=== PATIENT | female | born 1945 | race Caucasian/White ===

== ENCOUNTER 2022-05-22 08:23 | Outpatient (CLI) | payer MEDICARE, BC, SELFPAY | END 2022-05-22 08:24 | disposition home or self-care (01) | LOC: RAD 08:24 | PROVIDERS: PCP Surgery; Visit Provider Family Medicine | DX: M54.16 Radiculopathy, lumbar region (principal); M51.36 Other intervertebral disc degeneration, lumbar region | CPT/HCPCS: 64483; J1100; Q9966 ==

== ENCOUNTER 2022-06-14 13:00 | Outpatient (RCR) | payer MEDICARE, BC, SELFPAY | END 2023-01-16 16:30 | disposition home or self-care (01) | PROVIDERS: PCP Surgery; Visit Provider Family Medicine | DX: M54.16 Radiculopathy, lumbar region (principal); Z51.89 Encounter for other specified aftercare | CPT/HCPCS: 97110; 97162 ==

== ENCOUNTER 2023-02-20 11:34 | Outpatient (CLI) | payer MEDICARE, BC, SELFPAY ==
[2023-02-20 11:45] VITALS: BP 117/75; PULSE 71; RESP 16; O2SAT 100
[2023-02-20] MEDS: TETRACAINE 0.5% OPHTH 1 DROP EYE-BOTH ×3 (11:49→12:32)
[2023-02-20] MEDS: BRIMONIDINE TARTRATE 0.2% OPHTH 1 DROP EYE-BOTH ×2 (11:51→12:48)
--- NOTE | 2023-02-20 13:47 | P.OPTPRC_ITS ---
Procedure Note Date of procedure: 02/20/23 Will [facility] bill your pro fee for this procedure?: Yes Procedure Description: SURGEON: Akanksha Carpenter MD PREOPERATIVE DIAGNOSIS: Posterior capsular opacity, right and left eye POSTOPERATIVE DIAGNOSIS: Posterior capsular opacity, right and left eye PROCEDURE: YAG laser capsulotomy, both eyes ANESTHESIA: Topical. ESTIMATED BLOOD LOSS: None PATHOLOGY SPECIMEN: None COMPLICATIONS: None INDICATIONS: See consult note for details. The risks, benefits and alternatives of the procedure were explained to the patient, who elected to proceed and signed informed consent to do so. PROCEDURE: The patient was brought to the pre-holding area where the right and left eyes were identified as the operative eyes. I placed my initials above the eyes. The following was given in both eyes: The patient received 2 sets of 1 drop of 0.5% tetracaine and 1 drop of 1% tropicamide. They also received 1 drop of 0.2% brimonidine. They received 1 drop of 0.5% tetracaine immediately prior to bringing them back for the procedure. The patient was then brought to the procedure room where the right and left eyes were again identified as the operative eyes. A YAG Rafael capsulotomy lens was placed on the right eye. The laser was administered using a total number of 13 in shots with an energy of 2.4 mJ per shot for a total energy of 31 mJ. The patient tolerated the procedure well. A YAG Rafael capsulotomy lens was placed on the left eye. The laser was administered using a total number of 10 shots with an energy of 2.4 mJ per shot for a total energy of 24 mJ. The patient tolerated the procedure well. DISPOSITION: The patient was taken back to the pre-holding area and given 1 drop of 0.2% brimonidine in both eyes. They were discharged to home in stable condition. The patient was instructed to call me or go to the emergency department with any sudden change, including dramatic loss of vision, severe pain in the eye or eyebrow region, nausea, or vomiting. The patient was instructed to use the 0.2% brimonidine 1 drop 2 times a day in both eyes for 1 week. The patient will follow up in the clinic in 1-2 weeks.
== END 2023-02-20 12:48 | disposition home or self-care (01) ==
LOC: EYE PRC 11:37
PROVIDERS: PCP Surgery; Visit Provider Ophthalmology
DX: H26.9 Unspecified cataract (principal)
CPT/HCPCS: 66821; A9270

== ENCOUNTER 2023-04-18 13:04 | Emergency (ER) | payer MEDICARE, BC, SELFPAY ==
[2023-04-18 13:08] VITALS: BP 139/89; PULSE 71; RESP 18; TEMP 37.1; O2SAT 98; BMI 25.5
--- NOTE | 2023-04-18 13:22 | CRLHL7_ITS ---
For Patients: As a result of the Century Cures Act, medical imaging exams and procedure reports are released immediately into your electronic medical record. You may view this report before your referring provider. If you have questions, please contact your health care provider. INDICATION: Falls TECHNIQUE: CT head without contrast. COMPARISON: Head CT 12/08/2021 FINDINGS: CSF spaces: Within normal limits for age. Brain parenchyma: The diaz-white differentiation is normal. No sign of mass, hemorrhage, or midline shift. Skull base and calvarium: The visualized paranasal sinuses and mastoid air cells demonstrate no acute or significant findings. The visualized orbits are grossly unremarkable. No skull fractures. Frontal scalp hematoma. Atherosclerosis. IMPRESSION: Frontal scalp hematoma without calvarial fracture or intracranial bleed. Please note that all CT scans at this facility use dose modulation, iterative reconstruction, and/or weight-based dosing when appropriate to reduce radiation dose to as low as reasonably achievable. Dictated by Betito Harris MD @ 04/18/2023 3:21:07 PM (Electronically Signed)
--- NOTE | 2023-04-18 13:27 | CRLHL7_ITS ---
For Patients: As a result of the Century Cures Act, medical imaging exams and procedure reports are released immediately into your electronic medical record. You may view this report before your referring provider. If you have questions, please contact your health care provider. INDICATION: Trauma. Fall. TECHNIQUE: Two views of the left forearm. FINDINGS: On 1 of the 2 views there is the suggestion of a left radial neck fracture. This is not seen on the other view. There is an apparent soft tissue defect along the olecranon. Please correlate clinically. IMPRESSION: Possible subtle nondisplaced fracture of the left radial neck. Additional imaging may be helpful for confirmation. Dictated by Cristofer Rod MD @ 04/18/2023 2:23:34 PM (Electronically Signed)
--- NOTE | 2023-04-18 13:50 | CRLHL7_ITS ---
For Patients: As a result of the Cures Act, medical imaging exams and procedure reports are released immediately into your electronic medical record. You may view this report before your referring provider. If you have questions, please contact your health care provider. INDICATION: Trauma. Fall. TECHNIQUE: Chest and 2 detailed views of the right-sided ribs. FINDINGS: Clear lungs. No pneumothorax. Overall heart size is toward the upper limit of normal. Detailed views of the right-sided ribs are negative for acute displaced rib fractures. Vascular stent within the soft tissues of the proximal right upper extremity. Two level lumbar spine fusion incompletely visualized. IMPRESSION: 1. No acute cardiopulmonary process identified. 2. No acute displaced right-sided rib fractures identified. Dictated by Cristofer Rod MD @ 04/18/2023 2:22:20 PM (Electronically Signed)
--- NOTE | 2023-04-18 14:28 | CRLHL7_ITS ---
For Patients: As a result of the Cures Act, medical imaging exams and procedure reports are released immediately into your electronic medical record. You may view this report before your referring provider. If you have questions, please contact your health care provider. INDICATION: Trauma. Fall. Pain. TECHNIQUE: Three views of the left elbow. COMPARISON: Two views of the left forearm performed earlier on the same date. FINDINGS: There is a subtle radial cleft along the left radial neck laterally. There is no anterior elbow effusion. A subtle fracture is not confidently identified despite the appearance on the forearm x-rays from the same date. IMPRESSION: No definite left radial neck fracture. Dictated by Cristofer Rod MD @ 04/18/2023 3:37:52 PM (Electronically Signed)
--- NOTE | 2023-04-18 18:49 | ED_ITS ---
HPI - General Adult General Date Seen: 04/18/23 Chief complaint: Fall/Minor Trauma Stated complaint: Fall Time Seen by Provider: 04/18/23 13:15 Source: patient Mode of arrival: EMS Limitations: no limitations History of Present Illness HPI narrative: Patient is a 77-year-old female who was walking across the parking lot and believes that she did not lift her foot high enough and stumbled on the curb. She fell forward hitting her forehead on the pavement and landing on her outstretched left wrist. She has some pain in the left elbow and a deep laceration above the right eye. There is no loss of consciousness. She was unable to get up on her own and paramedics were called. She is brought in by EMS. She denies any neck pain. She does have some pain in the right side of her chest if she tries to sit up quickly. She is on aspirin but no other blood thinner. She has multiple medical problems. Related Data Home Medications Medication Instructions Recorded Confirmed amlodipine 5 mg tablet 5 mg PO BID 03/05/23 03/05/23 aspirin 81 mg capsule 81 mg PO QDAY 03/05/23 03/05/23 biotin 10,000 mcg capsule 10 cap PO DAILY 03/05/23 03/05/23 carvedilol 6.25 mg tablet (Coreg) 6.25 mg PO BID 03/05/23 03/05/23 coenzyme Q10 100 mg capsule mg PO DAILY 03/05/23 03/05/23 copper gluconate 2 mg capsule 2 mg PO QDAY 03/05/23 03/05/23 cyanocobalamin (vitamin B-12) 1,000 mcg PO 03/05/23 03/05/23 1,000 mcg tablet duloxetine 60 mg capsule,delayed 60 mg PO QDAY 03/05/23 03/05/23 release esomeprazole magnesium 20 mg 20 mg PO QDAY 03/05/23 03/05/23 capsule,delayed release (Nexium) folic acid 5 mg-vitamin B complex 1 tab PO QDAY 03/05/23 03/05/23 with C no.17 tablet insulin NPH isoph U-100 human 100 25 unit subcut QAM 03/05/23 03/05/23 unit/mL (3 mL) subcutaneous pen (Novolin N FlexPen) magnesium oxide 400 mg (241.3 mg 400 mg PO QDAY 03/05/23 03/05/23 magnesium) tablet metoprolol succinate 25 mg mg PO 03/05/23 03/05/23 tablet,extended release 24 hr mycophenolate sodium 180 mg 720 mg PO BID 03/05/23 03/05/23 tablet,delayed release (Myfortic) prednisone 5 mg tablet 5 mg PO QDAY 03/05/23 03/05/23 rosuvastatin 40 mg tablet 40 mg PO 03/05/23 03/05/23 sodium di- and 1 tab PO QDAY 03/05/23 03/05/23 monophosphate-potassium phos monobasic 250 mg tablet (V-Reyx-Hlzcdke) sulfamethoxazole 400 1 tab PO QDAY 03/05/23 03/05/23 mg-trimethoprim 80 mg tablet (Bactrim) tacrolimus 1 mg capsule, 3 mg PO Q12H 03/05/23 03/05/23 immediate-release Allergies Allergy/AdvReac Type Severity Reaction Status Date / Time JOEL Inhibitors Allergy Verified 04/18/23 13:08 amitriptyline Allergy Verified 04/18/23 13:08 amoxicillin Allergy Verified 04/18/23 13:08 bisacodyl [From PEG-Prep] Allergy Verified 04/18/23 13:08 bitolterol Allergy Verified 04/18/23 13:08 clopidogrel Allergy Verified 04/18/23 13:08 Penicillins Allergy Verified 04/18/23 13:08 polyethylene glycol 3350 Allergy Verified 04/18/23 13:08 [From PEG-Prep] potassium chloride Allergy Verified 03/05/23 10:12 [From PEG-Prep] sodium bicarbonate Allergy Verified 04/18/23 13:08 [From PEG-Prep] sodium chloride Allergy Verified 04/18/23 13:08 [From PEG-Prep] [id number] Reductase Allergy Verified 04/18/23 13:08 Inhibitor venlafaxine [From Effexor] Allergy Verified 04/18/23 13:08 Review of Systems Narrative: Review of systems is outlined above otherwise noted to be negative. [facility] Medical History (Updated 04/18/23 @ 19:12 by Terrell Ashby MD) End stage renal disease on dialysis ?N18.6 - End stage renal disease (ICD-10) ?Z99.2 - Dependence on renal dialysis (ICD-10) History of squamous cell carcinoma of skin ?Z85.828 - Personal history of other malignant neoplasm of skin (ICD-10) Spinal stenosis of lumbar region ?M48.061 - Spinal stenosis, lumbar region without neurogenic claudication (ICD-10) Urolithiasis ?N20.9 - Urinary calculus, unspecified (ICD-10) Tubular adenoma of colon (10/25/09) ?D12.6 - Benign neoplasm of colon, unspecified (ICD-10) Sepsis (02/22/13) ?A41.9 - Sepsis, unspecified organism (ICD-10) Painless hematuria ?R31.9 - Hematuria, unspecified (ICD-10) Osteopenia (10/25/09) ?M85.80 - Other specified disorders of bone density and structure, unspecified site (ICD-10) Hypertension (07/26/09) ?I10 - Essential (primary) hypertension (ICD-10) Hyperlipidemia (07/26/09) ?E78.5 - Hyperlipidemia, unspecified (ICD-10) Gastroesophageal reflux (07/26/09) ?K21.9 - Gastro-esophageal reflux disease without esophagitis (ICD-10) Fibromyalgia (04/20/11) ?M79.7 - Fibromyalgia (ICD-10) Depression (07/26/09) ?F32.A - Depression, unspecified (ICD-10) Bimalleolar fracture ?S82.843A - Displaced bimalleolar fracture of unspecified lower leg, initial encounter for closed fracture (ICD-10) Fhokl-ni-fdcsnbl renal failure (02/22/13) ?N17.9 - Acute kidney failure, unspecified (ICD-10) ?N18.9 - Chronic kidney disease, unspecified (ICD-10) Acute pyelonephritis (02/22/13) ?N10 - Acute pyelonephritis (ICD-10) Type 2 diabetes mellitus ?E11.9 - Type 2 diabetes mellitus without complications (ICD-10) CAD (coronary artery disease) ?I25.10 - Atherosclerotic heart disease of [place] coronary artery without angina pectoris (ICD-10) Surgical History (Updated 03/05/23 @ 10:20 by Cordelia Waters ~ COMPLIANCE ADMINISTRATOR, COMPLIANCE ADMINISTRATOR) History of kidney transplant (~09/2022) ?Z94.0 - Kidney transplant status (ICD-10) History of hysterectomy ?Z90.710 - Acquired absence of both cervix and uterus (ICD-10) History of gastric bypass ?Z98.84 - Bariatric surgery status (ICD-10) History of fusion of cervical spine ?Z98.1 - Arthrodesis status (ICD-10) History of lumbar surgery (04/20/11) ?Z98.890 - Other specified postprocedural states (ICD-10) History of heart artery stent ?Z95.5 - Presence of coronary angioplasty implant and graft (ICD-10) Status post open reduction with internal fixation (ORIF) of fracture of ankle (12/18/21) ?Z98.890 - Other specified postprocedural states (ICD-10) ?Z87.81 - Personal history of (healed) traumatic fracture (ICD-10) Social History Smoking Status: Former smoker Do you use any of these nicotine containing products: None Second hand tobacco smoke exposure: No How often do you have a drink containing alcohol: never AUDIT-C Alcohol total score: 0 Non-prescribed substance use: denies use Exam Narrative: Exam Narrative: Vitals noted. HEENT: She has a large contusion above her right eye. There is a 3 cm laceration along the eyebrow. There is already extensive bruising swelling above and below the eye. No underlying bony tenderness. The remainder of her scalp is nontender. Conjunctiva clear. Tympanic membranes are pearly white bilaterally. Posterior pharynx is clear without erythema or exudate. Neck is supple without adenopathy, thyromegaly, carotid bruit. Lungs: Clear to auscultation in all momin. No wheezes, rales, rhonchi. Heart: Regular rate and rhythm without murmur. Abdomen: Soft and nontender. No guarding, rigidity, rebound. Bowel sounds are normal. No palpable masses. Extremities: No cyanosis or edema. Good distal pulses. She has tenderness with pronation and supination of the left forearm. No pain at the wrist. There is pain of the proximal forearm. Skin: No abnormalities noted of the exposed skin. Multiple scattered bruises. Neurologic: Awake, alert, fully oriented. Neurologic exam is nonfocal. Const: Vital Signs, click to edit/add: Vital Signs - 24 hr 04/18/23 13:08 Temperature 98.8 F Pulse Rate [Right Pulse Oximeter] 71 Respiratory Rate 18 Blood Pressure [Le ft Upper Arm] 139/89 Pulse Oximetry 98 Oxygen Delivery Me thod Room Air Course Course Hospital Course: Patient seen and examined. X-rays of her forearm, elbow, chest with right rib details are ordered. CT of her head is ordered. Her tetanus is up-to-date. Reevaluation(s) Reevaluation #1: Her chest x-ray with rib right details is negative for fracture. CT of her head is unremarkable. X-ray of her left forearm shows what appears to be a nondisplaced proximal radial head fracture. X-rays of the elbow show a posterior fat pad but it is more difficult to see the fracture on these views. Reevaluation #2: Patient is placed in a posterior splint from a distal forearm through mid humerus. The elbow is held at 90? with the forearm in full supination. She is also placed in a sling for comfort. EKG shows normal sinus rhythm with some PACs. Rate is 72. No acute findings. CT of her head is unremarkable. Reevaluation #3: Following verbal consent her laceration is prepped and draped in sterile fashion scrubbed with a Betadine solution. 1% lidocaine with epinephrine is instilled for local anesthesia. The defect is closed with six simple interrupted sutures of 4-0 Ethilon. She tolerated this well. Good wound edge approximation and hemostasis our chief. Vital Signs Vital signs: Initial Vital Signs Temperature 98.8 F 04/18/23 13:08 Temperature Source Temporal Artery Scan 04/18/23 13:08 Pulse Rate 71 04/18/23 13:08 Pulse Rhythm Regular 04/18/23 13:08 Pulse Strength 3+ Normal 04/18/23 13:08 Respiratory Rate 18 04/18/23 13:08 Blood Pressure 139/89 04/18/23 13:08 Blood Pressure Mean 105 04/18/23 13:08 Blood Pressure Position Supine 04/18/23 13:08 Pulse Oximetry 98 04/18/23 13:08 Oxygen Delivery Method Room Air 04/18/23 13:08 Vital Signs Temperature 98.8 F 04/18/23 13:08 Pulse Rate 71 04/18/23 13:08 Respiratory Rate 18 04/18/23 13:08 Blood Pressure 139/89 04/18/23 13:08 Pulse Oximetry 98 04/18/23 13:08 Oxygen Delivery Method Room Air 04/18/23 13:08 Temperature 98.8 F 04/18/23 13:08 Pulse Rate 71 04/18/23 13:08 Respiratory Rate 18 04/18/23 13:08 Blood Pressure 139/89 04/18/23 13:08 Pulse Oximetry 98 04/18/23 13:08 Oxygen Delivery Method Room Air 04/18/23 13:08 Discharge Plan Discharge Clinical Impression: Facial laceration, Closed fracture of head of left radius Patient Disposition: Home, Self-Care Condition: Improved Additional Instructions: Keep splint on until seen in follow up. Ice. Oxycodone for severe pain. Ask if your PCP will see you for the fracture or if they want you to see Ortho. Sutures out in 7-10 days. Topical antibiotic ointment. Ice, ice, ice. Prescriptions: No Action rosuvastatin 40 mg tablet 40 mg PO coenzyme Q10 100 mg capsule PO DAILY metoprolol succinate 25 mg tablet extended release 24 hr PO biotin 10,000 mcg capsule 10 cap PO DAILY esomeprazole magnesium [Nexium] 20 mg capsule,delayed release(DR/EC) 20 mg PO QDAY cyanocobalamin (vitamin B-12) 1,000 mcg tablet 1,000 mcg PO copper gluconate 2 mg capsule 2 mg PO QDAY folic acid-B complex,C no.17 5 mg tablet 1 tab PO QDAY aspirin 81 mg capsule 81 mg PO QDAY duloxetine 60 mg capsule,delayed release(DR/EC) 60 mg PO QDAY amlodipine 5 mg tablet 5 mg PO BID carvedilol [Coreg] 6.25 mg tablet 6.25 mg PO BID Rx Instructions: must administer with a meal/food W-Vsvf-Nbcivjw 250 mg tablet 1 tab PO QDAY magnesium oxide 400 mg (241.3 mg magnesium) tablet 400 mg PO QDAY mycophenolate sodium [Myfortic] 180 mg tablet,delayed release (DR/EC) 720 mg PO BID Novolin N FlexPen 100 unit/mL (3 mL) insulin pen 25 unit subcut QAM prednisone 5 mg tablet 5 mg PO QDAY sulfamethoxazole-trimethoprim [Bactrim] 400-80 mg tablet 1 tab PO QDAY tacrolimus 1 mg capsule 3 mg PO Q12H Follow Up/Referrals: Sanjay Allan MD [Primary Care Provider] - Stand Alone Forms: [facility] Info Instructions
== END 2023-04-18 15:56 | disposition home or self-care (01) ==
PROVIDERS: Emergency Provider Family Medicine; PCP Surgery
DX: S01.111A Laceration without foreign body of right eyelid and periocular area, initial encounter (principal); S52.122A Displaced fracture of head of left radius, initial encounter for closed fracture; W18.09XA Striking against other object with subsequent fall, initial encounter
CPT/HCPCS: 12013; 29105; 70450; 71101; 73070; 73080; 73090; 99283; 99285

== ENCOUNTER 2023-04-22 13:39 | Emergency (ER) | payer MEDICARE, BC, SELFPAY ==
[2023-04-22] VITALS (56 sets, daily range): BP systolic 104–154; BP diastolic 52–106; PULSE 60–108; RESP 14–18; TEMP 35; O2SAT 89–100; BMI 24.1
--- NOTE | 2023-04-22 13:53 | CRLHL7_ITS ---
For Patients: As a result of the Cures Act, medical imaging exams and procedure reports are released immediately into your electronic medical record. You may view this report before your referring provider. If you have questions, please contact your health care provider. Indication: Left facial droop, speech issues Technique: Volumetric multidetector CT images of the head were obtained without the administration of low osmolar intravenous contrast. Comparison: CT head April 18, 2023 Findings: There is interval development of a small intra-axial hemorrhage within the left basal ganglia with minimal peripheral vasogenic edema. No evidence of extra-axial hemorrhage. There is no mass effect or midline shift. There is age-related cortical atrophy with mild sulcal widening and ex vacuo dilatation of the lateral ventricles. There are chronic small vessel disease changes in the subcortical and periventricular white matter without lost diaz-white differentiation. There is improved right periorbital, preseptal soft tissue swelling from comparison. The bony calvarium is grossly intact. The paranasal sinuses are clear. The mastoid air cells are well aerated. Impression: Interval development of a small likely hemorrhagic lacunar infarct of the left basal ganglia with minimal vasogenic edema likely representing subacute changes. Otherwise, no evidence of posttraumatic subdural or subarachnoid. No other acute intracranial abnormalities are identified. Improved right periorbital, preseptal soft tissue swelling from comparison. Findings discussed with Yany Frost at 2:30 p.m. April 22, 20[address] Please note that all CT scans at this facility use dose modulation, iterative reconstruction, and/or weight-based dosing when appropriate to reduce radiation dose to as low as reasonably achievable. Dictated by Stefan Hanna MD @ 04/22/2023 2:31:14 PM (Electronically Signed)
[2023-04-22 14:37] LABS: Glucose, Point-of-Care* 229 mg/dl (60-115)
--- NOTE | 2023-04-22 14:39 | ED.NEUROSD ---
HPI - Neuro Symptoms/Deficit General Time Seen by Provider: 14:39 Date Seen: 04/22/23 Chief Complaint: Neuro Symptoms/Altered Deficit Stated Complaint: Trouble speaking, L side of face is droopy Time Seen by Provider: 04/22/23 13:52 Source: patient, RN notes reviewed and old records reviewed Mode of arrival: ambulatory Limitations: no limitations History of Present Illness HPI Narrative: Patient is brought in by family member for symptoms of right facial drooping and slurred speech starting about 11:00 a.m. this morning. Nursing staff alerted me immediately and she was seen. This was noted to be at 1:50 p.m. when I looked at the clock before walking in to see her. She notes she was going out with friends for lunch, noted slurred speech and facial droop. She had a recent fall. Review of her records show she was in the ER on April 18, had a facial laceration with right eyebrow lack repaired, had CTs done, was found to have her radius fracture and is splinted on the left arm. She has no new trauma. She is only on aspirin. Did review her chart after seen her and she is status post kidney transplant, was done at [facility]. Patient does not note any changes in symptoms and extremities. Of note her left arm is immobilized. But no right arm numbness tingling incoordination. Nursing staff felt that her gait was possibly unsteady coming in. Onset (ago): hour(s) Timing confirmed by: family member Location: speech, right face and dysarthria History of same: No Related Data Home Medications Medication Instructions Recorded Confirmed amlodipine 5 mg tablet 5 mg PO BID 03/05/23 03/05/23 aspirin 81 mg capsule 81 mg PO QDAY 03/05/23 03/05/23 biotin 10,000 mcg capsule 10 cap PO DAILY 03/05/23 03/05/23 carvedilol 6.25 mg tablet (Coreg) 6.25 mg PO BID 03/05/23 03/05/23 coenzyme Q10 100 mg capsule mg PO DAILY 03/05/23 03/05/23 copper gluconate 2 mg capsule 2 mg PO QDAY 03/05/23 03/05/23 cyanocobalamin (vitamin B-12) 1,000 mcg PO 03/05/23 03/05/23 1,000 mcg tablet duloxetine 60 mg capsule,delayed 60 mg PO QDAY 03/05/23 03/05/23 release esomeprazole magnesium 20 mg 20 mg PO QDAY 03/05/23 03/05/23 capsule,delayed release (Nexium) folic acid 5 mg-vitamin B complex 1 tab PO QDAY 03/05/23 03/05/23 with C no.17 tablet insulin NPH isoph U-100 human 100 25 unit subcut QAM 03/05/23 03/05/23 unit/mL (3 mL) subcutaneous pen (Novolin N FlexPen) magnesium oxide 400 mg (241.3 mg 400 mg PO QDAY 03/05/23 03/05/23 magnesium) tablet metoprolol succinate 25 mg mg PO 03/05/23 03/05/23 tablet,extended release 24 hr mycophenolate sodium 180 mg 720 mg PO BID 03/05/23 03/05/23 tablet,delayed release (Myfortic) prednisone 5 mg tablet 5 mg PO QDAY 03/05/23 03/05/23 rosuvastatin 40 mg tablet 40 mg PO 03/05/23 03/05/23 sodium di- and 1 tab PO QDAY 03/05/23 03/05/23 monophosphate-potassium phos monobasic 250 mg tablet (B-Ytnl-Aonalnk) sulfamethoxazole 400 1 tab PO QDAY 03/05/23 03/05/23 mg-trimethoprim 80 mg tablet (Bactrim) tacrolimus 1 mg capsule, 3 mg PO Q12H 03/05/23 03/05/23 immediate-release Allergies Allergy/AdvReac Type Severity Reaction Status Date / Time JOEL Inhibitors Allergy Verified 04/22/23 13:52 amitriptyline Allergy Verified 04/22/23 13:52 amoxicillin Allergy Verified 04/22/23 13:52 bisacodyl [From PEG-Prep] Allergy Verified 04/22/23 13:52 bitolterol Allergy Verified 04/22/23 13:52 clopidogrel Allergy Verified 04/22/23 13:52 Penicillins Allergy Verified 04/22/23 13:52 polyethylene glycol 3350 Allergy Verified 04/22/23 13:52 [From PEG-Prep] potassium chloride Allergy Verified 03/05/23 10:12 [From PEG-Prep] sodium bicarbonate Allergy Verified 04/22/23 13:52 [From PEG-Prep] sodium chloride Allergy Verified 04/22/23 13:52 [From PEG-Prep] Mpoizar-NEN-RqP Reductase Allergy Verified 04/22/23 13:52 Inhibitor venlafaxine [From Effexor] Allergy Verified 04/18/23 13:08 Review of Systems Status of ROS: Reports: 6 or more systems reviewed and unremarkable except as noted in History and below [facility] Medical History End stage renal disease on dialysis ?N18.6 - End stage renal disease (ICD-10) ?Z99.2 - Dependence on renal dialysis (ICD-10) History of squamous cell carcinoma of skin ?Z85.828 - Personal history of other malignant neoplasm of skin (ICD-10) Spinal stenosis of lumbar region ?M48.061 - Spinal stenosis, lumbar region without neurogenic claudication (ICD-10) Urolithiasis ?N20.9 - Urinary calculus, unspecified (ICD-10) Tubular adenoma of colon (10/25/09) ?D12.6 - Benign neoplasm of colon, unspecified (ICD-10) Sepsis (02/22/13) ?A41.9 - Sepsis, unspecified organism (ICD-10) Painless hematuria ?R31.9 - Hematuria, unspecified (ICD-10) Osteopenia (10/25/09) ?M85.80 - Other specified disorders of bone density and structure, unspecified site (ICD-10) Hypertension (07/26/09) ?I10 - Essential (primary) hypertension (ICD-10) Hyperlipidemia (07/26/09) ?E78.5 - Hyperlipidemia, unspecified (ICD-10) Gastroesophageal reflux (07/26/09) ?K21.9 - Gastro-esophageal reflux disease without esophagitis (ICD-10) Fibromyalgia (04/20/11) ?M79.7 - Fibromyalgia (ICD-10) Depression (07/26/09) ?F32.A - Depression, unspecified (ICD-10) Bimalleolar fracture ?S82.843A - Displaced bimalleolar fracture of unspecified lower leg, initial encounter for closed fracture (ICD-10) Uuwur-ft-kyzxgja renal failure (02/22/13) ?N17.9 - Acute kidney failure, unspecified (ICD-10) ?N18.9 - Chronic kidney disease, unspecified (ICD-10) Acute pyelonephritis (02/22/13) ?N10 - Acute pyelonephritis (ICD-10) Type 2 diabetes mellitus ?E11.9 - Type 2 diabetes mellitus without complications (ICD-10) CAD (coronary artery disease) ?I25.10 - Atherosclerotic heart disease of [place] coronary artery without angina pectoris (ICD-10) Surgical History History of kidney transplant (~09/2022) ?Z94.0 - Kidney transplant status (ICD-10) History of hysterectomy ?Z90.710 - Acquired absence of both cervix and uterus (ICD-10) History of gastric bypass ?Z98.84 - Bariatric surgery status (ICD-10) History of fusion of cervical spine ?Z98.1 - Arthrodesis status (ICD-10) History of lumbar surgery (04/20/11) ?Z98.890 - Other specified postprocedural states (ICD-10) History of heart artery stent ?Z95.5 - Presence of coronary angioplasty implant and graft (ICD-10) Status post open reduction with internal fixation (ORIF) of fracture of ankle (12/18/21) ?Z98.890 - Other specified postprocedural states (ICD-10) ?Z87.81 - Personal history of (healed) traumatic fracture (ICD-10) Social History Smoking Status: Former smoker Do you use any of these nicotine containing products: None Second hand tobacco smoke exposure: No How often do you have a drink containing alcohol: never AUDIT-C Alcohol total score: 0 Non-prescribed substance use: denies use Exam Const: Vital Signs, click to edit/add: Vital Signs - 24 hr 04/22/23 13:52 04/22/23 13:54 04/22/23 14:30 Temperature 95 F L Pulse Rate Pulse Rate [Right Pulse Oximeter] 108 H 70 Respiratory Rate 16 14 Blood Pressure Blood Pressure [Le ft Leg] 116/73 104/86 Pulse Oximetry 98 98 98 Oxygen Delivery Me thod Room Air 04/22/23 14:44 04/22/23 14:45 04/22/23 14:45 Temperature Pulse Rate 72 68 Pulse Rate [Right Pulse Oximeter] Respiratory Rate 14 Blood Pressure Blood Pressure [Le ft Leg] Pulse Oximetry 98 98 Oxygen Delivery Me thod 04/22/23 14:47 04/22/23 14:48 04/22/23 15:00 Temperature Pulse Rate 71 68 Pulse Rate [Right Pulse Oximeter] Respiratory Rate 16 Blood Pressure 104/73 Blood Pressure [Le ft Leg] Pulse Oximetry 99 100 Oxygen Delivery Me thod 04/22/23 15:00 04/22/23 15:02 04/22/23 15:03 Temperature Pulse Rate 70 73 72 Pulse Rate [Right Pulse Oximeter] Respiratory Rate Blood Pressure 119/61 Blood Pressure [Le ft Leg] Pulse Oximetry 96 96 95 Oxygen Delivery Me thod 04/22/23 15:15 04/22/23 15:15 04/22/23 15:19 Temperature Pulse Rate 77 74 Pulse Rate [Right Pulse Oximeter] Respiratory Rate 16 Blood Pressure 123/87 Blood Pressure [Le ft Leg] Pulse Oximetry 99 100 Oxygen Delivery Me thod 04/22/23 15:20 04/22/23 15:30 04/22/23 15:30 Temperature Pulse Rate 77 77 Pulse Rate [Right Pulse Oximeter] Respiratory Rate 16 Blood Pressure Blood Pressure [Le ft Leg] Pulse Oximetry 100 99 Oxygen Delivery Me thod 04/22/23 15:32 04/22/23 15:33 04/22/23 15:45 Temperature Pulse Rate 60 74 Pulse Rate [Right Pulse Oximeter] 74 Respiratory Rate 16 Blood Pressure 133/82 Blood Pressure [Le ft Leg] Pulse Oximetry 89 100 Oxygen Delivery Me thod 04/22/23 15:45 04/22/23 15:47 04/22/23 15:48 Temperature Pulse Rate 76 Pulse Rate [Right Pulse Oximeter] Respiratory Rate Blood Pressure 126/106 H Blood Pressure [Le ft Leg] Pulse Oximetry 99 98 98 Oxygen Delivery Me thod 04/22/23 16:00 04/22/23 16:00 04/22/23 16:02 Temperature Pulse Rate 76 79 Pulse Rate [Right Pulse Oximeter] 82 Respiratory Rate 18 Blood Pressure 135/91 H Blood Pressure [Le ft Leg] Pulse Oximetry 98 100 Oxygen Delivery Me thod Documenting provider has reviewed patient's vital signs: yes Common normals: no apparent distress, average body habitus, oriented x3 and no limitations General appearance: cooperative, comfortable, well kempt, well developed and frail appearing Other: Has facial ecchymosis around eyes, cheeks. She has a well-healing laceration in the right eyebrow area. Pupils are equal round reactive, sclera clear. No drainage from ears or nares. She has a right facial droop, corner of mouth stays down with smiling and talking. Is able to open her mouth, tongue protrudes midline. Speech is mildly dysarthric. She is able to find the words she wants to say, speech is meaningful and son sickle but dysarthric. I still am able to make out her speech. Neck is supple, no masses, nontender. Lungs are clear good air entry without wheezing or crackles. CV regular rate and rhythm, no murmur, normal S1 and S2. Abdomen is soft no rebound or guarding organomegaly. She is able to lift each leg off the bed and hold it up. Normal light touch sensation of both lower extremities, both upper extremities. Her left upper extremity is splinted and in a sling, the right hand and fingers are swollen but she does have full range of motion, states sensation is normal. These fingers are warm and dry with normal cap refill. Her right arm is showing 5/5 and symmetric strength, normal light touch sensation, normal rapid alternating finger movements, no arm drift. Neuro: Common normals: oriented x3 Psych: Appearance: well kempt Course Course Hospital Course: Patient did have CT imaging when she was in on the . We do need to obtain a new stat head CT. This certainly could be a new stroke and may need to consider CTA imaging with head and neck. I will order the CTA with the stat head CT. There is a possibility of late traumatic change with bleed. We will hopefully be able to identify that on the noncontrast head CT. When she is done with her neuro imaging, she will come back over and have appropriate labs, cardiac monitoring, pulse oximetry and an EKG. I see patient is also on insulin, will have nursing staff do an Accu-Chek. Consultations Consultation #1: Received phone call from radiologist that there is a left basal ganglia hypertensive bleed. He does not feel that this is traumatic. It is a likely hypertensive lacunar infarct with bleed. Will page stroke neurology. Staff did page stroke Neurology at [facility] but with the bleeding, the protocols to talk to the natural gas treating unit operator. Did talk to Dr. Wasserman and with her history of a recent renal transplant at [facility], we discussed the decision to talk with them 1st. Family and patient are in agreement with [facility] as well. Did finally reach the diesel engine mechanic nurse Keke at 3:00 p.m., she will page appropriate service and contact me back. Have reviewed with patient and her family member the findings of the stroke with the bleed. She initially had stated she had some headache but opted to not take the Tylenol as she was feeling better without intervention. Time: 12:23 Consultation #2: Have spoke with Dr. Castro stroke neurologist at [facility]. He is accepting patient. We have reviewed her care. We will await bed placement, they will call us back. I will update patient regarding this. Time: 15:46 Vital Signs Vital signs: Initial Vital Signs Temperature 95 F L 04/22/23 13:52 Temperature Source Temporal Artery Scan 04/22/23 13:52 Pulse Rate 108 H 04/22/23 13:52 Respiratory Rate 16 04/22/23 13:52 Blood Pressure 116/73 04/22/23 13:52 Blood Pressure Mean 87 04/22/23 13:52 Blood Pressure Position Supine 04/22/23 13:52 Pulse Oximetry 98 04/22/23 13:52 Vital Signs Temperature 95 F L 04/22/23 13:52 Pulse Rate 108 H 04/22/23 13:52 Respiratory Rate 16 04/22/23 13:52 Blood Pressure 116/73 04/22/23 13:52 Pulse Oximetry 98 04/22/23 13:52 Temperature 95 F L 04/22/23 13:52 Pulse Rate 77 04/22/23 20:30 Respiratory Rate 18 04/22/23 19:30 Blood Pressure 129/80 04/22/23 20:02 Pulse Oximetry 99 04/22/23 20:30 Oxygen Delivery Method Room Air 04/22/23 14:30 MDM - Neuro Symptoms/Deficit Differential Diagnosis Differential diagnosis: Likely subarachnoid hemorrhage, cerebrovascular accident and transient cerebral ischemia Lab Data Attestation: I reviewed the patient's lab results. Labs: Lab Results 04/22/23 04/22/23 Range/Units 13:54 14:30 WBC 4.68 (4.50-11.00) K/uL RBC 4.45 (4.00-5.20) m/uL Hgb 13.3 (12.0-16.0) gm/dL Hct 40.9 (33.0-51.0) % MCV 92 (80-100) fL MCH 30 (26-34) pg MCHC 33 (32-36) gm/dL RDW Coeff of Lacy 13.7 (11.5-15.5) % Plt Count 152 (140-440) K/uL Neut % (Auto) 60.5 (42.0-72.0) % Lymph % (Auto) 21.4 (20-44) % [place] % (Auto) 8.5 (0.0-11.0) % Eos % (Auto) 1.3 (0.0-7.0) % Baso % (Auto) 0.6 (0.0-3.0) % Neut # (Auto) 2.83 (1.7-7.0) K/uL Lymph # (Auto) 1.00 (0.90-2.90) K/uL [place] # (Auto) 0.40 (0.00-0.90) K/UL Eos # (Auto) 0.06 (0.00-0.50) K/uL Baso # (Auto) 0.03 (0.00-0.30) K/uL Diff Slide Review Acceptable Review (Acceptable) INR 1.12 H (0.91-1.10) APTT 28 (23-33) Seconds Sodium 138 (135-149) mmol/L Potassium 3.2 L (3.6-5.1) mmol/L Chloride 104 (96-114) mmol/L Carbon Dioxide 27 (20-32) mmol/L BUN 17 (7-30) mg/dL Creatinine 0.5 (0.5-1.5) mg/dL Estimated Creat Clear 43.74 Estimated GFR 98 ml/min Glucose 240 H (60-115) mg/dL Calcium 8.6 (8.4-10.6) mg/dL Total Bilirubin 0.5 (0.1-1.5) mg/dL AST 51 H (12-35) U/L ALT 58 H (4-35) U/L Alkaline Phosphatase 78 (40-150) U/L C-Reactive Protein 0.5 (0.5-1.0) mg/dL Total Protein 5.6 L (6.0-8.3) g/dL Albumin 3.4 (3.3-5.0) g/dL Ethyl Alcohol < 0.01 L (0.01-0.03) % POC Glucose 229 H (60-115) mg/dl Imaging Data CT scan - head: Attestation: I have reviewed the pertinent imaging results. My impression: Can see bleed on the left side, wait radiology over-read. Radiologist's impression: Patient: SAMIR MAYNARDTTSTOESZER Facility:?[facility] Patient ID:?[id number] Site Patient ID:?[id number]. Site :?[id number] Study:?CT Head STROKE PROTOCOL-04/22/2023 2:11:40 PM Ordering Physician:Pepe Slade Final Report: Indication: Left facial droop, speech issues Technique: Volumetric multidetector CT images of the head were obtained without the administration of low osmolar intravenous contrast. Comparison: CT head April 18, 2023 Findings: There is interval development of a small intra-axial hemorrhage within the left basal ganglia with minimal peripheral vasogenic edema. No evidence of extra-axial hemorrhage. There is no mass effect or midline shift. There is age-related cortical atrophy with mild sulcal widening and ex vacuo dilatation of the lateral ventricles. There are chronic small vessel disease changes in the subcortical and periventricular white matter without lost diaz-white differentiation. There is improved right periorbital, preseptal soft tissue swelling from comparison. The bony calvarium is grossly intact. The paranasal sinuses are clear. The mastoid air cells are well aerated. Impression: Interval development of a small likely hemorrhagic lacunar infarct of the left basal ganglia with minimal vasogenic edema likely representing subacute changes. Otherwise, no evidence of posttraumatic subdural or subarachnoid. No other acute intracranial abnormalities are identified. Improved right periorbital, preseptal soft tissue swelling from comparison. Findings discussed with Yany Frost at 2:30 p.m. April 22, [address] all CT scans at this facility use dose modulation, iterative reconstruction, and/or weight-based dosing when appropriate to reduce radiation dose to as low as reasonably achievable. Dictated by Stefan Hanna MD @ 04/22/2023 2:31:14 PM (Electronic Signature) ECG Data Attestation: I personally reviewed and interpreted this ECG as follows: (Sinus rhythm with PAC, 69 beats per minute. No ischemia. QT corrected 443 milliseconds.) ECG interpretation date: 04/22/23 ECG interpretation time: 15:08 Critical Care Time Critical Care Time Critical Care Time: No Total Critical Care Time in Minutes: 30 Discharge Plan Discharge Clinical Impression: Hemorrhagic cerebrovascular accident (CVA) Patient Disposition: [facility] Discharge Location: [facility] Condition: Unchanged Prescriptions: No Action rosuvastatin 40 mg tablet 40 mg PO coenzyme Q10 100 mg capsule PO DAILY metoprolol succinate 25 mg tablet extended release 24 hr PO biotin 10,000 mcg capsule 10 cap PO DAILY esomeprazole magnesium [Nexium] 20 mg capsule,delayed release(DR/EC) 20 mg PO QDAY cyanocobalamin (vitamin B-12) 1,000 mcg tablet 1,000 mcg PO copper gluconate 2 mg capsule 2 mg PO QDAY folic acid-B complex,C no.17 5 mg tablet 1 tab PO QDAY aspirin 81 mg capsule 81 mg PO QDAY duloxetine 60 mg capsule,delayed release(DR/EC) 60 mg PO QDAY amlodipine 5 mg tablet 5 mg PO BID carvedilol [Coreg] 6.25 mg tablet 6.25 mg PO BID Rx Instructions: must administer with a meal/food S-Lgpw-Ggfcqar 250 mg tablet 1 tab PO QDAY magnesium oxide 400 mg (241.3 mg magnesium) tablet 400 mg PO QDAY mycophenolate sodium [Myfortic] 180 mg tablet,delayed release (DR/EC) 720 mg PO BID Novolin N FlexPen 100 unit/mL (3 mL) insulin pen 25 unit subcut QAM prednisone 5 mg tablet 5 mg PO QDAY sulfamethoxazole-trimethoprim [Bactrim] 400-80 mg tablet 1 tab PO QDAY tacrolimus 1 mg capsule 3 mg PO Q12H Stand Alone Forms: MyHealth Info Instructions
[2023-04-22 14:40] LABS: Basophils Absolute Auto 0.03 K/uL (0.00-0.30); Basophils Percent Auto 0.6 % (0.0-3.0); Eosinophils Absolute Auto 0.06 K/uL (0.00-0.50); Eosinophils Percent Auto 1.3 % (0.0-7.0); Hematocrit 40.9 % (33.0-51.0); Hemoglobin* 13.3 gm/dL (12.0-16.0); Immature Granulocytes Abs Auto 0.36 K/uL (0.00-0.30); Immature Granulocytes Pct Auto 7.7 %; Lymphocytes Percent Auto 21.4 % (20-44); Mean Corpuscular HGB Conc 33 gm/dL (32-36); Mean Corpuscular Hemoglobin 30 pg (26-34); Mean Corpuscular Volume 92 fL (80-100); Monocytes Percent Auto 8.5 % (0.0-11.0); Neutrophils Absolute Auto 2.83 K/uL (1.7-7.0); Neutrophils Percent Auto 60.5 % (42.0-72.0); Platelet Count* 152 K/uL (140-440); RDW Coefficient of Variation % 13.7 % (11.5-15.5); Red Blood Count 4.45 m/uL (4.00-5.20); White Blood Count* 4.68 K/uL (4.50-11.00)
[2023-04-22 14:52] LABS: Albumin* 3.4 g/dL (3.3-5.0); Chloride* 104 mmol/L (96-114); Sodium* 138 mmol/L (135-149)
[2023-04-22 14:53] LABS: Potassium* 3.2 mmol/L (3.6-5.1)
[2023-04-22 14:54] LABS: Creatinine* 0.5 mg/dL (0.5-1.5); Est. Creatinine Clearance* 43.74; Estimated Glomerular Filt Rate 98 ml/min
[2023-04-22 14:55] LABS: Alanine Aminotransferase* 58 U/L (4-35); Alkaline Phosphatase* 78 U/L (40-150); Aspartate Amino Transferase* 51 U/L (12-35); Bilirubin Total* 0.5 mg/dL (0.1-1.5); Blood Urea Nitrogen* 17 mg/dL (7-30); Carbon Dioxide* 27 mmol/L (20-32); Total Protein* 5.6 g/dL (6.0-8.3)
[2023-04-22 14:56] LABS: Calcium* 8.6 mg/dL (8.4-10.6); Glucose* 240 mg/dL (60-115)
[2023-04-22 14:58] LABS: C Reactive Protein* 0.5 mg/dL (0.5-1.0)
[2023-04-22 14:59] LABS: Ethanol* < 0.01 % (0.01-0.03)
--- NOTE | 2023-04-22 14:59 | ED.NURSE ---
Pt reporting onset of 4/10 frontal/medial headache between her eyes. MD notified.
--- NOTE | 2023-04-22 15:09 | ED.NURSE ---
Pt states headache has resolved, declines tylenol.
[2023-04-22 15:27] LABS: INR 1.12 (0.91-1.10); Prothrombin Time 15.1 Seconds
[2023-04-22 15:28] LABS: Partial Thromboplastin Time* 28 Seconds (23-33)
--- NOTE | 2023-04-22 15:41 | ED.NURSE ---
Pt's L arm is in a cast from prior injury/visit. Pt's L hand is visibly swollen and pt does report discomfort in L arm. Pt reports transient numbness/tingling in L hand that resolves on its own. Pt reports sensation is currently normal in L hand. At this time L radial pulse is palpable, cap refill in L hand <3 seconds, hand temperatures equivalent bilaterally.
[2023-04-22 16:03] LABS: Slide Review Reflex Yes
--- NOTE | 2023-04-22 16:05 | ED.NURSE ---
Pt c/o itching/scratching at edges of the cast on her L arm. Cast edges are notably sharp/prickly. MD placed several 2x2 gauze pads around the prickly edges of cast by pt's L wrist. Per MD direction, typewriter aligner placed a 4x4 gauze pad around the prickly edge of the cast on pt's upper L arm.
[2023-04-22 16:06] LABS: Slide Review Acceptable Review (Acceptable)
--- NOTE | 2023-04-22 17:24 | ED.NURSE ---
Report called to ALICJA Keller at [place].
[2023-04-22] MEDS: TACROLIMUS 0.5 MG CAPSULE 1 MG PO (19:32)
--- NOTE | 2023-04-22 20:39 | ED.NURSE ---
Updates and depart time called to ALICJA Shaw at [facility].
== END 2023-04-22 20:40 | disposition other institution (70) ==
PROVIDERS: Emergency Provider Family Medicine; PCP Surgery
DX: I62.9 Nontraumatic intracranial hemorrhage, unspecified (principal)
CPT/HCPCS: 36415; 70450; 80053; 80197; 82077; 82947; 85025; 85610; 85730; 86140; 93005; 94761; 99285; 99291; J7507

== ENCOUNTER 2023-04-22 20:22 | Outpatient (CLI) | payer MEDICARE, BC, SELFPAY | END 2023-04-22 20:23 | disposition home or self-care (01) | LOC: AMB 04-24 13:06 | PROVIDERS: PCP Surgery; Visit Provider Emergency Medicine Emergency Medical Services | DX: I61.9 Nontraumatic intracerebral hemorrhage, unspecified (principal) | CPT/HCPCS: A0425; A0427; A0429 ==

== ENCOUNTER 2023-06-05 10:30 | Outpatient (RCR) | payer MEDICARE, BC, SELFPAY | END 2023-06-05 13:02 | disposition home or self-care (01) | PROVIDERS: PCP Surgery; Visit Provider Family Medicine | DX: S42.402D Unspecified fracture of lower end of left humerus, subsequent encounter for fracture with routine healing (principal); I63.89 Other cerebral infarction; Z51.89 Encounter for other specified aftercare | CPT/HCPCS: 92523; 97110; 97140; 97165; X5282 ==

== ENCOUNTER 2023-07-19 09:40 | Outpatient (CLI) | payer MEDICARE, BC, SELFPAY ==
--- OUTSIDE RECORDS SUMMARY | 2023-07-19 09:42 | XMS_ITS | Continuity of Care Document ---
Author Name Unknown Organization [facility] Address [address] [place] [address] Phone Care Team Providers Care Monitor Worker Name Role Phone Alex Mckeon Unavailable Unavailable Allergies, Adverse Reactions, Alerts Substance Reaction Status Criticality amoxicillin Active No Information Medications Medication Instructions Dosage Effective Dates (start - stop) Status Comments PRESERVISION AREDS (unknown strength) Not Available - Active CALCIUM ACETATE (unknown strength) Not Available - Active PRAVASTATIN SODIUM (unknown strength) Not Available - Active CLOPIDOGREL BISULFATE (unknown strength) Not Available - Active OMEPRAZOLE (unknown strength) Not Available - Active VITAMIN D3 (unknown strength) Not Available - Active OXYCODONE HCL (unknown strength) Not Available - Active ISOSORBIDE MONONITRATE (unknown strength) Not Available - Active CYCLOBENZAPRINE HCL (unknown strength) Not Available - Active FUROSEMIDE (unknown strength) Not Available - Active BIOTIN (unknown strength) Not Available - Active ASPIRIN (unknown strength) Not Available - Active AMLODIPINE BESYLATE (unknown strength) Not Available - Active BUSPIRONE HCL (unknown strength) Not Available - Active PROTONIX IV (unknown strength) Not Available - Active ATENOLOL-CHLORTHALIDONE (unknown strength) Not Available - Active CYMBALTA (unknown strength) Not Available - Active Procedures Procedure Date Office/Outpatient Visit,New, Mod 2019 Initial Hospital Care, Low Office/outpatient visit,est, mod 2010 X-ray exam lower spine 2-3 views 2010 Postop followup visit X-ray exam lower spine 2-3 views 2009 Lumbar spine fusion, posterolateral Lumbar spine fus, pstr intrbdy sngl Remove lumbar spine lamina, 1 seg Remove added spine lamina, 1 seg 2009 Insert spine fixation, posterior 2009 Apply spinal prosthetic device 10 Autograft, spine surgery, local 010 PA Assist Lumbar spine fusion, posterola teral PA Assist Lumbar spine fus, pstr intrbdy sngl PA Assist Remove lumbar spine lamina, 1 seg PA Assist Remove added spine lamina, 1 s eg PA Assist Insert spine fixation, posteri or PA Assist Apply spinal prosthetic device Office consultation, moderate 0 X-ray exam lwr spine, min 4 views Advance Directives Directive Yes / No Effective Date File Name No Information Encounters Encounter Description Practice Location Reason(s) For Visit Diagnoses Date Provider Providers Copied on Encounter [facility], [address], [place], [place], [id number], [place] tel:[phone] [facility] No Information 1 Kike Johnson. [facility], [address], [place], [place], [id number], [place]. tel:[phone] Office/Outpa tient Visit,New, [facility], [address], [place], [place], [id number], [place] tel:[phone] [facility] [place] Radiculopath y, cervical regionRadicu lopathy, lumbar region 0 Kike Johnson. [facility], [address], [place], [place], [id number], [place]. tel:[phone] Referring Provider: Alex Stokes, [facility] [address], [place], [address] . tel:[phone] Initial Hospital Care, Low [facility], [address], [place], [place], [id number], [place] tel:[phone] [facility] No Information 0 Naomi Bess. [facility], [address], [place], [address], [place]. tel:[phone] Referring Provider: Sanjay Cordoba, [address], [address] . tel:[phone] Office/outpa tient visit,est, mod Z [facility], [address] [facility] [address] [place] [address], [address], [place] tel:[phone] [facility] No Information 0 6201 1 Transfeldt Ensor. [facility], [address] [place] [address], [address], [id number], [place]. tel:[phone] Referring Provider: Praveen Weston, [address], [address]. tel:[phone] Z [facility], [address] [place] [address], [facility], [place] tel:[phone] [facility] No Information 0 6201 1 Eckroth Edwin. [address] [place] [address], [id number], [place]. tel:[phone] Z [facility], [address], [facility], [place] tel:[phone] [facility] No Information 2 8201 0 Transfeldt Ensor. [facility], [address] [place] [address], [address], [id number], [place]. tel:[phone] Referring Provider: Praveen Weston, [address], [address]. tel:[phone] Z [facility], [address] [place] [address], [facility], [place] tel:[phone] [facility] No Information 6-201 0 Transfeldt Ensor. [facility] [place], [address] [place] [address], [address], [id number], [place]. tel:[phone] Referring Provider: Praveen Weston, [facility] [address] [place], [address]. tel:[phone] Office consultation , moderate Z [facility], [address] [place], [place] [address] [address], [place], [address], [place] tel:[phone] [facility] No Information 3-201 0 Transfeldt Ensor. [facility], [address] [place] [address], [facility] [address], [place], [id number], [place]. tel:[phone] Family History Family Member Type Diagnosis Age At Onset Mother Problem (finding) Heart disease Father Problem (finding) Heart disease Payers Payer name Insurance type Covered libertarian ID Lesa yoon(s) [facility] [id number] Medicare [facility] [id number] Social History Type Description Quantity Date Captured Comments Sex Female Smoking Status No Information Chief Complaint And Reason For Visit No Information Reason For Referral Reason For Referral No Information History Of Present Illness Encounter Date Complaint History Of Prese nt Illness No Information Functional Status Date Functional Assessmen t No Information Instructions Date Instruction Additional Infor mation No Information Assessments Type Assessment Date No Information Patient Care Teams Name Effective Dates (start - stop) Status Members No Information
== END 2023-07-19 09:41 | disposition home or self-care (01) ==
LOC: INJ CL 09:40
PROVIDERS: PCP Surgery; Visit Provider Family Medicine
DX: M54.16 Radiculopathy, lumbar region (principal); M51.36 Other intervertebral disc degeneration, lumbar region
CPT/HCPCS: 64483; J1100

== ENCOUNTER 2024-02-06 09:30 | Outpatient (RCR) | payer MEDICARE, BC, SELFPAY | END 2024-06-05 23:59 | disposition home or self-care (01) | PROVIDERS: PCP Surgery; Visit Provider Family Medicine | DX: M75.42 Impingement syndrome of left shoulder (principal); M19.012 Primary osteoarthritis, left shoulder; M25.512 Pain in left shoulder; G89.29 Other chronic pain; M54.50 Low back pain, unspecified; M54.6 Pain in thoracic spine; R26.81 Unsteadiness on feet; M54.16 Radiculopathy, lumbar region; M62.81 Muscle weakness (generalized); Z51.89 Encounter for other specified aftercare | CPT/HCPCS: 97110; 97140; 97162; 97164 ==

== ENCOUNTER 2024-03-20 14:29 | Outpatient (CLI) | payer MEDICARE, BC, SELFPAY ==
--- OUTSIDE RECORDS SUMMARY | 2024-03-20 14:31 | XMS_ITS | Data Portability ---
Author Organization [place] - [facility], [employer] Address [address] [place] [address] Care Team Providers Care Sleeve Bottom Feller Name Role Phone BRYANT TYSON Primary Care Provider [phone] Assessment Encounter Date Assessment Date Assessment LastModified by Organization Details LastModified Time 02/14/2023 02/14/2023 Patient seen in office today for a diabetic foot exam. Diabetes is improving. Abnormal findings include onycho. Patient educated on diabetic foot complications and prevention. Discussed treatment/diagno stic plan and orders with patient as indicated below. Not available 02/14/2023 15:44:12 05/30/2023 05/30/2023 Patient seen in office today for a diabetic foot exam. Diabetes is improving. Abnormal findings include onycho. Patient educated on diabetic foot complications and prevention. Discussed treatment/diagno stic plan and orders with patient as indicated below. We triled [employer] orthtoses today. Size 8 shoes. [email or web address] Not available 06/01/2023 10:44:33 08/29/2023 08/29/2023 Patient seen in office today for a diabetic foot exam. Diabetes is improving. Abnormal findings include onycho. Patient educated on diabetic foot complications and prevention. Discussed treatment/diagno stic plan and orders with patient as indicated below. Not available 08/29/2023 12:27:04 12/05/2023 12/05/2023 Patient seen in office today for a diabetic foot exam. Diabetes is improving. Abnormal findings include onycho. Patient educated on diabetic foot complications and prevention. Discussed treatment/diagno stic plan and orders with patient as indicated below. Not available 12/06/2023 04:18:44 03/05/2024 03/05/2024 Patient seen in office today for a diabetic foot exam. Diabetes is improving. Abnormal findings include onycho. Patient educated on diabetic foot complications and prevention. Discussed treatment/diagno stic plan and orders with patient as indicated below. Not available 03/05/2024 12:01:03 Plan of Treatment Reminders Order Date Submit Date Provider Last Modified By Organization Details Last Modified Time Details Appointments [facility] 15 2023 01:00P M Joel Lovell DPM Not available Not available Not available Lab None recorded. Referral None recorded. Procedures None recorded. Surgeries None recorded. Imaging None recorded. Medication Orders None recorded. Patient TargetsNo targets recorded. Patient Instructions Encounter Date Encounter Id Patient Instructions Last Modified By Organization Details Last Modified Time 12/05/2023 [id number] diabetes foot health: care instructions [email or web address] Not available 12/06/2023 10:16:46 08/29/2023 [id number] diabetes foot health: care instructions [email or web address] Not available 09/02/2023 18:42:56 05/30/2023 [id number] diabetes foot health: care instructions [email or web address] Not available 06/01/2023 10:45:37 02/14/2023 [id number] diabetes foot health: care instructions Not available 02/14/2023 15:44:40 Reason for Referral None Reported. Problems Name Status Onset Date Resolution Date Notes Provider Name and Address Organization Details Recorded Time Chronic ulcer of foot Active 2020 Chronic ulcer of foot; Original Code: 4878923023 Cooper ginal Codesystem: SNOMED CT Classificat ion: Medical Confir mation Status: Confirmed Not Available [facility], [facility] 3 09:11:08 Ingrowing nail Active 2013 Ingrowing nail; Original Code: 3748357068 [facility] ginal Codesystem: SNOMED CT Classificat ion: Medical Confir mation Status: Confirmed Not Available [facility] 3 09:11:08 Disorder of nail Active 2013 Disorder of nail; Original Code: 6964211765 [facility] ginal Codesystem: SNOMED CT Classificat ion: Medical Confir mation Status: Confirmed Not Available [facility], [facility] 3 09:11:08 Secondary diabetes mellitus Active 2019 Secondary diabetes mellitus; Original Code: 38049407 Origi nal Codesystem: SNOMED CT Classificat ion: Medical Confir mation Status: Confirmed Parvez Barkley gera [place] - [facility] 3 15:36:12 Essential hypertension Active 2014 Essential hypertension; Original Code: 50408522 Origi nal Codesystem: SNOMED CT Classificat ion: Medical Confir mation Status: Confirmed Parvez Barkley gera [place] - [facility] 3 15:36:07 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; Original Code: 81079193 Origi nal Codesystem: SNOMED CT Classificat ion: Medical Confir mation Status: Confirmed Not Available [facility] 3 09:11:08 Foot pain Active 2020 Foot pain; Original Code: 452252629 Orig inal Codesystem: SNOMED CT Classificat ion: Medical Confir mation Status: Confirmed Not Available [facility] 3 09:11:09 Onychomycosis of toenails Active 2018 Onychomycosis of toenails; Original Code: 1191172471 [facility] ginal Codesystem: SNOMED CT Classificat ion: Medical Confir mation Status: Confirmed Not Available [facility] 3 09:11:09 Transplant of kidney Active 2022 Parvez Barkley gera [facility] 3 15:36:26 Diabetic care Active [address] Bryant Tyson 05/21/23, Last seen 02/14/24 Mickie Bernard [facility] 4 11:57:32 Problem Notes None recorded. Procedures Surgical History Date Name Laterality Status Provider Name and Address Organization Details Recorded Time [address] Hobson completed Ana boss [facility] 03/05/2024 12:01:[address] Hobson completed Ana boss [facility] 12/06/2023 04:18:35 3 NAIL/CallusDEBR IDEMENT completed Ana boss [place] - [facility] 08/29/2023 12:34:36 3 NAIL/CallusDEBR IDEMENT completed Joel Lovell, DPJustin [address] [place], [address], [facility] - [facility] 06/01/2023 10:42:[address] Hobson completed Parvez boss [place] - [facility] 02/14/2023 15:37:11 Imaging Results None recorded. Procedure Notes None recorded. Medical Equipment None Reported. Allergies Allergen ID Allergen Name Allergen Category Reaction Reaction Severity Criticality Documentation Date Start Date Code Code System Note Provider Name and Address Organization Details Recorded Time 58935 amoxicill in medicatio n Not available Not available Not available 01/01/2023 723 RxNorm Comme nt: React ion Class : Aller gy Al lergy Ident ifier : d0008 8 All ergy Categ ory: Multu m Drug Ident ifier Iden tifie r Assig mark Autho rity: 37629 _[place] ; Not Available [facility] 3 08:52:37 92199 Product containin g angiotens in-conver ting enzyme inhibitor (product) medicatio n Not available Not available Not available 01/01/2023 24676 009 SNOMED Comme nt: React ion Class : Aller gy Al lergy Ident ifier : 416 A llerg y Categ ory: Aller gy Categ ories Iden tifie r Assig mark Autho rity: 09782 _[place] ; Not Available [facility] 3 08:52:37 27996 metoprolo l Not available Not available Not available Not available 01/01/2023 6918 RxNorm Comme nt: React ion Class : Aller gy Al lergy Ident ifier : d0013 4 All ergy Categ ory: Multu m Drug Ident ifier Iden tifie r Assig mark Autho rity: 55417 _[place] ; Not Available [facility] 3 08:52:37 77822 Elavil medicatio n Not available Not available Not available 01/01/2023 35584 RxNorm Comme nt: React ion Class : Aller gy Al lergy Ident ifier : d0014 6 All ergy Categ ory: Multu m Drug Ident ifier Iden bolivar r Alex clemensg Autho rity: 09171 _[place] ; Not Available [facility] 3 08:52:37 40926 Effexor medicatio n Not available Not available Not available 01/01/2023 08502 2 RxNorm Comme nt: React ion Class : Aller gy Al lergy Ident ifier : d0318 1 All ergy Categ ory: Multu m Drug Ident ifier Iden bolivar r Alex flores Autho rity: 26790 _[place] ; Not Available [facility] 3 08:52:37 Medications Name Sig Start Date Stop Date Status Note LastModified by Organization Details LastModified Time nystatin 100,000 unit/mL oral suspension active Not Available Not Available N ot Available carvedilol 6.25 mg tablet TAKE 1 TAB BY MOUTH 2 TIMES A DAY WITH MEALS.TAKE WITH 12.5MG TAB FOR TOTAL OF 18.75MG TWICE DAILY. active Not Available Not Available No t Available carvedilol 12.5 mg tablet active Not Available Not Available Not Available loperamide 2 mg capsule active Not Available Not Available N ot Available sulfamethoxa zole 400 mg-trimethop rim 80 mg tablet active Not Available Not Available Not Available hydrocodone 5 mg-acetamino phen 325 mg tablet TAKE 1 TO 2 TABLETS BY MOUTH EVERY 4 TO 6 HOURS NEEDED FOR PAIN active Not Available Not Available No t Available sucralfate 1 gram tablet TAKE 1 TABLET BY MOUTH 3 TIMES DAILY BEFORE MEALS. active Not Available Not Available No t Available famotidine 40 mg tablet TAKE 1 TABLET BY MOUTH EVERY DAY active Not Available Not Available No t Available prednisone 5 mg tablet active Not Available Not Available No t Available moxifloxacin 400 mg tablet active Not Available Not Available Not Available Accu-Chek Softclix Lancets DISPENSE ITEM COVERED BY PT INS. E11.9 NIDDM TYPE II - TEST 1 TIME/DAY active Not Available Not Available No t Available amlodipine 5 mg tablet TAKE 1 TABLET BY MOUTH EVERY DAY active Not Available Not Available No t Available lidocaine-pr ilocaine 2.5 %-2.5 % topical cream APPLY SMALL AMOUNT TO ACCESS SITE (AVF) 1 HOUR BEFORE DIALYSIS. COVER WITH OCCLUSIVE DRESSING (SARAN WRAP) active Not Available Not Available No t Available oxycodone-ac etaminophen 5 mg-325 mg tablet TAKE 1 TABLET BY MOUTH EVERY 4-8 HOURS NEEDED (MAX 6 TABS/DAY) active Not Available Not Available No t Available prednisolone acetate 1 % eye drops,suspen geovanna PLEASE SEE ATTACHED FOR DETAILED DIRECTIONS active Not Available Not Available N ot Available magnesium oxide 400 mg (241.3 mg magnesium) tablet TAKE 1 TABLET (400 MG TOTAL) BY MOUTH 2 (TWO) TIMES A DAY BEFORE BREAKFAST AND DINNER. active Not Available Not Available Not Available pantoprazole 40 mg tablet,delay ed release TAKE 1 TABLET BY MOUTH EVERY DAY active Not Available Not Available No t Available buspirone 30 mg tablet TAKE 1 TABLET BY MOUTH TWICE A DAY active Not Available Not Available No t Available polymyxin B sulfate 10,000 unit-trimeth oprim 1 mg/mL eye drops ADMINISTER 1 DROP INTO THE LEFT EYE 4 TIMES A DAY FOR 7 DAYS. active Not Available Not Available No t Available losartan 25 mg tablet TAKE 1 TABLET BY MOUTH EVERY DAY active Not Available Not Available No t Available Phospha Neutral 250 mg tablet TAKE 2 TABLETS BY MOUTH 2 TIMES A DAY. active Not Available Not Available No t Available furosemide 20 mg tablet active Not Available Not Available Not Available gabapentin 100 mg capsule TAKE 1 CAPSULE BY MOUTH AT BEDTIME active Not Available Not Available No t Available metoprolol succinate ER 25 mg tablet,exten ded release 24 hr TAKE 1 TABLET BY MOUTH EVERY DAY active Not Available Not Available No t Available methylpredni solone 4 mg tablets in a dose pack TAKE BY MOUTH INSTRUCTED PER PACKAGING. active Not Available Not Available N ot Available ondansetron 4 mg disintegrati ng tablet active Not Available Not Available No t Available cefdinir 300 mg capsule TAKE 1 CAPSULE (300 MG) BY MOUTH EVERY 24 HOURS. active Not Available Not Available No t Available metformin ER 500 mg tablet,exten ded release 24 hr TAKE 1 TABLET (500 MG) BY MOUTH TWICE A DAY WITH MEALS active Not Available Not Available No t Available Vitamin B-12 1,000 mcg tablet TAKE 1 TABLET (1,000 MCG) BY MOUTH ONCE DAILY active Not Available Not Available N ot Available oxycodone 5 mg tablet TAKE 1 TABLET BY MOUTH EVERY 4-8 HOURS NEEDED active Not Available Not Available No t Available cyclobenzapr ine 5 mg tablet TAKE 1 TABLET BY MOUTH 3 TIMES DAILY. active Not Available Not Available No t Available rosuvastatin 40 mg tablet TAKE 1 TABLET BY MOUTH AT BEDTIME active Not Available Not Available No t Available Meche-Corby 0.8 mg tablet TAKE 1 TABLET BY MOUTH EVERY DAY active Not Available Not Available No t Available duloxetine 60 mg capsule,alicia yed release TAKE 1 CAPSULE BY MOUTH ONCE DAILY active Not Available Not Available No t Available BD Ultra-Fine Short Pen Needle 31 gauge x 5/16 active Not Available Not Available Not Available potassium chloride ER 20 mEq tablet,exten ded release TAKE 1 TABLET BY MOUTH EVERY DAY active Not Available Not Available No t Available Accu-Chek Guide test strips DISPENSE ITEM COVERED BY PT INS. E11.9 NIDDM TYPE II - TEST 2-3 TIME/DAY active Not Available Not Available No t Available Accu-Chek Guide Glucose Meter DISPENSE METER, TEST STRIPS, LANCETS COVERED BY PT INS. E11.9 NIDDM TYPE II - TEST 1 TIME/DAY active Not Available Not Available No t Available Novolin N FlexPen 100 unit/mL (3 mL) subcutaneous insulin pen INJECT 15 UNITS UNDER THE SKIN EVERY MORNING. DO NOT TAKE IF NOT EATING. DOSE MAY NEED ADJUSTMENT. active Not Available Not Available Not Available Ozempic 1 mg/dose (4 mg/3 mL) subcutaneous pen injector INJECT 1 MG UNDER THE SKIN EVERY 7 (SEVEN) DAYS. active Not Available Not Available No t Available Ozempic 2 mg/dose (8 mg/3 mL) subcutaneous pen injector INJECT 0.75 ML (2 MG) SUBCUTANEOU S ONCE WEEKLY. active Not Available Not Available No t Available Ozempic 0.25 mg or 0.5 mg (2 mg/3 mL) subcutaneous pen injector PLEASE SEE ATTACHED FOR DETAILED DIRECTIONS active Not Available Not Available N ot Available Vitals Date Recorded Body height Body mass index (BMI) Body weight Provider Name and Address Organization Details Last Updated DateTime 02/15/2023 160.02 cm 24.8 kg/m2 76044.93 g Gloria Catsañeda [place] - [facility] 02/15/2023 08:50:17 Social History Question Answer Notes LastModified by Organizat ion Details LastModified Time Tobacco Smoking Status Never Smoker Parvez boss, [place] - [facility] 02/14/2023 15:36:41 What Is Your Level Of Alcohol Consumption? None Information not available 02/14/2023 Do You Use Any Illicit Or Recreational Drugs? No Information not available 02/14/2023 Sex: Female Functional Status None recorded. Mental Status None recorded. Family History Nothing Reported. Medical History No medical history recorded. Gynecological HistoryNo gynecological history recorded. Obstetrics History GPAL:G 0 P 0 0 0 0 Past Encounters Encounter ID Performer Location Encounter Start Date Encounter Closed Date Diagnosis/Indication Diagnosis SNOMED-CT Code [id number] Parvez [facility] Office [address] [place] [id number] 02/14/2023 14:43:15 02/15/2023 13:05:43 Type 2 diabetes mellitus with peripheral angiopathy 253451665 Disorder o f nervous system due to type 2 diabetes mellitus 722249624 [facility] 956563320 [id number] [address] [place] [phone] 05/30/2023 12:06:34 06/03/2023 09:58:10 Type 2 diabetes mellitus with peripheral angiopathy 745424303 Disorder o f nervous system due to type 2 diabetes mellitus 673367296 Onychomycosis 172853490 Foot callus [id number] Hallux rajeev henir AND bunion [id number] Joel Lovell DPM [facility] [address] [place] [id number] 08/29/2023 11:50:05 09/03/2023 10:05:21 Type 2 diabetes mellitus with peripheral angiopathy 986050772 Disorder o f nervous system due to type 2 diabetes mellitus 907785397 Onychomycosis 248455507 Foot callus 984891568 Hallux rajeev henri AND bunion [id number] Joel Lovell DPM [facility] [address] [place] [id number] 12/05/2023 11:58:54 12/06/2023 13:52:34 Type 2 diabetes mellitus with peripheral angiopathy 455180708 Disorder o f nervous system due to type 2 diabetes mellitus 156432063 Onychomycosis 180343149 Foot callus [id number] Hallux rajeev henri AND bunion [id number] Joel Lovell DPM [place] [facility] [address] [facility] [address] [place] [address] 03/05/2024 11:47:14 03/06/2024 15:17:07 Type 2 diabetes mellitus with peripheral angiopathy 633983525 Disorder o f nervous system due to type 2 diabetes mellitus 093917176 Onychomycosis 170823756 Foot callus 006261537 Hallux rajeev henri AND bunion [id number] Health Concerns Section Related Observation LastModified by Organization Detai ls LastModified Time None Recorded Concern Status LastModified by Organization Details LastModified Time None Recorded Advance Directives Directive None Recorded Payers Encounter Date Sequence Insurance Name Policy Number Policy Mcclelland Covered Member ID Mcclelland Member ID Guarantor Name 03/05/2024 1 [place] [id number] Anayeli E Splettstoeszer [id number] Anayeli E Splettstoeszer 12/05/2023 1 [place] [id number] Anayeli E Splettstoeszer [id number] Anayeli E Splettstoeszer 08/29/2023 1 [place] [id number] Anayeli E Splettstoeszer [id number] Anayeli E Splettstoeszer 05/30/2023 1 [place] [id number] Anayeli E Splettstoeszer [id number] Anayeli E Splettstoeszer 02/14/2023 1 [place] [id number] Anayeli E Splettstoeszer [id number] Anayeli E Splettstoeszer Notes Date Note Type Note Provider Name and Address Organization Details Recorded Time 02/14/2023 text/html HPI Notes: This established patient ptc today for diabetic foot care. Patient is in need of nail care today. Denies any new foot complaints. Patient did last see Bryant Tyson on 02/04/23. She did have a kidney transplant in September,. OSMIN Aguilar - [facility] 02/14/2023 15:45:03 05/30/2023 text/html HPI Notes: This established patient ptc today for diabetic foot care. Patient is in need of nail care today. Denies any new foot complaints. Patient did last see Bryant Tyson on 02/04/23. She did have a kidney transplant in September,. Joel Lovell DPM [address] [place], [address], [facility] - [facility] 06/01/2023 10:48:19 08/29/2023 text/html HPI Notes: This established patient ptc today for diabetic foot care. Patient is in need of nail care today. Denies any new foot complaints. Patient did last see Bryant Tyson on 02/04/23. She did have a kidney transplant in September,. Joel Lovell DPM [address] [place], [address], [facility] - [facility] 09/02/2023 18:43:00 12/05/2023 text/html HPI Notes: This established patient ptc today for diabetic foot care. Patient is in need of nail care today. Denies any new foot complaints. Patient did last see Bryant Tyson on 02/04/23. She did have a kidney transplant in September,. Joel Lovell DPM [address] [place], [address], [facility] - [facility] 12/06/2023 10:17:18 03/05/2024 text/html HPI Notes: This established patient ptc today for diabetic foot care. Patient is in need of nail care today. Denies any new foot complaints. Patient did last see Dr. Bryant Tyson for diabetes care last seen on 02/14/2024 She did have a kidney transplant in September,. Joel Lovell DPM [address] [place], [address], [facility] - [facility] 03/06/2024 10:13:41 OBGyn Episode No OBEpisode recorded.
--- OUTSIDE RECORDS SUMMARY | 2024-03-20 14:31 | XMS_ITS | Continuity of Care Document ---
Author Organization [place] - [facility] [place] [facility] Address [address] [place] [address] [address] [place] [address] Care Team Providers Care [employer] Marketing Analyst Name Role Phone BRYANT TYSON Primary Care Provider [phone] Assessment Encounter Date Assessment Date Assessment LastModified by Organization Details LastModified Time 03/05/2024 03/05/2024 Patient seen in office today [...] Details Appointments [facility] 15 2023 01:00P Justin Lovell DPM Not available Not available Not available Lab None recorded. Referral None recorded. Procedures None recorded. Surgeries None recorded. Imaging None recorded. Medication Orders None recorded. Patient TargetsNo targets recorded. Patient InstructionsNo instructions recorded. Reason for Referral None Reported. Problems Name Status Onset Date Resolution Date Notes Provider Name and Address Organization Details Recorded Time Chronic ulcer of foot Active 2020 Chronic ulcer of foot; Original Code: 6454311489 Cooper ginal Codesystem: SNOMED CT Classificat ion: Medical Confir mation Status: Confirmed Not Available [facility] 3 09:11:08 Ingrowing nail Active 2013 Ingrowing nail; Original Code: 8425377697 Cooper ginal Codesystem: SNOMED CT Classificat ion: Medical Confir mation Status: Confirmed Not Available [facility] 3 09:11:08 Disorder of nail Active 2013 Disorder of nail; Original Code: [id number] Cooper ginal Codesystem: SNOMED CT Classificat ion: Medical Confir mation Status: Confirmed Not Available [facility] 3 09:11:08 Secondary diabetes mellitus Active 2019 Secondary diabetes mellitus; Original Code: 81205745 Origi nal Codesystem: SNOMED CT Classificat ion: Medical Confir mation Status: Confirmed Parvez OSMIN Rodriguez - [facility] 3 15:36:12 Essential hypertension Active 2014 Essential hypertension; Original Code: 45771863 Origi nal Codesystem: SNOMED CT Classificat ion: Medical Confir mation Status: Confirmed Parvez CabanOSMIN cano - [facility] 3 15:36:07 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; Original Code: 12045988 Origi nal Codesystem: SNOMED CT Classificat ion: Medical Confir mation Status: Confirmed Not Available [facility] 3 09:11:08 Foot pain Active 2020 Foot pain; Original Code: 399373706 Orig inal Codesystem: SNOMED CT Classificat ion: Medical Confir mation Status: Confirmed Not Available [facility] 3 09:11:09 Onychomycosis of toenails Active 2018 Onychomycosis of toenails; Original Code: 3800231647 [facility] ginal Codesystem: SNOMED CT Classificat ion: Medical Confir mation Status: Confirmed Not Available [facility] 3 09:11:09 Transplant of kidney Active 2022 Parvez OSMIN Rodriguez [facility] 3 15:36:26 Diabetic care Active [address] Bryant Tyson 05/21/23, Last seen 02/14/24 OSMIN Kevin [facility] 4 11:57:32 Problem Notes None recorded. Procedures Surgical History Date Name Laterality Status Provider Name and Address Organization Details Recorded Time [address] Hobson completed OSMIN Bearden [facility] 03/05/2024 12:01:[address] Hobson completed Ana boss [place] - [facility] 12/06/2023 04:18:35 3 NAIL/CallusDEBR IDEMENT completed Ana boss [place] [facility] 08/29/2023 12:34:36 3 NAIL/CallusDEBR IDEMENT completed Joel Lovell, [place] [address] [place], [address], [facility] - [facility] 06/01/2023 10:42:[address] Hobson completed Parvez boss, [place] - [facility] 02/14/2023 15:37:11 Imaging Results None recorded. Procedure Notes None recorded. Medical Equipment None Reported. Allergies Allergen ID Allergen Name Allergen Category Reaction Reaction Severity Criticality Documentation Date Start Date Code Code System Note Provider Name and Address Organization Details Recorded Time 23820 amoxicill in medicatio n Not available Not available Not available 01/01/2023 723 RxNorm Comme nt: React ion Class : Aller gy Al lergy Ident ifier : d0008 8 All ergy Categ ory: Multu m Drug Ident ifier Iden tifie r Assig mark Autho rity: 18267 _[place]_F [place] ; Not Available [facility] 3 08:52:37 40017 Product containin g angiotens in-conver ting enzyme inhibitor (product) medicatio n Not available Not available Not available 01/01/2023 54174 009 SNOMED Comme nt: React ion Class : Aller gy Al lergy Ident ifier : 416 A llerg y Categ ory: Aller gy Categ ories Iden tifie r Assig mark Autho rity: 31720 _[place] ; Not Available [facility] 3 08:52:37 41479 metoprolo l Not available Not available Not available Not available 01/01/2023 6918 RxNorm Comme nt: React ion Class : Aller gy Al lergy Ident ifier : d0013 4 All ergy Categ ory: Multu m Drug Ident ifier Iden tifie r Assig mark Autho rity: 63066 _[place] ; Not Available [facility] 3 08:52:37 28332 Elavil medicatio n Not available Not available Not available 01/01/2023 06094 RxNorm Comme nt: React ion Class : Aller gy Al lergy Ident ifier : d0014 6 All ergy Categ ory: Multu m Drug Ident ifier Iden tifie r Alex clem[place]g Autho rity: 99890 _[place] ; Not Available [facility] 3 08:52:37 17970 Effexor medicatio n Not available Not available Not available 01/01/2023 30685 2 RxNorm Comme nt: React ion Class : Aller gy Al lergy Ident ifier : d0318 1 All ergy Categ ory: Multu m Drug Ident ifier Iden tifie r Alex [place]g Autho rity: 6[address]12 _[place] ; Not Available [facility] 3 08:52:37 Medications Name Sig Start Date [...] Available Not Available N ot Available Vitals None Recorded Social History Question Answer Notes LastModified by Organizat ion Details LastModified Time Tobacco Smoking Status Never Smoker Parvez Barkley null, [place] - [facility] 02/14/2023 [...] Encounter Closed Date Diagnosis/Indication Diagnosis SNOMED-CT Code 87092 Joel Lovell DPM [place] [facility] [address] [place] [address] 03/05/2024 11:47:14 03/06/2024 15:17:07 Type 2 diabetes mellitus with peripheral angiopathy [id number] Disorder o f nervous system due to type 2 diabetes mellitus 900852085 Onychomycosis 606277176 Foot callus 966618000 Hallux rajeev henri AND bunion [id number] Health Concerns Section Related Observation LastModified by Organization Detai ls LastModified Time None Recorded Concern Status LastModified by Organization Details LastModified Time None Recorded Payers Encounter Date Sequence Insurance Name Policy Number Policy M[place]le[place] Covered Member ID Mccle[place] Member ID Guarantor Name 03/05/2024 1 [place]) [id number] Anayeli E Splettstoeszer [id number] Anayeli E Splettstoeszer Notes Date Note Type Note Provider Name and Address Organization Details Recorded Time 03/05/2024 text/html HPI Notes: This established patient ptc today for diabetic foot care. Patient is in need of nail care today. Denies any new foot complaints. Patient did last see Dr. Bryant Tyson for diabetes care last seen on 02/14/2024 She did have a kidney transplant in September,. Joel Lovell DPM [address] [place], [address], [facility] - [facility] 03/06/2024 10:13:41 OBGyn Episode No OBEpisode recorded.
--- OUTSIDE RECORDS SUMMARY | 2024-03-20 14:32 | XMS_ITS | Clinical Summary ---
Author Organization [employer] [facility] Address [place], [place] [address] Care Team Providers Care [facility] Psychiatrist Name Role Phone Sanjay Allan MD Primary Care Provider [phone] Leila Elizalde MD Unavailable [phone] Inga Bose NP Unavailable Allergies Active Allergy Reactions Criticality Noted Date Comments Johnnie Inhibitors Cough 04/18/2023 Amoxicillin Other - Describe In Comment Field,Rash 12/02/2023 Swelling of eyes Clopidogrel Other - Describe In Comment Field 01/18/2020 Pancytopenia, possible etiology of myelodysplastic syndrome Venlafaxine Analogues Behavioral Disturbances 06/25/2013 Caused irritability. Amitriptyline Other - Describe In Comment Field 12/17/2014 Weight gain and increased appetite. Metoprolol Cough,Photosensitiv ity 04/25/2023 Patient has been taking (and tolerating) Toprol xl for several months. Antonia Toro RN .................... 11/10/2019 11:11 AM Penicillins 06/06/2010 Swelling of eyes Venlafaxine Behavioral Disturbances 12/02/2023 Medications Medication Sig Dispensed Refills Start Date End Date Status Coenzyme Q10 200 mg capsuleIndications:M ixed hyperlipidemia Take 200 mg by mouth at bedtime. 0 12/09/2015 Active Biotin 10 mg tabletIndications:Mi xed hyperlipidemia Take 1 tablet by mouth once daily. 0 03/12/2016 Active aspirin chewable 81 mg chewable tablet Take 81 mg by mouth once daily with a meal. Active VITAMINS A,C,B-KHDW-SGVTZR (OCUVITE PRESERVISION) 7,160-113-100 ngmb-yt-kfaf tablet Take 1 Tablet by mouth 2 times daily. Active Copper Gluconate 2 mg tab Take 4 mg by mouth at bedtime. Active acetaminophen (TYLENOL EXTRA STRGTH) 500 mg tablet Take 1,000 mg by mouth every 6 hours if needed for Pain. Max acetaminophen dose: 4000mg in 24 hrs. Active blood-glucose meterIndications:Typ e 2 diabetes mellitus with chronic kidney disease on chronic dialysis, without long-term current use of insulin (HC) Dispense meter, test strips, lancets covered by pt ins. E11.9 NIDDM type II - Test 1 time/day 1 Each 09/24/2022 Active lancetsIndications:T ype 2 diabetes mellitus with chronic kidney disease on chronic dialysis, without long-term current use of insulin (HC) Dispense item covered by pt ins. E11.9 NIDDM type II - Test 1 time/day 200 Each 3 09/30/2022 Active magnesium oxide (MAG-OX 400) 400 mg tablet TAKE 1 TABLET BY MOUTH THREE TIMES A DAY 11/12/2022 Active mycophenolate sodium (MYFORTIC) 180 mg EC tablet Take 540 mg by mouth. 10/30/2022 Active carvediloL (COREG) 12.5 mg tablet Take 1 Tablet (12.5 mg) by mouth two times daily. 0 08/30/2023 Active cyanocobalamin (VITAMIN B12) 1,000 mcg tabletIndications:B1 2 deficiency Take 1 Tablet (1,000 mcg) by mouth once daily. 90 Tablet 3 08/30/2023 Active DULoxetine (CYMBALTA) 60 mg Delayed-release capsuleIndications:R ecurrent major depressive disorder, in full remission (HC) Take 1 Capsule (60 mg) by mouth once daily. 90 Capsule 3 08/30/2023 Active esomeprazole (NEXIUM) 40 mg capsuleIndications:G astroesophageal reflux disease without esophagitis Take 1 Capsule (40 mg) by mouth once daily before a meal. 90 Capsule 3 08/30/2023 Active Ozempic 0.25 mg or 0.5 mg (2 mg/3 mL) pen Inject 1.5 mL (1 mg) subcutaneous once weekly. 3 mL 08/30/2023 Active potassium acid phosphate (K-PHOS ORIGINAL) 500 mg tablet Take 0.5 Tablets (250 mg) by mouth two times daily before meals. 0 08/30/2023 Active predniSONE (DELTASONE) 5 mg tablet Take 1 Tablet (5 mg) by mouth once daily with a meal. 0 08/30/2023 Active rosuvastatin (CRESTOR) 40 mg tabletIndications:Hy perlipidemia, unspecified hyperlipidemia type Take 1 Tablet (40 mg) by mouth at bedtime. 90 Tablet 3 08/30/2023 Active tacrolimus (PROGRAF) 0.5 mg capsule Take 3 Capsules (1.5 mg) by mouth every 12 hours. 08/30/2023 Active blood sugar diagnostic (Accu-Chek Guide test strips) stripIndications:Typ e 2 diabetes mellitus with chronic kidney disease on chronic dialysis, without long-term current use of insulin (HC) DISPENSE ITEM COVERED BY PT INS. E11.9 NIDDM TYPE II - TEST 2-3 TIME/DAY 300 Each 3 10/10/2023 Active cholecalciferol (VITAMIN D3) 2,000 unit capsule Take 1 Capsule by mouth once daily. Active calcium citrate-vitamin D3, 250 mg-200 units, tablet Take 1 Tablet by mouth two times daily with meals. 06/27/2023 4 Active cs-zxj-lmero acid-lutein 400-250 mcg chew Chew 1 Tablet by mouth once daily. 11/14/2023 Active amLODIPine (NORVASC) 5 mg tabletIndications:HT N (hypertension) Take 1 Tablet (5 mg) by mouth once daily. 90 Tablet 3 12/16/2023 Active metFORMIN (GLUCOPHAGE XR) 500 mg Extended-Release tabletIndications:Ty pe 2 diabetes mellitus with other diabetic kidney complication, without long-term current use of insulin (HC) Take 1 Tablet (500 mg) by mouth once daily with evening meal. 90 Tablet 3 02/14/2024 Active semaglutide (Ozempic) 2 mg/dose (8 mg/3 mL) penIndications:Type 2 diabetes mellitus with other diabetic kidney complication, without long-term current use of insulin (HC) Inject 0.75 mL (2 mg) subcutaneous once weekly. 9 mL 3 02/14/2024 Active Active Problems Patient Care Coordination No te Formatting of this note migh t be different from the original. HF/Structural/Prevention Research Eligibility Review Date: 11/02/19 Upcoming Visit Location: [x] Outreach Age: 74 y.o. Insurance: [x] Medicare/equivalent EF: 71% Valve/Imaging: Comments: HF: DNQ Structural: Tendyne Rankin: No d/t mod MR Prevention: DNQ Problem Noted Date Diagnosed Date Type 2 diabetes mellitus, wi thout long-term current use of insulin 02/27/2022 Chronic diarrhea 01/11/2021 Overview: flexible sigmoidoscopy 12/2020 normal biopsies ESRD (end stage renal disease) on dialysis 07/14 Nephrolithiasis 07/14/2020 PAD (peripheral artery disease) 11/10/2019 Secondary renal hyperparathyroidism 05/28/2019 Fibromyalgia 07/18/2018 Anemia in stage 5 chronic ki dney disease, not on chronic dialysis 07/18/2018 Iron deficiency anemia 07/18/2018 B12 deficiency 07/18/2018 CAD (coronary artery disease) 07/17/2018 Overview: -Presumed with +angina in 2018, ++risk factors, abnormal myocardial perfusion. Saw cardiology, medically managing as of 06/2018. -Abnormal Coronary CTA 11/10/2019 -Coronary Angiogram 11/17/2019: DUDLEY to mLAD, DUDLEY to 1st marginal, DUDLEY to RPDA, DS to RPAV Recurrent major depressive disorder, in full rem ission 06/17/2018 History of gastric bypass 10/14/2017 Acute anastomotic ulcer of gastrojejunal region 10/14/2017 Overview: EGD 09/2017 small anastomotic ulcer Gallstones 04/11/2017 Squamous cell skin cancer 04/11/2017 Urinary incontinence 05/12/2013 Adenomatous colon polyp 11/06/2012 Overview: Colonoscopy 10/2012 large polyp repeat in 6 months Colonoscopy 10/2014 polyps repeat in 5 years Colonoscopy 03/2020 polyps, repeat in 5 years Mixed hyperlipidemia 09/23/2012 HTN (hypertension) 09/09/2012 Spinal stenosis: Severe L2-3, Moderate L4-5 04/2010 Esophageal reflux 09/01/2007 Resolved Problems Problem Noted Date Diagnosed Date Resolved Date Prediabetes 08/22/2021 02/27/2022 Thrombocytopenia 07/11/2020 11/26/2022 Overview: Component Latest Ref Rng & Units 03/08/2020 03/15/2020 04/19/2020 05/02/2020 PLATELET COUNT 140 - 440 thou/cu mm 133 (L) 138 (L) 150 125 (L) Component Latest Ref Rng & Units 05/09/2020 PLATELET COUNT 140 - 440 thou/cu mm 118 (L) MDS (myelodysplastic syndrome) 01/20/2020 04/17/2021 Metabolic acidosis 05/28/2019 0 Type 2 diabetes mellitus wit h stage 5 chronic kidney disease not on chronic dialysis, without long-term current use of insulin 11/20/2018 08/22/2021 Angina pectoris 11/20/2018 07/14/2020 Steal syndrome dialysis vascular access 04/11/2017 07/18/2018 Overview: Right hand, AV fistula placed 08/12. CKD (chronic kidney disease) stage 5, GFR less than 15 ml/min 02/15/2017 07/14/2020 Type 2 diabetes mellitus 10/29/201612/2021 GILDA (obstructive sleep apnea) 2015 07/18/2018 Carotid artery stenosis, symptomatic 09/27/2014 07/18/2018 CKD (chronic kidney disease) stage 4, GFR 15-29 ml/min 03/29/2014 02/15/2017 Dysthymia 06/25/2013 07/18/2018 Neuropathy 06/25/2013 07/18/2018 CKD (chronic kidney disease) stage 3, GFR 30-59 ml/min 09/23/2012 03/29/2014 Anemia due to blood loss 06/12/2010 L4-5 Disk Herniation with Ri ght L5 Impingement 03/03/2010 07/18/2018 Controlled type 2 diabetes m ellitus without complication, without long-term current use of insulin 01/14/2009 08/22/2021 DIABETES 12/15/2008 12/15/2008 Diabetes mellitus type II, uncontrolled 12/15/2008 01/14/2009 Adhesive capsulitis of shoulder 12/31/2007 11/11/2008 Disorders of bursae and tend ons in shoulder region, unspecified 12/31/2007 03/03/2010 DIABETES 09/28/2002 12/15/2008 Myalgia and myositis, unspecified 07/18/2018 Overview: receives acupunture for pain relief Major depressive disorder, s doris episode, mild 06/25/2013 Encounters Date Type Department Care Team Description 03/16/2024 Travel 03/10/2024 Telephone [facility] [address] [place] [address] Praveen Weston MD Injection (Medication) (BACK) 03/05/2024 12:30 PM CDT Office Visit [facility] [address] [place] [address] Jung Miller, AuD Hearing Problem 03/05/2024 Travel 03/02/2024 Travel 02/14/2024 8:50 AM CDT Office Visit [address] [address] Sanjay Allan MD Diabetes 02/14/2024 Travel 02/07/2024 Telephone [facility] [address] [place] [address] Praveen Weston MD Results (MRI) 02/06/2024 11:00 AM CDT Ancillary Procedure [address] [place] [address] 02/06/2024 10:45 AM CDT Ancillary Procedure [address] [address] 02/06/2024 Travel 01/23/2024 8:40 AM CDT Office Visit [facility] [place] [address] Praveen Weston MD Musculoskeletal Problem (Follow-up LEFT Shoulder Pain) 01/23/2024 Travel 01/23/2024 Telephone [facility] [address] [place] [address] Sanjay Allan MD Questions (PT Order Request ) 01/09/2024 Telephone [facility] [address] [place] [address] Sanjay Allan MD Low back pain (Order) 01/03/2024 Telephone [facility] [address] [place] [address] [address] Sanjay Allan MD Procedure (Physical Therapy ) from Last 3 Months Immunizations Name Administration Dates Next Due COVID-19 Vaccine Spikevax (M oderna 50mcg/0.5mL) 12YO+ [id number] Formula PF 08/30/2023 COVID-19 vaccine (Moderna 100mcg/0.5mL) PF, MDV 03/30/2022,12/19/2020,11/25/2020 COVID-19 vaccine (Moderna 50 mcg/0.5mL) 12YO+ BIVALENT PF, MDV 08/03/2022 COVID-19 vaccine (Moderna Nirmal caren 50mcg/0.25mL) PF, MDV 09/08/2021 HepA-HepB (Twinrix) 02/15/2017,11/16/2016,2015 Influenza Virus, Unspecified 08/27/2006 Influenza, High-dose Inactivated 07/11/2017,08/28,08/02/2015 Influenza, High-dose Quadriv alent Inactivated 07/28/2021 Influenza, IIV3 (Age 6-35 mos) 08/02/2010 Influenza, IIV3 (Age >=3 years) 07/28/20 14,07/12/2013,09/09/2012,07/13,08/24/2008 Influenza, IIV4 08/25/2009 Influenza, IIV4 (Age 6-35 Mos) 07/15/2013 Influenza, Inactivated AIIV4 (Age 65+ Years) Preserv Free 08/30/2023,08/03/2022 Influenza, Inactivated IIV3 (Age 65+ Years) Preserv Free 07/18/2020,07/02/2019,07/18/2018 Pneumococcal Poly,23-Valent (Pneumovax) 08/12/2020,08/26/2009 Pneumococcal conj 13-Valent (Prevnar 13) 08/02/2015 RSV, Recombinant ADJ Reconst ituted (Arexvy 120MCG/0.5mL) 09/16/2023 Td (Age >=7 Years) 12/26/2005 Tdap 07/28/2014 Zoster (Shingrix-RZV, recombinant) 09/26/2018, Zoster (Zostavax-ZVL, live) 07/21/2010 Family History Medical History Relation Name Comments Heart Disease Father Hypertension Father Other Father [place] @ 51 Heart Disease Mother Hyperlipidemia Mother Hypertension Mother Cancer-breast Other Mat. and Pat. Great Aunt Cancer-ovarian No Family History Relation Name Status Comments Father Mother Other Social History Tobacco Use Types Packs/Day Years Used Date Smoking Tobacco: Former Cigarettes 1 30.7 1 964 - 06/23/1994 Smokeless Tobacco: Never Tobacco Cessation:Counseling Given: Yes Alcohol Use Standard Drinks/Week Comments No 0 (1 standard drink = 0.6 oz pur e alcohol) PHQ-2 Answer Date Recorded PHQ-2 TOTAL SCORE 4 12/03/2023 Social Connections Answer Date Recorded Frequency of Communication with Friends and Fami ly 0 05/24/2023 Financial Resource Strain Answer Date R ecorded Difficulty of Paying Living Expenses 3 05/24/2023 Difficulty of Paying Living Expenses Not on file 05/24/2023 Food Insecurity Answer Date Recorded Worried About Running Out of Food in the Last Ye ar 1 05/24/2023 Transportation Needs Answer Date Record ed Lack of Transportation (Medical) 1 05/24/2023 Housing Stability Answer Date Recorded Unable to Pay for Housing in the Last Year 1 05/24/2023 Sex and Gender Information Value Date Recorded Sex Assigned at Not on file Gender Identity Not on file Sexual Orientation Not on file Obstetrics History Para Term AB IAB SAB Ectopic Multiple Livin g Live Births 0 0 0 0 0 0 0 0 0 0 0 Last Filed Vital Signs Vital Sign Reading Time Taken Comments Blood Pressure 122/76 02/14/2024 8:46 AM CDT Pulse 81 02/14/2024 8:46 AM CDT Temperature 36.3 ??C (97.4 ??F) 01/23/2024 8:45 AM CD T Respiratory Rate 16 04/25/2023 8:45 AM CDT Oxygen Saturation 100% 02/14/2024 8:46 AM CDT Inhaled Oxygen Concentration - - Weight 56 kg (123 lb 8 oz) 02/14/2024 8:46 AM CD T Height 158.7 cm (5' 2.48) 08/30/2023 9:19 AM CD T Body Mass Index 22.24 08/30/2023 9:19 AM CDT Plan of Treatment Upcoming Encounters Date Type Department Care Team (Late st Contact Info) Description 03/20/2024 3:00 PM CDT Office Visit [facility] [address] [place] [address] Praveen Weston MD [address] [place] [address] Arrived 04/10/2024 8:20 AM CDT Office Visit [facility] [address] [place] [address] Praveen Weston MD [address] [place] [address] 04/15/2024 1:00 PM CDT Office Visit [facility] [address] [place] [address] Karla Aguero PA [address] [place] [address] 04/24/2024 1:00 PM CDT Procedure Only [facility] [address] [place] [address] Praveen Weston MD [address] [place] [address] 05/18/2024 9:05 AM CDT Office Visit [facility] [address] [place] [address] Sanjay Allan MD [address] [place] [address] Health Maintenance Due Date Last Done Comments COVID-19 vaccine series (2022- season) 2023 08/30/2023, 08/03/2022, 03/30/2022, Additional history exists Influenza for age 65+ 06/28/2024 08/30/2023 , 08/03/2022, 07/28/2021, Additional history exists Tetanus booster 07/28/2024 07/28/2014, 12/26/2005 BMI (ht and wt on same day) for age 18+ 08/30/2024 08/30/2023, 02/27/2022, 08/22/2021, Additional history exists Medicare Wellness for age 65+ 08/30/2024, 08/22/2021, 07/18/2017, Additional history exists Depression screening for age 12+ 12/03/2024 12/03/2023, 08/30/2023, 02/27/2022, Additional history exists Tdap Completed 07/28/2014 DEXA/DXA scan for age 65+ Completed 2014, 12/17/2014, 10/30/2012, Additional history exists Hepatitis C screening for ag e 18-79 Completed 07/18/2017 Zoster (shingles) series for age 50+ Completed 09/26/2018, 07/28/2018, 07/21/2010 Pneumococcal series for age 65+ Completed 08/12/2020, 08/12/2015 (Completed outside of [facility]), 08/02/2015, Additional history exists Goals Goal Patient Goal Type Associated Problems Recent Progress Patient-Stated? Author BLOOD PRESSURE - MAINTAINS BP less than 140/90 Blood Pressure No Nikko Mederos MD Medical Devices Implanted Type Area Hvac Design Mechanical Engineer Device Identifier Shelf Expiration Date Model / Serial / Lot Jacques 5.0cmx5.5mm Pre-Cut - [id number] Implanted:Qty: 2 on 06/12/2010 at [facility] Spine Implants Spine SOFAMOR DANEK [id number]# / / Screw Thin Crest 6.5x45mm - [id number] Implanted:Qty: 4 on 06/12/2010 at [facility] N/A: Spine [employer]OR [employer]ANEK [id number] # / / Set Screw 3dx - [id number] Implanted:Qty: 1 on 06/12/2010 at [facility] N/A: Lumbar Vertebrae Divesquare [id number]# / / Cnnctr Ts 3dx Sm - [id number] Implanted:Qty: 1 on 06/12/2010 at [facility] N/A: Lumbar Vertebrae Medtronic [id number] / / Kit Infuse Sm - [id number] Implanted:Qty: 1 on 06/12/2010 at [facility] Spine [employer]ANEK [id number]# / / [id number] AR Spacer Peek 25x12 Hines - [id number] Implanted:Qty: 1 on 06/12/2010 at [facility] Spine [employer]K [id number]# / / [id number] Power Port Isp Mri 6fr [id number] - [id number] Implanted:Qty: 1 on 03/24/2020 by Stephane Williamson DO at [facility] Left: Chest [employer] 01/25/2021 [id number]# / / [id number] Procedures Procedure Name Priority Date/Time Associated Diagnosis Comments AMB EPIDURAL STEROID INJECTION Routine 03/20/2024 8:07 AM CDT Lumbar radiculopathy S/P lumbar spinal fusion Foraminal stenosis of lumbar region DDD (degenerative disc disease), lumbar MR SHOULDER LEFT WO Routine 02/06/2024 11:35 AM CDT Impingement syndrome of left shoulder Chronic left shoulder pain Chronic periscapular pain on left side Osteoarthritis of left glenohumeral joint XR SPINE CERVICAL 3 VIEWS Routine 02/06/2024 10:32 AM CDT Foraminal stenosis of cervical region Cervical radiculopathy ANTI HCV Routine 07/18/2017 10:38 AM CDT Need for hepatitis C screening test XR DXA BONE DENSITY 2 SITES AXIAL Routine 12/17/2014 11:44 AM STORM DOOR MAKER Osteopenia from Last 3 Months or Most Recently Relevant to Health Maintenance Results * MR SHOULDER LEFT WO (02/06/2024 11:35 AM CDT) Anatomical Region Laterality Modality SHOULDER L Magnetic Resonan ce 02/06/2024 3:21 PM CDT Impressions 02/06/2024 3:21 PM CDT 1. Moderate tendinopathy and marginal degenerative tearing degrades supraspinatus. No full-thickness tear. Mild tendinosis infraspinatus. 2. Mild AC DJD. 3. Mild glenohumeral degenerative chondromalacia. Dictated by Praveen Joseph MD @ 02/06/2024 3:21:46 PM (Electronically Signed) Narrative 02/06/2024 3:21 PM CDT For Patients: ??As a result of the Cures Act, medical imaging exams and procedure reports are released immediately into your electronic medical record. ??You may view this report before your referring provider. ??If you have questions, please contact your health care provider. INDICATION: Pain. COMPARISON: 02 December 2023 plain film. TECHNIQUE: Axial T1 and PD fat-sat, coronal PD, T2 and PD fat sat and sagittal PD and T2 left shoulder. FINDINGS: Rotator cuff: Moderate marginal tearing at the articular margin and tendinosis degrade the infraspinatus. The tendon is thinned by less than 50 percent. Some shallow bursal tearing at the anterior distal tendon. No muscle atrophy. Mild patchy tendinosis infraspinatus without significant tearing. Intact teres minor. Intact subscapularis. No rotator cuff muscle atrophy or edema. Acromioclavicular joint and coracoacromial arch: Curved type 2 acromial undersurface with subacromial spurring at insertion of normal thickness cortical acromial ligament. Acromial humeral distance is 5 mm. Mild degenerative arthrosis AC joint. No fluid in the bursa. No clavicular dislocation or fracture. Subcoracoid interval is patent. Biceps labral complex: There is no discrete labral tear. Intact anchor and appropriately located biceps tendon. Glenohumeral joint: Anatomic alignment. Diffuse grade 2 cartilage thinning in the humeral head greater then glenoid although no secondary degenerative findings. Physiologic fluid without capsulitis. Bones and soft tissues: Deltoid bulk and signal is normal. No fracture or bone lesion. Visualized axilla is clear. Procedure Note Praveen Joseph MD - 02/06/2024 For Patients: As a result of the Cures Act, medical imagingexams and procedure reports are released immediately into your electronicmedical record. You may view this report before your referring provider.If you have questions, please contact your health care provider. INDICATION: Pain. COMPARISON: 02 December 2023 plain film. TECHNIQUE: Axial T1 and PD fat-sat, coronal PD, T2 and PD fat sat and sagittal PD andT2 left shoulder. FINDINGS: Rotator cuff: Moderate marginal tearing at the articular margin andtendinosis degrade the infraspinatus. The tendon is thinned by less than50 percent. Some shallow bursal tearing at the anterior distal tendon. Nomuscle atrophy. Mild patchy tendinosis infraspinatus without significanttearing. Intact teres minor. Intact subscapularis. No rotator cuff muscleatrophy or edema. Acromioclavicular joint and coracoacromial arch: Curved type 2 acromialundersurface with subacromial spurring at insertion of normal thicknesscortical acromial ligament. Acromial humeral distance is 5 mm. Milddegenerative arthrosis AC joint. No fluid in the bursa. No claviculardislocation or fracture. Subcoracoid interval is patent. Biceps labral complex: There is no discrete labral tear. Intact anchor andappropriately located biceps tendon. Glenohumeral joint: Anatomic alignment. Diffuse grade 2 cartilage thinningin the humeral head greater then glenoid although no secondarydegenerative findings. Physiologic fluid without capsulitis. Bones and soft tissues: Deltoid bulk and signal is normal. No fracture orbone lesion. Visualized axilla is clear. IMPRESSION: 1. Moderate tendinopathy and marginal degenerative tearing degradessupraspinatus. No full-thickness tear. Mild tendinosis infraspinatus. 2. Mild AC DJD. 3. Mild glenohumeral degenerative chondromalacia. Dictated by Praveen Joseph MD @ 02/06/2024 3:21:46 PM (Electronically Signed) Praveen Weston MD MR * XR SPINE CERVICAL 3 VIEWS (02/06/2024 10:32 AM CDT) Anatomical Region Laterality Modality CERVICAL SPINE Computed Radiogr aphy 02/06/2024 3:17 PM CDT Impressions 02/06/2024 3:17 PM CDT Vascular calcifications. Fusion between the C5 and C6 vertebral bodies. Narrowing and spurring at the C6-7 disc space. Uncovertebral joint hypertrophy C3-4 and C4-5. Multilevel degenerative facet arthropathy. Lung apices clear. Intact odontoid. No fracture. Dictated by Terrell Pierce MD @ 02/06/2024 3:17:14 PM (Electronically Signed) Narrative 02/06/2024 3:17 PM CDT For Patients: ??As a result of the Cures Act, medical imaging exams and procedure reports are released immediately into your electronic medical record. ??You may view this report before your referring provider. ??If you have questions, please contact your health care provider. Indication: Foraminal stenosis, cervical radiculopathy Technique: Cervical spine three views Comparison: 04/10/2022 Procedure Note Terrell Pierce MD - 02/06/2024 For Patients: As a result of the Cures Act, medical imagingexams and procedure reports are released immediately into your electronicmedical record. You may view this report before your referring provider.If you have questions, please contact your health care provider. Indication: Foraminal stenosis, cervical radiculopathy Technique: Cervical spine three views Comparison: 04/10/2022 IMPRESSION: Vascular calcifications. Fusion between the C5 and C6 vertebral bodies.Narrowing and spurring at the C6-7 disc space. Uncovertebral jointhypertrophy C3-4 and C4-5. Multilevel degenerative facet arthropathy. Lungapices clear. Intact odontoid. No fracture. Dictated by Terrell Pierce MD @ 02/06/2024 3:17:14 PM (Electronically Signed) Praveen Weston MD GENERAL IMAGING * ANTI HCV [[id number]] (07/18/2017 10:38 AM CDT) HEPATITIS C ANTIBODY Non-Reacti ve Non-Reacti ve 07/18/2017 5:15 PM CDT [facility] Blood BLOOD SPECIMEN / Unknown Venipuncture / Unknown 07/18/2017 10:38 AM CDT 07/18/2017 10:38 AM CDT Narrative [facility] - 07/18/2017 5:15 PM CDT Antibodies to HCV not detected; does not exclude the possibility of exposure to HCV. Sanjay Allan MD [facility]END [facility] [address] [place] [address], * (ABNORMAL) XR DXA BONE DENSITY 2 SITES (12/17/2014 11:44 AM STORM DOOR MAKER) Anatomical Region Laterality Modality Spine, HIPS, HIPL, HIPR Other Narrative 12/21/2014 7:46 AM STORM DOOR MAKER Please see scanned document for results of this study. Procedure Note [facility] - 12/21/2014 Please see scanned document for results of this study. Nikko Mederos MD DEXA from Last 3 Months or Most Recently Relevant to Health Maintenance Advance Directives Documents on File Type Date Recorded Patient Manager Personal Expl anation Treatment Guidelines 12/28/2021 Healthcare Directive 06/06/2021 12:00 AM 0 06/06/2021 Healthcare Directive 05/03/2013 7:15 AM 05/09 Healthcare Directive 06/18/2010 06/06/2021 * Full Code (Latest Code Status on File) Date Activated Date Inactivated Comments 08/29/2021 7:55 AM 08/29/2021 3:39 PM Question Answer Comments Code Status Discussion: Not Discussed * Full Code Date Activated Date Inactivated Comments 06/06/2021 9:34 AM 06/06/2021 3:21 PM Question Answer Comments Code Status Discussion: Not Discussed * Full Code Date Activated Date Inactivated Comments 06/06/2021 7:47 AM 06/06/2021 9:34 AM Question Answer Comments Code Status Discussion: Not Discussed * Full Code Date Activated Date Inactivated Comments 12/28/2020 8:57 AM 12/28/2020 2:14 PM Question Answer Comments Code Status Discussion: Not Discussed * Full Code Date Activated Date Inactivated Comments 12/21/2020 9:48 AM 12/22/2020 2:14 AM Question Answer Comments Code Status Discussion: Not Discussed Care Teams [facility] Psychiatrist Relationship Specialty Start Date End Date Sanjay Allan MD [address] [place] [id number] PCP - General Family Practice 03/05/17 Leila Elizalde MD [address] [place] [id number] Hematology Hematology and Oncology 05/23/20 Inga Bose NP [address] [place] [phone] Hematology Nurse Practitioner - Family 05/23/20
--- OUTSIDE RECORDS SUMMARY | 2024-03-20 14:32 | XMS_ITS | Clinical Summary ---
Author Organization [facility] Address [address] [place] [address] Phone Care Team Providers Care Stone Operator Name Role Phone Sanjay Allan MD Primary Care Provider [phone] Family History Medical History Relation Comments Heart disease Father 2 Hypertension Father 2 Heart disease Mother 2 Hypertension Mother 2 Stroke Mother 2 TIA Relation Status Comments Father 1 Father 2 Mother 1 Alive Mother 2 Social History Tobacco Use Types Packs/Day Years Used Date Smoking Tobacco: Former Cigarettes 1 30 0 10/28/1963 - 10/28/1993 Comments:Smoking History Inf o:Every day Sex and Gender Information Value Date Recorded Sex Assigned at Not on file Gender Identity Not on file Sexual Orientation Not on file Last Filed Vital Signs Vital Sign Reading Time Taken Comments Blood Pressure 151/82 04/10/2018 11:00 AM CDT Pulse 58 04/10/2018 11:00 AM CDT Temperature - - Respiratory Rate - - Oxygen Saturation - - Inhaled Oxygen Concentration - - Weight 69.4 kg (153 lb) 04/10/2018 11:00 AM CDT Height 160 cm (5' 3) 04/10/2018 11:00 AM CDT Body Mass Index 27.1 04/10/2018 11:00 AM CDT Plan of Treatment Health Maintenance Due Date Last Done Comments Pneumococcal Vaccine: 65+ Ye ars (3 of 3 - PPSV23 or PCV20) 09/27/2015 08/02/2015, 08/26/2009 Hepatitis B Vaccine (3 of 3 - Hep B Twinrix 3-dose series) 07/18/2017 02/15/2017, 11/16/2016, 09/14/2016 Diabetes: Ophthalmology Exam 01/14/2020 Diabetes: Pedal Pulse Checked 01/14/2020 Diabetes: Sensory Foot Exam 01/14/2020 Diabetes: Visual Foot Exam 01/14/2020 Diabetes: Hemoglobin A1C 05/23/20212 021, 04/03/2018, 04/03/2018, Additional history exists Influenza Vaccine (Season Ended) 2024 07/18/2020, 07/02/2019, 07/18/2018, Additional history exists Procedures Procedure Name Priority Date/Time Associated Diagnosis Comments E-H LABS - HC Routine 04/03/2018 12:00 AM CDT from Last 3 Months or Most Recently Relevant to Health Maintenance Results * (ABNORMAL) E-[facility] Labs (04/03/2018 12:00 AM CDT) Hgb 11.0(L) 12.0 - 18 gm/dL [facility] Hemoglobin A1C 7.8(H) <5.7 % [facility] 04/03/2018 [facility] HISTORICAL-CONVE RSIONS-UNSOLICITED RESULTS [facility] from Last 3 Months or Most Recently Relevant to Health Maintenance Care Teams Stone Operator Relationship Specialty Start Date End Date Sanjay Allan MD [address] [place] [address] PCP - General 07/13/19
--- OUTSIDE RECORDS SUMMARY | 2024-03-20 14:33 | XMS_ITS | Referral Summary ---
Author Organization [facility] Address [address] [place] [id number] Care Team Providers Care Senior Data Analyst Name Role Phone Elsewhere, Pcp Primary Care Provider Unavailabl e Source Comments Patient records contain information from all sites at [facility]. For routine questions regarding patient records, call [phone] during business hours, M-F 8:00 AM - 5:00 PM Central Time. Record requests for emergency care only can be directed to [phone] at any time.[facility] Encounters Date Type Department Care Team Description 03/10/2024 Ancillary Procedure Department of Ophthalmology 03/10/2024 11:10 AM CDT Ancillary Procedure Department of Ophthalmology in [place], [place] [address] [place] [address] Monty Zheng M.D. Membrane Macula Epiretinal Left 03/10/2024 10:30 AM CDT Office Visit Department of Ophthalmology in [place], [place] [address] [place] [address] Monty Zheng M.D. 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 in [place], [place] [address] [place] [address] Rene King M.D. Med Refill 02/27/2024 7:44 AM CDT - 02/27/2024 11:59 PM CDT Hospital Encounter Department of Laboratory Medicine in [address] [phone] Rhonda Hampton P.A.-C., M.S. Transplant Renal (HCC); High Risk Medication Discharge Disposition: Home or Self Care 02/21/2024 1:30 PM CDT Office Visit Department of Ophthalmology in [place], [place] [address] [place] [phone] Monty Zheng M.D. 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 Post PPV Positioning 02/14/2024 1:30 PM CDT Office Visit Department of Ophthalmology in [place], [place] [address] [phone] Monty Zheng M.D. 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 VITRECTOMY, PARS PLANA 25 GAUGE, MEMBRANE PEEL, FLUID AIR EXCHANGE, Laser LEFT EYE. 02/13/2024 6:07 AM CDT - 02/13/2024 11:59 PM CDT Hospital Encounter [facility] [address] [place] [phone] Monty Zheng M.D. Discharge Disposition: Home or Self Care 02/07/2024 Clinical Communication Department of Ophthalmology in [place], [place] [address] [place] [address] Monty Zheng M.D. Pre-Surgery Question 02/07/2024 9:00 AM CDT Comprehensive Visit Preoperative Evaluation Center in [place], [place] [address] [place] [address] Monty Zheng M.D. Kayla Shin M.D., Ph.D., M.Malika., Ph.D. 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 Transplant Renal ([facility]); Atherosclerotic Heart Disease Of [place] Coronary Artery Without Angina Pectoris Discharge Disposition: Home or Self Care 02/07/2024 10:05 AM CDT - 02/07/2024 11:38 AM CDT Hospital Encounter Department of Cardiovascular Diseases in [place], [place] [address] [place] [phone] Rhonda Hampton P.A.-Louisa., M.S. Transplant Renal ([facility]); Atherosclerotic Heart Disease Of [place] Coronary Artery Without Angina Pectoris Discharge Disposition: Home or Self Care 02/07/2024 2:15 PM CDT Office Visit Benito Babar yip [facility] for Transplantation and Clinical Regeneration in [place], [place] [address] [place] [address] Kevin Fregoso M.D. Edward Conway M.D., Ph.D. Coronary Stent Status Post (Primary Dx); Atherosclerotic Heart Disease Of [place] Coronary Artery Without Angina Pectoris; Atherosclerosis Aortic (HCC); Regurgitation Mitral; Transplant Renal (HCC) 02/05/2024 9:38 AM CDT - 02/05/2024 11:59 PM CDT Hospital Encounter Department of Laboratory Medicine in [address] [phone] Rhonda Hampton P.A.Frandy., M.S. Discharge Disposition: Home or Self Care 02/04/2024 7:58 AM CDT - 02/04/2024 11:59 PM CDT Hospital Encounter Department of Laboratory Medicine in [address] [phone] Rhonda Hampton P.Beryl.-Louisa., M.S. Transplant Renal ([facility]) Discharge Disposition: Home or Self Care 02/04/2024 7:50 AM CDT - 02/04/2024 7:57 AM CDT Hospital Encounter Department of Laboratory Medicine in [address] [phone] Rhonda Hampton P.A.-C., M.S. Transplant Renal ([facility]); Preanesthetic Medical Exam; 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 Bilateral; Detachment Vitreous Posterior Bilateral; Diabetes Mellitus Type 2 ([facility]) Discharge Disposition: Home or Self Care 01/30/2024 11:30 AM CDT Clinical Communication Virtual Review in [place], [place] [address] [place] [address] 01/22/2024 Documentation Benito Eckert [facility] in [address] [phone] Airam Church 01/15/2024 Clinical Communication Department of Ophthalmology in [address] [phone] Monty Zheng M.D. 12/22/2023 Refill Benito Eckert [facility] in [place], [place] [address] [place] [address] Jacky Bansal, ELODIA, C.N.P., M.S.N. Med Refill from Last 3 Months Allergies Active Allergy Reactions Criticality Noted Date Comments Johnnie Inhibitors Cough 12/18/2016 Amoxicillin Rash 12/18/2016 Has tolerated cefazolin 05/2021 and 08/2021 Penicillins Swelling 12/18/2016 Has tolerated cefazolin 05/2021 and 08/2021 Medications Medication Sig Dispensed Refills Start Date End Date Status coenzyme Q10 200 mg capsule Take 1 capsule by mouth every evening. For muscle pain 12/19/2016 Active DULoxetine (CYMBALTA) [address] capsule Take 1 capsule by mouth daily. 12/18/2016 Active vitamins A,C,B-bqyt-vbezmp (PRESERVISION AREDS) 7,160 Units-113 mg-100 Units per tablet Take 1 tablet by mouth 2 (two) times a day. For eye health 12/19/2016 Active rosuvastatin (CRESTOR) 40 mg tablet Take 1 tablet by mouth at bedtime. 09/02/2019 Active amLODIPine (NORVASC) 5 mg tablet Take 1 tablet (5 mg total) by mouth 2 (two) times a day. 30 tablet 1 10/19/2022 Active Additional Information Patient taking differently:5 mg oralDaily, Reported on 01/30/2024 esomeprazole (NexIUM) [address] capsule Take 1 capsule (20 mg total) by mouth every morning before breakfast. 90 capsule 3 12/12/2022 Active tacrolimus (PROGRAF) 1 mg capsuleIndications :Transplant Renal (HCC),Immunodefici ency Due To Drugs (HCC),Medication Therapy Stump Shooter Not Anticoagulant Take 1 capsule (1 mg total) by mouth every morning AND 1 capsule (1 mg total) every evening. 180 capsule 3 04/05/2023 Active biotin 10 mg tablet Take 10 capsules by mouth daily. 03/05/2023 Active cholecalciferol (VITAMIN D3) 50 mcg (2,000 Unit) capsule Take 1 capsule by mouth 2 (two) times a day. Active cyanocobalamin, vitamin B-12, 1,000 mcg capsule Take 1,000 mcg by mouth daily. 03/05/2023 Active aspirin 81 mg chewable tablet Chew 1 tablet (81 mg total) daily. HOLD until follow up with Neurology in 8 weeks 36 tablet 1 04/23/2023 Active copper gluconate (COPPERMIN) 2 mg tablet Take 2 tablets (4 mg total) by mouth every evening. 180 tablet 3 04/23/2023 04/22/20 24 Active calcium citrate-vitamin D3 (CITRACAL+D) 250 mg-5 mcg (200 Unit) per tablet Take 1 tablet by mouth 3 (three) times a day with meals. 300 tablet 3 06/27/2023 06/26/20 24 Active tacrolimus (Prograf) 0.5 mg capsule Take 1 capsule (0.5 mg total) by mouth 2 (two) times a day. 180 capsule 3 06/27/2023 Active carvediloL (COREG) 12.5 mg tablet Take 1 tablet (12.5 mg total) by mouth 2 (two) times a day with meals. Take along with 6.25 mg tablet for total dose of 18.75 mg twice daily. 90 tablet 3 10/09/2023 Active magnesium oxide (MAG-OX) 400 mg (241.3 mg magnesium) tabletIndications: Hypokalemia,Afterc are Transplant Renal (HCC),Abnormal Laboratory Results TAKE 1 TABLET (400 MG TOTAL) BY MOUTH 2 (TWO) TIMES A DAY BEFORE BREAKFAST AND DINNER. 180 tablet 3 11/04/2023 Active mycophenolate (MYFORTIC) 180 mg EC tabletIndications: Transplant Renal (HCC),Immunodefici ency Due To Drugs (HCC),Medication Therapy Intermediate Not Anticoagulant Take 3 tablets (540 mg total) by mouth 2 (two) times a day. 540 tablet 3 10/31/2023 Active predniSONE (DELTASONE) 5 mg tabletIndications: Transplant Renal (HCC),Immunodefici ency Due To Drugs (HCC),Medication Therapy Intermediate Not Anticoagulant Take 1 tablet (5 mg total) by mouth daily. 90 tablet 3 11/12/2023 Active semaglutide (OZEMPIC) 1 mg/dose (4 mg/3 mL) injection Inject 1 mg under the skin every 7 (seven) days. 3 mL 11 11/14/2023 Active metFORMIN XR (GLUCOPHAGE-XR) 500 mg 24 hr tablet Take one tablet with breakfast and 2 tablets with evening meal. If not tolerated decrease back to one tablet twice daily. 270 tablet 3 11/14/2023 Active Additional Information Patient taking differently: 500 mg Daily with breakfast, Take one tablet with breakfast and 2 tablets with evening meal. If not tolerated decrease back to one tablet twice daily., Reported on 01/30/2024 multivitamin-qualifications examiner bgk-WV-pnwczl (CENTRUM SILVER) 400-250 mcg per chewable tablet Chew 1 tablet daily. 11/14/2023 Active calcium carbonate (TUMS) 500 mg (200 mg calcium) chewable tablet Chew 2 tablets (400 mg of calcium total) 3 (three) times a day with meals. 11/14/2023 Active carvediloL (COREG) 6.25 mg tablet TAKE 1 TAB BY MOUTH 2 TIMES A DAY WITH MEALS.TAKE WITH 12.5MG TAB FOR TOTAL OF 18.75MG TWICE DAILY. 180 tablet 3 12/20/2023 Active potassium chloride (K-TAB) 20 mEq CR tablet Take 1 tablet (20 mEq total) by mouth daily. 90 tablet 3 12/23/2023 Active Accu-Chek Guide test strips 1 test by other route 2 (two) times a day. 01/30/2024 Active multivitamin tablet Take 1 tablet by mouth daily. 90 tablet 3 10/07/2022 10/08/20 22 Discontinue d(Reorder) prednisoLONE acetate (PRED FORTE) 1 % ophthalmic suspension Administer 1 drop into the left eye 4 (four) times a day for 7 days, THEN 1 drop 3 (three) times a day for 7 days, THEN 1 drop 2 (two) times a day for 7 days, THEN 1 drop daily for 7 days. 10 mL 02/14/2024 03/13/20 24 polymyxin B-trimethoprim (POLYTRIM) 10,000 unit- 1 mg/mL ophthalmic solution Administer 1 drop into the left eye 4 (four) times a day for 7 days. 10 mL 02/14/2024 02/21/20 24 Active Problems Problem Noted Date Diagnosed Date Coronary Stent Status Post 02/07/2024 Membrane Macula Epiretinal Left 12/06/2023 Nonexudative Age-Related Mac ular Degeneration Advanced Atrophic Without Subfoveal Involvement Bilateral 12/06/2023 Detachment Vitreous Posterior Bilateral 12/06/19 24 Intraocular Lens Implant Status Post 12/06/2023 Regurgitation Mitral 06/13/2023 Osteoporosis 04/26/2023 Overview: Diagnosed in 2021 based on screening bone density with worst T-score of -2.8 at her right femoral neck. Fracture history: Right ankle fracture, s/p ORIF due to slipping on ice in 2021 Left arm fracture, due to fall from standing height March 2023 Treatment history: Reclast May 20, 2023 Prednisone 5 mg daily. Pertinent medical/surgical history: Remote history of nephrolithiasis. Jerson-en-Y gastric bypass in 2002, initial weight loss of 80 pounds GERD Remote history of tobacco use, quit in 1993. Denies alcohol use. Family history of osteoporosis and hip fracture in maternal grandmother. No parental history of hip fracture. Cerebral Hemorrhage 04/22/2023 Hypokalemia 11/07/2022 Hypomagnesemia 11/07/2022 Hypophosphatemia 11/07/2022 Hypokalemia 10/10/2022 Diarrhea 10/10/2022 Hyperoxaluria 10/09/2022 Transplant Renal 10/07/2022 Immunodeficiency Due To Drugs 10/07/2022 Atherosclerotic Heart Diseas e Of [place] Coronary Artery Without Angina Pectoris 10/06/2022 Noninfective Gastroenteritis And Colitis Unspeci fied 01/11/2021 Overview: flexible sigmoidoscopy 12/2020 normal biopsies Intra Abdominal And Pelvic S welling Mass And Lump Unspecified Site 2020 Polyneuropathy 2020 Nephrolithiasis 07/14/2020 Thrombocytopenia 07/11/2020 Overview: Component Latest Ref Rng & Units 03/08/2020 03/15/2020 04/19/2020 05/02/2020 PLATELET COUNT 140 - 440 thou/cu mm 133 (L) 138 (L) 150 125 (L) Component Latest Ref Rng & Units 05/09/2020 PLATELET COUNT 140 - 440 thou/cu mm 118 (L) Anemia In Chronic Kidney Disease 12/16/2019 Peripheral Vascular Disease 11/10/2019 Hyperparathyroidism Renal Secondary 05/28/2019 Anemia Iron Deficiency 07/18/2018 Deficiency Of Other Specified B Group Vitamins 0 07/18/2018 Fibromyalgia 07/18/2018 Surgery Bariatric Status Post 10/14/2017 Acute Gastrojejunal Ulcer Without Hemorrhage Or Perforation 10/14/2017 Overview: EGD 09/2017 small anastomotic ulcer Gallstone Without Obstruction 04/11/2017 Malignant Neoplasm Of Skin Squamous Cell Carcino ma 04/11/2017 Atherosclerosis Aortic 01/01/2017 Vaginal Squamous High Grade Intraepithelial Lesi on 12/31/2016 Chronic Kidney Disease Stage 5 Glomerular Filtration Rate Less Than 15 12/20/2016 Hypertensive Chronic Kidney Disease With Stage 5 Chronic Kidney Disease Or End Stage Renal Disease, Chronic Kidney Disease Stage 5 10/29/2016 Chronic Kidney Disease NOS 10/29/2016 Depression Personal History 10/29/2016 Diabetes Mellitus Type 2 10/29/2016 Overview: Diagnosed 1997 based on OGTT Initially managed with Metformin, which was discontinued prior to transplant due to decline in renal function. She was able to manage without therapy up until time of transplant. NPH insulin was initiated following transplant and Metformin resumed. Ozempic added in February 2023. No history of DKA, pancreatitis, UTI, or significant skin infection. No personal or family history of medullary thyroid cancer or MEN syndrome. No family history of diabetes. Diabetic Review of Systems: Eye: Last eye exam was July 15, 2023. Proliferative diabetic retinopathy, requiring injections every 5-6 weeks. Cardiovascular: Mild stroke March 2023. Renal: History of ESRD secondary to diabetes and hypertension. S/P kidney transplant. Current creatinine 0.57, eGFR >90. Neurologic: Denies complications. Skin: Denies complications. Incontinence Urinary 05/12/2013 Polyp Colon Adenomatous 11/06/2012 Overview: Colonoscopy 10/2012 large polyp repeat in 6 months Colonoscopy 10/2014 polyps repeat in 5 years Colonoscopy 03/2020 polyps, repeat in 5 years Hyperlipidemia Mixed 09/23/2012 Spinal Stenosis Lumbar Regio n Without Neurogenic Claudication 03/03/2010 Gastroesophageal Reflux Disease NOS 09/01/2007 Resolved Problems Problem Noted Date Diagnosed Date Resolved Date Pretransplant Recipient Evaluation Exam 03/08/2019 10/11/2022 Overview: Transplant Evaluation Summary: 1. 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 Recurrent risk: unknown yet, need 24 h urine oxalate data 3. Listing Date: 05/27/2017 4. C-peptide: Not done 5. cPRA: pending 6. Previous transplants: no 7. Dialysis: no CKD stage 5 8. Diabetes?: yes Type 2 9. Pancreas Candidate?: No 10. BMI: Body mass index is 28.18 kg/m??. 11. Functional Status/Karnofsky Score: not very active, pending PMR evaluation 12. EPTS: pending% 13. Cardiopulmonary evaluation: history of chronic angina and positive nuclear stress test 05/2018, treated with nitrate, pending dobutamine stress echo and visit with cardiology 14. Troponin: < 6 15. History of malignancies: no 16. [place] renal imaging if on dialysis >3 years: recent ultrasound showing cyst in right kidney. 17. Health maintenance: Up to date on colonoscopy, mammogram and pap smear 18. History of serious infections: Urosepsis 2012. 19. Urinary bladder dysfunction: none per history 20. Hematology/coagulation issues: no history of DVT, PE 21. Psychosocial: PACT: 2/ SIPAT: pending/ Other Issues: history of depression and anxiety. 22. Surgical Issues: last visit with norman Koch 23. Peripheral Vascular Disease?: likely given claudication 24. Other Medical Issues: prior history of tobacco use; CT scan lung cancer screening ordered 25. Pending issues: as above 26. Exhausted dialysis access: no Stenosis Carotid Artery 10/29/201602/25 Immunizations Name Administration Dates Next Due H1N1 All Forms 08/25/2009 HZV (ZOSTAVAX) 07/21/2010 HepA / HepB 02/15/2017,11/16/2016,09/14/2016 Influenza (IM) Preservative Free 07/13/2011,03/2010 Influenza TIV (IM) 07/18/2020, 9,07/18/2018,2013,07/12/2013,09/09/2012,07/13/2011,1 Influenza high dose QV(65 ye ars or older) (PF) 08/03/2022,07/28/2021 Influenza, Quadrivalent, Adj uvanted, Preservative Free 08/30/2023 Influenza, Seasonal, Injectable 07/28/2014,09/09,08/27/2006 Influenza, Unspecified 07/26/2009 PCV13 08/02/2015 PPSV23 08/12/2020,08/26/2009 RZV (SHINGRIX) 09/26/2018,07/28/2018 SARS-COV-2 (COVID-19) - MODE RNA BIVALENT(Discontinued) 08/03/2022 SARS-COV-2 (COVID-19) - MODERNA(Discontinued) 09/08/2021 Td (Adult), adsorbed 12/26/2005 Tdap 07/28/2014 influenza high dose (65 year s or older) (PF) 07/11/2017,09/14/2016,08/02/2015 influenza vaccine quad (FLUZ ONE) (6 months-35 months) (PF) 07/15/2013 influenza vaccine quad (FLUZONE/FLUARIX) (6 months and older)(PF) 07/18/2020,08/25/2009 Social History Tobacco Use Types Packs/Day Years Used Date Smoking Tobacco: Former Cigarettes 1 20 1 - 08/06/1983 Smokeless Tobacco: Never Tobacco Cessation:Counseling Given: Not Answered Alcohol Use Standard Drinks/Week Comments No 0 (1 standard drink = 0.6 oz pur e alcohol) [facility] Utilities Answer Date Recorded In the past [address] [facility] [employer], [employer], or water [employer] threatened to shut off services in your home? No 11/29/2023 Humiliation, Afraid, Rape, and Kick questionnair e Answer Date Recorded Within the last year, have y ou been afraid of your partner or ex-partner? No 10/30/2022 Within the last year, have y ou been humiliated or emotionally abused in other ways by your partner or ex-partner? No Within the last year, have y ou been kicked, hit, slapped, or otherwise physically hurt by your partner or ex-partner? No 10/30/2022 Within the last year, have y ou been raped or forced to have any kind of sexual activity by your partner or ex-partner? No 10/30/2022 Social Connection and Isolat ion Panel [NHANES] Answer Date Recorded In a typical week, how many times do you talk on the phone with family, friends, or neighbors? Three times a week 10/30/2022 How often do you get togethe r with friends or relatives? Twice a week 10/30/2022 How often do you attend chur or baptist services? More than 4 times per year 10/30/2022 Do you belong to any clubs o r organizations such as adventism groups, unions, fraternal or athletic groups, or school groups? Yes 10/30/2022 How often do you attend meet ings of the clubs or organizations you belong to? More than 4 times per year 10/30/2022 Are you , , di vorced, , never , or living with a partner? 10/30/2022 AUDIT-C Answer Date Recorded Q1: How often do you have a drink containing alc ohol? Never 10/30/2022 Average Number of Drinks Not on file 023 Frequency of Binge Drinking Not on file 12/2022 Overall Financial Resource Strain (CARDIA) Answe r Date Recorded How hard is it for you to pa y for the very basics like food, housing, medical care, and heating? Not very hard 10/30/2022 PHQ-2 Answer Date Recorded PHQ-2 Score 0 04/23/2023 [facility] Questionnaire Answer Date Recorded Do you feel stress - tense, restless, nervous, or anxious, or unable to sleep at night because your mind is troubled all the time - these days? Only a little 10/30/2022 Exercise Vital Sign Answer Date Recorde d On average, how many days pe r week do you engage in moderate to strenuous exercise (like a brisk walk)? 0 days 11/14/2023 On average, how many minutes do you engage in exercise at this level? 0 min 11/14/2023 Hunger Vital Sign Answer Date Recorded Within the past 12 months, y ou worried that your food would run out before you got the money to buy more. Never true 11/29/19 24 Within the past 12 months, t he food you bought just didn't last and you didn't have money to get more. Never true 11/29/2023 PRAPARE - Transportation Answer Date Re corded In the past 12 months, has l ack of transportation kept you from medical appointments or from getting medications? No 11/2023 In the past 12 months, has l ack of transportation kept you from meetings, work, or from getting things needed for daily living? No 11/29/2023 Depression Answer Date Recor ded PHQ-9 Total Score (max 27) 2 04/23 Nutrition Answer Date Recorded On average, how many serving s of fruits and vegetables do you eat per day (serving size is equal to 1 cup or approximately the size of a tennis ball)? 0-2 11/14/2023 Dental Answer Date Recorded Dental: Regular Dentist Yes 04/15/20 Employment Answer Date Recorded Employment status Retired 11/14/2023 Housing Stability Answer Date Recorded What is your living situation today? I have a [facility] place to live 11/29/2023 Education Answer Date Recorded What is the highest level of school you have completed or the highest degree you have received? 12th grade 01/15/2020 Sex and Gender Information Value Date Recorded Sex Assigned at Female 08/15/2022 12:28 PM CDT Gender Identity Female 04/24/2018 8:21 PM CDT Sexual Orientation Straight 04/24/2018 8: 21 PM CDT Last Filed Vital Signs Vital Sign Reading Time Taken Comments Blood Pressure 131/69 02/13/2024 8:50 AM CDT Pulse 82 02/13/2024 8:50 AM CDT Temperature 36.5 ??C (97.7 ??F) 02/13/2024 8:49 AM CD T Respiratory Rate 18 02/13/2024 8:50 AM CDT Oxygen Saturation 94% 02/13/2024 8:50 AM CDT Inhaled Oxygen Concentration - - Weight 55.5 kg (122 lb 5.7 oz) 02/13/2024 6:57 A M CDT Height 160 cm (5' 3) 02/13/2024 6:57 AM CDT Body Mass Index 21.67 02/13/2024 6:57 AM CDT Plan of Treatment Not on file Medical Devices Implanted Type Area Hand Driller Device Identifier Shelf Expiration Date Model / Serial / Lot Hardware Ankle Implant Right: Ankle Conversions - Default Historical Implant Device Implanted:11/29 (Quantity not on file) Hardware e.g. pins/screws /rods Other/Legacy - See Implant Description Description:Body Location - Spine. lower back. Device Status Text - Hardware. Stent Other- 0 Implanted:10/29 (Quantity not on file) Stent Other Heart Explanted Type Area Hand Driller Device Identifier Shelf Expiration Date Model / Serial / Lot Stnt Uret Cls Tp Dbl [id number] - S - [id number] Implanted:Qty : 1 on 10/06/2022 by Praveen Dela Cruz M.D., Ph.D. at [facility] Explanted:Qty : 1 on 10/23/2022 by Chuck Stinson, P.A.-C. Ureteral Stent [employer] Indu [id number] / / [id number] Procedures Procedure Name Priority Date/Time Associated Diagnosis Comments OPTICAL COHERENCE TOMOGRAPHY - MACULA/RETINA - OU - BOTH EYES Routine 03/10/2024 9:52 AM CDT Membrane Macula Epiretinal Left OPHTHALMOLOGY IMAGE EXAM Routine 03/10/2024 12:00 AM CDT CALCIUM, TOT, S/P Routine 02/27/2024 7:5 1 AM CDT Transplant Renal ([facility]LY [facility]) High Risk Medication OXALATE, PLASMA Routine 02/27/2024 7:51 AM CDT Transplant Renal (FORMERLY [facility]) High Risk Medication POTASSIUM, S/P Routine 02/27/2024 7:51 AM CDT Transplant Renal (FORM[facility]LY [facility]) High Risk Medication TACROLIMUS LEVEL, B Routine 02/27/2024 7 :51 AM CDT Transplant Renal (FORM[facility]) High Risk Medication GLUCOSE, FASTING, S/P Routine 02/27/2024 7:51 AM CDT Transplant Renal ([facility]) High Risk Medication CREATININE WITH EGFR, S/P Routine 02/27/2024 7:51 AM CDT Transplant Renal (FORM[facility]) High Risk Medication BKV DNA DETECT/QUANT, P Routine 02/27/2024 7:51 AM CDT Transplant Renal (HCC) High Risk Medication CBC WITH DIFFERENTIAL, B Routine 02/27/2024 7:50 AM CDT Transplant Renal (FORM[facility]) High Risk Medication GLUCOSE POCT, B Routine 02/13/2024 8:55 AM CDT GLUCOSE POCT, B Routine 02/13/2024 7:22 AM CDT VITRECTOMY - PARS PLANA 25 GAUGE 02/13/2024 7:18 AM CDT Membrane Macula Epiretinal Left DX CHEST AP OR PA AND LATERAL 2 VIEWS RAD - Routine (most inpatients and all outpatients) 02/07/2024 11:56 AM CDT Transplant Renal (FORMERLY [facility]) Atherosclerotic Heart Disease Of [place] Coronary Artery Without Angina Pectoris ECG Routine 02/07/2024 11:19 AM CDT Transplant Renal ([facility]) Atherosclerotic Heart Disease Of [place] Coronary Artery Without Angina Pectoris (TTE) 2D ECHO DOPPLER COLOR Routine 02/07/2024 10:43 AM CDT 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 SUPERSATURATION, 24H, U Routine 02/05/2024 12:36 PM CDT Transplant Renal ([facility]) HEMOGLOBIN A1C, B Routine 02/04/2024 8:0 9 AM CDT Preanesthetic Medical Exam 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 Bilateral Detachment 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) BASIC METABOLIC PANEL, S/P Routine 02/04/2024 8:09 AM CDT Preanesthetic Medical Exam 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 Bilateral Detachment 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) PHOSPHORUS (INORGANIC), S Routine 02/04/2024 8:09 AM CDT Transplant Renal (HCC) BI BREAST SCREENING BILATERAL WITH TOMOSYNTHESIS RAD - Routine (most inpatients and all outpatients) 10/02/2023 9:55 AM ROUTE RIDER ALBUMIN, RANDOM, U Routine 07/09/2018 10:48 AM CDT Chronic Kidney Disease Stage 5 Glomerular Filtration Rate Less Than 15 (HCC) Diabetes Mellitus Type 2 (HCC) Hypertension And Chronic Kidney Disease Stage 5 (HCC) Atherosclerosis Aortic (HCC) from Last 3 Months or Most Recently Relevant to Health Maintenance Results * Optical Coherence Tomography - Macula/Retina - OU - Both Eyes (03/10/2024 9:52 AM CDT) Narrative OPHTHALMOLOGY IMAGING EXAM - 03/10/2024 10:14 AM CDT Right Eye OCT device used was Spectralis . Left Eye OCT device used was Spectralis . Notes See note from visit on 03/10/2024. Monty Zheng M.D. OPHTH TOMOGRAPHY Performing Organization Address [facility]/ZIP Co de Phone Number OPHTHALMOLOGY IMAGING EXAM * Eyes Spectralis OCT-Ophthalmology Image Exam (03/10/2024 12:00 AM CDT) Narrative IIMS - 03/10/2024 9:57 AM CDT This order has been created and auto-finalized to support the import of images acquired without order. The clinical documentation to support these images can be found on the encounter that produced images. Provider Not In System IMG NON RAD IMAGI NG PROCEDURES Performing Organization Address [facility]/ZIP Co de Phone Number IIMS NA * (ABNORMAL) BKV DNA Detect/Quant (02/27/2024 7:51 AM CDT) Pathologist [facility] BKV DNA Detect/Quant, P 102(A) Undetected IU/mL 02/28/2024 4:52 PM CDT [facility] Comment: Result in log IU/mL is 2.01. ----ADDITIONAL INFORMATION---- The quantification range of this assay is 22 to 100,000,000 IU/mL (1.34 log to 8.00 log IU/mL). Testing was performed using the rianna BKV test ([employer] Blood (Blood, Venous) 02/27/2024 7:51 AM CDT 02/27/2024 7:54 PM CDT Rhonda Hampton P.A.-C., M.S. LAB SANGEETHA ROBIOLOGY - BLOOD ORDERABLES [facility] [address] [place] [address] [facility] [address] [place] [address] [place] [address] * (ABNORMAL) Oxalate (02/27/2024 7:51 AM CDT) Oxalate, Plasma 2.8(H) <=2.0 mcmol/L 02/28/2024 2:14 PM CDT [facility] Comment: Sample was received nonacidified and frozen. In nonacidified samples oxalate values may increase spontaneously. ----ADDITIONAL INFORMATION---- This test has been modified from the spar finisher's instructions. Its performance characteristics were determined by [facility] in a manner consistent with CLIA requirements. This test has not been cleared or approved by the U.S. Food and Drug Administration. Blood (Blood, Venous) 02/27/2024 7:51 AM CDT 02/28/2024 8:13 AM CDT Rhonda Hampton P.A.-C. MJoseSJose LAB BLO OD NON ADD-ON [facility] [address] [place] [address], [facility] MANUELA [facility] [address] [place] [address] * Tacrolimus, Trough (02/27/2024 7:51 AM CDT) Tacrolimus, Trough 6.6 5.0-15.0 (Trough) ng/mL 02/28/2024 12:11 PM CDT [facility] Comment: ----ADDITIONAL INFORMATION---- Target steady-state trough concentrations vary depending on the type of transplant, concomitant immunosuppression, clinical/institutional protocols, and time post-transplant. Results should be interpreted in conjunction with this clinical information and any physical signs/symptoms of rejection/toxicity. Testing performed by Liquid Chromatography-Tandem Mass Spectrometry (LC-MS/MS). This test was developed and its performance characteristics determined by [facility] in a manner consistent with CLIA requirements. This test has not been cleared or approved by the U.S. Food and Drug Administration. Blood (Blood, Venous) 02/27/2024 7:51 AM CDT 02/28/2024 7:26 AM CDT Rhonda Hampton P.A.-C., M.S. LAB BLO OD NON ADD-ON [facility] [address] [place] [address] [place] [address] [place] [address] * Potassium (02/27/2024 7:51 AM CDT) Potassium, P 4.5 3.6 - 5.2 mmol/L 02/27/2024 8:10 AM CDT [facility] Blood (Blood, Venous) 02/27/2024 7:51 AM CDT 02/27/2024 7:52 AM CDT Rhonda Hampton P.A.-C., M.S. LAB BLO OD ADD-ON [facility] [address] [place] [id number], [place] [facility] in [address] [address] * (ABNORMAL) Glucose, Fasting (02/27/2024 7:51 AM CDT) Glucose, P 148(H) 70 - 100 mg/dL 02/27/2024 8:07 AM CDT CNFL Last Intake 12 hr 02/27/2024 7:52 AM CDT CN[facility] Blood (Blood, Venous) 02/27/2024 7:51 AM CDT 02/27/2024 7:52 AM CDT Rhonda Hampton P.A.-C., M.S. LAB BLO OD NON ADD-ON Performing Organization Address [facility] [place] [address], [facility] [place] [address] * Creatinine with Estimated GFR (02/27/2024 7:51 AM CDT) Creatinine 0.67 0.59 - 1.04 mg/dL 02/27/2024 8:10 AM CDT CNFL Estimated GFR (eGFR) >90 >=60 mL/min/BSA 02/27/2024 8:10 AM CDT CNFL Comment: Estimated GFR calculated using the 2020 CKD_EPI creatinine equation. Blood (Blood, Venous) 02/27/2024 7:51 AM CDT 02/27/2024 7:52 AM CDT Rhonda Hampton P.A.-C., M.S. LAB BLO OD ADD-ON Performing Organization Address [facility] Co de Phone Number [address] [address], [facility] CNFL [address] [address] * Calcium, Total (02/27/2024 7:51 AM CDT) Calcium, Total, P 9.3 8.8 - 10.2 mg/dL 02/27/2024 8:10 AM CDT CNFL Blood (Blood, Venous) 02/27/2024 7:51 AM CDT 02/27/2024 7:52 AM CDT Rhonda Hampton P.A.-C. MJoseS. LAB BLO OD ADD-ON [facility] [address] [place] [address], [facility] CNFL [facility] in [address] [address] * CBC with Differential, Blood (02/27/2024 7:50 AM CDT) Hemoglobin 14.4 11.6 - 15.0 g/dL 02/27/2024 7:59 AM CDT CNFL Hematocrit 44.5 35.5 - 44.9 % 02/27/2024 7:59 AM CDT CNFL Erythrocytes 4.77 3.92 - 5.13 x10(12)/L 02/27/2024 7:59 AM CDT CNFL MCV 93.3 78.2 - 97.9 fL 02/27/2024 7:59 AM CDT CNFL RBC Distrib Width 13.5 12.2 - 16.1 % 02/27/2024 7:59 AM CDT CNFL Platelet Count 164 157 - 371 x10(9)/L 02/27/2024 7:59 AM CDT CNFL Leukocytes 5.6 3.4 - 9.6 x10(9)/L 02/27/2024 7:59 AM CDT CNFL Neutrophils 3.56 1.56 - 6.45 x10(9)/L 02/27/2024 7:59 AM CDT CNFL Lymphocytes 1.34 0.95 - 3.07 x10(9)/L 02/27/2024 7:59 AM CDT CNFL Monocytes 0.51 0.26 - 0.81 x10(9)/L 02/27/2024 7:59 AM CDT CNFL Eosinophils 0.11 0.03 - 0.48 x10(9)/L 02/27/2024 7:59 AM CDT CNFL Basophils 0.06 0.01 - 0.08 x10(9)/L 02/27/2024 7:59 AM CDT CNFL Blood (Blood, Venous) 02/27/2024 7:50 AM CDT 02/27/2024 7:52 AM CDT Rhonda Hampton P.A.-C. MJoseS. LAB BLO OD ADD-ON [facility] [address] [place] [address], [facility] CNFL [facility] in [address] [address] * (ABNORMAL) Glucose, POCT (02/13/2024 8:55 AM CDT) Only the most recent of2 resultswithin the time period is included. [facility] Glucose, POCT, B 144(H) 70 - 140 mg/dL 02/13/2024 9:26 AM CDT PCLX Site Capillary 02/13/2024 9:26 AM CDT PCLX Blood 02/13/2024 8:55 AM CDT 02/13/2024 9:27 AM CDT Unknown Provider LAB POCT ORDERABLES- MANUAL POC [facility] [address] [place] [address], [facility] PCLX [facility] POC [address] [place] [address] * DX Chest AP or PA and Lateral 2 Views (02/07/2024 11:56 AM CDT) Anatomical Region Laterality Modality Chest, Thoracic RST LOS, Tho racic ARZ LOS, Thoracic FLA LOS N/A Digital Radiography Impressions 02/07/2024 11:59 AM CDT Since 06/13/2023, resolved lingular atelectasis. Coronary stents. Thoracic spondylosis. Partially visualized upper lumbar spinal fusion hardware. Right upper extremity vascular stent. Chest otherwise negative. Narrative 02/07/2024 11:59 AM CDT EXAM: ??DX CHEST AP OR PA AND LATERAL 2 VIEWS Procedure Note Jerman Lucas M.D. - 02/07/2024 EXAM: DX CHEST AP OR PA AND LATERAL 2 VIEWS IMPRESSION: Since 06/13/2023, resolved lingular atelectasis. Coronary stents. Thoracicspondylosis. Partially visualized upper lumbar spinal fusion hardware.Right upper extremity vascular stent. Chest otherwise negative. Rhonda Hampton P.A.-C., M.S. IMG [facility] GNOSTIC IMAGING PROCEDURES * ECG 12 Lead (02/07/2024 11:19 AM CDT) Ventricular Rate ECG/Min 83 BPM MUSE DC Interval 158 ms MUSE QRSD Interval 82 ms MUSE QT Interval 380 ms MUSE QTC Interval 446 ms MUSE P [place] 54 degrees MUSE R [place] 19 degrees MUSE T Wave [place] 65 degrees MUSE 02/07/2024 11:1 9 AM CDT 02/07/2024 11:34 AM CDT Impressions MUSE - 02/07/2024 11:34 AM CDT Sinus rhythm Premature atrial complexes singly and in pairs Otherwise normal ECG When compared with ECG of 13-Jun-2023 09:03, Premature atrial complexes are now present Reviewed by SANGEETHA Putnam Narrative Procedure Note Donal Brownlee M.D., Ph.D. - 02/07/2024 IMPRESSION: Sinus rhythm Premature atrial complexes singly and in pairs Otherwise normal ECG When compared with ECG of 13-Jun-2023 09:03, Premature atrial complexes are now present Reviewed by SANGEETHA Putnam Rhonda Hampton P.A.-C., M.S. ECG ORD ERABLES MUSE NA * (TTE) 2D ECHO DOPPLER COLOR (02/07/2024 10:43 AM CDT) Ejection Fraction 60 MC CV EIMS LV Mass Index 115 MC CV EIMS LV End-Diastolic Diameter 48 MC CV EIMS LV End-Systolic Diameter 32 MC CV EIMS LV End-Diastolic Volume 116 MC CV EIMS LV End-Systolic Volume 46 MC CV EIMS MV E Velocity 0.7 MC CV EIMS MV A Velocity 0.8 MC CV EIMS MV E/A 0.87 MC CV EIMS MV e' Velocity Medial 0.05 MC CV EIMS MV e' Velocity Lateral 0.09 MC CV EIMS MV E/e' Medial 14 MC CV EIMS MV E/e' Lateral 7.8 MC CV EIMS Left ventricular stroke volume index 47 MC CV EIMS Cardiac Output 6.21 MC CV EIMS Cardiac Index 3.93 MC CV EIMS LV Interventricular Septal Wall Thickness 11 MC CV EIMS LV Posterior Wall Thickness 10 MC CV EIMS LV Relative Wall Thickness 42 MC CV EIMS Tricuspid Annular S? 0.12 MC CV EIMS TR Vmax 2.3 MC CV EIMS RA Pressure 5 MC CV EIMS RV Systolic Pressure 26 MC CV EIMS AV mean gradient 5 MC CV EIMS Aortic valve area 2.35 MC CV EIMS Aortic Valve Dimensionless Index 0.68 MC CV EIMS Aortic Valve Systolic Peak Velocity 1.6 MC CV EIMS Anatomical Region Laterality Modality Echocardiography 02/07/2024 10:0 7 AM CDT Impressions 02/07/2024 11:49 AM CDT Status post renal transplant (06-OCT-2022) Echocardiogram performed per left ventricular ejection fraction only protocol. Last full echocardiogram performed 04/23/2023. LEFT VENTRICLE:Normal left ventricular chamber size. Sigmoid ventricular septum with basal septal prominence: 14 mm Concentric left ventricular hypertrophy. Left ventricular mass index by 2D 115 g/m2. Calculated 2-D biplane volumetric left ventricular ejection fraction of 60% without the use of ultrasound enhancing agent. No regional wall motion abnormalities. Indeterminate left ventricular diastolic function. RIGHT VENTRICLE:Normal right ventricular chamber size by visual estimate. Normal right ventricular systolic function. Estimated right ventricular systolic pressure 26 mmHg (right atrial pressure of 5 mmHg). ATRIA:Enlarged left atrial size by visual estimate. Normal right atrial size by visual estimate. CARDIAC VALVES:Sclerotic aortic valve. Trileaflet aortic valve. Mild aortic valve regurgitation. Mildly calcified mitral annulus. Thickened mitral valve. Mild mitral valve regurgitation. Normal tricuspid valve. Mild tricuspid valve regurgitation. OTHER ECHO FINDINGS:Normal inferior vena cava size with normal inspiratory collapse (>50%). No intracardiac mass or thrombus, but the left atrial appendage cannot be visualized adequately with transthoracic echo to exclude thrombus in this location. Prominent ??epicardial fat layer. Tiny circumferential pericardial effusion. For the complete report, see the Order-Level Documents. Narrative 02/07/2024 11:49 AM CDT For the complete report, see the Order-Level Documents. Hemodynamics Heart Rate: 75 BPM Blood Pressure: 141 / 84 mmHg ECG: Sinus rhythm with ectopics Final Impressions 1. Status post renal transplant (06-OCT-2022) 2. Normal left ventricular chamber size ( concentric hypertrophy), no regional wall motion abnormalities, calculated 2-D biplane volumetric ejection fraction of 60%. 3. Left ventricular mass index by 2D 115 g/m2. Sigmoid ventricular septum with basal septal prominence: 14 mm 4. Normal right ventricular chamber size, normal systolic function, estimated right ventricular systolic pressure 26 mmHg (right atrial pressure of 5 mmHg). 5. Mild mitral valve regurgitation (strong mild). Mildly calcified mitral annulus. Thickened mitral valve. 6. Mild aortic valve regurgitation. Sclerotic aortic valve. 7. Mild tricuspid valve regurgitation. 8. Tiny circumferential pericardial effusion (mostly anterior). 9. Normal inferior vena cava size with normal inspiratory collapse (>50%). 10. Compared to the report of 04/23/2023 no significant change has occurred. Side by side comparison of images performed. Images were also compared to stress echocardiogram from May 03, 2023, mitral regurgitation has not increased (strong mild today) Procedure Note Lina Rodriguez M.D., Ph.D. - 02/07/2024 For the complete report, see the Order-Level Documents. Hemodynamics Heart Rate: 75 BPM Blood Pressure: 141 / 84 mmHg ECG: Sinus rhythm with ectopics Final Impressions 1. Status post renal transplant (06-OCT-2022) 2. Normal left ventricular chamber size ( concentric hypertrophy), noregional wall motion abnormalities, calculated 2-D biplane volumetricejection fraction of 60%. 3. Left ventricular mass index by 2D 115 g/m2. Sigmoid ventricular septumwith basal septal prominence: 14 mm 4. Normal right ventricular chamber size, normal systolic function,estimated right ventricular systolic pressure 26 mmHg (right atrialpressure of 5 mmHg). 5. Mild mitral valve regurgitation (strong mild). Mildly calcified mitralannulus. Thickened mitral valve. 6. Mild aortic valve regurgitation. Sclerotic aortic valve. 7. Mild tricuspid valve regurgitation. 8. Tiny circumferential pericardial effusion (mostly anterior). 9. Normal inferior vena cava size with normal inspiratory collapse(>50%). 10. Compared to the report of 04/23/2023 no significant change hasoccurred. Side by side comparison of images performed. Images were alsocompared to stress echocardiogram from May 03, 2023, mitral regurgitationhas not increased (strong mild today) Findings Status post renal transplant (06-OCT-2022) Echocardiogram performed perleft ventricular ejection fraction only protocol. Last full echocardiogramperformed 04/23/2023. LEFT VENTRICLE:Normal left ventricular chamber size. Sigmoid ventricularseptum with basal septal prominence: 14 mm Concentric left ventricularhypertrophy. Left ventricular mass index by 2D 115 g/m2. Calculated 2-Dbiplane volumetric left ventricular ejection fraction of 60% without theuse of ultrasound enhancing agent. No regional wall motion abnormalities.Indeterminate left ventricular diastolic function. RIGHT VENTRICLE:Normal right ventricular chamber size by visual estimate.Normal right ventricular systolic function. Estimated right ventricularsystolic pressure 26 mmHg (right atrial pressure of 5 mmHg). ATRIA:Enlarged left atrial size by visual estimate. Normal right atrialsize by visual estimate. CARDIAC VALVES:Sclerotic aortic valve. Trileaflet aortic valve. Mildaortic valve regurgitation. Mildly calcified mitral annulus. Thickenedmitral valve. Mild mitral valve regurgitation. Normal tricuspid valve.Mild tricuspid valve regurgitation. OTHER ECHO FINDINGS:Normal inferior vena cava size with normal inspiratorycollapse (>50%). No intracardiac mass or thrombus, but the left atrialappendage cannot be visualized adequately with transthoracic echo toexclude thrombus in this location. Prominent epicardial fat layer. Tinycircumferential pericardial effusion. For the complete report, see the Order-Level Documents. Rhonda Hampton P.A.-C., M.S. CV ECHO PROCEDURES * (ABNORMAL) Supersaturation, 24 hour, Urine (02/05/2024 12:36 PM CDT) Sodium, 24 HR, U 83 22 - 328 mmol/24 h 02/06/2024 12:37 PM CDT DTL Potassium, 24 HR, U 29 16 - 105 mmol/24 h 02/06/2024 12:37 PM CDT DTL Calcium, 24 HR, U 98 <200 mg/24 h 02/06/2024 12:37 PM CDT DTL Magnesium, 24 HR, U 147 51 - 269 mg/24 h 02/06/2024 12:37 PM CDT DTL Chloride, 24 HR, U 95 34 - 286 mmol/24 h 02/06/2024 12:37 PM CDT DTL Phosphorus, 24 HR, U 378 226 - 1797 mg/24 h 02/06/2024 12:37 PM CDT DTL Sulfate, 24 HR, U 4(L) 7 - 47 mmol/24 h 02/06/2024 1:19 PM CDT DTL Comment: ----ADDITIONAL INFORMATION---- This test was developed and its performance characteristics determined by [facility] in a manner consistent with CLIA requirements. This test has not been cleared or approved by the U.S. Food and Drug Administration. Citrate Excretion, 24 HR, U 125 mg/24 h 02/06/2024 10:21 AM CDT DTL Comment: ----REFERENCE VALUE---- Reference values have not been established for patients who are >60 years of age. ----ADDITIONAL INFORMATION---- This test was developed and its performance characteristics determined by [facility] in a manner consistent with CLIA requirements. This test has not been cleared or approved by the U.S. Food and Drug Administration. Oxalate, 24 HR, U (mmol/24 HR) 0.53(H) 0.11 - 0.46 mmol/24 h 02/06/2024 2:53 PM CDT DTL Comment: ----ADDITIONAL INFORMATION---- This test was developed and its performance characteristics determined by [facility] in a manner consistent with CLIA requirements. This test has not been cleared or approved by the U.S. Food and Drug Administration. Oxalate, 24 HR, U (mg/24 HR) 46.7(H) 9.7 - 40.5 mg/24 h 02/06/2024 2:53 PM CDT DTL pH, 24 HR, U 5.4 4.5 - 8.0 02/06/2024 7:31 AM CDT DTL Uric Acid, 24 HR, U 455 250 - 750 mg/24 h 02/06/2024 12:37 PM CDT DTL Creatinine, 24 HR, U 700 603 - 1783 mg/24 h 02/06/2024 12:37 PM CDT DTL Osmolality, 24 HR, U 755 150 - 1150 mOsm/kg 02/06/2024 7:31 AM CDT DTL Ammonium, 24 HR, U 32 15 - 56 mmol/24 h 02/06/2024 12:12 PM CDT DTL Comment: ----ADDITIONAL INFORMATION---- This test has been modified from the spar finisher's instructions. Its performance characteristics were determined by [facility] in a manner consistent with CLIA requirements. This test has not been cleared or approved by the U.S. Food and Drug Administration. Urea Nitrogen, 24 HR, U 4.3(L) 7.0 - 42.0 g/24 h 02/06/2024 12:53 PM CDT DTL Protein Catabolic Rate, 24 HR, U 52(L) 56 - 125 g/24 h 02/06/2024 12:53 PM CDT DTL Patient Surface Area SEE COMMENT 1.73m(2) 02/06/2024 12:18 PM CDT DTL Comment:Adult values are not corrected for body surface area. Calcium Oxalate Crystal 3.49(H) Reference Mean= 1.59 DG 02/06/2024 3:14 PM CDT DTL Brushite Crystal -0.86 Reference Mean= -0.11 DG 02/06/2024 3:14 PM CDT DTL Hydroxyapatite Crystal 2.00 Reference Mean= 3.62 DG 02/06/2024 3:14 PM CDT DTL Uric Acid Crystal 4.90(H) Reference Mean= 0.89 DG 02/06/2024 3:14 PM CDT DTL Collection Duration 24 h 02/06/2024 3:14 PM CDT DTL Volume 700 mL 02/06/2024 3:14 PM CDT DTL Interpretation The DG is related to supersaturation. DG is negative for undersaturated solutions, zero for solutions at the solubility product, and positive for saturated solutions. Any value greater than the Reference Mean is considered a risk for the respective crystal type formation. In general, a higher calculated SS means the risk for forming that type of stone is increased. A positive DG value indicates that the urine is supersaturated for that crystal type. SSINT is the reportable component of the orderable test code, SUP24. A full copy of the interpretative report is available as a PDF appended to this cover sheet and is ready to review. 02/06/2024 3:14 PM CDT DTL Urine (Urine, 24 Hours) 02/05/2024 12:36 PM CDT 02/06/2024 12:18 PM CDT Rhonda Hampton P.A.-C. MJoseS. LAB URI NE ORDERABLES Performing Organization Address City/[facility]/ZIP Co de Phone Number [facility] [address] [place] [address], [facility] [address] [place], [place] [id number] [place] [address] [place] [address] * Phosphorus Inorganic (02/04/2024 8:09 AM CDT) Phosphorus (Inorganic), P 3.9 2.5 - 4.5 mg/dL 02/04/2024 8:38 AM CDT [facility] Blood (Blood, Venous) 02/04/2024 8:09 AM CDT 02/04/2024 8:11 AM CDT Rhonda Hampton P.A.-C., MJoseS. LAB BLO OD ADD-ON [facility] [address] [place] [id number], [facility] in [address] [address] * (ABNORMAL) Hemoglobin A1c (02/04/2024 8:09 AM CDT) Hemoglobin A1c, B 8.0(H) 4.2 - 5.6 % 02/04/2024 8:38 AM CDT CNFL Comment: Hemoglobin A1c values greater than or equal to 6.5 percent are diagnostic for diabetes mellitus. ??Diagnosis should be confirmed by repeat testing. ??In diabetic patients, HbA1c goals should be discussed with healthcare provider. Blood (Blood, Venous) 02/04/2024 8:09 AM CDT 02/04/2024 8:11 AM CDT Maury Henry APRN, C.N.P., M.S. LAB BLO OD ADD-ON [facility] [address] [place] [address], [facility] CN[facility] [place] [address] * (ABNORMAL) Basic Metabolic Panel (02/04/2024 8:09 AM CDT) Potassium, P 4.4 3.6 - 5.2 mmol/L 02/04/2024 8:38 AM CDT CNFL Sodium, P 139 135 - 145 mmol/L 02/04/2024 8:38 AM CDT CNFL Chloride, P 104 98 - 107 mmol/L 02/04/2024 8:38 AM CDT CNFL Bicarbonate, P 27 22 - 29 mmol/L 02/04/2024 8:38 AM CDT CNFL Anion Gap, P 8 7 - 15 02/04/2024 8:38 AM CDT CN[facility] BUN (Blood Urea Nitrogen), P 19 6 - 21 mg/dL 02/04/2024 8:38 AM CDT CNFL Creatinine 0.67 0.59 - 1.04 mg/dL 02/04/2024 8:38 AM CDT CNFL Estimated GFR (eGFR) >90 >=60 mL/min/BSA 02/04/2024 8:38 AM CDT CNFL Comment: Estimated GFR calculated using the 2020 CKD_EPI creatinine equation. Calcium, Total, P 9.3 8.8 - 10.2 mg/dL 02/04/2024 8:38 AM CDT CNFL Glucose, P 142(H) 70 - 140 mg/dL 02/04/2024 8:38 AM CDT CNFL Blood (Blood, Venous) 02/04/2024 8:09 AM CDT 02/04/2024 8:11 AM CDT Jackie Arreguin APRNN.P., M.S. LAB BLO OD ADD-ON [facility] [address] [place] [id number], [facility] in [address] [address] * (ABNORMAL) Microalbumin, Random, Urine (07/09/2018 10:48 AM CDT) Microalbumin 1550.7 mg/L 07/09/2018 11:39 AM CDT [facility] Comment: ----ADDITIONAL INFORMATION---- This test has been modified from the spar finisher's instructions. Its performance characteristics were determined by [facility] in a manner consistent with CLIA requirements. This test has not been cleared or approved by the U.S. Food and Drug Administration. Creatinine 77 mg/dL 07/09/2018 11:26 AM CDT [facility] Albumin/Creatinine Ratio 2014(H) <25 mg/g 07/09/2018 11:39 AM CDT [facility] Urine (Urine, Voided) 07/09/2018 10:48 AM CDT 07/09/2018 11:39 AM CDT Peter Hennessy Jr. DJoseOJose LAB URINE OR DERABLES [facility] [address] from Last 3 Months or Most Recently Relevant to Health Maintenance Additional Health Concerns Infection Onset Date Last Indicated Protective Environment 02/01/2023 3 Advance Directives For more information, please contact: [phone] * Full Code (Latest Code Status on File) Date Activated Date Inactivated Comments 04/22/2023 10:36 PM 04/23/2023 9:21 PM Question Answer Comments Full Code: Discussed * Full Code Date Activated Date Inactivated Comments 10/06/2022 11:21 PM 10/10/2022 8:58 PM Question Answer Comments Full Code: Discussed * Full Code Date Activated Date Inactivated Comments 10/06/2022 1:54 PM 10/06/2022 11:21 PM Question Answer Comments Full Code: Discussed Care Teams Senior Data Analyst Relationship Specialty Start Date End Date Elsewhere, Pcp PCP - General Internal Medicine 03/22/22 [facility] [place] [facility] 10/25/22
--- OUTSIDE RECORDS SUMMARY | 2024-03-20 14:33 | XMS_ITS | Clinical Summary ---
Author Organization [facility] Address [address] [place] [address] Care Team Providers Care Dress Marker Name Role Phone Elsewhere, Pcp Primary Care Provider Unavailabl e Source Comments Patient records contain information from all sites at [facility]. For routine questions regarding patient records, call [phone] during business hours, M-F 8:00 AM - 5:00 PM Central Time. Record requests for emergency care only can be directed to [phone] at any time.[facility] Allergies Active Allergy Reactions Criticality Noted Date [...] capsule by mouth daily. 12/18/2016 Active vitamins A,C,O-biqk-ryttpk (PRESERVISION AREDS) 7,160 Units-113 mg-100 Units per [...] (HCC),Immunodefici ency Due To Drugs (HCC),Medication Therapy Boarding Mother Not Anticoagulant Take 1 capsule (1 mg [...] (HCC),Immunodefici ency Due To Drugs (HCC),Medication Therapy Boarding Mother Not Anticoagulant Take 3 tablets (540 mg total) by mouth 2 (two) times a day. 540 tablet 3 10/31/2023 Active predniSONE (DELTASONE) 5 mg tabletIndications: Transplant Renal (HCC),Immunodefici ency Due To Drugs (HCC),Medication Therapy Mcc Not Anticoagulant Take 1 tablet (5 mg [...] one tablet twice daily., Reported on 01/30/2024 multivitamin-hydraulic miner blasting cnm-CE-kujstq (CENTRUM SILVER) 400-250 mcg per chewable tablet [...] Drugs 10/07/2022 Atherosclerotic Heart Diseas e Of [place] Coronary Artery Without Angina Pectoris 10/06/2022 Noninfective [...] 6 15. History of malignancies: no 16. [place] renal imaging if on dialysis >3 years: [...] dialysis access: no Stenosis Carotid Artery 10/29/201602/25 Encounters Date Type Department Care Team Description 03/10/2024 11:10 AM CDT Ancillary Procedure Department of Ophthalmology in [place], [place] [address] [place] [address] Monty Zheng M.D. Membrane Macula Epiretinal Left 03/10/2024 10:30 AM CDT Office Visit Department of Ophthalmology in [place], [place] [address] [place] [address] Monty Zheng M.D. 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 Transplant Renal (HCC); High Risk Medication Discharge Disposition: Home or Self Care 02/27/2024 Refill [facility] in [place], [place] [address] [place] [address] Rene King M.D. Med Refill 02/21/2024 1:30 PM CDT Office Visit Department of Ophthalmology in [place], [place] [address] [place] [address] Monty Zheng M.D. 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 Post PPV Positioning 02/13/2024 7:27 AM CDT Anesthesia Event [facility] [address] [place] [phone] Deborah Owens, PRODUCT DISTRIBUTION SPECIALIST, PARTY PLAN SALESPERSON 02/13/2024 7:20 AM CDT - 02/13/2024 9:01 AM CDT Surgery [facility] [address] [place] [phone] Monty Zheng M.D. VITRECTOMY, PARS PLANA 25 GAUGE, MEMBRANE PEEL, FLUID AIR EXCHANGE, Laser LEFT EYE. 02/13/2024 6:07 AM CDT - 02/13/2024 11:59 PM CDT Hospital Encounter [facility] [address] [place] [phone] Monty Zheng M.D. Discharge Disposition: Home or Self Care 02/07/2024 2:15 PM CDT Office Visit [facility] [place], [place] [address] [place] [phone] Kevin Fregoso M.D. Da Silva de Abreu, Adrian J, M.D., Ph.D. Coronary Stent Status Post (Primary Dx); Atherosclerotic Heart Disease Of [place] Coronary Artery Without Angina Pectoris; Atherosclerosis Aortic (HCC); Regurgitation Mitral; Transplant Renal (HCC) 02/07/2024 11:39 AM CDT - 02/07/2024 11:59 PM CDT Hospital Encounter Department of Radiology, [facility], in [place], [place] [address] [place] [address] Rhonda Hampton P.A.-C., M.S. Transplant Renal (HCC); Atherosclerotic Heart Disease Of [place] Coronary Artery Without Angina Pectoris Discharge Disposition: Home or Self Care 02/07/2024 10:05 AM CDT - 02/07/2024 11:38 AM CDT Hospital Encounter Department of Cardiovascular Diseases in [place], [place] [address] [place] [phone] Rhonda Hampton P.A.-C., M.S. Transplant Renal (HCC); Atherosclerotic Heart Disease Of [place] Coronary Artery Without Angina Pectoris Discharge Disposition: Home or Self Care 02/07/2024 9:00 AM CDT Comprehensive Visit Preoperative Evaluation Center in [place], [place] [address] [place] [phone] Monty Zheng M.D. Kayla Shin M.D., Ph.D., M.D., Ph.D. Preoperative Exam (Primary Dx); Membrane Macula Epiretinal Left; 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 Bilateral; Detachment Vitreous Posterior Bilateral; Hyperlipidemia Mixed; Diabetes Mellitus Type 2 (HCC); Hypertensive Chronic Kidney Disease With Stage 5 Chronic Kidney Disease Or End Stage Renal Disease, Chronic Kidney Disease Stage 5 (HCC); Atherosclerotic Heart Disease Of [place] Coronary Artery Without Angina Pectoris; Transplant Renal (HCC); Immunodeficiency Due To Drugs (HCC); Surgery Bariatric Status Post 02/07/2024 Clinical Communication Department of Ophthalmology in [place], [place] [address] [place] [phone] Monty Zheng M.D. Pre-Surgery Question 02/05/2024 9:38 AM CDT - 02/05/2024 11:59 PM CDT Hospital Encounter Department of Laboratory Medicine in [address] [phone] Rhonda Hampton PKrupa.-C., M.S. Discharge Disposition: Home or Self Care 02/04/2024 7:58 AM CDT - 02/04/2024 11:59 PM CDT Hospital Encounter Department of Laboratory Medicine in [address] [phone] Rhonda Hampton P.A.-C., M.S. Transplant Renal (HCC) Discharge Disposition: Home or Self Care 02/04/2024 7:50 AM CDT - 02/04/2024 7:57 AM CDT Hospital Encounter Department of Laboratory Medicine in [address] [phone] Rhonda Hampton P.A.-C., M.S. Transplant Renal (HCC); Preanesthetic Medical Exam; 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 Bilateral; Detachment Vitreous Posterior Bilateral; Diabetes Mellitus Type 2 (HCC) Discharge Disposition: Home or Self Care 01/30/2024 11:30 AM CDT Clinical Communication Virtual Review in [place], [place] [address] [place] [address] 01/22/2024 Documentation [facility] in [place], [place] [address] [place] [phone] [employer] 01/15/2024 Clinical Communication Department of Ophthalmology in [place], [place] [address] [place] [phone] Monty Zheng M.D. 12/22/2023 Refill [facility] in [place], [place] [address] [place] [phone] Jacky Bansal, ELODIA, C.N.P., M.S.N. Med Refill from Last 3 Months Immunizations Name Administration Dates Next Due H1N1 [...] quad (FLUZONE/FLUARIX) (6 months and older)(PF) 07/18/2020,08/25/2009 Family History Medical History Relation Name Comments Clotting disorder Brother Flip Colon polyps Brother Flip Diabetes Brother Flip Clotting disorder Father Owen Coronary artery disease Father Owen in 1983 Hypertension Father Owen Depression Maternal Grandmother Lola Osteoporosis Maternal Grandmother Lola Arthritis Mother Michelle Coronary artery disease Mother Michelle Hyperlipidemia Mother Michelle Hypertension Mother Michelle Transient ischemic attack Mother Michelle Coronary artery disease Paternal Grandmother Lesia yrs ago after having a stroke Stroke Paternal Grandmother Lesia Relation Name Status Comments Brother Flip Father Owen Maternal Grandmother Lola Mother Michelle Paternal Grandmother Lesia Social History Tobacco Use Types Packs/Day Years Used Date Smoking Tobacco: Former Cigarettes 1 20 1 - 08/06/1983 Smokeless Tobacco: Never Tobacco Cessation:Counseling Given: Not Answered Alcohol Use Standard Drinks/Week Comments No 0 (1 standard drink = 0.6 oz pur e alcohol) [facility] Utilities Answer Date Recorded In the past 12 months has th e electric, gas, oil, or water company threatened to shut off services in your [...] How often do you attend chur or religion services? More than 4 times per year 10/30/2022 Do you belong to any clubs o r organizations such as episcopal groups, unions, fraternal or athletic groups, or [...] Answer Date Recorded PHQ-2 Score 0 04/23/2023 [facility] [place] [facility] Occupat ional Health - Occupational Stress Questionnaire Answer Date [...] your living situation today? I have a [facility] place to live 11/29/2023 Education Answer Date [...] 02/13/2024 6:57 AM CDT Plan of Treatment Health Maintenance Due Date Last Done Comments Diabetic Office Visit with Foot Exam 1945 Hepatitis A Vaccines (4 of 4 - Hep A Twinrix risk 4-dose series) 09/14/2017 02/15/2017, 11/16/2016, 09/14/2016 Hepatitis B Vaccines (1 of 1 - Risk Dialysis 4-dose series) 02/15/2018 02/15/2017, 11/16/2016, 09/14/2016 Urine Albumin 07/09/2019 07/09/2018 COVID-19 Vaccine ( season) 2023 08/30/2023, 08/03/2022, 03/30/2022, Additional history exists Depression Screening (Annual PHQ-2) 10/28/2023 Hemoglobin A1C 05/05/2024 02/04/2024, 10/28, 10/16/2023, Additional history exists DTaP,Tdap,and Td Vaccines (2 - Td or Tdap) 07/28/2024 07/28/2014, 12/26/2005 Office Visit for Blood Pressure Check / Re-check 02/06/2025 02/07/2024 Creatinine Level (Kidney Function Test) 02/26/2025 02/27/2024, 02/04/2024, 11/11/2023, Additional history exists Dilated Eye Exam 03/10/2025 03/10/2024 Zoster Vaccines Completed 09/26/2018, 10/2017, 07/21/2010 Colonoscopy Discontinued 04/04/2020, 07/28 (Performed elsewhere) Colonoscopy Discontinued 04/04/2020, 07/28 (Performed elsewhere) Colorectal Cancer Screening Discontinued Colorectal Cancer Surveillance Discontinued Pneumococcal vaccine (65+ years) Completed 08/12/2020, 08/02/2015, 08/26/2009 Influenza Vaccine Completed 08/30/2023, , 07/28/2021, Additional history exists Mammogram Discontinued 10/02/2023, 03/2023, 09/24/2022, Additional history exists Bone Density Scan (Osteoporosis Screen) Discontinued 11/14/2023 Fall Risk Screen (Annual) Completed 02/13/[address] Colonography Discontinued Cologuard Discontinued FIT Discontinued HPV Vaccines Aged Out No longer eligi ble based on patient's age to complete this topic Medical Devices Implanted Type Area Cash Management Officer Device Identifier Shelf Expiration Date Model / Serial / Lot Hardware Ankle Implant Right: Ankle Conversions - Default Historical Implant Device Implanted:11/29 (Quantity not on file) Hardware e.g. pins/screws /rods Other/Legacy - See Implant Description Description:Body Location - Spine. lower back. Device Status Text - Hardware. Stent Other- 0 Implanted:10/29 (Quantity not on file) Stent Other Heart Explanted Type Area Cash Management Officer Device Identifier Shelf Expiration Date Model / Serial / Lot Stnt Uret Cls Tp Dbl [id number] - S - [id number] Implanted:Qty : 1 on 10/06/2022 by Praveen Dela Cruz M.D., Ph.D. at [facility] Explanted:Qty : 1 on 10/23/2022 by Chuck Stinson P.A.-C. Ureteral Stent [facility] [id number] / / [id number] Procedures Procedure Name Priority Date/Time Associated Diagnosis Comments OPTICAL COHERENCE TOMOGRAPHY - MACULA/RETINA - OU - BOTH EYES Routine 03/10/2024 9:52 AM CDT Membrane Macula Epiretinal Left OPHTHALMOLOGY IMAGE EXAM Routine 03/10/2024 12:00 AM CDT CALCIUM, TOT, S/P Routine 02/27/2024 7:5 1 AM CDT Transplant Renal (HCC) High Risk Medication OXALATE, PLASMA Routine 02/27/2024 7:51 AM CDT Transplant Renal (HCC) High Risk Medication POTASSIUM, S/P Routine 02/27/2024 7:51 AM CDT Transplant Renal (HCC) High Risk Medication TACROLIMUS LEVEL, B Routine 02/27/2024 7 :51 AM CDT Transplant Renal (HCC) High Risk Medication GLUCOSE, FASTING, S/P Routine 02/27/2024 7:51 AM CDT Transplant Renal (HCC) High Risk Medication CREATININE WITH EGFR, S/P Routine 02/27/2024 7:51 AM CDT Transplant Renal (HCC) High Risk Medication BKV DNA DETECT/QUANT, P Routine 02/27/2024 7:51 AM CDT Transplant Renal (HCC) High Risk Medication CBC WITH DIFFERENTIAL, B Routine 02/27/2024 7:50 AM CDT Transplant Renal (HCC) High Risk Medication GLUCOSE POCT, B Routine 02/13/2024 8:55 AM CDT GLUCOSE POCT, B Routine 02/13/2024 7:22 AM CDT VITRECTOMY - PARS PLANA 25 GAUGE 02/13/2024 7:18 AM CDT Membrane Macula Epiretinal Left DX CHEST AP OR PA AND LATERAL 2 VIEWS RAD - Routine (most inpatients and all outpatients) 02/07/2024 11:56 AM CDT Transplant Renal (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 Monty Zheng M.D. OPHTH TOMOGRAPHY OPHTHALMOLOGY IMAGING EXAM * Eyes Spectralis OCT-Ophthalmology Image Exam (03/10/2024 12:00 AM CDT) Narrative IIMS - 03/10/2024 9:57 AM CDT This order has been created and auto-finalized to support the import of images acquired without order. The clinical documentation to support these images can be found on the encounter that produced images. Provider Not In System IMG NON RAD IMAGI NG PROCEDURES IIMS NA * (ABNORMAL) BKV DNA Detect/Quant (02/27/2024 7:51 AM CDT) Pathologist [facility] BKV DNA Detect/Quant, P 102(A) Undetected IU/mL 02/28/2024 4:52 PM CDT [facility] Comment: Result in log IU/mL is 2.01. ----ADDITIONAL INFORMATION---- The quantification range of this assay is 22 to 100,000,000 IU/mL (1.34 log to 8.00 log IU/mL). Testing was performed using the rianna BKV test ([employer] Blood (Blood, Venous) 02/27/2024 7:51 AM CDT 02/27/2024 7:54 PM CDT Rhonda Hampton P.A.-C., M.S. LAB SANGEETHA ROBIOLOGY - BLOOD ORDERABLES Performing Organization Address City/[facility]/ZIP Co de Phone Number [facility] [address] [place] [address] [facility] [address] [place] [address] [place] [address] * (ABNORMAL) Oxalate (02/27/2024 7:51 AM CDT) Pathologist [facility] Oxalate, Plasma 2.8(H) <=2.0 mcmol/L 02/28/2024 2:14 PM CDT [facility] Comment: Sample was received nonacidified and frozen. In nonacidified samples oxalate values may increase spontaneously. ----ADDITIONAL INFORMATION---- This test has been modified from the business information analyst's instructions. Its performance characteristics were determined by [facility] in a manner consistent with CLIA requirements. This test has not been cleared or approved by the U.S. Food and Drug Administration. Blood (Blood, Venous) 02/27/2024 7:51 AM CDT 02/28/2024 8:13 AM CDT Rhonda Hampton P.A.-C., M.S. LAB BLO OD NON ADD-ON [facility] [address] [place] [address], [facility] MANUEL[facility] [address] [place] [address] * Tacrolimus, Trough (02/27/2024 7:51 AM CDT) Tacrolimus, Trough 6.6 5.0-15.0 (Trough) ng/mL 02/28/2024 12:11 PM CDT [facility] Comment: ----ADDITIONAL INFORMATION---- Target steady-state trough concentrations vary depending on the type of transplant, concomitant immunosuppression, clinical/institutional protocols, and time post-transplant. Results should be interpreted in conjunction with this clinical information and any physical signs/symptoms of rejection/toxicity. Testing performed by Liquid Chromatography-Tandem Mass Spectrometry (LC-MS/MS). This test was developed and its performance characteristics determined by [facility] in a manner consistent with CLIA requirements. This test has not been cleared or approved by the U.S. Food and Drug Administration. Blood (Blood, Venous) 02/27/2024 7:51 AM CDT 02/28/2024 7:26 AM CDT Rhonda Hampton P.A.-C., M.S. LAB BLO OD NON ADD-ON [facility] [address] [place] [address] [facility] [address] [place] [address] [place] [address] * Potassium (02/27/2024 7:51 AM CDT) Potassium, P 4.5 3.6 - 5.2 mmol/L 02/27/2024 8:10 AM CDT CNFL Blood (Blood, Venous) 02/27/2024 7:51 AM CDT 02/27/2024 7:52 AM CDT Rhonda DominguezC., M.S. LAB BLO OD ADD-ON Performing Organization Address City/[facility] Co de Phone Number [address] [address], [address] [address] * (ABNORMAL) Glucose, Fasting (02/27/2024 7:51 AM CDT) Glucose, P 148(H) 70 - 100 mg/dL 02/27/2024 8:07 AM CDT CNFL Last Intake 12 hr 02/27/2024 7:52 AM CDT CN[facility] Blood (Blood, Venous) 02/27/2024 7:51 AM CDT 02/27/2024 7:52 AM CDT Rhonda Hampton P.A.-C., M.S. LAB BLO OD NON ADD-ON Performing Organization Address [facility] Co de Phone Number [address] [address], [address] [address] * Creatinine with Estimated GFR (02/27/2024 7:51 AM CDT) Creatinine 0.67 0.59 - 1.04 mg/dL 02/27/2024 8:10 AM CDT CNFL Estimated GFR (eGFR) >90 >=60 mL/min/BSA 02/27/2024 8:10 AM CDT [facility] Comment: Estimated GFR calculated using the 2020 CKD_EPI creatinine equation. Blood (Blood, Venous) 02/27/2024 7:51 AM CDT 02/27/2024 7:52 AM CDT Rhonda Hampton P.A.-C., M.S. LAB BLO OD ADD-ON Performing Organization Address City/[facility]/ZIP Co de Phone Number [place] [phone], [facility] [place] [address] * Calcium, Total (02/27/2024 7:51 AM CDT) Calcium, Total, P 9.3 8.8 - 10.2 mg/dL 02/27/2024 8:10 AM CDT CNFL Blood (Blood, Venous) 02/27/2024 7:51 AM CDT 02/27/2024 7:52 AM CDT Rhonda Hampton P.A.-C., M.S. LAB BLO OD ADD-ON [facility] [place] [address], [facility] [place] [address] * CBC with Differential, Blood (02/27/2024 7:50 [...] 02/27/2024 7:52 AM CDT Rhonda Hampton P.A.-C. M.S. LAB BLO OD ADD-ON [facility] [address] [place] [address], [facility] in [address] [address] * (ABNORMAL) Glucose, POCT (02/13/2024 8:55 AM CDT) Only the most recent of2 resultswithin the time period is included. Glucose, POCT, B 144(H) 70 - 140 mg/dL 02/13/2024 9:26 AM CDT PCLX Site Capillary 02/13/2024 9:26 AM CDT PCLX Blood 02/13/2024 8:55 AM CDT 02/13/2024 9:27 AM CDT Unknown Provider LAB POCT ORDERABLES- MANUAL POC [facility] [address] [place] [address], [place] PCLX [facility] POC [address] [place] [address] * DX Chest AP or PA and [...] CDT) Ventricular Rate ECG/Min 83 BPM MUSE MO Interval 158 ms MUSE QRSD Interval 82 ms MUSE QT Interval 380 ms MUSE QTC Interval 446 ms MUSE P [place] 54 degrees MUSE R [place] 19 degrees MUSE T Wave [place] 65 degrees MUSE 02/07/2024 11:1 9 AM [...] now present Reviewed by SANGEETHA Putnam Rhonda Anderson Memo Rendon M.S. ECG ORD ERABLES MUSE NA * [...] developed and its performance characteristics determined by [facility] in a manner consistent with CLIA requirements. [...] developed and its performance characteristics determined by [facility] in a manner consistent with CLIA requirements. This test has not been cleared or approved by the U.S. Food and Drug Administration. Oxalate, 24 HR, U (mmol/24 HR) 0.53(H) 0.11 - 0.46 mmol/24 h 02/06/2024 2:53 PM CDT [facility] Comment: ----ADDITIONAL INFORMATION---- This test was developed and its performance characteristics determined by [facility] in a manner consistent with CLIA requirements. [...] This test has been modified from the business information analyst's instructions. Its performance characteristics were determined by [facility] in a manner consistent with CLIA requirements. [...] CDT 02/06/2024 12:18 PM CDT Rhonda Hampton P.A.-C., M.S. LAB URI NE ORDERABLES [address] [place] [address] * Phosphorus Inorganic (02/04/2024 8:09 AM CDT) Phosphorus (Inorganic), P 3.9 2.5 - 4.5 mg/dL 02/04/2024 8:38 AM CDT CNFL Blood (Blood, Venous) 02/04/2024 8:09 AM CDT 02/04/2024 8:11 AM CDT Rhonda Hampton P.A.-C., M.S. LAB BLO OD ADD-ON [facility] [address] [place] [address], [place] CNFL [facility] in [address] [address] * (ABNORMAL) Hemoglobin A1c (02/04/2024 8:09 AM [...] 8:09 AM CDT 02/04/2024 8:11 AM CDT Louisa Arreguin APRN.N.P., M.S. LAB BLO OD ADD-ON [facility] [address] [address], [facility] CNFL [facility] in [address] [address] * (ABNORMAL) Basic Metabolic Panel (02/04/2024 8:09 [...] CDT 02/04/2024 8:11 AM CDT Maury Henry APRN C.N.P., M.S. LAB BLO OD ADD-ON Performing Organization Address City/[facility]/[place] [address], [facility] [place] [address] * (ABNORMAL) Microalbumin, Random, Urine (07/09/2018 10:48 AM CDT) Microalbumin 1550.7 mg/L 07/09/2018 11:[address] [facility] Comment: ----ADDITIONAL INFORMATION---- This test has been modified from the business information analyst's instructions. Its performance characteristics were determined by [facility] in a manner consistent with CLIA requirements. This test has not been cleared or approved by the U.S. Food and Drug Administration. Creatinine 77 mg/dL 07/09/2018 11:[address] [facility] Albumin/Creatinine Ratio 2014(H) <25 mg/g 07/09/2018 11:[address] [facility] Urine (Urine, Voided) 07/09/2018 10:48 AM CDT 07/09/2018 11:39 AM CDT Peter Hennessy Jr. DJoseOJose LAB URINE OR DERABLES Performing Organization Address City/[facility]/ZIP Co de Phone Number [facility] [address] [place] [address], [facility] from Last 3 Months or Most Recently Relevant to Health Maintenance Additional Health Concerns Infection Onset Date Last Indicated Protective Environment 02/01/2023 3 Advance Directives For more information, please contact: [phone] * Full Code (Latest Code Status on [...] Answer Comments Full Code: Discussed Care Teams Dress Marker Relationship Specialty Start Date End Date Elsewhere, Pcp PCP - General Internal Medicine 03/22/22 [facility] [place] Laboratory Medicine 10/25/22
--- OUTSIDE RECORDS SUMMARY | 2024-03-20 14:33 | XMS_ITS | Continuity of Care Document ---
Author Organization [facility] Address [address] [place] [address] Phone Care Team Providers Care Photogrammetric Engineer Name Role Phone Alex Mckeon Unavailable Unavailable [...] Copied on Encounter [facility], [address], [place], [place], [id number], [place] tel:[phone] [facility] No Information 1 Kike Johnson. [facility], [address], [place], [place], [id number], [place]. tel:[phone] Office/Outpa tient Visit,New, [facility], [address], [place], [place], [id number], [place] tel:[phone] [facility] [place] Radiculopath y, cervical regionRadicu lopathy, lumbar region 0 Kike Johnsno. [facility], [address], [place], [place], [id number], [place]. tel:[phone] Referring Provider: Alex Stokes, [facility] [address], [place], [address] . tel:[phone] Initial Hospital Care, Low [facility], [address], [place], [place], [id number], [place] tel:[phone] [facility] No Information 0 Naomi Bess. [facility], [address], [place], [address], [place]. tel:[phone] Referring Provider: Sanjay Cordoba, [facility], [place], [address] . tel:[phone] Office/outpa tient visit,est, mod Z [facility], [address], [place], [address], [place] tel:[phone] [facility] No Information 0 [phone] 1 Trans[place]dt Ensor. [facility], [address] [place] [address], [address], [place], [id number], [place]. tel:[phone] Referring Provider: Praveen Anderson, [facility] [address], [place], [address]. tel:[phone] Z [facility], [address], [place], [facility], [place] tel:[phone] [facility] No Information 0 6 1 Eckroth Edwin. [address] [place] [address], [place], [id number], [place]. tel:[phone] Z [facility], [address], [place], [address], [place] tel:[phone] [facility] No Information 2 8201 0 Transfeldt Ensor. [facility], [address] [place] [address], [facility] [address], [place], [id number], [place]. tel:[phone] Referring Provider: Praveen Anderson, [address], [place], [address]. tel:[phone] Z [facility], [address] [facility] [address], [place], [facility], [place] tel:[phone] [facility] No Information 6-201 0 [place] Ensor. [facility] [place], [address] [place] [address], [address], [place], [id number], [place]. tel:[phone] Referring Provider: Praveen Anderson, [facility] [address] [facility], [place], [address]. tel:[phone] Office consultation , moderate Z [facility], [address] [place], [place] [address] [address], [place], [address], [place] tel:[phone] [facility] No Information 3-201 0 [place] Ensor. [facility] [place], [address] [place] [address], [facility] [address], [place], [id number], [place]. tel:[phone] Family History Family Member Type Diagnosis Age At Onset Mother Problem (finding) Heart disease Father Problem (finding) Heart disease Payers Payer name Insurance type Covered green party ID Lesa yoon(s) [facility] [id number] Medicare [facility] [id number] Social History Type Description Quantity Date [...]
--- OUTSIDE RECORDS SUMMARY | 2024-03-20 14:34 | XMS_ITS | Encounter Summary ---
Author Organization [facility] Address [address] [place] [address] Care Team Providers Care Polysomnography Technician Name Role Phone Elsewhere, Pcp Primary Care Provider Unavailabl e Reason for Visit * Reason Onset Date Comments Post PPV Positioning 02/14/2024 Encounter Details Date Type Department Care Team (Latest Contact Info) Description 02/14/2024 Clinical Communication Department of Ophthalmology in [place], [place] [address] [place] [address] Monty Zheng M.D. [address] [place] [address] Post PPV Positioning Social History Tobacco Use Types Packs/Day Years Used Date Smoking Tobacco: Former Cigarettes 1 20 1 - 08/06/1983 Smokeless Tobacco: Never Alcohol Use Standard Drinks/Week Comments No 0 (1 standard drink = 0.6 oz pur e alcohol) [facility] Utilities Answer Date Recorded In the past 12 months has e electric, gas, oil, or water company [...] How often do you attend chur or mosque services? More than 4 times per year 10/30/2022 Do you belong to any clubs o r organizations such as jain groups, unions, fraternal or athletic groups, or [...] Answer Date Recorded PHQ-2 Score 0 04/23/2023 [facility] - Occupational Stress [...] your living situation today? I have a [facility] place to live 11/29/2023 Education Answer Date Recorded What is the highest level of school you have completed or the highest degree you have received? 12th grade 01/15/2020 Sex and Gender Information Value Date Recorded Sex Assigned at Female 08/15/2022 12:28 PM CDT Gender Identity Female 04/24/2018 8:21 PM CDT Sexual Orientation Straight 04/24/2018 8: 21 PM CDT documented as of this encounter Plan of Treatment Not on file documented as of this encounter Visit Diagnoses Not on filedocumented in this encounter Additional Health Concerns Infection Onset Date Last Indicated Resolved Time Protective Environment 02/01/2023 02/01/2023 Assessment Noted Time PHQ-9 Depression Total Score: 2 04/23/20 23 11:30 AM CDT documented as of this encounter Care Teams Polysomnography Technician Relationship Specialty Start Date End Date Elsewhere, Pcp PCP - General Internal Medicine 03/22/22 [facility] Medicine 10/25/22 documented as of this encounter
--- OUTSIDE RECORDS SUMMARY | 2024-03-20 14:34 | XMS_ITS | Encounter Summary ---
Author Organization [facility] Address [address] [place] [address] Care Team Providers Care International Relations Teacher Name Role Phone Elsewhere, Pcp Primary Care Provider Unavailabl e Encounter Details Date Type Department Care Team (Late st Contact Info) Description 02/13/2024 7:27 AM CDT Anesthesia Event [facility] [place] [address] [place] [address] Deborah Owens APRN, AIRLINE MANAGER [address] [place] [address] Anesthesia Record Procedure Summary Procedure Name Responsible Anesthesiologist Anesthesia Start Time Anesthesia Stop Time VITRECTOMY, PARS PLANA 25 GAUGE, MEMBRANE PEEL, FLUID AIR EXCHANGE, Laser LEFT EYE. (Left: Eye) Deborah Owens APRN AIRLINE MANAGER 02/13/24 0727 02/13/24 0850 Events Date Time Event Comment 02/13/2024 0727 An Start Machine/Equipme nt Checked Infection Precautions Followed Procedure/Site Verified NPO Status Verified Supine Standard ASA Monitors Applied 0732 Turnover to Proceduralist 0738 Proc Start 0839 Proc Fin 0843 Turnover to ANE Staff 0843 an stop data 0850 An End I completed my handoff to the receiving staff during which we 1. Identified the patient 2. Identified the responsible provider 3. Reviewed the pertinent medical history 4. Discussed the surgical course 5. Reviewed intra-op anesthesia management and issues during anesthesia 6. Set expectations for post-procedure period 7. Allowed opportunity for questions and acknowledgement of understanding. Meds Name Total midazolam PF injection 1 mg/mL 1.5 mg lidocaine 2% (mg) injection 60 mg ondansetron PF 4 mg/2 mL injection 4 mg propofol 10 mg/mL injection 50 mg Lactated Ringers Free Drip 150 mL * Agents No agents on file. * Blood No blood administrations on file. Lines, Drains, and Airways Type Details Placement Removal Hemodialysis AV Access Placement Date: 07/28/18; Existing LDA Placed by: Clinic 07/28/18 0000 by Florencia Combs Wound 11/12/23; 1134; Abdomen; Right, Upper; kidney biopsy 11/12/23 1134 by Inga Villanueva, M.S.N., R.N. Wound 02/13/24; 0758; Incision; Eye; Left; ointment, gauze, eye shield, tape 02/13/24 0758 by Anca Berg M.A.Lopez., R.N. Peripheral IV Placement Date: 02/13/24; Placement Time: 723; Catheter Size: 22 G; Orientation: Left; Location: Antecubital; Insertion Attempts: 1; Removal Date: 02/13/24; Removal Time: 915; Removal Reason: Per protocol 02/13/24 0724 by Austin Mccauley 02/13/24 0916 by Taina Marshall, R.N. documented in this encounter Social History Tobacco Use Types Packs/Day Years Used Date Smoking Tobacco: Former Cigarettes 1 20 1 - 08/06/1983 Smokeless Tobacco: Never Alcohol Use Standard Drinks/Week Comments No 0 (1 standard drink = 0.6 oz pur e alcohol) [facility] Utilities Answer Date Recorded In the past 12 months has [facility] [employer], [employer], or water Icinetic threatened to shut off services in your [...] 10/30/2022 How often do you attend chur ch or episcopal services? More than 4 times per year 10/30/2022 Do you belong to any clubs o r organizations such as protestant groups, unions, fraternal or athletic groups, or [...] Answer Date Recorded PHQ-2 Score 0 04/23/2023 [facility] - [...] your living situation today? I have a [facility] place to live 11/29/2023 Education Answer [...] PM CDT documented as of this encounter OR Notes * Anesthesia Postprocedure Evaluation - Deborah Owens APRN, VANI - 02/13/2024 8:55 AM CDT Patient: Anayeli Handy Marlenttstoeszer Procedure Summary Date: 02/13/24 Room / Location: [address] 03 808 / [facility] in [place], [place] Anesthesia Start: 726 Anesthesia Stop: 849 Procedure: VITRECTOMY, PARS PLANA 25 GAUGE, MEMBRANE PEEL, FLUID AIR EXCHANGE, Laser LEFT EYE. (Left: Eye) Diagnosis: Membrane Macula Epiretinal Left (Membrane Macula Epiretinal Left [H35.372].) Providers: Monty Zheng M.D. Responsible Provider: Deborah Owens APRN, CRNA Anesthesia Type: MAC ASA Status: 3 Anesthesia Type: MAC Last vitals Vitals Value Taken Time BP 131/69 02/13/24 0851 Temp 36.5 ??C 02/13/24 0849 Pulse 82 02/13/24 0851 Resp 12 02/13/24 0852 SpO2 94 % 02/13/24 0851 Vitals shown include unfiled device data. Please reference Vitals flowsheet for most recent vital signs. Anesthesia Post Evaluation Patient Disposition: dismissal Cardiovascular status: hemodynamics (HR & BP) acceptable Respiratory status: patent airway with spontaneous effort Temperature: normothermic Oxygen requirements: room air Level of consciousness: awake Pain score: pain adequately controlled and/or at baseline Post Op nausea/vomiting: none * Anesthesia Preprocedure Evaluation - Cameron Curry M.D. - 02/13/2024 7:02 AM CDT Preprocedure Anesthesia & H&P Assessment Procedure Summary Date/Time: 02/13/24719 Procedure: VITRECTOMY, PARS PLANA 25 GAUGE, MEMBRANE PEEL, FLUID AIR EXCHANGE, ALL ASSOCIATED PROCEDURES LEFT EYE. (Left: Eye) Diagnosis: Membrane Macula Epiretinal Left [H35.372] Pre-op diagnosis: Membrane Macula Epiretinal Left [H35.372]. Location: [place] [address] / [facility] in [place], [place] Providers: Monty Zheng M.D. Pertinent components of the patient's history including current problem list, medical history, surgical history, family history, social history, medications and allergies were reviewed. Present illness and pre-op diagnosis were confirmed. The planned surgery / procedure was verified with the patient / legal guardian. The patient's general health condition remains unchanged RELEVANT COMORBID CONDITIONS CV (+) Atherosclerotic Heart Disease Of [place] Coronary Artery Without Angina Pectoris (+) Hypertension And Chronic Kidney Disease Stage 5 (HCC) (+) Peripheral Vascular Disease (HCC) RENAL/REPRO (+) Chronic Kidney Disease NOS (+) Chronic Kidney Disease Stage 5 Glomerular Filtration Rate Less Than 15 (HCC) (+) Hypertension And Chronic Kidney Disease Stage 5 (HCC) GI (+) Acute Gastrojejunal Ulcer Without Hemorrhage Or Perforation (+) Gastroesophageal Reflux Disease NOS HEME (+) Anemia In Chronic Kidney Disease (+) Anemia Iron Deficiency (+) Thrombocytopenia (HCC) Other (+) Transplant Renal (HCC) OBJECTIVE PHYSICAL EXAMINATION Airway (HEENT) Mallampati: IV TM Distance: >3 FB Neck ROM: Limited Cardiovascular Rhythm: Regular Rate: Normal Functional Capacity: <4 METS Pulmonary Pulmonary Assessment: Clear General / Constitutional Constitutional Assessment: Normal General State of Health:: calm Abdomen Normal Musculoskeletal Normal Skin Normal ASSESSMENT / PLAN ANESTHESIA PLAN ASA: 3 Anesthesia Plan: MAC Patient seen and allergies reviewed; anesthesia plan and risks discussed directly with patient / legal guardian, or through an motor vehicle parts interpreter; patient evaluated and approved for anesthesia / sedation The use of blood products not discussed Approval to Proceed: approved for anesthesia documented in this encounter Miscellaneous Notes * Addendum Note - Deborah Owens APRN, CRNA - 02/19/2024 3:33 PM CDT Addendum created 02/19/24 1533 by Deborah Owens APRN, CRNA Clinical Note Signed, Intraprocedure Flowsheets edited documented in this encounter Plan of Treatment Not on file documented as of this encounter Visit Diagnoses Not on filedocumented in this encounter Administered Medications Inactive Administered Medications - up to 3 most recent administrations Medication Order MAR Action Action Date Dose Rate Site Lactated Ringer's intravenous, Continuous Infusion: Per Instructions PRN, Starting on Deyanira 02/13/24 at 0727, Anesthesia Intra-op New Bag 02/13/2024 7:27 AM CDT lidocaine (PF) (cardiac) injection intravenous, As needed, Starting on Deyanira 02/13/24 at 0734, Anesthesia Intra-op Given 02/13/2024 7:34 AM CDT 60 mg midazolam (PF) injection (VERSED) intravenous, As needed, Starting on Deyanira 4/18/24 at 0727, Anesthesia Intra-op Given 02/13/2024 7:34 AM CDT 0.5 mg Given 02/13/2024 7:27 AM CDT 1 mg ondansetron (PF) injection (ZOFRAN) intravenous, As needed, Starting on Deyanira 02/13/24 at 0731, Anesthesia Intra-op Given 02/13/2024 7:31 AM CDT 4 mg propofoL injection (DIPRIVAN) intravenous, As needed, Starting on Deyanira 02/13/24 at 0732, Anesthesia Intra-op Given 02/13/2024 7:33 AM CDT 10 mg Given 02/13/2024 7:32 AM CDT 40 mg documented in this encounter Additional Health Concerns Infection Onset Date Last Indicated Resolved Time Protective Environment 02/01/2023 02/01/2023 Assessment Noted Time PHQ-9 Depression Total Score: 2 04/23/20 23 11:30 AM CDT documented as of this encounter Care Teams International Relations Teacher Relationship Specialty Start Date End Date Elsewhere, Pcp PCP - General Internal Medicine 03/22/22 [facility] [place] Laboratory Medicine 10/25/22 documented as of this encounter
--- OUTSIDE RECORDS SUMMARY | 2024-03-20 14:34 | XMS_ITS | Encounter Summary ---
Author Organization [facility] Address [address] [place] [address] Care Team Providers Care Commission Sales Associate Name Role Phone Elsewhere, Pcp Primary Care Provider Unavailabl e Reason for Visit * Reason Comments Post-op Follow-up * Outpatient (Routine) - Closed Specialty Diagnoses / Procedures Referred By Roman del castillo Referred To Contact Ophthalmology Monty Zheng M.D. [address] [place] [address] [facility] Referral ID Status Reason Start Date Expiration Date Visits Re quested Visits Authorized [id number] Closed 12/06/2023 06/06/2025 1 1 Encounter Details Date Type Department Care Team (Latest Contact Info) Description 03/10/2024 10:30 AM CDT Office Visit Department of Ophthalmology in [place], [place] [address] [place] [address] Monty Zheng M.D. 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 More than 4 times per year 10/30/2022 Do you belong to any clubs o r organizations such as congregational groups, unions, fraternal or athletic groups, or [...] Answer Date Recorded PHQ-2 Score 0 04/23/2023 [facility] Questionnaire Answer Date Recorded [...] your living situation today? I have a [facility] place to live 11/29/2023 Education Answer [...] PM CDT documented as of this encounter Progress Notes * Monty Zheng M.D. 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 Off gtts Call if decreased vision, increased photophobia, pain, discharge or increased redness occurs. Follow-up retina prn Ok to continue injections with Dr. 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
--- OUTSIDE RECORDS SUMMARY | 2024-03-20 14:34 | XMS_ITS | Encounter Summary ---
Author Organization [facility] Address [address] [place] [id number] Care Team Providers Care Tone Cabinet Assembler Name Role Phone Elsewhere, Pcp Primary Care Provider Unavailabl e Encounter Details Date Type Department Care Team (Late st Contact Info) Description 02/27/2024 7:44 AM CDT - 02/27/2024 11:59 PM CDT Hospital Encounter Department of Laboratory Medicine in [address] [phone] Rhonda Hampton P.A.-C., M.S. 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 Utilities Answer Date Recorded In the [...] often do you attend chur ch or yarsanism services? More than 4 times per year 10/30/2022 Do you belong to any clubs o r organizations such as pentecostal groups, unions, fraternal or athletic groups, or [...] Answer Date Recorded PHQ-2 Score 0 04/23/2023 [facility] Occupat ional Health - Occupational Stress [...] your living situation today? [facility] 11/29/2023 Education Answer Date Recorded What is the highest level of school you have completed or the highest degree you have received? 12th grade 01/15/2020 Sex and Gender Information Value Date Recorded Sex Assigned at Female 08/15/2022 12:28 PM CDT Gender Identity Female 04/24/2018 8:21 PM CDT Sexual Orientation Straight 04/24/2018 8: 21 PM CDT documented as of this encounter Medications at Time of Discharge Medication Sig Dispensed Refills Start Date End Date Accu-Chek Guide test strips 1 test by other route 2 (two) times a day. 01/30/2024 amLODIPine (NORVASC) 5 mg tablet Take 1 tablet (5 mg total) by mouth 2 (two) times a day. 30 tablet 1 10/19/2022 aspirin 81 mg chewable tablet Chew 1 tablet (81 mg total) daily. HOLD until follow up with Neurology in 8 weeks 36 tablet 1 04/23/2023 biotin 10 mg tablet Take 10 capsules by mouth daily. 03/05/2023 calcium carbonate (TUMS) 500 mg (200 mg calcium) chewable tablet Chew 2 tablets (400 mg of calcium total) 3 (three) times a day with meals. 11/14/2023 calcium citrate-vitamin D3 (CITRACAL+D) 250 mg-5 mcg (200 Unit) per tablet Take 1 tablet by mouth 3 (three) times a day with meals. 300 tablet 3 06/27/2023 06/26/2024 carvediloL (COREG) 12.5 mg tablet Take 1 tablet (12.5 mg total) by mouth 2 (two) times a day with meals. Take along with 6.25 mg tablet for total dose of 18.75 mg twice daily. 90 tablet 3 10/09/2023 carvediloL (COREG) 6.25 mg tablet TAKE 1 TAB BY MOUTH 2 TIMES A DAY WITH MEALS.TAKE WITH 12.5MG TAB FOR TOTAL OF 18.75MG TWICE DAILY. 180 tablet 3 12/20/2023 cholecalciferol (VITAMIN D3) 50 mcg (2,000 Unit) capsule Take 1 capsule by mouth 2 (two) times a day. coenzyme Q10 200 mg capsule Take 1 capsule by mouth every evening. For muscle pain 12/19/2016 copper gluconate (COPPERMIN) 2 mg tablet Take 2 tablets (4 mg total) by mouth every evening. 180 tablet 3 04/23/2023 04/22/2024 cyanocobalamin, vitamin B-12, 1,000 mcg capsule Take 1,000 mcg by mouth daily. 03/05/2023 DULoxetine (CYMBALTA) [address] capsule Take 1 capsule by mouth daily. 12/18/2016 esomeprazole (NexIUM) [address] capsule Take 1 capsule (20 mg total) by mouth every morning before breakfast. 90 capsule 3 12/12/2022 magnesium oxide (MAG-OX) 400 mg (241.3 mg magnesium) tabletIndications:Hypo kalemia,Aftercare Transplant Renal (HCC),Abnormal Laboratory Results TAKE 1 TABLET (400 MG TOTAL) BY MOUTH 2 (TWO) TIMES A DAY BEFORE BREAKFAST AND DINNER. 180 tablet 3 11/04/2023 metFORMIN XR (GLUCOPHAGE-XR) 500 mg 24 hr tablet Take one tablet with breakfast and 2 tablets with evening meal. If not tolerated decrease back to one tablet twice daily. 270 tablet 3 11/14/2023 multivitamin-minerals- FA-lutein (CENTRUM SILVER) 400-250 mcg per chewable tablet Chew 1 tablet daily. 11/14/2023 mycophenolate (MYFORTIC) 180 mg EC tabletIndications:Addison splant Renal (HCC),Immunodeficiency Due To Drugs (HCC),Medication Therapy Alf Not Anticoagulant Take 3 tablets (540 mg total) by mouth 2 (two) times a day. 540 tablet 3 10/31/2023 potassium chloride (K-TAB) 20 mEq CR tablet Take 1 tablet (20 mEq total) by mouth daily. 90 tablet 3 12/23/2023 predniSONE (DELTASONE) 5 mg tabletIndications:Addison splant Renal (HCC),Immunodeficiency Due To Drugs (HCC),Medication Therapy Alf Not Anticoagulant Take 1 tablet (5 mg total) by mouth daily. 90 tablet 3 11/12/2023 rosuvastatin (CRESTOR) 40 mg tablet Take 1 tablet by mouth at bedtime. 09/02/2019 semaglutide (OZEMPIC) 1 mg/dose (4 mg/3 mL) injection Inject 1 mg under the skin every 7 (seven) days. 3 mL 11 11/14/2023 tacrolimus (Prograf) 0.5 mg capsule Take 1 capsule (0.5 mg total) by mouth 2 (two) times a day. 180 capsule 3 06/27/2023 tacrolimus (PROGRAF) 1 mg capsuleIndications:Tra nsplant Renal (HCC),Immunodeficiency Due To Drugs (HCC),Medication Therapy Handwriting Expert Not Anticoagulant Take 1 capsule (1 mg total) by mouth every morning AND 1 capsule (1 mg total) every evening. 180 capsule 3 04/05/2023 vitamins A,C,L-gktg-oqhkwb (PRESERVISION AREDS) 7,160 Units-113 mg-100 Units per tablet Take 1 tablet by mouth 2 (two) times a day. For eye health 12/19/2016 prednisoLONE acetate (PRED FORTE) 1 % ophthalmic suspension Administer 1 drop into the left eye 4 (four) times a day for 7 days, THEN 1 drop 3 (three) times a day for 7 days, THEN 1 drop 2 (two) times a day for 7 days, THEN 1 drop daily for 7 days. 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 LAB BLO OD ADD-ON Performing Organization Address City/[facility]/ZIP Co de Phone Number [facility] [address] [place] [phone], [facility] CNFL [facility] in [address] [address] * (ABNORMAL) Oxalate (02/27/2024 7:51 AM CDT) Oxalate, Plasma 2.8(H) <=2.0 mcmol/L 02/28/2024 2:14 PM CDT MAN[facility]EL[facility] Comment: Sample was received nonacidified and frozen. In nonacidified samples oxalate values may increase spontaneously. ----ADDITIONAL INFORMATION---- This test has been modified from the video engineer's instructions. Its performance characteristics were determined by [facility] in a manner consistent with CLIA requirements. This test has not been cleared or approved by the U.S. Food and Drug Administration. Blood (Blood, Venous) 02/27/2024 7:51 AM CDT 02/28/2024 8:13 AM CDT Rhonda Hampton P.A.-C., M.S. LAB BLO OD NON ADD-ON Performing Organization Address City/[facility]/ZIP Co de Phone Number [facility] [address] [place] [address], [place] [address] [address] * (ABNORMAL) BKV DNA Detect/Quant (02/27/2024 7:51 AM CDT) BKV DNA Detect/Quant, P 102(A) Undetected IU/mL 02/28/2024 4:52 PM CDT [facility] Comment: Result in log IU/mL is 2.01. ----ADDITIONAL INFORMATION---- The quantification range of this assay is 22 to 100,000,000 IU/mL (1.34 log to 8.00 log IU/mL). Testing was performed using the rianna BKV test ([employer] Blood (Blood, Venous) 02/27/2024 7:51 AM CDT 02/27/2024 7:54 PM CDT Rhonda Hampton P.A.-C., M.S. LAB SANGEETHA ROBIOLOGY - BLOOD ORDERABLES [facility] [address] [place] [address] [facility] [address] [place] [address] [place] [address] * Potassium (02/27/2024 7:51 AM CDT) Potassium, P 4.5 3.6 - 5.2 mmol/L 02/27/2024 8:10 AM CDT CNUT Blood (Blood, Venous) 02/27/2024 7:51 AM CDT 02/27/2024 7:52 AM CDT Rhonda Hampton P.A.-C., MJoseS. LAB BLO OD ADD-ON [facility] [address] [place] [address], [facility] [place] [address] * Tacrolimus, Trough (02/27/2024 7:51 AM CDT) Tacrolimus, Trough 6.6 5.0-15.0 (Trough) ng/mL 02/28/2024 12:11 PM CDT [facility] Comment: ----ADDITIONAL INFORMATION---- Target steady-state trough concentrations vary depending on the type of transplant, concomitant immunosuppression, clinical/institutional protocols, and time post-transplant. Results should be interpreted in conjunction with this clinical information and any physical signs/symptoms of rejection/toxicity. Testing performed by Liquid Chromatography-Tandem Mass Spectrometry (LC-MS/MS). This test was developed and its performance characteristics determined by [facility] in a manner consistent with CLIA requirements. This test has not been cleared or approved by the U.S. Food and Drug Administration. Blood (Blood, Venous) 02/27/2024 7:51 AM CDT 02/28/2024 7:26 AM CDT Rhonda Hampton P.A.-C., M.S. LAB BLO OD NON ADD-ON [facility] [address] [place] [address] [facility] [address] [place] [address] [place] [address] * (ABNORMAL) Glucose, Fasting (02/27/2024 7:51 AM CDT) Glucose, P 148(H) 70 - 100 mg/dL 02/27/2024 8:07 AM CDT CNFL Last Intake 12 hr 02/27/2024 7:52 AM CDT CNFL Blood (Blood, Venous) 02/27/2024 7:51 AM CDT 02/27/2024 7:52 AM CDT Rhonda Hampton P.A.-C., M.S. LAB BLO OD NON ADD-ON [place] [address], [facility] CNFL [facility] [place] [address] * Creatinine with Estimated GFR (02/27/2024 7:51 AM CDT) Creatinine 0.67 0.59 - 1.04 mg/dL 02/27/2024 8:10 AM CDT CNFL Estimated GFR (eGFR) >90 >=60 mL/min/BSA 02/27/2024 8:10 AM CDT CNFL Comment: Estimated GFR calculated using the 2020 CKD_EPI creatinine equation. Blood (Blood, Venous) 02/27/2024 7:51 AM CDT 02/27/2024 7:52 AM CDT Rhonda Hampton P.A.-C., M.S. LAB BLO OD ADD-ON [facility] [address] [place] [address], [facility] CNFL [facility] in [address] [address] * CBC with Differential, Blood (02/27/2024 7:50 [...] Hampton P.A.-C., M.S. LAB BLO OD ADD-ON [facility] [address] [place] [address], [facility] CNFL [facility] in [address] [address] documented in this encounter Visit Diagnoses Diagnosis Transplant Renal (HCC) High Risk Medication documented in this encounter Additional Health Concerns Infection Onset Date Last Indicated Resolved Time Protective Environment 02/01/2023 02/01/2023 Assessment Noted Time PHQ-9 Depression Total Score: 2 04/23/20 23 11:30 AM CDT documented as of this encounter Care Teams Tone Cabinet Assembler Relationship Specialty Start Date End Date Elsewhere, Pcp PCP - General Internal Medicine 03/22/22 [facility] 10/25/22 documented as of this encounter
--- OUTSIDE RECORDS SUMMARY | 2024-03-20 14:34 | XMS_ITS | Encounter Summary ---
Author Organization [facility] Address [address] [place] [address] Care Team Providers Care Record Searcher Name Role Phone Elsewhere, Pcp Primary Care Provider Unavailabl e Encounter Details Date Type Department Care Team (Late st Contact Info) Description 03/10/2024 Ancillary Procedure Department of Ophthalmology Social History Tobacco Use Types Packs/Day Years Used Date Smoking Tobacco: Former Cigarettes 1 20 1 - 08/06/1983 Smokeless Tobacco: Never Alcohol Use Standard Drinks/Week Comments No 0 (1 standard drink = 0.6 oz pur e alcohol) [facility] Utilities Answer Date Recorded In the past 12 months has e electric, gas, oil, or water [employer] threatened to shut off services in your [...] often do you attend chur ch or buddhism services? More than 4 times per year 10/30/2022 Do you belong to any clubs o r organizations such as uatsdin groups, unions, fraternal or athletic groups, or [...] Date Recorded PHQ-2 Score 0 04/23/2023 [facility] of Occupat ional Health - [...] Procedure Name Priority Date/Time Associated Diagnosis Comments OPHTHALMOLOGY IMAGE EXAM Routine 03/10/2024 12:00 AM CDT documented in this encounter Results * Eyes Spectralis OCT-Ophthalmology Image Exam (03/10/2024 12:00 AM CDT) Narrative [facility] - 03/10/2024 9:57 AM CDT This order has been created and auto-finalized to support the import of images acquired without order. The clinical documentation to support these images can be found on the encounter that produced images. Provider Not In System IMG NON RAD IMAGI NG PROCEDURES [facility] NA documented in this encounter Visit Diagnoses Not on filedocumented in this encounter Additional Health Concerns Infection Onset Date Last Indicated Resolved Time Protective Environment 02/01/2023 02/01/2023 Assessment Noted Time PHQ-9 Depression Total Score: 2 04/23/20 23 11:30 AM CDT documented as of this encounter Care Teams Record Searcher Relationship Specialty Start Date End Date Elsewhere, Pcp PCP - General Internal Medicine 03/22/22 [facility] [place] [facility] - [facility] Medicine 10/25/22 documented as of this encounter
--- OUTSIDE RECORDS SUMMARY | 2024-03-20 14:34 | XMS_ITS ---
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 ECG Routine 02/07/2024 11:19 AM CDT 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 (TTE) 2D ECHO DOPPLER COLOR Routine 02/07/2024 10:43 AM CDT 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 12/18/2016 Active vitamins A,C,H-mmyf-llsshi (PRESERVISION AREDS) 7,160 Units-113 mg-100 Units per [...] (HCC),Immunodefici ency Due To Drugs (HCC),Medication Therapy Candle Wrapper Not Anticoagulant Take 1 capsule (1 mg [...] (HCC),Immunodefici ency Due To Drugs (HCC),Medication Therapy Fdc Not Anticoagulant Take 3 tablets (540 mg total) by mouth 2 (two) times a day. 540 tablet 3 10/31/2023 Active predniSONE (DELTASONE) 5 mg tabletIndications: Transplant Renal (HCC),Immunodefici ency Due To Drugs (HCC),Medication Therapy Fdc Not Anticoagulant Take 1 tablet (5 mg [...] one tablet twice daily., Reported on 01/30/2024 multivitamin-elevator examiner and adjuster apk-NL-tifmop (CENTRUM SILVER) 400-250 mcg per chewable tablet [...] Drugs 10/07/2022 Atherosclerotic Heart Diseas e Of [place] Coronary Artery Without Angina Pectoris 10/06/2022 Noninfective [...] Claudication 03/03/2010 Gastroesophageal Reflux Disease NOS 09/01/2007 Immunizations Name Administration Dates Next Due H1N1 [...] drink = 0.6 oz pur e alcohol) [facility] Utilities Answer Date Recorded In the past [...] often do you attend chur ch or catholic services? More than 4 times per year 10/30/2022 Do you belong to any clubs o r organizations such as taoism groups, unions, fraternal or athletic groups, or [...] Answer Date Recorded PHQ-2 Score 0 04/23/2023 [facility] - Occupational Stress Questionnaire Answer Date Recorded [...] your living situation today? I have a [facility] place to live 11/29/2023 Education Answer [...] Mass Index 21.67 02/13/2024 6:57 AM CDT Results * Optical Coherence Tomography - Macula/Retina - OU - Both Eyes (03/10/2024 9:52 AM CDT) Narrative OPHTHALMOLOGY IMAGING EXAM - 03/10/2024 10:14 AM CDT Right Eye OCT device used was Spectralis . Left Eye OCT device used was Spectralis . Notes See note from visit on 03/10/2024. Monty Zheng M.D. OPHTH TOMOGRAPHY Performing Organization Address [facility] Co de Phone Number OPHTHALMOLOGY IMAGING EXAM [...] RAD IMAGI NG PROCEDURES Performing Organization Address [facility]/ZIP Co de Phone Number IIMS NA * (ABNORMAL) BKV DNA Detect/Quant (02/27/2024 7:51 AM CDT) BKV DNA Detect/Quant, P 102(A) Undetected IU/mL 02/28/2024 4:52 PM CDT [facility] Comment: Result in log IU/mL is 2.01. ----ADDITIONAL INFORMATION---- The quantification range of this assay is 22 to 100,000,000 IU/mL (1.34 log to 8.00 log IU/mL). Testing was performed using the rianna BKV test ([employer] Blood (Blood, Venous) 02/27/2024 7:51 AM CDT 02/27/2024 7:54 PM CDT Rhonda Hampton P.A.-C. MJoseSJose LAB SANGEETHA ROBIOLOGY - BLOOD ORDERABLES Performing Organization Address [facility] Co de Phone Number [facility] [address] [place] [address] [facility] [address] [place] [address] [place] [address] * (ABNORMAL) Oxalate (02/27/2024 7:51 AM CDT) Oxalate, Plasma 2.8(H) <=2.0 mcmol/L 02/28/2024 2:14 PM CDT [facility] Comment: Sample was received nonacidified and frozen. In nonacidified samples oxalate values may increase spontaneously. ----ADDITIONAL INFORMATION---- This test has been modified from the judo instructor's instructions. Its performance characteristics were determined by [facility] in a manner consistent with CLIA requirements. This test has not been cleared or approved by the U.S. Food and Drug Administration. Blood (Blood, Venous) 02/27/2024 7:51 AM CDT 02/28/2024 8:13 AM CDT Rhonda Hampton P.A.-C., MJoseSJose LAB BLO OD NON ADD-ON Performing Organization Address [facility] Co de Phone Number [facility] [address] [place] [address], [place] [facility] [address] [place] [address] * Tacrolimus, Trough (02/27/2024 7:51 AM CDT) Tacrolimus, Trough 6.6 5.0-15.0 (Trough) ng/mL 02/28/2024 12:11 PM CDT [facility] Comment: ----ADDITIONAL INFORMATION---- Target steady-state trough concentrations vary depending on the type of transplant, concomitant immunosuppression, clinical/institutional protocols, and time post-transplant. Results should be interpreted in conjunction with this clinical information and any physical signs/symptoms of rejection/toxicity. Testing performed by Liquid Chromatography-Tandem Mass Spectrometry (LC-MS/MS). This test was developed and its performance characteristics determined by [facility] in a manner consistent with CLIA requirements. This test has not been cleared or approved by the U.S. Food and Drug Administration. Blood (Blood, Venous) 02/27/2024 7:51 AM CDT 02/28/2024 7:26 AM CDT Rhonda Hampton P.A.-C., M.S. LAB BLO OD NON ADD-ON Performing Organization Address City/[facility]/ZIP Co de Phone Number [facility] [address] [place] [address] [facility] [address] [place] [address] [place] [address] * Potassium (02/27/2024 7:51 AM CDT) [facility] Potassium, P 4.5 3.6 - 5.2 mmol/L 02/27/2024 8:10 AM CDT [facility] Blood (Blood, Venous) 02/27/2024 7:51 AM CDT 02/27/2024 7:52 AM CDT Rhonda Hampton P.A.-C., M.S. LAB BLO OD ADD-ON Performing Organization Address City/[facility]/ZIP Co de Phone Number [facility] [address] [place] [address], [facility] in [address] [address] * (ABNORMAL) Glucose, Fasting (02/27/2024 7:51 AM CDT) Glucose, P 148(H) 70 - 100 mg/dL 02/27/2024 8:07 AM CDT CNFL Last Intake 12 hr 02/27/2024 7:52 AM CDT CNFL Blood (Blood, Venous) 02/27/2024 7:51 AM CDT 02/27/2024 7:52 AM CDT Rhonda Hampton P.A.-C., M.S. LAB BLO OD NON ADD-ON Performing Organization Address [facility] [place] [address], [place] [address] * Creatinine with Estimated GFR (02/27/2024 7:51 AM CDT) Creatinine 0.67 0.59 - 1.04 mg/dL 02/27/2024 8:10 AM CDT CNFL Estimated GFR (eGFR) >90 >=60 mL/min/BSA 02/27/2024 8:10 AM CDT CN[facility] Comment: Estimated GFR calculated using the 2020 CKD_EPI creatinine equation. Blood (Blood, Venous) 02/27/2024 7:51 AM CDT 02/27/2024 7:52 AM CDT Rhonda Hampton P.A.-C., M.S. LAB BLO OD ADD-ON Performing Organization Address City/[facility]/ZIP Co de Phone Number [address] [address], [facility] CNFL [facility] in [address] [address] * Calcium, Total (02/27/2024 7:51 AM CDT) Calcium, Total, P 9.3 8.8 - 10.2 mg/dL 02/27/2024 8:10 AM CDT CNFL Blood (Blood, Venous) 02/27/2024 7:51 AM CDT 02/27/2024 7:52 AM CDT Rhonda Hampton P.A.-C. MJoseS. LAB BLO OD ADD-ON [facility] [address] [place] [address], [facility] CNFL [facility] in [address] [address] * CBC with Differential, Blood (02/27/2024 7:50 [...] Hampton P.A.-C., M.S. LAB BLO OD ADD-ON [facility] [address] [place] [address], [facility] CNFL [facility] in [address] [address] * (ABNORMAL) Glucose, POCT (02/13/2024 8:55 AM CDT) Only the most recent of2 resultswithin the time period is included. Glucose, POCT, B 144(H) 70 - 140 mg/dL 02/13/2024 9:26 AM CDT PCLX Site Capillary 02/13/2024 9:26 AM CDT PCLX Blood 02/13/2024 8:55 AM CDT 02/13/2024 9:27 AM CDT Unknown Provider LAB POCT ORDERABLES- MANUAL POC [facility] [address] [place] [address], [facility] PCLX [facility] POC [address] [facility] [place] [address] * DX Chest AP or PA and [...] CDT) Ventricular Rate ECG/Min 83 BPM MUSE SD Interval 158 ms MUSE QRSD Interval 82 ms MUSE QT Interval 380 ms MUSE QTC Interval 446 ms MUSE P [place] 54 degrees MUSE R [place] 19 degrees MUSE T Wave [place] 65 degrees MUSE 02/07/2024 11:1 9 AM [...] developed and its performance characteristics determined by [facility] in a manner consistent with [...] developed and its performance characteristics determined by [facility] in a manner consistent with CLIA requirements. This test has not been cleared or approved by the U.S. Food and Drug Administration. Oxalate, 24 HR, U (mmol/24 HR) 0.53(H) 0.11 - 0.46 mmol/24 h 02/06/2024 2:53 PM CDT [facility] Comment: ----ADDITIONAL INFORMATION---- This test was developed and its performance characteristics determined by [facility] in a manner consistent with [...] This test has been modified from the judo instructor's instructions. Its performance characteristics were determined by [facility] in a manner consistent with [...] 02/06/2024 12:18 PM CDT Rhonda Hampton P.A.-C., MJoseS. LAB URI NE ORDERABLES Performing Organization Address City/[facility]/ZIP Co de Phone Number [facility] [address] [place] [address], [facility] [address] [place] [address] DTL 200 [facility] [address] [place] [address] * Phosphorus Inorganic (02/04/2024 8:09 AM CDT) Phosphorus (Inorganic), P 3.9 2.5 - 4.5 mg/dL 02/04/2024 8:38 AM CDT [facility] Blood (Blood, Venous) 02/04/2024 8:09 AM CDT 02/04/2024 8:11 AM CDT Rhonda Hampton P.A.-C., M.S. LAB BLO OD ADD-ON [facility] [address] [place] [address], [place] [facility] in [address] [address] * (ABNORMAL) Hemoglobin A1c (02/04/2024 8:09 AM [...] APRN C.N.P., M.S. LAB BLO OD ADD-ON [facility] [address] [place] [address], [facility] CNFL [facility] [place] [address] * (ABNORMAL) Basic Metabolic Panel (02/04/2024 8:09 [...] APRN, C.N.P., M.S. LAB BLO OD ADD-ON Performing Organization Address [facility] Co de Phone Number [facility] [address] [place] [address], [facility] CNFL [facility] in [place] [id number] * (ABNORMAL) Microalbumin, Random, Urine (07/09/2018 10:48 AM CDT) Microalbumin 1550.7 mg/L 07/09/2018 11:39 AM CDT [facility] Comment: ----ADDITIONAL INFORMATION---- This test has been modified from the judo instructor's instructions. Its performance characteristics were determined by [facility] in a manner consistent with CLIA requirements. This test has not been cleared or approved by the U.S. Food and Drug Administration. Creatinine 77 mg/dL 07/09/2018 11:26 AM CDT [facility] Albumin/Creatinine Ratio 2014(H) <25 mg/g 07/09/2018 11:39 AM CDT [facility] Urine (Urine, Voided) 07/09/2018 10:48 AM CDT 07/09/2018 11:39 AM CDT Peter Hennessy Jr., D.O. LAB URINE OR DERABLES Performing Organization Address City/[facility]/ZIP Co de Phone Number [facility] [address] from Last 3 Months or Most Recently Relevant to Health Maintenance
--- OUTSIDE RECORDS SUMMARY | 2024-03-20 14:34 | XMS_ITS | Encounter Summary ---
Author Organization [facility] Address [address] [place] [address] Care Team Providers Care Subscription Agent Name Role Phone Elsewhere, Pcp Primary Care Provider Unavailabl e Reason for Visit * Reason Comments Med Refill Encounter Details Date Type Department Care Team (Late st Contact Info) Description 02/27/2024 [facility]ill [facility] in [place], [place] [address] [place] [address] Rene King M.D. [address] [place] [phone] Med Refill Social History Tobacco Use Types Packs/Day Years Used Date Smoking Tobacco: Former Cigarettes 1 20 1 - 08/06/1983 Smokeless Tobacco: Never Alcohol Use Standard Drinks/Week Comments No 0 (1 standard drink = 0.6 oz pur e alcohol) [facility] Utilities Answer Date Recorded In the [...] How often do you attend chur or mormon services? More than 4 times per year 10/30/2022 Do you belong to any clubs o r organizations such as yazdanism groups, unions, fraternal or athletic groups, or [...] Answer Date Recorded PHQ-2 Score 0 04/23/2023 [facility] - Occupational Stress [...] your living situation today? I have a [facility] place to live 11/29/2023 Education Answer [...] PM CDT documented as of this encounter Miscellaneous Notes * Telephone Encounter - Rene King M.D. - 03/02/2024 3:31 PM CDT Phos is above 3. No immediate need for supplement documented in this encounter Plan of Treatment Not on file documented as of this encounter Visit Diagnoses Diagnosis Hypokalemia Aftercare Transplant Renal (HCC) Abnormal Laboratory Results documented in this encounter Additional Health Concerns Infection Onset Date Last Indicated Resolved Time Protective Environment 02/01/2023 02/01/2023 Assessment Noted Time PHQ-9 Depression Total Score: 2 04/23/20 23 11:30 AM CDT documented as of this encounter Care Teams Subscription Agent Relationship Specialty Start Date End Date Elsewhere, Pcp PCP - General Internal Medicine 03/22/22 [facility] [place] [facility] 10/25/22 documented as of this encounter
--- OUTSIDE RECORDS SUMMARY | 2024-03-20 14:34 | XMS_ITS | Encounter Summary ---
Author Organization [facility] Address [address] [place] [address] Care Team Providers Care Soda Column Operator Name Role Phone Elsewhere, Pcp Primary Care Provider Unavailabl e Reason for Visit * Outpatient (Routine) - Closed Specialty Diagnoses / Procedures Referred By Roman del castillo Referred To Contact Ophthalmology Monty Zheng M.D. [address] [place] [address] [facility] Region Referral ID Status Reason Start Date Expiration Date Visits Re quested Visits Authorized [id number] Closed 12/06/2023 06/06/2025 1 1 Encounter Details Date Type Department Care Team (Latest Contact Info) Description 02/21/2024 1:30 PM CDT Office Visit Department of Ophthalmology in [place], [place] [address] [place] [phone] Monty Zheng M.D. 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 More than 4 times per year 10/30/2022 Do you belong to any clubs o r organizations such as oriental orthodox groups, unions, fraternal or athletic groups, or [...] Answer Date Recorded PHQ-2 Score 0 04/23/2023 [facility] Occupat ional [facility] - Occupational Stress Questionnaire Answer Date Recorded [...] your living situation today? I have a [facility] place to live 11/29/2023 Education Answer [...] Progress Notes * Monty Zheng M.D. - 02/21/2024 1:30 PM CDT Anayeli Petit was seen today for No chief complaint on file. 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 She is very bothered by vision in left eye. She wishes to try anything to improve vision. The ERM is certainly significant with worsened retinal thickness in that eye. Discussed will not return vision back to baseline and she will be limited by AMD,she understands. Status post 25g PPV/MP/FAx OS 02/13/24 (Marce/Darron) POD7 Doing well. Stop polytrim Taper Prednisolone acetate 1% by 1drop/day each week into operative eye as per written instructions. Activity restrictions discussed. Call if decreased vision, increased photophobia, pain, discharge or increased redness occurs. Positioning: none Discussed no air travel while gas or air bubble still present in the operative eye. Follow-up in 3-4 weeks, sooner prn Ok to continue injections with Dr. Meadows documented in this encounter Plan of Treatment [...] documented as of this encounter Care Teams Soda Column Operator Relationship Specialty Start Date End Date Elsewhere, Pcp PCP - General Internal Medicine 03/22/22 [facility] 10/25/22 documented as of this encounter
--- OUTSIDE RECORDS SUMMARY | 2024-03-20 14:34 | XMS_ITS ---
Author Organization [facility] Address [address] [place] [address] Care Team Providers Care Hospital Security Officer Name Role Phone Unavailable Unavailable Unavailable Surgery Details Not on file Complications Check Surgery Details section. Procedure Estimated Blood Loss Check Surgery Details section. Procedure Findings Check Surgery Details section. Procedure Specimens Taken Check Surgery Details section.
--- OUTSIDE RECORDS SUMMARY | 2024-03-20 14:34 | XMS_ITS ---
Author Organization [facility] Address [address] [place] [address] Care Team Providers Care Qa Specialist Name Role Phone Elsewhere, Pcp Primary Care Provider Unavailabl e Active Problems Problem Noted Date Diagnosed Date Coronary Stent Status Post 02/07/2024 Membrane Macula Epiretinal Left 12/06/2023 Nonexudative Age-Related Mac ular Degeneration Advanced Atrophic Without Subfoveal Involvement Bilateral 12/06/2023 Detachment Vitreous Posterior Bilateral 12/06/19 Intraocular Lens Implant Status Post 12/06/2023 Regurgitation [...] Drugs 10/07/2022 Atherosclerotic Heart Diseas e Of [place] Coronary Artery Without Angina Pectoris 10/06/2022 Noninfective [...] Claudication 03/03/2010 Gastroesophageal Reflux Disease NOS 09/01/2007 Current Oncology Plans No current plan information found. Other Current Plans zoledronic acid (RECLAST)* Plan Start Date:05/21/2024 Plan Provider:Viktoriya Garza APRN, C.N.P. Linked Problems Transplant Renal (HCC)Osteop orosis Treatment Medications No medications scheduled. Past Plans Radiation Treatments * No radiation treatments are documented for this patient in [facility]. Treatments may have been administered in another system. Lifetime Dose Tracking * Chemical Lifetime Dose Automatic Entry Manual Entr y Radiation 29.8 mGy 29.8 mGy 0 mGy Fluoro Time 1.9 minutes 1.9 minutes 0 minutes Resolved Problems Problem Noted Date Diagnosed Date [...] 6 15. History of malignancies: no 16. [place] renal imaging if on dialysis >3 years: [...] anxiety. 22. Surgical Issues: last visit with Dr. Salazar 2016, [facility] 23. Peripheral Vascular Disease?: likely given claudication 24. Other Medical Issues: prior history of tobacco use; CT scan lung cancer screening ordered 25. Pending issues: as above 26. Exhausted dialysis access: no Stenosis Carotid Artery 10/29/201602/25
--- OUTSIDE RECORDS SUMMARY | 2024-03-20 14:34 | XMS_ITS | Encounter Summary ---
Author Organization [facility] Address [address] [place] [address] Care Team Providers Care Uke Driver Name Role Phone Elsewhere, Pcp Primary Care Provider Unavailabl e Encounter Details Date Type Department Care Team (Latest Contact Info) Description 03/10/2024 11:10 AM CDT Ancillary Procedure Department of Ophthalmology in [place], [place] [address] [place] [address] Monty Zheng M.D. [address] [place] [address] Membrane Macula Epiretinal Left Social History Tobacco Use Types Packs/Day Years Used Date Smoking Tobacco: Former Cigarettes 1 20 1 - 08/06/1983 Smokeless Tobacco: Never Alcohol Use Standard Drinks/Week Comments No 0 (1 standard drink = 0.6 oz pur e alcohol) [facility] Utilities Answer Date Recorded In the [...] often do you attend chur ch or episcopalian services? More than 4 times per year 10/30/2022 Do you belong to any clubs o r organizations such as baptist groups, unions, fraternal or athletic groups, or [...] Answer Date Recorded PHQ-2 Score 0 04/23/2023 [facility] [place] of Occupat ional Health - Occupational Stress [...] your living situation today? I have a [facility] place to live 11/29/2023 Education [...] 9:52 AM CDT Membrane Macula Epiretinal Left documented in this encounter Results * Optical Coherence Tomography - Macula/Retina - OU - Both Eyes (03/10/2024 9:52 AM CDT) Narrative OPHTHALMOLOGY IMAGING EXAM - 03/10/2024 10:14 AM CDT Right Eye OCT device used was Spectralis . Left Eye OCT device used was Spectralis . Notes See note from visit on 03/10/2024. Monty Zheng M.D. OPHTH TOMOGRAPHY OPHTHALMOLOGY IMAGING EXAM documented in this encounter Visit Diagnoses Diagnosis Membrane Macula Epiretinal Left documented in this encounter Additional Health Concerns Infection Onset Date Last Indicated Resolved Time Protective Environment 02/01/2023 02/01/2023 Assessment Noted Time PHQ-9 Depression Total Score: 2 04/23/20 23 11:30 AM CDT documented as of this encounter Care Teams Uke Driver Relationship Specialty Start Date End Date Elsewhere, Pcp PCP - General Internal Medicine 03/22/22 [facility] [place] [facility] 10/25/22 documented as of this encounter
--- OUTSIDE RECORDS SUMMARY | 2024-03-20 14:34 | XMS_ITS | Encounter Summary ---
Author Organization [facility] Address [address] [place] [address] Care Team Providers Care Supervisor Forming Department Name Role Phone Elsewhere, Pcp Primary Care Provider Unavailabl e Reason for Visit * Outpatient (Routine) - Closed Specialty Diagnoses / Procedures Referred By Roman del castillo Referred To Contact Ophthalmology Monty Zheng M.D. [address] [place] [address] [facility] Region Referral ID Status Reason Start Date Expiration Date Visits Re quested Visits Authorized [id number] Closed 12/06/2023 06/06/2025 1 1 Encounter Details Date Type Department Care Team (Latest Contact Info) Description 02/14/2024 1:30 PM CDT Office Visit Department of Ophthalmology in [place], [place] [address] [place] [phone] Monty Zheng M.D. 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 More than 4 times per year 10/30/2022 Do you belong to any clubs o r organizations such as sikhism groups, unions, fraternal or athletic groups, or [...] Answer Date Recorded PHQ-2 Score 0 04/23/2023 [facility] - Occupational Stress Questionnaire Answer Date Recorded [...] your living situation today? [facility] 11/29/2023 Education Answer Date [...] Progress Notes * Monty Zheng M.D. - 02/14/2024 1:30 PM CDT Anayeli Petit was seen today for No chief complaint on file. 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 She is very bothered by vision in left eye. She wishes to try anything to improve vision. The ERM is certainly significant with worsened retinal thickness in that eye. Discussed will not return vision back to baseline and she will be limited by AMD,she understands. Status post 25g PPV/MP/FAx OS 02/13/24 (Marce/Darron) POD1 Doing well. Polytrim, 1 drop 4x/day for 1 week into operative eye. Prednisolone acetate 1% 4x/day, then taper by 1drop/day each week into operative eye as per writteninstructions. Wear shield at night and glasses during the day. Activity restrictions discussed. Call if decreased vision, increased photophobia, pain, discharge or increased redness occurs. Positioning: head elevated Discussed no air travel while gas or air bubble still present in the operative eye. 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
--- OUTSIDE RECORDS SUMMARY | 2024-03-20 14:35 | XMS_ITS | Encounter Summary ---
Author Organization [facility] Address [address] [place] [id number] Care Team Providers Care Hop Weigher Name Role Phone Elsewhere, Pcp Primary Care Provider Unavailabl e Encounter Details Date Type Department Care Team (Late st Contact Info) Description 02/05/2024 9:38 AM CDT - 02/05/2024 11:59 PM CDT Hospital Encounter Department of Laboratory Medicine in [address] [phone] Rhonda Hampton P.A.-C., M.S. [address] [place] [phone] Discharge Disposition: Home or Self Care Social History Tobacco Use Types Packs/Day Years Used Date Smoking Tobacco: Former Cigarettes 1 20 1 - 08/06/1983 Smokeless Tobacco: Never Alcohol Use Standard Drinks/Week Comments No 0 (1 standard drink = 0.6 oz pur e alcohol) [facility] Utilities Answer Date Recorded In the past 12 months has e [employer], gas, oil, or water [employer] threatened to shut off services in your [...] often do you attend chur ch or anabaptist services? More than 4 times per year 10/30/2022 Do you belong to any clubs o r organizations such as mosque groups, unions, fraternal or athletic groups, or [...] Answer Date Recorded PHQ-2 Score 0 04/23/2023 [facility] - Occupational Stress [...] your living situation today? I have a [facility] place to live 11/29/2023 Education Answer [...] Renal (HCC),Immunodeficiency Due To Drugs (HCC),Medication Therapy Assisted Not Anticoagulant Take 3 tablets (540 mg total) by mouth 2 (two) times a day. 540 tablet 3 10/31/2023 potassium chloride (K-TAB) 20 mEq CR tablet Take 1 tablet (20 mEq total) by mouth daily. 90 tablet 3 12/23/2023 predniSONE (DELTASONE) 5 mg tabletIndications:Addison splant Renal (HCC),Immunodeficiency Due To Drugs (HCC),Medication Therapy Bricklayer Helper Not Anticoagulant Take 1 tablet (5 mg [...] Renal (HCC),Immunodeficiency Due To Drugs (HCC),Medication Therapy Assisted Not Anticoagulant Take 1 capsule (1 mg total) by mouth every morning AND 1 capsule (1 mg total) every evening. 180 capsule 3 04/05/2023 vitamins A,C,D-cmud-mzjsgl (PRESERVISION AREDS) 7,160 Units-113 mg-100 Units per tablet Take 1 tablet by mouth 2 (two) times a day. For eye health 12/19/2016 polymyxin B-trimethoprim (POLYTRIM) 10,000 unit- 1 mg/mL ophthalmic solution Administer 1 drop into the left eye 4 (four) times a day for 7 days. 10 mL 02/14/2024 02/21/2024 prednisoLONE acetate (PRED FORTE) 1 % ophthalmic [...] documented as of this encounter Care Teams Hop Weigher Relationship Specialty Start Date End Date Elsewhere, Pcp PCP - General Internal Medicine 03/22/22 [facility] [place] [facility] 10/25/22 documented as of this encounter
--- OUTSIDE RECORDS SUMMARY | 2024-03-20 14:35 | XMS_ITS | Encounter Summary ---
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 [address] [place] [address] [facility] Referral ID Status Reason Start Date Expiration Date Visits Re quested Visits Authorized [id number] Closed 11/14/2023 11/13/2024 1 1 Encounter Details Date Type Department Care Team (Latest Contact Info) Description 02/07/2024 10:05 AM CDT - 02/07/2024 11:38 AM CDT Hospital Encounter Department of Cardiovascular Diseases in [place], [place] [address] [place] [address] Rhonda Hampton P.A.-C., M.S. [address] [place] [address] Transplant Renal (HCC); Atherosclerotic Heart Disease [place] Coronary Artery Without Angina Pectoris Discharge Disposition: Home or Self Care Social History Tobacco Use Types Packs/Day Years Used Date Smoking Tobacco: Former Cigarettes 1 20 1 - 08/06/1983 Smokeless Tobacco: Never Alcohol Use Standard Drinks/Week Comments No 0 (1 standard drink = 0.6 oz pur e alcohol) [facility] [employer] Answer Date Recorded In the past 12 months has [employer], gas, oil, or water [employer] threatened to shut off services in your [...] any clubs o r organizations such as anabaptism groups, unions, fraternal or athletic groups, or [...] Answer Date Recorded PHQ-2 Score 0 04/23/2023 [facility] - Occupational Stress Questionnaire Answer Date Recorded [...] your living situation today? I have a [facility] place to live 11/29/2023 Education Answer [...] Renal (HCC),Immunodeficiency Due To Drugs (HCC),Medication Therapy Human Resources Operations Coordinator Not Anticoagulant Take 3 tablets (540 mg total) by mouth 2 (two) times a day. 540 tablet 3 10/31/2023 potassium chloride (K-TAB) 20 mEq CR tablet Take 1 tablet (20 mEq total) by mouth daily. 90 tablet 3 12/23/2023 predniSONE (DELTASONE) 5 mg tabletIndications:Addison splant Renal (HCC),Immunodeficiency Due To Drugs (HCC),Medication Therapy Usp Not Anticoagulant Take 1 tablet (5 mg [...] Renal (HCC),Immunodeficiency Due To Drugs (HCC),Medication Therapy Usp Not Anticoagulant Take 1 capsule (1 mg total) by mouth every morning AND 1 capsule (1 mg total) every evening. 180 capsule 3 04/05/2023 vitamins A,C,X-apmi-rvumvk (PRESERVISION AREDS) 7,160 Units-113 mg-100 Units per [...] Procedure Name Priority Date/Time Associated Diagnosis Comments (TTE) 2D ECHO DOPPLER COLOR Routine 02/07/2024 10:43 AM CDT Transplant Renal (HCC) Atherosclerotic [facility] [place] Coronary Artery Without Angina Pectoris documented in this encounter Results * (TTE) 2D ECHO DOPPLER COLOR (02/07/2024 [...] Rhonda Hampton P.A.-C., M.S. CV ECHO PROCEDURES documented in this encounter Visit Diagnoses Diagnosis Transplant Renal (HCC) Atherosclerotic Heart Disease [place] Coronary Artery Without Angina Pectoris documented in this encounter Additional Health Concerns Infection Onset Date Last Indicated Resolved Time Protective Environment 02/01/2023 02/01/2023 Assessment Noted Time PHQ-9 Depression Total Score: 2 04/23/20 23 11:30 AM CDT documented as of this encounter Care Teams Privacy Manager Relationship Specialty Start Date End Date Elsewhere, Pcp PCP - General Internal Medicine 03/22/22 [facility] [place] [facility] 10/25/22 documented as of this encounter
--- OUTSIDE RECORDS SUMMARY | 2024-03-20 14:35 | XMS_ITS | Encounter Summary ---
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 [address] [place] [phone] VITRECTOMY, PARS PLANA 25 GAUGE, MEMBRANE PEEL, FLUID AIR EXCHANGE, Laser LEFT EYE. Social History Tobacco Use Types Packs/Day Years Used Date Smoking Tobacco: Former Cigarettes 1 20 1 - 08/06/1983 Smokeless Tobacco: Never Alcohol Use Standard Drinks/Week Comments No 0 (1 standard drink = 0.6 oz pur e alcohol) [facility] Utilities Answer Date Recorded In the past 12 months has [facility] iGlue, gas, oil, or water [employer]en[employer] threatened to shut off services in your [...] often do you attend chur ch or sikh services? More than 4 times per year [...] Answer Date Recorded PHQ-2 Score 0 04/23/2023 [facility] of Occupat ional Health - Occupational Stress [...] your living situation today? I have a [facility] place to live 11/29/2023 Education [...] PM CDT documented as of this encounter Last Filed Vital Signs Vital Sign Reading [...] Mass Index 21.67 02/13/2024 6:57 AM CDT documented in this encounter Discharge Instructions * Discharge Instructions* Hayes Rob M.D. - 02/13/2024 6:41 AM CDT Instructions after eye surgery Starting 02/13/2024 Keep your eye patch on overnight. It will be removed tomorrow in clinic during your clinic visit. You do NOT need to use any eye drops until after your follow- up visit tomorrow. Positioning: If the bubble of gas, air, or silicone oil was placed in the eye during surgery, a specific head position will be required. This position should be maintained for as much of the time as possible. The bubble will hold the retina in position as the retina heals. Very important: If you have a gas air bubble, do not fly in an airplane, do not go to high altitude, scuba dive, or undergo elective surgery (nitrous oxide). YOUR POSITION: Do not rest or sleep on your back. Activities: If you have been instructed to maintain a certain head position, it is important to comply. During the first week, do not engage in vigorous activity. Lifting is restricted to 10 lb. Avoid areas that are justina or dirty. Avoid sexual activity for 1 week. When washing hair, avoid getting the tap water into the operated eye. Pain: Pain will be worse at about 12-24 hours after the operation as the anesthetic wears off. After this period, the pain will decrease over the next several days. Take pain medications as recommended by your doctor. Call your doctor if the pain should get worse. Most cases do not require a prescriptions for pain medications yet this depends upon the type of surgery. In general, we recommend veec-ugi-gcilied pain medications such as Extra Strength Tylenol. Check with your doctor before using Aspirin, Motrin, Advil, or Aleve. Shield or glasses: For the first week after surgery, you must wear a pair of glasses (any type) or hard shield at all times (awake or sleeping) to make sure that the eye is not accidentally bumped. Wear the shield when sleeping or napping. It is okay to stop wearing this protection after 10 days. It is not necessary to wear a soft patch under the hard shield unless otherwise instructed. Other: There may be a mild, bloody discharge or mattering from the eye. Your eye may also remain red for up to 4-6 weeks after surgery. This is normal and should decrease slowly over time. If these conditions worsen, please contact the office for evaluation. Any questions or concerns please call [phone] (Business hours) [phone] (Evenings and weekends, ask for the Weld Fitter alarm security or surveillance monitor) documented in this encounter Medications at Time of Discharge [...] Renal (HCC),Immunodeficiency Due To Drugs (HCC),Medication Therapy Pickling Solution Maker Not Anticoagulant Take 3 tablets (540 mg total) by mouth 2 (two) times a day. 540 tablet 3 10/31/2023 potassium chloride (K-TAB) 20 mEq CR tablet Take 1 tablet (20 mEq total) by mouth daily. 90 tablet 3 12/23/2023 predniSONE (DELTASONE) 5 mg tabletIndications:Addison splant Renal (HCC),Immunodeficiency Due To Drugs (HCC),Medication Therapy Pickling Solution Maker Not Anticoagulant Take 1 tablet (5 mg [...] Renal (HCC),Immunodeficiency Due To Drugs (HCC),Medication Therapy Pickling Solution Maker Not Anticoagulant Take 1 capsule (1 mg total) by mouth every morning AND 1 capsule (1 mg total) every evening. 180 capsule 3 04/05/2023 vitamins A,C,I-llid-fpoyrj (PRESERVISION AREDS) 7,160 Units-113 mg-100 Units per [...] 02/14/2024 03/13/2024 documented as of this encounter Nursing Notes * Anca Berg M.A.N., R.N. - 02/13/2024 8:43 AM CDT Air Bubble in left eye. Position Head up. Green wristband applied to patient arm prior to OR dismissal. documented in this encounter OR Notes * Op Note - Monty Zheng M.D. 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 Findings As expected. Complications None Operative Note Narrative A standard 3-port pars plana vitrectomy setup was achieved with angled trocar incisions 3.5 to 4 mmposterior to the surgical limbus. The inferotemporal port was placed first, and a pre-tested infusion line was inserted and turned on after verification of positioning with the light pipe. The infusion was then taped and secured. The superonasal and superotemporal ports were placed in a similar fashion. Visualization revealed a dense epiretinal membrane with macular cysts. There was also evidence of advanced macular degeneration with geographic atrophy nasal to the fovea as well as exudation. A corevitrectomy was performed followed by a close peripheral shave over 360 degrees. On scleral depressed examination there was a hole at 2 oclock. Indocyanine green was instilled into the vitreous cavity and used to stain the internal limiting membrane. Using internal limiting membrane forceps, the internal limiting membrane and epiretinal membranes were peeled in their entirety from arcade to arcade. The vitreous cutter was then reintroduced and used to remove any remaining membrane fragments. Theendolaser probe was then inserted into the vitreous cavity and used to laser barricade the hole. Anair-fluid exchange was performed, following which the eye was then filled out a normal physiological pressure by digital palpation with air. The vitrectomy ports were removed and all were closed with 6-0 plain gut suture. Subconjunctival Ancef and dexamethasone were injected. Topically-administered medications included maxitrol. The patient was patched and shielded and turned over to the anesthesia team having tolerated the procedure well. The patient will position head elevated and follow-up tomorrow. Juan M Zheng M.D. * Brief Op Note - Monty Zheng M.D. - 02/13/2024 7:38 AM CDT Pre-op Diagnosis Membrane Macula Epiretinal Left Post-op Diagnosis Membrane Macula Epiretinal Left Findings As expected. Complications None Juan M Sami Zheng documented in this encounter Plan of Treatment Not on file documented as of this encounter Procedures Procedure Name Priority Date/Time Associated Diagnosis Comments GLUCOSE POCT, B Routine 02/13/2024 8:55 AM CDT GLUCOSE POCT, B Routine 02/13/2024 7:22 AM CDT VITRECTOMY - PARS PLANA 25 GAUGE 02/13/2024 7:18 AM CDT Membrane Macula Epiretinal Left documented in this encounter Results * (ABNORMAL) Glucose, POCT (02/13/2024 8:55 AM CDT) Glucose, POCT, B 144(H) 70 - 140 mg/dL 02/13/2024 9:26 AM CDT PCLX Site Capillary 02/13/2024 9:26 AM CDT PCLX Blood 02/13/2024 8:55 AM CDT 02/13/2024 9:27 AM CDT Unknown Provider LAB POCT ORDERABLES- MANUAL Performing Organization Address City/[facility]/ZIP Co de Phone Number [facility] [address] [place] [address], [facility] PCLX [facility] [place] [facility] [address] [place] [address] * (ABNORMAL) Glucose, POCT (02/13/2024 7:22 AM CDT) Glucose, POCT, B 149(H) 70 - 140 mg/dL 02/13/2024 7:29 AM CDT PCLX Site Venstick 02/13/2024 7:29 AM CDT PCLX Blood 02/13/2024 7:22 AM CDT 02/13/2024 7:29 AM CDT Unknown Provider LAB POCT ORDERABLES- MANUAL [facility] [address] [place] [address], [place] PCLX [facility] [place] [facility] [address] [place] [address] documented in this encounter Visit Diagnoses Diagnosis Membrane Macula Epiretinal Left- Primary Membrane Macula Epiretinal Left documented in this encounter Admitting Diagnoses Diagnosis Membrane Macula Epiretinal Left documented in this encounter Administered Medications Inactive Administered Medications - up to 3 most recent administrations Medication Order MAR Action Action Date Dose Rate Site balanced salt solution ophthalmic irrigation (BSS) As needed, Starting on Deyanira 02/13/24 at 0740, Intra-Op Given 02/13/2024 7:40 AM CDT 30 mL Left Eye balanced salt solution plus ophthalmic irrigation (BSS PLUS) As needed, Starting on Deyanira 02/13/24 at 0741, Intra-Op Given 02/13/2024 7:41 AM CDT 250 mL Left Eye BUPivacaine PF 0.75 % (7.5 mg/mL) injection (MARCAINE) As needed, Starting on Deyanira 02/13/24 at 0752, Intra-Op Given 02/13/2024 8:38 AM CDT 0.5 mL Left Eye ceFAZolin subconjunctival 25 mg (ANCEF) 25 mg, subconjunctival, Once in surgery, OR use only, Starting on Sat02/13/24 at 0750, For 1 dose, Intra-Op, Inject into left eye. SUBCONJUNCTIVAL Use Only. Amount Dispensed Exceeds Dose. 5 mL vial. Given 02/13/2024 8:38 AM CDT 25 mg L eft Eye cyclopentolate 1 % ophthalmic solution 1 drop (CYCLOGYL) 1 drop, left eye, Every 5 min, First dose on Deyanira 02/13/24 at 0700, For 3 doses, Pre-Op, In operative eye. Given 02/13/2024 7:17 AM CDT 1 drop Given 02/13/2024 7:09 AM CDT 1 drop Given 02/13/2024 7:01 AM CDT 1 drop dexAMETHasone injection 2 mg (DECADRON) 2 mg, subconjunctival, Once in surgery, OR use only, Starting on Sat02/13/24 at 0750, For 1 dose, Intra-Op, Inject into left eye. Given 02/13/2024 8:39 AM CDT 2 mg Left Eye hypromellose intraocular solution (OCUCOAT) As needed, Starting on Deyanira 02/13/24 at 0740, Intra-Op Given 02/13/2024 7:40 AM CDT 1 mL Left Eye indocyanine green injection (IC-GREEN) As needed, Starting on Sat02/13/24 at 0754, Intra-Op Given 02/13/2024 7:54 AM CDT 0.24 mg cxkxitfgb-EORzcwbbnqp-oywsyasau dase human recombinant (Ophthalmic Block Solution #4) 9.3 mg-3.5 mg-11.2 Units/mL 20.1 mL 20.1 mL, ophthalmic, Once in surgery, OR use only, Starting on Deyanira 02/13/24 at 0750, For 1 dose, Intra-Op Given 02/13/2024 7:40 AM CDT 5 mL Lef t Eye neomycin-polymyxin B-dexameth ophthalmic ointment (MAXITROL) As needed, Starting on Sat02/13/24 at 0754, Intra-Op Given 02/13/2024 8:40 AM CDT 1 Application Left Eye phenylephrine 2.5 % ophthalmic solution 1 drop (MYDFRIN) 1 drop, left eye, Every 5 min, First dose on Deyanira 02/13/24 at 0700, For 3 doses, Pre-Op, In operative eye. Given 02/13/2024 7:17 AM CDT 1 drop Given 02/13/2024 7:09 AM CDT 1 drop Given 02/13/2024 7:01 AM CDT 1 drop sodium chloride 0.9 % injection 10 mL 10 mL, intravenous, As needed, line care, Starting on Sat02/13/24 at 0637, Pre-Op, Peripheral Intravenous Catheter and Rapid Infusion Catheter, prior to blood sampling, post blood transfusion or post blood sampling sodium chloride 0.9 % injection 3 mL 3 mL, intravenous, As needed, line care, Starting on Deyanira 02/13/24 at 0637, Pre-Op, Prior to and following infusion and between multiple consecutive infusions: sodium chloride 0.9 % injection sodium chloride 0.9 % injection 3 mL 3 mL, intravenous, Every 12 hours scheduled, First dose on Deyanira 02/13/24 at 0900, Pre-Op, Peripheral Intravenous Catheter and Rapid Infusion Catheter, when no infusion to maintain patency tetracaine (PF) 0.5 % ophthalmic solution (ALTACAINE) As needed, Starting on Deyanira 02/13/24 at 0731, Intra-Op Given 02/13/2024 7:31 AM CDT 3 drops Lef t Eye triamcinolone acetonide injection (KENALOG-40) As needed, Starting on Deyanira 02/13/24 at 0755, Intra-Op Given 02/13/2024 8:38 AM CDT 20 mg Lef t Eye tropicamide 1 % ophthalmic solution 1 drop (MYDRIACYL) 1 drop, left eye, Every 5 min, First dose on Deyanira 02/13/24 at 0700, For 3 doses, Pre-Op, In operative eye. Given 02/13/2024 7:17 AM CDT 1 drop Given 02/13/2024 7:09 AM CDT 1 drop Given 02/13/2024 7:01 AM CDT 1 drop documented in this encounter Active and Recently Administered Medications Times are shown in CDT. Scheduled Medication Order 02/11/2024 02/12/2024 02/13/2024 cyclopentolate 1 % ophthalmic solution 1 drop (CYCLOGYL) (COMPLETED) 1 drop, left eye, Every 5 min, First dose on Deyanira 02/13/24 at 0700, For 3 doses, Pre-Op, In operative eye. 0701 (Given - Provid er: Yojana Hodgson RJoseN.)0709 (Given - Provider: Yojana Hodgson R.N.)0717 (Given - Provider: Yojana Hodgson R.N.) phenylephrine 2.5 % ophthalmic solution 1 drop (MYDFRIN) (COMPLETED) 1 drop, left eye, Every 5 min, First dose on Deyanira 02/13/24 at 0700, For 3 doses, Pre-Op, In operative eye. 0701 (Given - Provid er: Yojana Hodgson R.N.)0709 (Given - Provider: Yojana Hodgson R.N.)0717 (Given - Provider: Yojana Hodgson R.N.) sodium chloride 0.9 % injection 3 mL 3 mL, intravenous, Every 12 hours scheduled, First dose on Deyanira 02/13/24 at 0900, Pre-Op, Peripheral Intravenous Catheter and Rapid Infusion Catheter, when no infusion to maintain patency 0900 (Due)2100 (Due) tropicamide 1 % ophthalmic solution 1 drop (MYDRIACYL) (COMPLETED) 1 drop, left eye, Every 5 min, First dose on Deyanira 02/13/24 at 0700, For 3 doses, Pre-Op, In operative eye. 0701 (Given - Provid er: Yojana Hodgson RAntoinette)0709 (Given - Provider: Nazia HathawayN.)0717 (Given - Provider: Nazia HathawayNJose) Continuous Medication Order 02/11/2024 02/12/2024 02/13/2024 Lactated Ringer's 20 mL/hr, intravenous, Continuous, Starting on Deyanira 02/13/24 at 0815, PACU & Post-Op 0815 (Due) PRN Medication Order 02/11/2024 02/12/2024 02/13/2024 balanced salt solution ophthalmic irrigation (BSS) (CANCELED) As needed, Starting on Deyanira 02/13/24 at 0740, Intra-Op 0740 (Given - Provid er: Hayes Rob M.D. - Comment: Used throughout procedure) balanced salt solution plus ophthalmic irrigation (BSS PLUS) (CANCELED) As needed, Starting on Deyanira 02/13/24 at 0741, Intra-Op 0741 (Given - Provid er: Hayes Rob M.D. - Comment: Used throughout procedure) BUPivacaine PF 0.75 % (7.5 mg/mL) injection (MARCAINE) (CANCELED) As needed, Starting on Deyanira 02/13/24 at 0752, Intra-Op 0838 (Given - Provid er: Hayes Rob M.D.) ceFAZolin subconjunctival 25 mg (ANCEF) (COMPLETED) 25 mg, subconjunctival, Once in surgery, OR use only, Starting on Deyanira 02/13/24 at 0750, For 1 dose, Intra-Op, Inject into left eye. SUBCONJUNCTIVAL Use Only. Amount Dispensed Exceeds Dose. 5 mL vial. 0838 (Given - Provid er: Hayes Rob M.D.) dexAMETHasone injection 2 mg (DECADRON) (COMPLETED) 2 mg, subconjunctival, Once in surgery, OR use only, Starting on Deyanira 02/13/24 at 0750, For 1 dose, Intra-Op, Inject into left eye. 0839 (Given - Provid er: Hayes Rob M.D.) hypromellose intraocular solution (OCUCOAT) (CANCELED) As needed, Starting on Deyanira 02/13/24 at 0740, Intra-Op 0740 (Given - Provid er: Hayes Rob M.D. - Comment: Used throughout procedure) indocyanine green injection (IC-GREEN) (CANCELED) As needed, Starting on Deyanira 02/13/24 at 0754, Intra-Op 0754 (Given - Provid er: Hayes Rob M.D.) lgqllzloc-YLQtwjhyxcb-emuixlqnwsxf e human recombinant (Ophthalmic Block Solution #4) 9.3 mg-3.5 mg-11.2 Units/mL 20.1 mL (COMPLETED) 20.1 mL, ophthalmic, Once in surgery, OR use only, Starting on Deyanira 02/13/24 at 0750, For 1 dose, Intra-Op 0740 (Given - Provid er: Hayes Rob M.D.) neomycin-polymyxin B-dexameth ophthalmic ointment (MAXITROL) (CANCELED) As needed, Starting on Deyanira 02/13/24 at 0754, Intra-Op 0840 (Given - Provid er: Hayes Rob M.D.) sodium chloride 0.9 % injection 10 mL 10 mL, intravenous, As needed, line care, Starting on Deyanira 02/13/24 at 0637, Pre-Op, Peripheral Intravenous Catheter and Rapid Infusion Catheter, prior to blood sampling, post blood transfusion or post blood sampling sodium chloride 0.9 % injection 3 mL 3 mL, intravenous, As needed, line care, Starting on Deyanira 02/13/24 at 0637, Pre-Op, Prior to and following infusion and between multiple consecutive infusions: sodium chloride 0.9 % injection tetracaine (PF) 0.5 % ophthalmic solution (ALTACAINE) (CANCELED) As needed, Starting on Deyanira 02/13/24 at 0731, Intra-Op 0731 (Given - Provid er: Hayes Rob M.D.) triamcinolone acetonide injection (KENALOG-40) (CANCELED) As needed, Starting on Deyanira 02/13/24 at 0755, Intra-Op 0838 (Given - Provid er: Hayes Rob M.D.) documented in this encounter Additional Health Concerns Infection Onset Date Last Indicated Resolved Time Protective Environment 02/01/2023 02/01/2023 Assessment Noted Time PHQ-9 Depression Total Score: 2 04/23/20 23 11:30 AM CDT documented as of this encounter 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
--- OUTSIDE RECORDS SUMMARY | 2024-03-20 14:35 | XMS_ITS | Encounter Summary ---
Author Organization [facility] Address [address] [place] [id number] Care Team Providers Care Spray Pilot Name Role Phone Elsewhere, Pcp Primary Care Provider Unavailabl e Reason for Visit * Reason Onset Date Comments Pre-Surgery Question 02/07/2024 Encounter Details Date Type Department Care Team (Latest Contact Info) Description 02/07/2024 Clinical Communication Department of Ophthalmology in [place], [place] [address] [place] [address] Monty Zheng M.D. [address] [place] [address] Pre-Surgery Question Social History Tobacco Use Types Packs/Day Years Used Date Smoking Tobacco: Former Cigarettes 1 20 1 - 08/06/1983 Smokeless Tobacco: Never Alcohol Use Standard Drinks/Week Comments No 0 (1 standard drink = 0.6 oz pur e alcohol) [facility] Utilities Answer Date Recorded In the past [...] How often do you attend chur or druze services? More than 4 times per year 10/30/2022 Do you belong to any clubs o r organizations such as nondenominational groups, unions, fraternal or athletic groups, or [...] Answer Date Recorded PHQ-2 Score 0 04/23/2023 [facility] of Occupat ional Health - Occupational Stress [...] your living situation today? I have a [facility] place to live 11/29/2023 Education Answer [...] documented as of this encounter Care Teams Spray Pilot Relationship Specialty Start Date End Date Elsewhere, Pcp PCP - General Internal Medicine 03/22/22 [facility] 10/25/22 documented as of this encounter
--- OUTSIDE RECORDS SUMMARY | 2024-03-20 14:35 | XMS_ITS | Encounter Summary ---
Author Organization [facility] Address [address] [place] [address] Care Team Providers Care Family Service Assistant Name Role Phone Elsewhere, Pcp Primary Care Provider Unavailabl e Reason for Visit * Outpatient (Routine) - Closed Specialty Diagnoses / Procedures Referred By Roman del castillo Referred To Contact Anesthesiology Diagnoses Membrane Macula Epiretinal Left Monty Zheng M.D. [address] [place] [phone] [facility] Referral ID Status Reason Start Date Expiration Date Visits Re quested Visits Authorized [id number] Closed 12/06/2023 06/06/2025 1 1 Encounter Details Date Type Department Care Team (Latest Contact Info) Description 02/07/2024 9:00 AM CDT Comprehensive Visit Preoperative Evaluation Center in [place], [place] [address] [place] [phone] Monty Zheng M.D. [address] [place] [phone] Kayla Shin M.D., Ph.D., MJoseD., Ph.D. 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; Detachment Vitreous Posterior Bilateral; Hyperlipidemia Mixed; Diabetes Mellitus Type 2 (HCC); Hypertensive Chronic Kidney Disease With Stage 5 Chronic Kidney Disease Or End Stage Renal Disease, Chronic Kidney Disease Stage 5 (HCC); Atherosclerotic Heart Disease Of [place] Coronary Artery Without Angina Pectoris; Transplant Renal (HCC); Immunodeficiency Due To Drugs (HCC); Surgery Bariatric Status Post Social History Tobacco Use Types Packs/Day Years Used Date Smoking Tobacco: Former Cigarettes 1 20 1 - 08/06/1983 Smokeless Tobacco: Never Tobacco Cessation:Counseling Given: Not Answered Alcohol Use Standard Drinks/Week Comments No 0 (1 standard drink = 0.6 oz pur e alcohol) [facility] [employer] Answer Date Recorded In the past 12 months has e [email or web address], gas, oil, or water [employer] threatened to shut off services in your [...] any clubs o r organizations such as anglican groups, unions, fraternal or athletic groups, or [...] Answer Date Recorded PHQ-2 Score 0 04/23/2023 [facility] [place] of Occupat ional Health - Occupational Stress [...] Date Recorded Dental: Regular Dentist Yes 04/15/20 21 Employment Answer Date Recorded Employment status Retired 11/14/2023 Housing Stability Answer Date Recorded What is your living situation today? I have a [facility] place to live 11/29/2023 Education Answer [...] Sign Reading Time Taken Comments Blood Pressure 121/77 02/07/2024 8:50 AM CDT Pulse 78 02/07/2024 8:50 AM CDT Temperature 36.2 ??C (97.2 ??F) 02/07/2024 8:50 AM CD T Respiratory Rate - - Oxygen Saturation 85% 02/07/2024 8:50 AM CDT Inhaled Oxygen Concentration - - Weight 56.6 kg (124 lb 12.5 oz) 02/07/2024 8:50 AM CDT Height 159 cm (5' 2.6) 02/07/2024 8:50 AM CDT Body Mass Index 22.39 02/07/2024 8:50 AM CDT documented in this encounter H&P Notes * Kayla Shin M.D., Ph.D. - 02/07/2024 9:00 AM CDT Images from the original note were not included. REASON FOR VISIT: Preoperative Medical Evaluation REFERRING PHYSICIAN: Monty Zheng M.D. 02/13/2024: VITRECTOMY - PARS PLANA 25 GAUGE; Monty Zheng M.D. Surgery Specific Risk Classification: Low Risk SUBJECTIVE HISTORY OF PRESENT ILLNESS Anayeli Petit is a 78 y.o. female who is here for preanesthetic medical examination priorto the planned procedure as listed above. REVIEW OF SYSTEMS Constitutional: Positive for fatigue. Eyes: Positive for visual problems. Respiratory: Positive for shortness of breath (with activity). Gastrointestinal: Positive for nausea (medication-related). Musculoskeletal: Positive for muscle pain/stiffness (physical therapy for sciatic and sholder bladepain). The following systems were negative: Skin, ENT, Cardiovascular, Genitourinary, Hematologic, Neurological, Psychiatric Cardiac Risk Scoring: RCRI Point Count: 2 RCRI Score: III DASI Calculations Flowsheet Row Comprehensive Visit from 02/07/2024 in Preoperative Evaluation Center in [place], [place] DASI Total Score 29.45 Estimated V02 Peak 22.26 Estimated MET Level 6.36 OBJECTIVE BP 121/77 Pulse 78 Temp 36.2 ??C (Temporal) Ht 159 cm Wt 56.6 kg SpO2 (!) 85% BMI 22.39kg/m?? OBJECTIVE PHYSICAL EXAMINATION General/Constitutional Constitutional Assessment: Normal General State of Health: Healthy appearing Airway (HEENT) Mallampati: III TM Distance: >3 FB Neck ROM: Limited Mouth Opening: > 3 cm Dental Assessment: Dentition intact Cardiovascular Rhythm: Regular Rate: Normal Cardiovascular Assessment: Heart murmur Pulmonary Pulmonary Assessment: Clear Neurological Neurologic Assessment: Alert and oriented X 3 Musculoskeletal Gait: Normal Ambulate with: None Psychiatric Psychiatric Assessment: Calm Dermatology Skin Assessment: normal ASSESSMENT / PLAN Anesthesia: Patient denies previous anesthesia related complications. Airway Hx: 10/06/2022 - General anesthesia for kidney transplant - easy mask, VL 1st attempted intubation, grade 1, ETT 7. Patient has a hx or cervical fusion in the 90's so limited ROM on her neck. Lab: 11/11/2023 - Hg 14.9, plt 176, wbc 4.8. 02/04/2024 - Na 139, K 4.4, Cr 0.67, eGFR>90, glucose 142, Hg A1C 8, ECG: Last ECG on Holter 07/10/2023 - Baseline with them was sinus. PVCs and PACs were seen. She will have a new ECG later today. ECHO: Last TTE 04/23/2023 - small [id number] shunt at atrial level with Valsalva release. Normalleft ventricular chamber size. Concentric left ventricular hypertrophy. EF 62%. No regional wall motion abnormalities. Sigmoid ventricular septum with basal left prominence after team mm. No left ventricular outflow tract obstruction at rest or with Valsalva. Normal right ventricular chamber size and systolic function. Mild aortic regurgitation. Mild mitral valve regurgitation. Patient will have a new TTE done later today. 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 Petit is a very pleasant 78-year-old female with a past medical history most significant for the list below. She is here for preoperative visit in preparation of her upcoming ophthalmologic procedure. Despite her multiple comorbidities, she has been well-controlled on medication. She is currently asymptomatic cardiovascular arteaga. She has some shortness of breath with moderate activity. #5 Hyperlipidemia Mixed On Rosuvastatin. #6 Diabetes Mellitus Type 2 (HCC) On Metformin and Semaglutide. Last Hg A1C 8. #7 Hypertension And Chronic Kidney Disease Stage 5 (HCC) Well-controlled on Carvedilol and Amlodipine #8 Atherosclerotic Heart Disease Of [place] Coronary Artery Without Angina Pectoris Hx of 4 STENTs placed on 2019. Patient is followed by cardiology. New ECG, Tte and cardiology appointment later today. She is asymptomatic cardiovascular arteaga. 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 Off dialysis. Good renal function. #11 Surgery Bariatric Status Post in 2004 This together with her Ozempic use may increase her aspiration risk. However, she is asymptomatic with no symptoms of GERD, no symptoms of slow gastric empty. She was advised on holding Ozempic in the week of surgery. This means she will not have her injection does neck Thursday 02/08. #12 Cerebral Hemorrhage (HCC) Hx of hemorrhagic stroke on March 2023. PATIENT EDUCATION: Reviewed Instructions To Get Ready for Your Surgery or Procedure: [facility] [id number] rev [id number]. Written and verbal instructions given on medication management beforesurgery. Reviewed instructions on avoiding aspirin, ibuprofen-containing medications, and supplements one week before surgery. Patient may take acetaminophen as needed for pain. RECOMMENDATIONS: Patient medically optimized for planned procedure: Yes Further Recommendations: None Caprini Total Score: 13 The patient is at the highest risk for postoperative DVT or PE. Mechanical AND chemoprophylaxis arerecommended at the time of procedure and during postoperative hospitalization, as well as chemoprophylaxis at the time of hospital discharge, unless there are contraindications or risk of bleeding out weighs benefits of chemoprophylaxis. 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 Detachment Vitreous Posterior Bilateral Hyperlipidemia Mixed Diabetes Mellitus Type 2 (HCC) Hypertensive Chronic Kidney Disease With Stage 5 Chronic Kidney Disease Or End Stage Renal Disease, Chronic Kidney Disease Stage 5 (HCC) Atherosclerotic Heart Disease Of [place] Coronary Artery Without Angina Pectoris Transplant 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
--- OUTSIDE RECORDS SUMMARY | 2024-03-20 14:35 | XMS_ITS | Encounter Summary ---
Author Organization [facility] Address [address] [place] [address] Care Team Providers Care Agriculture Inspector Name Role Phone Elsewhere, Pcp Primary Care Provider Unavailabl e Encounter Details Date Type Department Care Team (Late st Contact Info) Description 02/04/2024 7:58 AM CDT - 02/04/2024 11:59 PM CDT Hospital Encounter Department of Laboratory Medicine in [address] [phone] Rhonda Hampton P.A.-C., M.S. [address] [place] [phone] Transplant Renal (HCC) Discharge Disposition: Home or Self Care Social History Tobacco Use Types Packs/Day Years Used Date Smoking Tobacco: Former Cigarettes 1 20 1 - 08/06/1983 Smokeless Tobacco: Never Alcohol Use Standard Drinks/Week Comments No 0 (1 standard drink = 0.6 oz pur e alcohol) [facility] Utilities Answer Date Recorded In the past 12 months has e [employer], gas, oil, or water [employer] threatened to shut off services in your [...] Answer Date Recorded PHQ-2 Score 0 04/23/2023 [facility] [place] of Occupat ional Health - Occupational Stress [...] your living situation today? I have a [facility] place to live 11/29/2023 Education [...] Renal (HCC),Immunodeficiency Due To Drugs (HCC),Medication Therapy [facility] Not Anticoagulant Take 3 tablets (540 mg total) by mouth 2 (two) times a day. 540 tablet 3 10/31/2023 potassium chloride (K-TAB) 20 mEq CR tablet Take 1 tablet (20 mEq total) by mouth daily. 90 tablet 3 12/23/2023 predniSONE (DELTASONE) 5 mg tabletIndications:Addison splant Renal (HCC),Immunodeficiency Due To Drugs (HCC),Medication Therapy Case Resolution Specialist Not Anticoagulant Take 1 tablet (5 mg [...] Renal (HCC),Immunodeficiency Due To Drugs (HCC),Medication Therapy [facility] Not Anticoagulant Take 1 capsule (1 mg total) by mouth every morning AND 1 capsule (1 mg total) every evening. 180 capsule 3 04/05/2023 vitamins A,C,K-zykx-cwmlkq (PRESERVISION AREDS) 7,160 Units-113 mg-100 Units per [...] Procedure Name Priority Date/Time Associated Diagnosis Comments SUPERSATURATION, 24H, U Routine 02/05/2024 12:36 PM CDT Transplant Renal (HCC) documented in this encounter Results * (ABNORMAL) Supersaturation, 24 hour, Urine (02/05/2024 12:36 PM CDT) Pathologist [facility] Sodium, 24 HR, U 83 22 - [...] developed and its performance characteristics determined by [facility] in a manner consistent with CLIA requirements. [...] developed and its performance characteristics determined by [facility] in a manner consistent with CLIA requirements. This test has not been cleared or approved by the U.S. Food and Drug Administration. Oxalate, 24 HR, U (mmol/24 HR) 0.53(H) 0.11 - 0.46 mmol/24 h 02/06/2024 2:53 PM CDT DTL Comment: ----ADDITIONAL INFORMATION---- This test was developed and its performance characteristics determined by [facility] in a manner consistent with CLIA requirements. [...] This test has been modified from the clinical therapist's instructions. Its performance characteristics were determined by [facility] in a manner consistent with CLIA requirements. [...] Hampton P.A.-C., M.S. LAB URI NE ORDERABLES [facility] [address] [place] [address], [facility] [address] [place] [address] DT 200 [facility] 200 [place] [address] documented in this encounter Visit Diagnoses Diagnosis Transplant Renal (HCC) documented in this encounter Additional Health Concerns Infection Onset Date Last Indicated Resolved Time Protective Environment 02/01/2023 02/01/2023 Assessment Noted Time PHQ-9 Depression Total Score: 2 04/23/20 23 11:30 AM CDT documented as of this encounter Care Teams Agriculture Inspector Relationship Specialty Start Date End Date Elsewhere, Pcp PCP - General Internal Medicine 03/22/22 [facility] [place] Laboratory Medicine 10/25/22 documented as of this encounter
--- OUTSIDE RECORDS SUMMARY | 2024-03-20 14:35 | XMS_ITS | Encounter Summary ---
Author Organization [facility] Address [address] [place] [id number] Care Team Providers Care Retail And Restaurant Associate Name Role Phone Elsewhere, Pcp Primary Care Provider Unavailabl e Reason for Referral * Outpatient (Routine) - Authorized Specialty Diagnoses / Procedures Referred By Contac t Referred To Contact Diagnoses Transplant Renal (HCC) Atherosclerotic Heart Disease Of [place] Coronary Artery Without Angina Pectoris Procedures ECG 12 Lead Edward Conway M.D., Ph.D. [address] [place] [phone] [facility] Referral ID Status Reason Start Date Expiration Date V isits Requested Visits Authorized [id number] Authorized 02/07/2024 02/06/2025 1 1 * Transplant (Routine) - Authorized Specialty Diagnoses / Procedures Referred By Contac t Referred To Contact Transplant Edward Conway M.D., Ph.D. [address] [place] [phone] [facility] Referral ID Status Reason Start Date Expiration Date V isits Requested Visits Authorized [id number] Authorized 02/07/2024 08/08/2025 1 1 Reason for Visit * Transplant (Routine) - Closed Specialty Diagnoses / Procedures Referred By Roman del castillo Referred To Contact Transplant Diagnoses Transplant Renal (HCC) Atherosclerotic Heart Disease Of [place] Coronary Artery Without Angina Pectoris Rhonda Hampton P.A.-C., M.S. [address] [place] [phone] [facility] Referral ID Status Reason Start Date Expiration Date Visits Re quested Visits Authorized [id number] Closed 11/14/2023 05/15/2025 1 1 Encounter Details Date Type Department Care Team (Latest Contact Info) Description 02/07/2024 2:15 PM CDT Office Visit Benito yip [facility] in [place], [place] [address] [place] [phone] Kevin Fregoso M.D. [address] [place], [place] [phone] Edward Conway M.D., Ph.D. [address] [place] [phone] Coronary Stent Status Post (Primary Dx); Atherosclerotic Heart Disease Of [place] Coronary Artery Without Angina Pectoris; Atherosclerosis Aortic (HCC); Regurgitation Mitral; Transplant Renal (HCC) Social History Tobacco Use Types Packs/Day Years Used Date Smoking Tobacco: Former Cigarettes 1 20 1 - 08/06/1983 Smokeless Tobacco: Never Alcohol Use Standard Drinks/Week Comments No 0 (1 standard drink = 0.6 oz pur e alcohol) [facility] Utilities Answer Date Recorded In the past 12 months has e [employer], gas, oil, or water [employer] threatened to shut off services in your [...] How often do you attend chur or holiness services? More than 4 times per year 10/30/2022 Do you belong to any clubs o r organizations such as roman catholic groups, unions, fraternal or athletic groups, or [...] Answer Date Recorded PHQ-2 Score 0 04/23/2023 [facility] [place] of Occupat ional Health - Occupational Stress [...] your living situation today? I have a [facility] place to live 11/29/2023 Education [...] Sign Reading Time Taken Comments Blood Pressure - - Pulse - - Temperature - - Respiratory Rate - - Oxygen Saturation 96% 02/07/2024 2:02 PM CDT Inhaled Oxygen Concentration - - Weight - - Height - - Body Mass Index - - documented in this encounter Consult Notes * Edward Conway M.D., Ph.D. - 02/07/2024 2:15 PM CDT [facility] SUBJECTIVE REFERRAL SOURCE: Rhonda Hampton P.A.-C., M.S. CHIEF COMPLAINT / REASON FOR CONSULT / HISTORY OF PRESENT ILLNESS Anayeli Petit is a 78 y.o. female who comes for cardiovascular assessment as part of an evaluation for renal transplantation candidacy. 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 She was then seen in valvular Clinic and by March of 2023, her mitral regurgitation had decreased to mild. Hence, no intervention was pursued. In March of 2003, she underwent a stress echo which was negative for ischemia but evidenced frequent ectopy and several 4 beat run of VT and multiple runs of SVT with pharmacological stress. She had an event monitor for 2 weeks in June of 2023 which showed 50 runs of SVT at times with aberrancy and PACs singly and in bigeminal pattern. Her longest SVT run was just 20 beats. Notably, the patient wasasymptomatic during the test. On the Holter monitor 2 weeks prior to that, her PAC burden was 13% and PVC burden was less than 1%. During her visit today, she denies any angina, dyspnea, lower extremity edema, palpitations. She complains of 1 episode of lightheadedness about 6 weeks ago when she was pushing the grocery cart at the [employer] and felt presyncopal. She does admit that her fluid intake is very limited, to about 2 cups per day due to dislike of the taste of water. Her echocardiogram today showed an LVEF 60%, the sigmoid ventricular septum with basal septal prominence of 14 mm, normal RV with an RVSP of 26 and CVP of 5, mild MR, mild AI, mild TR which is grossly unchanged from March of 2023. EKG today showed sinus rhythm with significant atrial ectopy. She is on rosuvastatin, carvedilol, and aspirin 81 mg daily. A1c was 8. The following portions of the patient's history were also reviewed and updated as appropriate: Allergies, current medications, outpatient medications, family history, medical history, social history,surgical history and problem list. REVIEW OF SYSTEMS Reviewed encounter review of systems and pertinent responses are noted in the history. CURRENT MEDICATIONS Per EHR. ALLERGIES / CONTRAINDICATIONS Allergies Allergen Reactions Johnnie Inhibitors Cough Amoxicillin Rash Has tolerated cefazolin 05/2021 and 08/2021 Penicillins Swelling Has tolerated cefazolin 05/2021 and 08/2021 SOCIAL HISTORY Social History Tobacco Use Smoking status: Former Packs/day: 1.00 Years: 20.00 Additional pack years: 0.00 Total pack years: 20.00 Types: Cigarettes Start date: 08/06/1961 Quit date: 08/06/1983 Years since quittin.5 Smokeless tobacco: Never Substance Use Topics Alcohol use: No FAMILY HISTORY Family History Problem Relation Age of Onset Coronary artery disease Mother Transient ischemic attack Mother Hypertension Mother Hyperlipidemia Mother Arthritis Mother Stroke Paternal Grandmother Coronary artery disease Paternal Grandmother yrs ago after having a stroke Hypertension Father Clotting disorder Father Coronary artery disease Father in 1983 Osteoporosis Maternal Grandmother Depression Maternal Grandmother Colon polyps Brother Clotting disorder Brother Diabetes Brother OBJECTIVE VITAL SIGNS SpO2 96% PHYSICAL EXAMINATION General: Well-appearing, in no acute distress. Eyes: No conjunctival injection or jaundice. Heart: JVP WNL. Normal rate and rhythm, S1, S2 WNL. No clicks, or thrills. No murmurs. Extremities: No bilateral peripheral pitting edema. Lungs: Nonlabored breathing. No crackles. Mental: Alert and oriented x 4. Good cognition, appropriate affect. DIAGNOSTICS LABS: No results found for this or any previous visit (from the past 24 hour(s)). IMAGING: DX Chest AP or PA and Lateral 2 Views Result Date: 02/07/2024 Impression: Since 06/13/2023, resolved lingular atelectasis. Coronary stents. Thoracic spondylosis. Partially visualized upper lumbar spinal fusion hardware. Right upper extremity vascular stent. Chest otherwise negative. Echo Transthoracic (TTE) Result Date: 02/07/2024 Impression: Status post renal transplant (06-OCT-2022) Echocardiogram performed [...] to exclude thrombus in this location. Prominent epicardial fat layer. Tiny circumferential pericardial effusion. For the complete report, see the Order-Level Documents. MR SHOULDER LEFT WO Result Date: 02/06/2024 Impression: 1. Moderate tendinopathy and marginal degenerative tearing degrades supraspinatus. No full-thickness tear. Mild tendinosis infraspinatus. 2. Mild AC DJD. 3. Mild glenohumeral degenerativechondromalacia. Dictated by Praveen Joseph MD @ 02/06/2024 3:21:46 PM (Electronically Signed) XR SPINE CERVICAL 3 VIEWS Result Date: 02/06/2024 Impression: Vascular calcifications. Fusion between the C5 and C6 vertebral bodies. Narrowing and spurring at the C6-7 disc space. Uncovertebral joint hypertrophy C3-4 and C4-5. Multilevel degenerative facet arthropathy. Lung apices clear. Intact odontoid. No fracture. Dictated by Terrell Pierce MD @ 02/06/2024 3:17:14 PM (Electronically Signed) ASSESSMENT / PLAN #1 Coronary Stent Status Post #2 Atherosclerotic Heart Disease Of [place] Coronary Artery Without Angina Pectoris #3 Atherosclerosis Aortic (HCC) #4 Regurgitation Mitral #5 Transplant Renal ([facility]) Anayeli Davidsолег he has been very well from a cardiac standpoint. I think that her episode of presyncope about 6 weeks ago was due to hypovolemia. He has a significantly low fluid intake whichhe says has been the case all her life. We discussed increasing her fluid intake maybe with the addition of sugar free beverages which she may find more palatable since she does not like the taste of water. We also discussed medications which are very appropriate for her coronary artery disease, atrial ectopy, and peripheral arterial disease. I will not increase her beta amadeo for her atrial ectopy as she does not seem to be having symptoms from them and I would be concerned about worsening her lightheadedness in the setting of hypovolemia. Her mitral regurgitation is very mild and does notwarrant any intervention at this point. Hence, CC can follow-up in 1 year without an echocardiogram, just with an EKG. Total time spent 40 minutes. PATIENT EDUCATION Ready to learn, no apparent learning barriers were identified; learning preferences include listening. Explained diagnosis and treatment plan; patient expressed understanding of the content. documented in this encounter Plan of Treatment Scheduled Orders Name Type Priority Associated Diagnoses Orde r Schedule ECG 12 Lead ECG Routine Transplant Renal (HCC) Atherosclerotic Heart Disease Of [place] Coronary Artery Without Angina Pectoris Expected: 02/06/2025 (Approximate), Expires: 05/08/2025 Scheduled Referrals Name Type Priority Associated Diagnoses Order Schedule Transplant Heart office visit (clinic) Outpatient Referral Routine Expected: 02/06/2025 (Approximate), Expires: 05/08/2025 documented as of this encounter Visit Diagnoses Diagnosis Coronary Stent Status Post- Primary Atherosclerotic Heart Disease Of [place] Coronary Artery Without Angina Pectoris Atherosclerosis Aortic (HCC) Regurgitation Mitral Transplant Renal (HCC) documented in this encounter Additional Health Concerns Infection Onset Date Last Indicated Resolved Time Protective Environment 02/01/2023 02/01/2023 Assessment Noted Time PHQ-9 Depression Total Score: 2 04/23/20 23 11:30 AM CDT documented as of this encounter Care Teams Retail And Restaurant Associate Relationship Specialty Start Date End Date Elsewhere, Pcp PCP - General Internal Medicine 03/22/22 [facility] [place] Laboratory Medicine 10/25/22 documented as of this encounter
--- OUTSIDE RECORDS SUMMARY | 2024-03-20 14:35 | XMS_ITS | Encounter Summary ---
Author Organization [facility] Address [address] [place] [phone] Care Team Providers Care Mirror Installer Name Role Phone Elsewhere, Pcp Primary Care Provider Unavailabl e Encounter Details Date Type Department Care Team (Late st Contact Info) Description 02/04/2024 7:50 AM CDT - 02/04/2024 7:57 AM CDT Hospital Encounter Department of Laboratory Medicine in [address] [phone] Rhonda Hampton P.A.-C., M.S. [address] [place] [phone] Transplant Renal (HCC); Preanesthetic Medical Exam; Nonexudative [...] drink = 0.6 oz pur e alcohol) [facility] Utilities Answer Date Recorded In the past 12 months has [employer], gas, oil, or water company threatened [...] week 10/30/2022 How often do you attend [facility] or [facility] services? More than 4 times per year 10/30/2022 Do you belong to any clubs o r organizations such as yazidism groups, unions, fraternal or athletic groups, or [...] Answer Date Recorded PHQ-2 Score 0 04/23/2023 [facility] of Occupat ional Health - Occupational Stress [...] your living situation today? I have a [facility] place to live 11/29/2023 Education Answer [...] Renal (HCC),Immunodeficiency Due To Drugs (HCC),Medication Therapy Vault Service Mechanic Not Anticoagulant Take 1 tablet (5 mg [...] Renal (HCC),Immunodeficiency Due To Drugs (HCC),Medication Therapy Vault Service Mechanic Not Anticoagulant Take 1 capsule (1 mg total) by mouth every morning AND 1 capsule (1 mg total) every evening. 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 LAB BLO OD ADD-ON [facility]- [address] [address], [facility] CNFL [address] [address] * (ABNORMAL) Basic Metabolic Panel (02/04/2024 8:09 [...] APRN C.N.P., M.S. LAB BLO OD ADD-ON [address] [address], [facility] CNFL [facility] in [address] [phone] * Phosphorus Inorganic (02/04/2024 8:09 AM CDT) Phosphorus (Inorganic), P 3.9 2.5 - 4.5 mg/dL 02/04/2024 8:38 AM CDT CNFL Blood (Blood, Venous) 02/04/2024 8:09 AM CDT 02/04/2024 8:11 AM CDT Rhonda Hampton P.A.-C., M.S. 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
--- OUTSIDE RECORDS SUMMARY | 2024-03-20 14:35 | XMS_ITS | Encounter Summary ---
Author Organization [facility] Address [address] [place] [address] Care Team Providers Care Shrimp Pond Laborer Name Role Phone Elsewhere, Pcp Primary Care Provider Unavailabl e Reason for Referral * Outpatient (Routine) - Closed Specialty Diagnoses / Procedures Referred By Roman del castillo Referred To Contact Diagnoses Transplant Renal (HCC) Atherosclerotic Heart Disease Of [place] Coronary Artery Without Angina Pectoris Procedures DX Chest AP or PA and Lateral 2 Views Rhonda Hampton P.A.-C., M.S. [address] [place] [phone] [facility] Referral ID Status Reason Start Date Expiration Date Visits Re quested Visits Authorized [id number] Closed 11/14/2023 11/13/2024 1 1 Reason for Visit * Outpatient (Routine) - Closed Specialty Diagnoses / Procedures Referred By Roman del castillo Referred To Contact Diagnoses Transplant Renal (HCC) Atherosclerotic Heart Disease Of [place] Coronary Artery Without Angina Pectoris Procedures DX Chest AP or PA and Lateral 2 Views Rhonda Hampton P.A.-C., M.S. [address] [place] [phone] [facility] Referral ID Status Reason Start Date Expiration Date Visits Re quested Visits Authorized [id number] Closed 11/14/2023 11/13/2024 1 1 Encounter Details Date Type Department Care Team (Late st Contact Info) Description 02/07/2024 11:39 AM CDT - 02/07/2024 11:59 PM CDT Hospital Encounter Department of Radiology, [facility], in [place], [place] [address] [place] [phone] Rhonda Hampton P.A.-C., M.S. [address] [place] [phone] Transplant Renal (HCC); Atherosclerotic Heart Disease Of [place] Coronary Artery Without Angina Pectoris Discharge Disposition: Home or Self Care Social History Tobacco Use Types Packs/Day Years Used Date Smoking Tobacco: Former Cigarettes 1 20 1 - 08/06/1983 Smokeless Tobacco: Never Alcohol Use Standard Drinks/Week Comments No 0 (1 standard drink = 0.6 oz pur e alcohol) [facility] Utilities Answer Date Recorded In the past 12 months has [employer], gas, oil, or water [employer] threatened to shut off services in your [...] often do you attend chur ch or mandaeism services? More than 4 times per year 10/30/2022 Do you belong to any clubs o r organizations such as evangelical groups, unions, fraternal or athletic groups, or [...] Answer Date Recorded PHQ-2 Score 0 04/23/2023 [facility] of Occupat ional Health - Occupational Stress [...] your living situation today? I have a [facility] place to live 11/29/2023 Education [...] Renal (HCC),Immunodeficiency Due To Drugs (HCC),Medication Therapy University Relations Director Not Anticoagulant Take 3 tablets (540 mg total) by mouth 2 (two) times a day. 540 tablet 3 10/31/2023 potassium chloride (K-TAB) 20 mEq CR tablet Take 1 tablet (20 mEq total) by mouth daily. 90 tablet 3 12/23/2023 predniSONE (DELTASONE) 5 mg tabletIndications:Addison splant Renal (HCC),Immunodeficiency Due To Drugs (HCC),Medication Therapy Half-Way Not Anticoagulant Take 1 tablet (5 mg [...] Renal (HCC),Immunodeficiency Due To Drugs (HCC),Medication Therapy University Relations Director Not Anticoagulant Take 1 capsule (1 mg total) by mouth every morning AND 1 capsule (1 mg total) every evening. 180 capsule 3 04/05/2023 vitamins A,C,N-tkdr-rglsmw (PRESERVISION AREDS) 7,160 Units-113 mg-100 Units per [...] Procedure Name Priority Date/Time Associated Diagnosis Comments DX CHEST AP OR PA AND LATERAL 2 VIEWS RAD - Routine (most inpatients and all outpatients) 02/07/2024 11:56 AM CDT Transplant Renal (HCC) Atherosclerotic Heart Disease Of [place] Coronary Artery Without Angina Pectoris documented in this encounter Results * DX Chest AP or PA and [...] P.A.-C., M.S. IMG [facility] GNOST[facility] IMAGING PROCEDURES documented in this encounter Visit Diagnoses Diagnosis Transplant Renal (HCC) Atherosclerotic Heart Disease Of [place] Coronary Artery Without Angina Pectoris documented in this encounter Additional Health Concerns Infection Onset Date Last Indicated Resolved Time Protective Environment 02/01/2023 02/01/2023 Assessment Noted Time PHQ-9 Depression Total Score: 2 04/23/20 23 11:30 AM CDT documented as of this encounter Care Teams Shrimp Pond Laborer Relationship Specialty Start Date End Date Elsewhere, Pcp PCP - General Internal Medicine 03/22/22 [facility] [place] Laboratory Medicine 10/25/22 documented as of this encounter
--- OUTSIDE RECORDS SUMMARY | 2024-03-20 14:35 | XMS_ITS | Encounter Summary ---
Author Organization [facility] Address [address] [place] [address] Care Team Providers Care Accounting System Expert Name Role Phone Elsewhere, Pcp Primary Care Provider Unavailabl e Encounter Details Date Type Department Care Team (Latest Contact Info) Description 02/13/2024 6:07 AM CDT - 02/13/2024 11:59 PM CDT Hospital Encounter [facility] [address] [place] [address] Monty Zheng M.D. [address] [place] [address] Discharge Disposition: Home or Self Care Social History Tobacco Use Types Packs/Day Years Used Date Smoking Tobacco: Former Cigarettes 1 20 1 - 08/06/1983 Smokeless Tobacco: Never Alcohol Use Standard Drinks/Week Comments No 0 (1 standard drink = 0.6 oz pur e alcohol) [facility] Utilities Answer Date Recorded In the [...] How often do you attend chur or restorationism services? More than 4 times per year 10/30/2022 Do you belong to any clubs o r organizations such as worship groups, unions, fraternal or athletic groups, or [...] Date Recorded PHQ-2 Score 0 04/23/2023 [facility] [place] of Occupat ional Health - Occupational Stress [...] type of surgery. In general, we recommend dopz-ykq-smcoktx pain medications such as Extra Strength Tylenol. [...] evaluation. Any questions or concerns please call [phone] (Business hours) [phone] (Evenings and weekends, ask for the Rn Medication movie projectionist) documented in this encounter Medications at Time [...] Renal (HCC),Immunodeficiency Due To Drugs (HCC),Medication Therapy Shelter Not Anticoagulant Take 3 tablets (540 mg total) by mouth 2 (two) times a day. 540 tablet 3 10/31/2023 potassium chloride (K-TAB) 20 mEq CR tablet Take 1 tablet (20 mEq total) by mouth daily. 90 tablet 3 12/23/2023 predniSONE (DELTASONE) 5 mg tabletIndications:Addison splant Renal (HCC),Immunodeficiency Due To Drugs (HCC),Medication Therapy Shelter Not Anticoagulant Take 1 tablet (5 mg [...] Renal (HCC),Immunodeficiency Due To Drugs (HCC),Medication Therapy Shelter Not Anticoagulant Take 1 capsule (1 mg total) by mouth every morning AND 1 capsule (1 mg total) every evening. 180 capsule 3 04/05/2023 vitamins A,C,S-vjux-usooyd (PRESERVISION AREDS) 7,160 Units-113 mg-100 Units per [...] Left Post-op Diagnosis Membrane Macula Epiretinal Left Physical Security Manager A first aid director actively participated and was necessary for one [...] Epiretinal Left Findings As expected. Complications None Justin Howard.D. documented in this encounter Plan of Treatment [...] LAB POCT ORDERABLES- MANUAL Performing Organization Address City/[facility]/ZIP Co de Phone Number [facility] [address] [place] [address], [facility] PCLX [facility] POC [address] [place] [address] * (ABNORMAL) Glucose, POCT (02/13/2024 7:22 AM CDT) Glucose, POCT, B 149(H) 70 - 140 mg/dL 02/13/2024 7:29 AM CDT PCLX Site Venstick 02/13/2024 7:29 AM CDT PCLX Blood 02/13/2024 7:22 AM CDT 02/13/2024 7:29 AM CDT Unknown Provider LAB POCT ORDERABLES- MANUAL Performing Organization Address City/[facility]/ZIP Co de Phone Number [facility] [address] [place] [address], [facility] PCLX [facility] [address] [place] [address] documented in this encounter Visit Diagnoses Diagnosis Membrane Macula Epiretinal Left- Primary documented in this encounter Admitting Diagnoses Diagnosis Membrane Macula Epiretinal Left documented in this encounter Administered Medications Inactive Administered Medications - up to 3 most recent administrations Medication Order MAR Action Action Date Dose Rate Site cyclopentolate 1 % ophthalmic solution 1 drop (CYCLOGYL) 1 drop, left eye, Every 5 min, First dose on Deyanira 02/13/24 at 0700, For 3 doses, Pre-Op, In operative eye. Given 02/13/2024 7:17 AM CDT 1 drop Given 02/13/2024 7:09 AM CDT 1 drop Given 02/13/2024 7:01 AM CDT 1 drop phenylephrine 2.5 % ophthalmic solution 1 drop [...] Catheter, when no infusion to maintain patency tropicamide 1 % ophthalmic solution 1 drop [...] Every 5 min, First dose on Deyanira 24 at 0700, For 3 doses, Pre-Op, In operative eye. 0701 (Given - Provid er: Yojana Hodgson RSuhail.)0709 (Given - Provider: Yojana Hodgson R.N.)0717 (Given - Provider: Yojana Hodgson R.N.) phenylephrine 2.5 % ophthalmic solution 1 drop (MYDFRIN) (COMPLETED) 1 drop, left eye, Every 5 min, First dose on Deyanira 24 at 0700, For 3 doses, Pre-Op, In [...] Every 5 min, First dose on Deyanira 24 at 0700, For 3 doses, Pre-Op, In operative eye. 0701 (Given - Provid er: Yojana Hodgson R.N.)0709 (Given - Provider: Yojana Hodgson R.N.)0717 (Given - Provider: Yojana Hodgson R.N.) Continuous Medication Order 02/11/2024 02/12/2024 02/13/2024 Lactated [...] (Given - Provid er: Hayes Rob M.D.) zikfvexlm-FQDseoediok-bnicurdlsefx e human recombinant (Ophthalmic Block Solution #4) [...] (ALTACAINE) (CANCELED) As needed, Starting on Deyanira 24 at 0731, Intra-Op 0731 (Given - Provid er: Hayse Rob M.D.) triamcinolone acetonide injection (KENALOG-40) (CANCELED) As needed, Starting on Deyanira 02/13/24 at 0755, Intra-Op 0838 (Given - Provid er: Hayes Rob M.D.) documented in this encounter Additional Health Concerns Infection Onset Date Last Indicated Resolved Time Protective Environment 02/01/2023 02/01/2023 Assessment Noted Time PHQ-9 Depression Total Score: 2 04/23/20 23 11:30 AM CDT documented as of this encounter Care Teams Accounting System Expert Relationship Specialty Start Date End Date Elsewhere, Pcp PCP - General Internal Medicine 03/22/22 [facility] Medicine 10/25/22 documented as of this encounter
--- OUTSIDE RECORDS SUMMARY | 2024-03-20 14:36 | XMS_ITS | Encounter Summary ---
Author Organization [facility] Address [address] [place] [address] Care Team Providers Care Eye Specialist Name Role Phone Elsewhere, Pcp Primary Care Provider Unavailabl e Encounter Details Date Type Department Care Team (Late st Contact Info) Description 01/22/2024 [facility]ation [facility] [place], [place] [address] [place] [address] [employer] Social History Tobacco Use Types Packs/Day Years Used Date Smoking Tobacco: Former Cigarettes 1 20 1 - 08/06/1983 Smokeless Tobacco: Never Alcohol Use Standard Drinks/Week Comments No 0 (1 standard drink = 0.6 oz pur e alcohol) [facility] Utilities Answer Date Recorded In the past 12 months has [facility] [employer], gas, oil, or water [employer] threatened to shut off services in your [...] often do you attend chur ch or yazidism services? More than 4 times per year 10/30/2022 Do you belong to any clubs o r organizations such as mu-ism groups, unions, fraternal or athletic groups, or [...] Answer Date Recorded PHQ-2 Score 0 04/23/2023 [facility] of Occupat ional Health - [...] your living situation today? I have a [facility] place to live 11/29/2023 Education Answer [...] documented as of this encounter Care Teams Eye Specialist Relationship Specialty Start Date End Date Elsewhere, Pcp PCP - General Internal Medicine 03/22/22 [facility] [place] [facility] 10/25/22 documented as of this encounter
--- OUTSIDE RECORDS SUMMARY | 2024-03-20 14:36 | XMS_ITS | Clinical Summary ---
Author Organization [facility] Address [address] [place] [address] Care Team Providers Care Instructor Knitting Name Role Phone Sanjay Allan MD Primary Care Provider Allergies Active Allergy Reactions Criticality Noted Date Comments Johnnie Inhibitors Cough 12/18/2016 Other reaction(s): Cough Amitriptyline Other (See Comments) 12/17/2014 Other reaction(s): Other (see comments) weight gain Weight gain and increased appetite. Clopidogrel Other (See Comments) 01/18/2020 Pancytopenia, possible etiology of myelodysplastic syndrome Penicillins Other (See Comments),Rash,Swelli ng Low 06/06/2010 Swelling of eyes Swelling of eyes Venlafaxine 06/25/2013 Other reaction(s): Behavioral Disturbances, Other (see comments) irritability Caused irritability. Medications Medication Sig Dispensed Refills Start Date End Date Status aspirin (ASA) 81 MG chewable tablet Take 81 mg by mouth every evening Active busPIRone HCl (BUSPAR) 30 MG tablet Take 30 mg by mouth 2 times daily 08/12/2019 Active cyanocobalamin (VITAMIN B-12) 1000 MCG tablet Take 1,000 mcg by mouth every morning 12/03/2019 Active DULoxetine (CYMBALTA) 60 MG capsule Take 60 mg by mouth every morning 08/12/2019 Active fluconazole (DIFLUCAN) 200 MG tablet TAKE TWO TABLETS BY MOUTH THREE TIMES A WEEK (ON DIALYSIS DAYS) AFTER THE HEMODIALYSIS SESSION 04/19/2020 Active furosemide (LASIX) 20 MG tablet Take 40 mg by mouth every morning (2 X 20MG) 08/12/2019 Active gabapentin (NEURONTIN) 100 MG capsule Take 100 mg by mouth At Bedtime 03/31/2020 Active metoprolol succinate ER (TOPROL-XL) 50 MG 24 hr tablet Take 50 mg by mouth every evening 12/03/2019 Active pantoprazole (PROTONIX) 40 MG EC tablet Take 40 mg by mouth every morning 12/15/2019 Active B Ysmtqpv-C-Bhwkm Acid (RENAL-FLO) 0.8 MG TABS Take 1 tablet by mouth every morning 12/03/2019 Active rosuvastatin (CRESTOR) 40 MG tablet Take 40 mg by mouth every evening 12/03/2019 Active lidocaine-prilocai ne (EMLA) 2.5-2.5 % external cream APPLY SMALL AMOUNT TO ACCESS SITE (AVF) 1 HOUR BEFORE DIALYSIS. COVER WITH OCCLUSIVE DRESSING (SARAN WRAP) 04/21/2020 Active Biotin 10 MG CAPS Take 10 mg by mouth every evening Active coenzyme Q-10 200 MG CAPS Take 200 mg by mouth every evening Active losartan (COZAAR) 25 MG tablet Take 25 mg by mouth every evening Active Copper Gluconate (COPPER CAPS) 2 MG CAPS Take 2 mg by mouth every evening Active oxyCODONE (ROXICODONE) 5 MG tabletIndications: Pelvic mass Take 1 tablet (5 mg) by mouth every 6 hours as needed for moderate to severe pain 12 tablet 10/06/2020 Active senna-docusate (SENOKOT-S/PERICOL JOHNNIE) 8.6-50 MG tabletIndications: Pelvic mass Take 1-2 tablets by mouth 2 times daily as needed for constipation (While on oral opioids.) 30 tablet 10/06/2020 Active Active Problems Problem Noted Date Diagnosed Date Pelvic mass 2020 Myelodysplastic syndrome 2020 Diabetes mellitus type II, controlled 2020 Renal failure 2020 Peripheral neuropathy 2020 CAD, multiple vessel 2020 GERD (gastroesophageal reflux disease) 0 ESRD on dialysis Social History Tobacco Use Types Packs/Day Years Used Date Smoking Tobacco: Former Cigarettes Smokeless Tobacco: Never Alcohol Use Standard Drinks/Week Comments Not Currently 0 (1 standard drink = 0.6 oz pur e alcohol) Adolescent Education Answer Date Record ed Getting School Help Needed Not on file 07/29 Sex and Gender Information Value Date Recorded Sex Assigned at Not on file Gender Identity Not on file Sexual Orientation Not on file Last Filed Vital Signs Vital Sign Reading Time Taken Comments Blood Pressure 145/75 10/06/2020 2:50 PM ARTIFICIAL LEATHER CALENDER OPERATOR Pulse 81 10/06/2020 2:50 PM ARTIFICIAL LEATHER CALENDER OPERATOR Temperature 36.9 ??C (98.4 ??F) 10/06/2020 12:[address] Respiratory Rate 16 10/06/2020 2:50 PM ARTIFICIAL LEATHER CALENDER OPERATOR Oxygen Saturation 95% 10/06/2020 2:50 PM ARTIFICIAL LEATHER CALENDER OPERATOR Inhaled Oxygen Concentration - - Weight 58 kg (127 lb 12.8 oz) 10/06/2020 8:44 AM ARTIFICIAL LEATHER CALENDER OPERATOR Height 160 cm (5' 3) 10/06/2020 8:44 AM ARTIFICIAL LEATHER CALENDER OPERATOR Body Mass Index 22.64 10/06/2020 8:44 AM ARTIFICIAL LEATHER CALENDER OPERATOR Plan of Treatment Not on file Care Teams Instructor Knitting Relationship Specialty Start Date End Date Sanjay Allan MD [address] [place] [address] PCP - General 04/26/20
--- OUTSIDE RECORDS SUMMARY | 2024-03-20 14:36 | XMS_ITS | Encounter Summary ---
Author Organization [facility] Address [address] [place] [address] Care Team Providers Care Rib Chopper Name Role Phone Elsewhere, Pcp Primary Care Provider Unavailabl e Encounter Details Date Type Department Care Team (Latest Contact Info) Description 01/15/2024 Clinical Communication Department of Ophthalmology in [place], [place] [address] [place] [address] Monty Zheng M.D. [address] [place] [address] Social History Tobacco Use Types Packs/Day Years Used Date Smoking Tobacco: Former Cigarettes 1 20 1 - 08/06/1983 Smokeless Tobacco: Never Alcohol Use Standard Drinks/Week Comments No 0 (1 standard drink = 0.6 oz pur e alcohol) [facility] Utilities Answer Date Recorded In the past 12 months has [employer], gas, oil, or water [employer] threatened to shut off services in your [...] often do you attend chur ch or protestant services? More than 4 times per year 10/30/2022 Do you belong to any clubs o r organizations such as alevism groups, unions, fraternal or athletic groups, or [...] Answer Date Recorded PHQ-2 Score 0 04/23/2023 [facility] of Occupat ional Health - Occupational [...] your living situation today? I have a [facility] place to live 11/29/2023 Education Answer [...] documented as of this encounter Care Teams Rib Chopper Relationship Specialty Start Date End Date Elsewhere, Pcp PCP - General Internal Medicine 03/22/22 [facility] Medicine 10/25/22 documented as of this encounter
--- OUTSIDE RECORDS SUMMARY | 2024-03-20 14:36 | XMS_ITS | Encounter Summary ---
Author Organization [facility] Address [address] [place] [address] Care Team Providers Care Social Service Liaison Name Role Phone Elsewhere, Pcp Primary Care Provider Unavailabl e Reason for Visit * Reason Comments Med Refill Encounter Details Date Type Department Care Team (Late st Contact Info) Description 12/19/2023 [facility] [place], [place] [address] [place] [phone] Jacky Bansal, ELODIA, C.N.P., M.S.N. [address] [place] [phone] Med Refill Social History Tobacco Use Types Packs/Day Years Used Date Smoking Tobacco: Former Cigarettes 1 20 1 - 08/06/1983 Smokeless Tobacco: Never Alcohol Use Standard Drinks/Week Comments No 0 (1 standard drink = 0.6 oz pur e alcohol) [facility] Utilities Answer Date Recorded In the past [...] How often do you attend chur or adventist services? More than 4 times per year 10/30/2022 Do you belong to any clubs o r organizations such as denominational groups, unions, fraternal or athletic groups, or [...] Answer Date Recorded PHQ-2 Score 0 04/23/2023 [facility] [place] of Occupat ional Health - Occupational Stress [...] your living situation today? I have a [facility] place to live 11/29/2023 Education Answer [...] documented as of this encounter Care Teams Social Service Liaison Relationship Specialty Start Date End Date Elsewhere, Pcp PCP - General Internal Medicine 03/22/22 [facility] Medicine 10/25/22 documented as of this encounter
--- OUTSIDE RECORDS SUMMARY | 2024-03-20 14:36 | XMS_ITS ---
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 as Active Follow-up on 10/06/2022 Kidney CoordinatorTXP POST KIDNEY NURSE TEAM 3 [facility] Phone: N/A Fax: N/A Email: N/A [place] Organ Diagnosis Organ Primary Contributory Kidney Diabetes Mellitus - Type II Infection History Noted Survival Infection Treatment Organism Resolved 04/11/2017 Gallstone Without Obstruction Donor Information Organ ABO Source Meets Risk Criteria HLA Match Mismatches Cross Match Right Kidney Transplanted O DBD No A: B: DR: Right Kidney Donor Serology Results Anti-HBcAb HBC Total: Negative HBsAg HBsAg: Negative HBsAb No results on file HBV DNA No results on file Anti-HCV HCV: Negative HCV RNA No results on file HAV No results on file Anti-HIV I/II HIV-1: Negative HIV Ag/Ab Combo Assay: Not Done HIV RNA HIV FLEX: Negative Anti-HTLV I/II No results on file Coccidioides No results on file Anti-CMV CMV IgG: Positive Quantiferon TB No results on file EBV Total No results on file EBV IgG EBV VCA IgG: Positive EBV IgM EBV VCA IgM: Negative EBNA EBNA IgG: Not Done Measles No results on file Mumps No results on file Rubella No results on file Varicella Zoster No results on file HSV 1 No results on file HSV 2 No results on file Toxoplasm a Toxoplasm a IgG: Negative Cryptococcus Ag No results on file Histoplasma No results on file Strongyloides No results on file Schistosom a No results on file Trypanosoma cruzi No results on file RPR/VDRL RPR: Negative Syphilis No results on file RSV No results on file SARS CoV-2 No results on file HBV FLEX HBV FLEX: Negative HCV FLEX HCV FLEX: Negative Care Team Name Role Phone Fax Email TXP POST KIDNEY NURSE TEAM 3 [facility] Kidney Coordinator N/A N/A N/A Lavinia Nash M.D. Transplant Power Distributor [phone] [email or web address] Sanjay Allan M.D. Referring Provider Transplant External Managing Lens Cleaner [phone] [email or web address] Salazar M.D. Transplant Surgeon [phone] [email or web address] Post-Transplant Pre-Transplant Admitted: 10/06/2022 Referred: 10/08/2016 Transplanted: 10/06/2022 Evaluation began: 7 Discharged: 10/10/2022 Committee: 05/10/2017 Center waitlisted: 7 Dialysis History Dialysis History Start End Type Comments Center 10/12/2022 10/12/2022 In-center Hemodialysis [facility] 08/14/2019 10/06/2022 [facility]o [facility] Information Center Phone Fax Address [facility] [phone] [place] [phone] [facility] [phone] [address] [facility] [address]
--- OUTSIDE RECORDS SUMMARY | 2024-03-20 14:36 | XMS_ITS | Encounter Summary ---
Author Organization [facility] Address [address] [place] [address] Care Team Providers Care Tariff Compiler Name Role Phone Elsewhere, Pcp Primary Care Provider Unavailabl e Encounter Details Date Type Department Care Team (Latest Contact Info) Description 01/30/2024 11:30 AM CDT Clinical Communication Virtual Review in [place], [place] [address] [place] [address] Social History Tobacco Use Types Packs/Day Years Used Date Smoking Tobacco: Former Cigarettes 1 20 1 - 08/06/1983 Smokeless Tobacco: Never Tobacco Cessation:Counseling Given: Not Answered Alcohol Use Standard Drinks/Week Comments No 0 (1 standard drink = 0.6 oz pur e alcohol) [facility] Utilities Answer Date Recorded In the past 12 months has [facility] [employer] gas, oil, or water [employer] threatened to shut off services in your [...] often do you attend chur ch or hoahaoism services? More than 4 times per year 10/30/2022 Do you belong to any clubs o r organizations such as taoist groups, unions, fraternal or athletic groups, or [...] Answer Date Recorded PHQ-2 Score 0 04/23/2023 [facility] of Occupat ional Health - Occupational [...] your living situation today? I have a [facility] place to live 11/29/2023 Education Answer [...] documented as of this encounter Care Teams Tariff Compiler Relationship Specialty Start Date End Date Elsewhere, Pcp PCP - General Internal Medicine 03/22/22 [facility] 10/25/22 documented as of this encounter
--- OUTSIDE RECORDS SUMMARY | 2024-03-20 14:36 | XMS_ITS | Encounter Summary ---
Author Organization [facility] Address [address] [place] [address] Care Team Providers Care Optical Technician Name Role Phone Elsewhere, Pcp Primary Care Provider Unavailabl e Reason for Visit * Reason Comments Med Refill Encounter Details Date Type Department Care Team (Late st Contact Info) Description 12/22/2023 [facility] [place], [place] [address] [place] [phone] Jacky Bansal, ELODIA, C.N.P., M.S.N. [address] [place] [phone] Med Refill Social History Tobacco Use Types Packs/Day Years Used Date Smoking Tobacco: Former Cigarettes 1 20 1 - 08/06/1983 Smokeless Tobacco: Never Alcohol Use Standard Drinks/Week Comments No 0 (1 standard drink = 0.6 oz pur e alcohol) [facility] Utilities Answer Date Recorded In the past [...] How often do you attend chur or bahai services? More than 4 times per year 10/30/2022 Do you belong to any clubs o r organizations such as rastafarian groups, unions, fraternal or athletic groups, or [...] Answer Date Recorded PHQ-2 Score 0 04/23/2023 [facility] [place] of Occupat ional Health - Occupational Stress [...] documented as of this encounter Care Teams Optical Technician Relationship Specialty Start Date End Date Elsewhere, Pcp PCP - General Internal Medicine 03/22/22 [facility] Medicine 10/25/22 documented as of this encounter
--- OUTSIDE RECORDS SUMMARY | 2024-03-20 14:36 | XMS_ITS | Referral Summary ---
Author Organization [facility] Address [address] [place] [address] Care Team Providers Care Pipe Processor Name Role Phone Sanjay Allan MD Primary Care Provider [phone] Allergies Active Allergy Reactions Criticality Noted Date [...] by mouth every morning 12/15/2019 Active B Qpsfukx-A-Kreqv Acid (RENAL-FLO) 0.8 MG TABS Take 1 [...] Comments Blood Pressure 145/75 10/06/2020 2:50 PM FILER FINISH Pulse 81 10/06/2020 2:50 PM FILER FINISH Temperature 36.9 ??C (98.4 ??F) 10/06/2020 12:[address] Respiratory Rate 16 10/06/2020 2:50 PM FILER FINISH Oxygen Saturation 95% 10/06/2020 2:50 PM FILER FINISH Inhaled Oxygen Concentration - - Weight 58 kg (127 lb 12.8 oz) 10/06/2020 8:44 AM FILER FINISH Height 160 cm (5' 3) 10/06/2020 8:44 AM FILER FINISH Body Mass Index 22.64 10/06/2020 8:44 AM FILER FINISH Plan of Treatment Not on file Care Teams Pipe Processor Relationship Specialty Start Date End Date Sanjay Allan MD [address] [place] [address] PCP - General 04/26/20
== END 2024-03-20 14:30 | disposition home or self-care (01) ==
LOC: INJ CL 14:29
PROVIDERS: PCP Surgery; Visit Provider Family Medicine
DX: M51.36 Other intervertebral disc degeneration, lumbar region (principal); M54.16 Radiculopathy, lumbar region
CPT/HCPCS: 64483; J1100; Q9966

== ENCOUNTER 2024-04-17 13:59 | Outpatient (CLI) | payer MEDICARE, BC, SELFPAY ==
--- OUTSIDE RECORDS SUMMARY | 2024-04-17 14:03 | XMS_ITS | Continuity of Care Document ---
Author Organization [facility] Address [address] [address] [place] [address] Phone Care Team Providers Care Bag Patcher Name Role Phone Sergio Strong MD, Yoseph Unavailable Unavailabl e Advance Directives Directive Yes / No Effective Date File Name No Information Encounters Encounter Description Practice Location Reason(s) For Visit Diagnoses Date Provider Providers Copied on Encounter [facility], [address] [address], [place], [place], [id number], [place] tel:[phone] [facility] No Information 2 Sergio Hameed. [address] [facility], [facility] [address], [place], [place], [id number] , [place]. tel:[phone] Family History Family Member Type Diagnosis Age At Onset No Information Payers Payer name Insurance type Covered libertarian ID Authoriza tion(s) No Information Social History Type Description Quantity Date Captured [...]
--- OUTSIDE RECORDS SUMMARY | 2024-04-17 14:03 | XMS_ITS | Data Portability ---
Author Organization [place] - [facility], [employer] Address [address] [place] [address] Care Team Providers Care Punch Hand Name Role Phone BRYANT TYSON Primary Care Provider Assessment Encounter Date Assessment Date Assessment LastModified [...] triled Subiomed orthtoses today. Size 8 shoes. [email or web address] Not available 06/01/2023 10:44:33 08/29/2023 08/29/2023 Patient [...] By Organization Details Last Modified Time 12/05/2023 66803 diabetes foot health: care instructions [email or web address] Not available 12/06/2023 10:16:46 08/29/2023 01618 diabetes foot health: care instructions [email or web address] Not available 09/02/2023 18:42:56 05/30/2023 7750 diabetes foot health: care instructions [email or web address] Not available 06/01/2023 10:45:37 02/14/2023 4844 diabetes foot health: care instructions Not available 02/14/2023 15:44:40 Reason for Referral None Reported. Problems Name Status Onset Date Resolution Date Notes Provider Name and Address Organization Details Recorded Time Chronic ulcer of foot Active 2020 Chronic ulcer of foot; Original Code: 5379595183 Cooper ginal Codesystem: SNOMED CT Classificat ion: Medical Confir mation Status: Confirmed Not Available [facility] 09[facility]08 Ingrowing nail Active 2013 Ingrowing nail; Original Code: 1391774096 [facility] ginal Codesystem: SNOMED CT Classificat ion: Medical Confir mation Status: Confirmed Not Available [facility] 3 09:11:08 Disorder of nail Active 2013 Disorder of nail; Original Code: 1793349178 [facility] ginal Codesystem: SNOMED CT Classificat ion: Medical Confir mation Status: Confirmed Not Available [facility] 3 09:11:08 Secondary diabetes mellitus Active 2019 Secondary diabetes mellitus; Original Code: 23918015 Origi nal Codesystem: SNOMED CT Classificat ion: Medical Confir mation Status: Confirmed Parvez Barkley gera [place] - [facility] 3 15:36:12 Essential hypertension Active 2014 Essential hypertension; Original Code: 10727940 Origi nal Codesystem: SNOMED CT Classificat ion: Medical Confir mation Status: Confirmed Parvez aBrkley gera [place] - [facility] 3 15:36:07 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; Original Code: 19605494 Origi nal Codesystem: SNOMED CT Classificat ion: Medical Confir mation Status: Confirmed Not Available [facility] 3 09:11:08 Foot pain Active 2020 Foot pain; Original Code: 726692424 Orig inal Codesystem: SNOMED CT Classificat ion: Medical Confir mation Status: Confirmed Not Available [facility] 3 09:11:09 Onychomycosis of toenails Active 2018 Onychomycosis of toenails; Original Code: 5923600678 [facility] ginal Codesystem: SNOMED CT Classificat ion: Medical Confir mation Status: Confirmed Not Available [facility] 3 09:11:09 Transplant of kidney Active 2022 Parvez Barkley gera [facility] 3 15:36:26 Diabetic care Active [address] Bryant Tyson 05/21/23, Last seen 02/14/24 Mickie Bernard [facility] 4 11:57:32 Problem Notes None recorded. Procedures Surgical History Date Name Laterality Status Provider Name and Address Organization Details Recorded Time [address] Hobson completed Ana boss [facility] 03/05/2024 12:01:[address] Hobson completed Ana boss [facility] 12/06/2023 04:18:35 3 NAIL/CallusDEBR IDEMENT completed Ana boss [place] - [facility] 08/29/2023 12:34:36 3 NAIL/CallusDEBR IDEMENT completed Joel Lovell, DPJustin [address] [place], [address], [facility] - [facility] 06/01/2023 10:42:[address] [place] completed Parvez boss [place] - [facility] 02/14/2023 15:37:11 Imaging Results None recorded. Procedure Notes None recorded. Medical Equipment None Reported. Allergies Allergen ID Allergen Name Allergen Category Reaction Reaction Severity Criticality Documentation Date Start Date Code Code System Note Provider Name and Address Organization Details Recorded Time 96239 amoxicill in medicatio n Not available Not available Not available 01/01/2023 723 RxNorm Comme nt: React ion Class : Aller gy Al lergy Ident ifier : d0008 8 All ergy Categ ory: Multu m Drug Ident ifier Iden tifie r Assig mark Autho rity: 09455 _[place]_F [place] ; Not Available [facility] 3 08:52:37 64344 Product containin g angiotens in-conver ting enzyme inhibitor (product) medicatio n Not available Not available Not available 01/01/2023 09035 009 SNOMED Comme nt: React ion Class : Aller gy Al lergy Ident ifier : 416 A llerg y Categ ory: Aller gy Categ ories Iden tifie r Assig mark Autho rity: 11895 _[place]_F [place] ; Not Available [facility] 3 08:52:37 39048 metoprolo l Not available Not available Not available Not available 01/01/2023 6918 RxNorm Comme nt: React ion Class : Aller gy Al lergy Ident ifier : d0013 4 All ergy Categ ory: Multu m Drug Ident ifier Iden tifie r Assig amrk Autho rity: 82690 _[place] ; Not Available [facility] 3 08:52:37 33279 Elavil medicatio n Not available Not available Not available 01/01/2023 88437 RxNorm Comme nt: React ion Class : Aller gy Al lergy Ident ifier : d0014 6 All ergy Categ ory: Multu m Drug Ident ifier Iden bolivar r Alex clemensg Autho rity: 14408 _[place] ; Not Available [facility] 3 08:52:37 07421 Effexor medicatio n Not available Not available Not available 01/01/2023 19259 2 RxNorm Comme nt: React ion Class : Aller gy Al lergy Ident ifier : d0318 1 All ergy Categ ory: Multu m Drug Ident ifier Iden bolivar r Alex flores Autho rity: 10493 _[place] ; Not Available [facility] 3 08:52:37 Medications Name Sig Start Date [...] Updated DateTime 02/15/2023 160.02 cm 24.8 kg/m2 87113.93 g Gloria Castañeda [place] - [facility] 02/15/2023 08:50:17 Social History Question Answer Notes LastModified by Organizat ion Details LastModified Time Tobacco Smoking Status Never Smoker Parvez boss, [place] - [facility] 02/14/2023 [...] Date Diagnosis/Indication Diagnosis SNOMED-CT Code 4844 Parvez [facility] Office [address] [place] [address] 02/14/2023 14:43:15 02/15/2023 13:05:43 Type 2 diabetes mellitus with peripheral angiopathy 206956359 Disorder o f nervous system due to type 2 diabetes mellitus 745916524 Onychomycosis 739453099 [address] [facility] [address] [place] [address] 05/30/2023 12:06:34 06/03/2023 09:58:10 Type 2 diabetes mellitus with peripheral angiopathy 213380992 Disorder o f nervous system due to type 2 diabetes mellitus 905525536 Onychomycosis 141271323 Foot callus 180737152 Hallux rajeev henri AND bunion [id number] Joel Lovell DPM [facility] [address] [place] [address] 08/29/2023 11:50:05 09/03/2023 10:05:21 Type 2 diabetes mellitus with peripheral angiopathy 346621106 Disorder o f nervous system due to type 2 diabetes mellitus 648263285 Onychomycosis 644802613 Foot callus 757410659 Hallux rajeev henri AND bunion [id number] Joel Lovell DPM [facility] [facility] [address] [place] [address] 12/05/2023 11:58:54 12/06/2023 13:52:34 Type 2 diabetes mellitus with peripheral angiopathy 141155519 Disorder o f nervous system due to type 2 diabetes mellitus 358789512 Onychomycosis 523069707 Foot callus 226300015 Hallux rajeev henri AND bunion [id number] 85775 Joel Lovell DPM [place] [facility] [address] [facility] [address] [place] [address] 03/05/2024 11:47:14 03/06/2024 15:17:07 Type 2 diabetes mellitus with peripheral angiopathy 741157862 Disorder o f nervous system due to type 2 diabetes mellitus 849181464 Onychomycosis 796139730 Foot callus 764514673 Hallux rajeev henri AND bunion [id number] Health Concerns Section Related Observation LastModified by Organization Detai ls LastModified Time None Recorded Concern Status LastModified by Organization Details LastModified Time None Recorded Advance Directives Directive None Recorded Payers Encounter Date Sequence Insurance Name Policy Number Policy Mcclelland Covered Member ID Mcclelland Member ID Guarantor Name 03/05/2024 1 [place] [id number] Anayeli E Splettstoeszer [id number] Anayeli E Splettstoeszer 12/05/2023 1 [place] [id number] Anayeli E Splettstoeszer [id number] Anayeli E Splettstoeszer 08/29/2023 1 [place] [id number] Anayeli E Splettstoeszer [id number] Anayeli E Splettstoeszer 05/30/2023 1 [place] [id number] Anayeli E Splettstoeszer [id number] Anayeli E Splettstoeszer 02/14/2023 1 [place] [id number] Anayeli E Splettstoeszer [id number] Anayeli E Splettstoeszer Notes Date Note Type [...] transplant in September,. Joel Lovell DPM [address] [place], [address], [facility] - [facility] 06/01/2023 10:48:19 08/29/2023 text/html HPI Notes: This established patient ptc today for diabetic foot care. Patient is in need of nail care today. Denies any new foot complaints. Patient did last see Bryant Tyson on 02/04/23. She did have a kidney transplant in September,. Joel Lovell DPM [address] [place], [address], [facility] - [facility] 09/02/2023 18:43:00 12/05/2023 text/html HPI Notes: This established patient ptc today for diabetic foot care. Patient is in need of nail care today. Denies any new foot complaints. Patient did last see Bryant Tyson on 02/04/23. She did have a kidney transplant in September,. Joel Lovell DPM [address] [place], [address], [facility] - [facility] 12/06/2023 10:17:18 03/05/2024 text/html HPI Notes: This established patient ptc today for diabetic foot care. Patient is in need of nail care today. Denies any new foot complaints. Patient did last see Dr. Bryant Tyson for diabetes care last seen on 02/14/2024 She did have a kidney transplant in September,. Joel Lovell DPM [address] [place], [address], [facility] - [facility] 03/06/2024 10:13:41 OBGyn Episode No OBEpisode recorded.
--- OUTSIDE RECORDS SUMMARY | 2024-04-17 14:03 | XMS_ITS | Continuity of Care Document ---
Author Organization [place] - [facility], [place] [facility] Address [address] [place] [address] [address] [place] [address] Care Team Providers Care Seismometer Operator Name Role Phone BRYANT TYSON Primary Care [...] 2020 Chronic ulcer of foot; Original Code: 3049855587 Cooper ginal Codesystem: SNOMED CT Classificat ion: Medical Confir mation Status: Confirmed Not Available [facility] 3 09:11:08 Ingrowing nail Active 2013 Ingrowing nail; Original Code: 7086184489 Cooper ginal Codesystem: SNOMED CT Classificat ion: Medical Confir mation Status: Confirmed Not Available [facility] 3 09:11:08 Disorder of nail Active 2013 Disorder of nail; Original Code: 5493834890 Cooper ginal Codesystem: SNOMED CT Classificat ion: Medical Confir mation Status: Confirmed Not Available [facility] 3 09:11:08 Secondary diabetes mellitus Active 2019 Secondary diabetes mellitus; Original Code: 12914806 Origi nal Codesystem: SNOMED CT Classificat ion: Medical Confir mation Status: Confirmed Parvez OSMIN [place] - [facility] 3 15:36:12 Essential hypertension Active 2014 Essential hypertension; Original Code: 55614689 Origi nal Codesystem: SNOMED CT Classificat ion: Medical Confir mation Status: Confirmed Parvez CabanOSMIN cano - [facility] 3 15:36:07 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; Original Code: 33437199 Origi nal Codesystem: SNOMED CT Classificat ion: Medical Confir mation Status: Confirmed Not Available [facility] 3 09:11:08 Foot pain Active 2020 Foot pain; Original Code: 389612030 Orig inal Codesystem: SNOMED CT Classificat ion: Medical Confir mation Status: Confirmed Not Available [facility] 3 09:11:09 Onychomycosis of toenails Active 2018 Onychomycosis of toenails; Original Code: 5304864937 [facility] ginal Codesystem: SNOMED CT Classificat ion: Medical Confir mation Status: Confirmed Not Available [facility] 3 09:11:09 Transplant of kidney Active [...] NAIL DEBRIDEMENT DR Hobson completed Ana boss [place] - [facility] 12/06/2023 04:18:35 3 NAIL/CallusDEBR IDEMENT completed Ana boss [place] - [facility] 08/29/2023 12:34:36 3 NAIL/CallusDEBR IDEMENT completed Joel Lovell, LUCRETIA [address] [place], [address], [facility] - [facility] 06/01/2023 10:42:[address] Hobson completed Parvez boss, [place] - [facility] 02/14/2023 15:37:11 Imaging Results None recorded. Procedure Notes None recorded. Medical Equipment None Reported. Allergies Allergen ID Allergen Name Allergen Category Reaction Reaction Severity Criticality Documentation Date Start Date Code Code System Note Provider Name and Address Organization Details Recorded Time 09966 amoxicill in medicatio n Not available Not available Not available 01/01/2023 723 RxNorm Comme nt: React ion Class : Aller gy Al lergy Ident ifier : d0008 8 All ergy Categ ory: Multu m Drug Ident ifier Iden tifie r Assig mark Autho rity: 36170 _[place] ; Not Available [facility] 3 08:52:37 64414 Product containin g angiotens in-conver ting enzyme inhibitor (product) medicatio n Not available Not available Not available 01/01/2023 58022 009 SNOMED Comme nt: React ion Class : Aller gy Al lergy Ident ifier : 416 A llerg y Categ ory: Aller gy Categ ories Iden tifie r Assig mark Autho rity: 45404 _[place] ; Not Available [facility] 3 08:52:37 85704 metoprolo l Not available Not available Not available Not available 01/01/2023 6918 RxNorm Comme nt: React ion Class : Aller gy Al lergy Ident ifier : d0013 4 All ergy Categ ory: Multu m Drug Ident ifier Iden tifie r Assig mark Autho rity: 92338 _[place] ; Not Available [facility] 3 08:52:37 75415 Elavil medicatio n Not available Not available Not available 01/01/2023 84167 RxNorm Comme nt: React ion Class : Aller gy Al lergy Ident ifier : d0014 6 All ergy Categ ory: Multu m Drug Ident ifier Iden tifie r Alex clemensg Autho rity: 40608 _[place] ; Not Available [facility] 3 08:52:37 60594 Effexor medicatio n Not available Not available Not available 01/01/2023 97872 2 RxNorm Comme nt: React ion Class : Aller gy Al lergy Ident ifier : d0318 1 All ergy Categ ory: Multu m Drug Ident ifier Iden tifie r Alex clemensg Autho rity: 22115 _[place] ; Not Available [facility] 3 08:52:37 Medications Name Sig Start Date [...] Encounter Closed Date Diagnosis/Indication Diagnosis SNOMED-CT Code 56620 Joel Lovell DPM [place] [facility] [address] [place] [address] 03/05/2024 11:47:14 03/06/2024 15:17:07 Type 2 diabetes mellitus with peripheral angiopathy 958396829 Disorder o f nervous system due to type 2 diabetes mellitus 751766466 Onychomycosis 850662503 Foot callus 997077520 Hallux rajeev henri AND bunion 793270501 Health Concerns Section Related Observation LastModified by Organization Detai ls LastModified Time None Recorded Concern Status LastModified by Organization Details LastModified Time None Recorded Payers Encounter Date Sequence Insurance Name Policy Number Policy Mcclelland Covered Member ID Mcclelland Member ID Guarantor Name 03/05/2024 1 [place] [id number] Anayeli E Splettstoeszer [id number] Anyaeli E Splettstoeszer Notes Date Note Type Note [...] transplant in September,. Joel Lovell DPM [address] [place], [address], [facility] - [facility] 03/06/2024 10:13:41 OBGyn Episode No OBEpisode recorded.
--- OUTSIDE RECORDS SUMMARY | 2024-04-17 14:03 | XMS_ITS | Clinical Summary ---
Author Organization [facility] Address [address] [place] [address] Phone Care Team Providers Care Processing Archivist Name Role Phone Sanjay Allan MD Primary Care Provider [phone] Family History Medical History Relation Comments Heart [...] Recently Relevant to Health Maintenance Care Teams Processing Archivist Relationship Specialty Start Date End Date Sanjay Allan MD [address] [place] [address] PCP - General 07/13/19
--- OUTSIDE RECORDS SUMMARY | 2024-04-17 14:03 | XMS_ITS | Clinical Summary ---
Author Organization [facility] Address [place], [place] [address] Care Team Providers Care Industrial Pharmacist Name Role Phone Sanjay Allan MD Primary Care Provider [phone] Leila Elizalde MD Unavailable Inga Bose NP Unavailable Allergies Active Allergy [...] End Date Status Coenzyme Q10 200 mg capsuleIndications: Mixed hyperlipidemia Take 200 mg by mouth at bedtime. 0 6 Active Biotin 10 mg tabletIndications:M ixed hyperlipidemia Take 1 tablet by mouth once daily. 0 6 Active aspirin chewable 81 mg chewable tablet Take 81 mg by mouth once daily with a meal. Active VITAMINS A,C,K-FLPB-RSLCCF (OCUVITE PRESERVISION) 7,160-113-100 nmky-qv-ajqo tablet Take 1 Tablet by mouth 2 times daily. Active Copper Gluconate 2 mg tab Take 4 mg by mouth at bedtime. Active acetaminophen (TYLENOL EXTRA STRGTH) 500 mg tablet Take 1,000 mg by mouth every 6 hours if needed for Pain. Max acetaminophen dose: 4000mg in 24 hrs. 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 E11.9 NIDDM type II - Test 1 time/day 1 Each 2 Active lancetsIndications: Type 2 diabetes mellitus with chronic kidney disease on chronic dialysis, without long-term current use of insulin (HC) Dispense item covered by pt ins. E11.9 NIDDM type II - Test 1 time/day 200 Each 3 2 Active magnesium oxide (MAG-OX 400) 400 mg tablet TAKE 1 TABLET BY MOUTH THREE TIMES A DAY 3 Active mycophenolate sodium (MYFORTIC) 180 mg EC tablet Take 540 mg by mouth. 3 Active carvediloL (COREG) 12.5 mg tablet Take 1 Tablet (12.5 mg) by mouth two times daily. 0 3 Active cyanocobalamin (VITAMIN B12) 1,000 mcg tabletIndications:B 12 deficiency Take 1 Tablet (1,000 mcg) by mouth once daily. 90 Tablet 3 3 Active DULoxetine (CYMBALTA) 60 mg Delayed-release capsuleIndications: Recurrent major depressive disorder, in full remission (HC) Take 1 Capsule (60 mg) by mouth once daily. 90 Capsule 3 3 Active esomeprazole (NEXIUM) 40 mg capsuleIndications: Gastroesophageal reflux disease without esophagitis Take 1 Capsule (40 mg) by mouth once daily before a meal. 90 Capsule 3 3 Active Ozempic 0.25 mg or 0.5 mg (2 mg/3 mL) pen Inject 1.5 mL (1 mg) subcutaneous once weekly. 3 mL 3 Active potassium acid phosphate (K-PHOS ORIGINAL) 500 mg tablet Take 0.5 Tablets (250 mg) by mouth two times daily before meals. 0 3 Active predniSONE (DELTASONE) 5 mg tablet Take 1 Tablet (5 mg) by mouth once daily with a meal. 0 3 Active rosuvastatin (CRESTOR) 40 mg tabletIndications:H yperlipidemia, unspecified hyperlipidemia type Take 1 Tablet (40 mg) by mouth at bedtime. 90 Tablet 3 3 Active tacrolimus (PROGRAF) 0.5 mg capsule Take 3 Capsules (1.5 mg) by mouth every 12 hours. 3 Active blood sugar diagnostic (Accu-Chek Guide test strips) stripIndications:Ty pe 2 diabetes mellitus with chronic kidney disease on chronic dialysis, without long-term current use of insulin (HC) DISPENSE ITEM COVERED BY PT INS. E11.9 NIDDM TYPE II - TEST 2-3 TIME/DAY 300 Each 3 3 Active cholecalciferol (VITAMIN D3) 2,000 unit capsule Take 1 Capsule by mouth once daily. Active calcium citrate-vitamin D3, 250 mg-200 units, tablet Take 1 Tablet by mouth two times daily with meals. 3 06/26/20 24 Active hn-rpt-yatvk acid-lutein 400-250 mcg chew Chew 1 Tablet by mouth once daily. 4 Active amLODIPine (NORVASC) 5 mg tabletIndications:H TN (hypertension) Take 1 Tablet (5 mg) by mouth once daily. 90 Tablet 3 4 Active metFORMIN (GLUCOPHAGE XR) 500 mg Extended-Release tabletIndications:T ype 2 diabetes mellitus with other diabetic kidney complication, without long-term current use of insulin (HC) Take 1 Tablet (500 mg) by mouth once daily with evening meal. 90 Tablet 3 4 Active semaglutide (Ozempic) 2 mg/dose (8 mg/3 mL) penIndications:Type 2 diabetes mellitus with other diabetic kidney complication, without long-term current use of insulin (HC) Inject 0.75 mL (2 mg) subcutaneous once weekly. 9 mL 3 4 Active lidocaine (Lidoderm) 5 % topical patchIndications:Colleen mbar radiculopathy Apply 1 patch to painful area of skin for up to 12 hours within a 24-hour period. 5 Patch 3 4 Active oxyCODONE (ROXICODONE) 5 mg immediate release tabletIndications:L umbar radiculopathy,S/P lumbar spinal fusion,Foraminal stenosis of lumbar region,DDD (degenerative disc disease), lumbar Take 1 Tablet (5 mg) by mouth 3 times daily if needed for Pain. 60 Tablet 4 Active oxyCODONE (ROXICODONE) 5 mg immediate release tabletIndications:L umbar radiculopathy,S/P lumbar spinal fusion,Foraminal stenosis of lumbar region,DDD (degenerative disc disease), lumbar Take 0.5-1 Tablets (2.5-5 mg) by mouth 3 times daily if needed for Pain. 18 Tablet 4 03/30/20 24 Discontinu ed(Reorder (E-cancel not sent)) oxyCODONE (ROXICODONE) 5 mg immediate release tabletIndications:L umbar radiculopathy,S/P lumbar spinal fusion,Foraminal stenosis of lumbar region,DDD (degenerative disc disease), lumbar Take 0.5-1 Tablets (2.5-5 mg) by mouth 3 times daily if needed for Pain. 18 Tablet 4 04/02/20 24 Discontinu ed(Reorder (E-cancel not sent)) Active Problems Patient Care Coordination No te Formatting of this note migh t be different from the original. HF/Structural/Prevention Research Eligibility Review Date: 11/02/19 Upcoming Visit Location: [x] Outreach Age: 74 y.o. Insurance: [x] Medicare/equivalent EF: 71% Valve/Imaging: Comments: HF: DNQ Structural: [place]: No d/t mod MR Prevention: DNQ Problem [...] 03/03/2010 07/18/2018 Controlled type 2 diabetes m kennedy without complication, without long-term current use of [...] Encounters Date Type Department Care Team Description 04/15/2024 1:00 PM CDT Office Visit [address] [address] Karla Aguero PA Consult (Abnormal sensation in right ear [H93.8X1] /Sensorineural hearing loss, asymmetrical ) 04/14/2024 Travel 04/06/2024 8:45 AM CDT Ancillary Procedure [facility] [address] [place] [address] 04/06/2024 Telephone [facility] [address] [place] [address] Praveen Weston MD Appointment 04/06/2024 Travel 04/03/2024 Travel 04/03/2024 Telephone [facility] [address] [place] [address] Praveen Weston MD Questions (call back ) 04/02/2024 3:20 PM CDT Office Visit [facility] [address] [place] [address] Praveen Weston MD Follow Up (Back pain) 04/01/2024 Travel 03/20/2024 3:00 PM CDT Office Visit [facility] at [address] [address] Praveen Weston MD Procedure (Right L4-5 TFESI) 03/16/2024 Travel 03/10/2024 Telephone [facility] [address] [place] [address] Praveen Weston MD Injection (Medication) (BACK) 03/05/2024 12:30 PM CDT Office Visit [facility] [address] [place] [address] Jung Miller, AuD Hearing Problem 03/05/2024 Travel 03/02/2024 Travel 02/14/2024 8:50 AM CDT Office Visit [facility] [address] [place] [address] Sanjay Allan MD Diabetes 02/14/2024 Travel 02/07/2024 Telephone [facility] [address] [place] [address] Praveen Weston MD Results (MRI) 02/06/2024 11:00 AM CDT Ancillary Procedure [facility] [address] [place] [address] 02/06/2024 10:45 AM CDT Ancillary Procedure [facility] [address] [facility] [address] 02/06/2024 Travel 01/23/2024 8:40 AM CDT Office Visit [facility] [address] [place] [address] Praveen Weston MD Musculoskeletal Problem (Follow-up LEFT Shoulder Pain) 01/23/2024 Travel 01/23/2024 Telephone [facility] [address] [facility] [address] Sanjay Allan MD Questions (PT Order Request ) from Last 3 Months Immunizations Name Administration Dates Next Due COVID-19 Vaccine Spikevax (M oderna 50mcg/0.5mL) 12YO+ [id number] Formula PF 08/30/2023 COVID-19 vaccine (Moderna 100mcg/0.5mL) [...] Heart Disease Father Hypertension Father Other Father SD @ 51 Heart Disease Mother Hyperlipidemia Mother [...] Sign Reading Time Taken Comments Blood Pressure 108/71 04/02/2024 3:08 PM CDT Pulse 98 04/02/2024 3:08 PM CDT Temperature 36.3 ??C (97.4 ??F) 01/23/2024 8:45 AM CD T Respiratory Rate 16 04/25/2023 8:45 AM CDT Oxygen Saturation 100% 04/02/2024 3:08 PM CDT Inhaled Oxygen Concentration - - Weight 52.8 kg (116 lb 6.4 oz) 04/02/2024 3:08 P M CDT Height 158.7 cm (5' 2.48) 08/30/2023 9:19 AM CD T Body Mass Index 20.96 08/30/2023 9:19 AM CDT Plan of Treatment Upcoming Encounters Date Type Department Care Team (Late st Contact Info) Description 04/17/2024 2:40 PM CDT Office Visit [facility] [address] [place] [address] Praveen Weston MD [address] [place] [address] Arrived 04/24/2024 1:00 PM CDT Procedure Only [facility] [address] [place] [address] Praveen Weston MD [address] [place] [address] 05/18/2024 9:05 AM CDT Office Visit [facility] [address] [place] [address] Sanjay Allan MD [address] [place] [address] Health Maintenance Due Date Last Done Comments [...] 65+ Completed 08/12/2020, 08/12/2015 (Completed outside of [facility]), 08/02/2015, Additional history exists Goals Goal Patient Goal Type Associated Problems Recent Progress Patient-Stated? Author BLOOD PRESSURE - MAINTAINS BP less than 140/90 Blood Pressure No Nikko Mederos MD Medical Devices Implanted Type Area Braid Cutter Device Identifier Shelf Expiration Date Model / Serial / Lot Jacques 5.0cmx5.5mm Pre-Cut - [id number] Implanted:Qty: 2 on 06/12/2010 at [facility] Spine Implants Spine SOFAMOR DANEK [id number]# / / Screw Thin Crest 6.5x45mm - [id number] Implanted:Qty: 4 on 06/12/2010 at [facility] N/A: Spine SOFAMOR DANEK [id number] # / / Set Screw 3dx - [id number] Implanted:Qty: 1 on 06/12/2010 at [facility] N/A: Lumbar Vertebrae [employer] [id number]# / / Cnnctr Tsrh 3dx Sm - [id number] Implanted:Qty: 1 on 06/12/2010 at [facility] N/A: Lumbar Vertebrae [employer] [id number]# / / Kit Infuse Sm - [id number] Implanted:Qty: 1 on 06/12/2010 at [facility] Spine SOFAMOR DANEK [id number]# / / [id number] AR Spacer Peek 25x12 [place] - [id number] Implanted:Qty: 1 on 06/12/2010 at [facility] Spine SOFAMOR CHRIS [id number]# / / [id number] Power Port Isp Mri 6fr [id number] - [id number] Implanted:Qty: 1 on 03/24/2020 by Stephane Williamson DO at [facility] Left: Chest [employer] 01/25/2021 [id number]# / / [id number] Procedures Procedure Name Priority Date/Time Associated Diagnosis Comments AMB EPIDURAL STEROID INJECTION JOJO 04/17/2024 8:02 AM CDT Lumbar radiculopathy S/P lumbar spinal fusion Lumbar disc herniation [facility] MEDICAL CLEARANCE Routine 04/15/2024 1:36 PM CDT Sensorineural hearing loss, asymmetrical MR SPINE LUMBAR WO JOJO 04/06/2024 9: 40 AM CDT Lumbar radiculopathy S/P lumbar spinal fusion Foraminal stenosis of lumbar region DDD (degenerative disc disease), lumbar AMB EPIDURAL STEROID INJECTION Routine 03/20/2024 12:00 AM CDT Lumbar radiculopathy S/P lumbar spinal [...] 2 SITES AXIAL Routine 12/17/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 ??You may view this report before your referring provider. ??If you have questions, please contact your health care provider. Indication: Lumbar radiculopathy, status post lumbar fusion. Foraminal stenosis of lumbar region. Technique: Noncontrast sagittal and axial T1, T2, and sagittal STIR sequences are provided. Comparison: MRI 03/12/2022 Findings: Straightening of normal lumbar lordotic curvature. No fractures. No aggressive osseous lesions. Anterior wedging of the T12 vertebral body due to chronic compression fracture. The conus medullaris is normal in signal and location. Chronic postoperative changes of L2-3 pedicle screw fixation and laminectomies at L2-3, L3-4 and L4-5. Bilateral atrophic kidneys and bilateral cysts. 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 T12-L1: No significant spinal canal stenosis or neural foraminal narrowing. Mild disc desiccation. L1-2: Disc desiccation. Circumferential disc bulge and moderate facet arthrosis with ligamentum flavum buckling. Mild spinal canal stenosis, unchanged. No significant neural foramen narrowing. L2-3: Postoperative changes. The spinal canal and neural foramina are adequate. L3-4: Postoperative changes. Diffuse disc bulge results in mild spinal canal narrowing. Moderate bilateral neural foraminal narrowing. L4-5: Postop changes. Moderate disc bulge. Advanced right and moderate left facet arthrosis. Enlargement of right paracentral disc extrusion with inferior migration results in severe right lateral recess stenosis and impingement of the right L5 nerve roots. Moderate right and mild left subarticular recess stenosis. Severe right neural foraminal narrowing. Moderate left neural foraminal narrowing. L5-S1: Severe bilateral facet arthrosis. No significant spinal canal stenosis or neural foraminal narrowing. Impression: 1. No acute osseous abnormality. Postop changes of L2-3 pedicle screw and jacques fixation and laminectomies at L2-3 through L4-5 levels. 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 2. At L4-5, enlargement of a right paracentral disc extrusion with inferior migration that results in severe right lateral recess stenosis and impingement of right L5 nerve roots. Moderate right and mild left subarticular recess stenosis. Severe right and moderate left neural foraminal narrowing. 3. At L3-4 there is mild spinal canal narrowing and moderate bilateral neural foramen narrowing, unchanged. Milder degenerative changes at remaining levels. Dictated by Terrell Ward MD @ 04/06/2024 10:44:44 AM (Electronically Signed) Procedure Note Terrell Ward MD - 04/06/2024 For Patients: As a result of the Cures Act, medical imagingexams and procedure reports are released immediately into your electronicmedical record. You may view this report before your referring provider.If you have questions, please contact your health care provider. Indication: Lumbar radiculopathy, status post lumbar fusion. Foraminal stenosis oflumbar region. Technique: Noncontrast sagittal and axial T1, T2, and sagittal STIR sequences areprovided. Comparison: MRI 03/12/2022 Findings: Straightening of normal lumbar lordotic curvature. No fractures. Noaggressive osseous lesions. Anterior wedging of the T12 vertebral body dueto chronic compression fracture. The conus medullaris is normal in signaland location. Chronic postoperative changes of L2-3 pedicle screw fixationand laminectomies at L2-3, L3-4 and L4-5. Bilateral atrophic kidneys andbilateral cysts. 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 T12-L1: No significant spinal canal stenosis or neural foraminalnarrowing. Mild disc desiccation. L1-2: Disc desiccation. Circumferential disc bulge and moderate facetarthrosis with ligamentum flavum buckling. Mild spinal canal stenosis,unchanged. No significant neural foramen narrowing. L2-3: Postoperative changes. The spinal canal and neural foramina areadequate. L3-4: Postoperative changes. Diffuse disc bulge results in mild spinalcanal narrowing. Moderate bilateral neural foraminal narrowing. L4-5: Postop changes. Moderate disc bulge. Advanced right and moderateleft facet arthrosis. Enlargement of right paracentral disc extrusion withinferior migration results in severe right lateral recess stenosis andimpingement of the right L5 nerve roots. Moderate right and mild leftsubarticular recess stenosis. Severe right neural foraminal narrowing.Moderate left neural foraminal narrowing. L5-S1: Severe bilateral facet arthrosis. No significant spinal canalstenosis or neural foraminal narrowing. Impression: 1. No acute osseous abnormality. Postop changes of L2-3 pedicle screw androd fixation and laminectomies at L2-3 through L4-5 levels. Transplantedkidney in the right pelvis. 2. At L4-5, enlargement of a right paracentral disc extrusion withinferior migration that results in severe right lateral recess stenosisand impingement of right L5 nerve roots. Moderate right and mild leftsubarticular recess stenosis. Severe right and moderate left neuralforaminal narrowing. 3. At L3-4 there is mild spinal canal narrowing and moderate bilateralneural foramen narrowing, unchanged. Milder degenerative changes atremaining levels. Dictated by Terrell Ward MD @ 04/06/2024 10:44:44 AM (Electronically Signed) Praveen Weston MD MR * AMB EPIDURAL STEROID INJECTION (03/20/2024 12:00 AM CDT) Praveen Weston MD NEUROLOGY ORD * MR SHOULDER LEFT WO (02/06/2024 11:35 [...] For Patients: ??As a result of the Century Cures Act, medical imaging exams and procedure [...] For Patients: As a result of the Century Cures Act, medical imagingexams and procedure reports [...] For Patients: ??As a result of the 21st Century Cures Act, medical imaging exams and procedure reports are released immediately into your electronic medical record. ??You may view this report before your referring provider. ??If you have questions, please contact your health care provider. Indication: Foraminal stenosis, cervical radiculopathy Technique: Cervical spine three views Comparison: 04/10/2022 Procedure Note Terrell Pierce MD - 02/06/2024 For Patients: As a result of the Century Cures Act, medical imagingexams and procedure reports [...] Weston MD GENERAL IMAGING * ANTI HCV [[id number]] (07/18/2017 10:38 AM CDT) HEPATITIS C ANTIBODY Non-Reacti ve Non-Reacti ve 07/18/2017 5:15 PM CDT [facility] Blood BLOOD SPECIMEN / Unknown Venipuncture / Unknown 07/18/2017 10:38 AM CDT 07/18/2017 10:38 AM CDT Narrative [facility] - 07/18/2017 5:15 PM CDT Antibodies to HCV not detected; does not exclude the possibility of exposure to HCV. Sanjay Allan MD [facility] 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 Procedure Note [facility] - 12/21/2014 Please see scanned document for results of this study. Nikko POTTER from Last 3 Months or Most Recently Relevant to Health Maintenance Advance Directives Documents on File Type Date Recorded Patient Temple Marker Expl anation Treatment Guidelines 12/28/2021 Healthcare Directive [...] Code Status Discussion: Not Discussed Care Teams Industrial Pharmacist Relationship Specialty Start Date End Date Sanjay Allan MD [address] [place] [id number] PCP - General Family Practice 03/05/17 Leila Elizalde MD [address] [place] [address] Hematology Hematology and Oncology 05/23/20 Inga Bose NP [address] [place] [address] Hematology Nurse Practitioner - Family 05/23/20
--- OUTSIDE RECORDS SUMMARY | 2024-04-17 14:04 | XMS_ITS ---
Author Organization [facility] Address [address] [place] [address] Care Team Providers Care Tank Carpenter Name Role Phone Unavailable Unavailable Unavailable Surgery Details Not on file Complications Check Surgery Details section. Procedure Estimated Blood Loss Check Surgery Details section. Procedure Findings Check Surgery Details section. Procedure Specimens Taken Check Surgery Details section.
--- OUTSIDE RECORDS SUMMARY | 2024-04-17 14:04 | XMS_ITS | Referral Summary ---
Author Organization [facility] Address [address] [place] [address] Care Team Providers Care Pulping Machine Operator Name Role Phone Elsewhere, Pcp Primary Care Provider Unavailabl e Source Comments Patient records contain information from all sites at [facility]. For routine questions regarding patient records, call [phone] during business hours, M-F 8:00 AM - 5:00 PM Central Time. Record requests for emergency care only can be directed to [phone] at any time.[facility] Encounters Date Type Department Care Team Description 04/09/2024 Refill [facility] in [place], [place] [address] [place] [address] Jacky Bansal, ELODIA, C.N.P., M.S.N. Med Refill 03/22/2024 Refill [facility] in [place], [place] [address] [place] [address] Rene King M.D. Med Refill 03/10/2024 Ancillary Procedure Department of Ophthalmology 03/10/2024 11:10 AM CDT Ancillary Procedure Department of Ophthalmology in [place], [place] [address] [place] [address] Monty Zheng M.D. Membrane Macula Epiretinal Left 03/10/2024 10:30 AM CDT Office Visit Department of Ophthalmology in [place], [place] [address] [place] [address] Monty Zheng M.D. 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 Med Refill 02/27/2024 7:44 AM CDT - 02/27/2024 11:59 PM CDT Hospital Encounter Department of Laboratory Medicine in [address] [phone] Rhonda Hampton P.A.-C., M.S. Transplant Renal (HCC); High Risk Medication Discharge Disposition: Home or Self Care 02/21/2024 1:30 PM CDT Office Visit Department of Ophthalmology in [place], [place] [address] [phone] Monty Zheng M.D. 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 Post PPV Positioning 02/14/2024 1:30 PM CDT Office Visit Department of Ophthalmology in [place], [place] [address] [place] [address] Monty Zheng M.D. 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 VITRECTOMY, PARS PLANA 25 GAUGE, MEMBRANE PEEL, FLUID AIR EXCHANGE, Laser LEFT EYE. 02/13/2024 6:07 AM CDT - 02/13/2024 11:59 PM CDT Hospital Encounter [facility] OR [address] [place] [phone] Monty Zheng M.D. Discharge Disposition: Home or Self Care 02/07/2024 Clinical Communication Department of Ophthalmology in [place], [place] [address] [place] [phone] Monty Zheng M.D. Pre-Surgery Question 02/07/2024 9:00 AM CDT Comprehensive Visit Preoperative Evaluation Center in [place], [place] [address] [place] [phone] Monty Zheng M.D. Peclat Da Silva, Thais R, M.D., Ph.D., M.D., Ph.D. 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 Transplant Renal ([facility]); Atherosclerotic Heart Disease Of [place] Coronary Artery Without Angina Pectoris Discharge Disposition: Home or Self Care 02/07/2024 10:05 AM CDT - 02/07/2024 11:38 AM CDT Hospital Encounter Department of Cardiovascular Diseases in [place], [place] [address] [place] [address] Rhonda Hampton P.A.-C., M.S. Transplant Renal (HCC); Atherosclerotic Heart Disease Of [place] Coronary Artery Without Angina Pectoris Discharge Disposition: Home or Self Care 02/07/2024 2:15 PM CDT Office Visit [facility] in [place], [place] [address] [place] [address] Kevin Fregoso M.D. da Silva de Abreu, Adrian J, M.D., Ph.D. Coronary Stent Status Post (Primary Dx); Atherosclerotic Heart Disease Of [place] Coronary Artery Without Angina Pectoris; Atherosclerosis Aortic (HCC); Regurgitation Mitral; Transplant Renal (HCC) 02/05/2024 9:38 AM CDT - 02/05/2024 11:59 PM CDT Hospital Encounter Department of Laboratory Medicine in [address] [phone] Rhonda Hampton P.A.-C., M.S. Discharge Disposition: Home or Self Care 02/04/2024 7:58 AM CDT - 02/04/2024 11:59 PM CDT Hospital Encounter Department of Laboratory Medicine in [address] [address] Rhonda Hampton P.A.-C., M.S. Transplant Renal ([facility]) Discharge Disposition: Home or Self Care 02/04/2024 7:50 AM CDT - 02/04/2024 7:57 AM CDT Hospital Encounter Department of Laboratory Medicine in [address] [phone] Rhonda Hampton P.A.-C., M.S. Transplant Renal ([facility]); Preanesthetic Medical Exam; 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 Bilateral; Detachment Vitreous Posterior Bilateral; Diabetes Mellitus Type 2 ([facility]) Discharge Disposition: Home or Self Care 01/30/2024 11:30 AM CDT Clinical Communication Virtual Review in [place], [place] [address] [place] [address] 01/22/2024 [facility]ation [facility] in [place], [place] [address] [place] [address] [employer] from Last 3 Months Allergies Active Allergy [...] capsule by mouth daily. 12/18/2016 Active vitamins A,C,O-pdzp-qnwmeg (PRESERVISION AREDS) 7,160 Units-113 mg-100 Units per [...] before breakfast. 90 capsule 3 12/12/2022 Active biotin 10 mg tablet Take 10 [...] mouth every evening. 180 tablet 3 04/23/2023 4 Active calcium citrate-vitamin D3 (CITRACAL+D) 250 mg-5 mcg (200 Unit) per tablet Take 1 tablet by mouth 3 (three) times a day with meals. 300 tablet 3 06/27/2023 Active tacrolimus (Prograf) 0.5 mg capsule Take 1 capsule (0.5 mg total) by mouth 2 (two) times a day. 180 capsule 3 06/27/2023 Active magnesium oxide (MAG-OX) 400 mg (241.3 mg magnesium) tabletIndications: Hypokalemia,Afterc are Transplant Renal (HCC),Abnormal Laboratory Results TAKE 1 TABLET (400 MG TOTAL) BY MOUTH 2 (TWO) TIMES A DAY BEFORE BREAKFAST AND DINNER. 180 tablet 3 11/04/2023 Active mycophenolate (MYFORTIC) 180 mg EC tabletIndications: Transplant Renal (HCC),Immunodefici ency Due To Drugs (HCC),Medication Therapy Acid Plant Helper Not Anticoagulant Take 3 tablets (540 mg total) by mouth 2 (two) times a day. 540 tablet 3 10/31/2023 Active predniSONE (DELTASONE) 5 mg tabletIndications: Transplant Renal (HCC),Immunodefici ency Due To Drugs (HCC),Medication Therapy Acid Plant Helper Not Anticoagulant Take 1 tablet (5 [...] one tablet twice daily., Reported on 01/30/2024 multivitamin-financial compliance examiner yqo-TG-jxezqh (CENTRUM SILVER) 400-250 mcg per chewable tablet [...] 2 (two) times a day. 01/30/2024 Active carvediloL (COREG) 12.5 mg tablet Take 1 tablet (12.5 mg total) by mouth 2 (two) times a day with meals. Take along with 6.25 mg tablet for total dose of 18.75 mg twice daily. 90 tablet 3 04/09/2024 Active tacrolimus (PROGRAF) 1 mg capsuleIndications :Transplant Renal (HCC),Immunodefici ency Due To Drugs (HCC),Medication Therapy Acid Plant Helper Not Anticoagulant Take 1 capsule (1 mg total) by mouth 2 (two) times a day. Take with 0.5 mg for a total dose of 1.5 mg in AM and PM 180 capsule 3 04/09/2024 Active multivitamin tablet Take 1 tablet by mouth daily. 90 tablet 3 10/07/2022 2 Discontinu ed(Reorder ) tacrolimus (PROGRAF) 1 mg capsuleIndications :Transplant Renal (HCC),Immunodefici ency Due To Drugs (HCC),Medication Therapy Fdc Not Anticoagulant Take 1 capsule (1 mg total) by mouth every morning AND 1 capsule (1 mg total) every evening. 180 capsule 3 04/05/2023 4 Discontinu ed(Reorder ) carvediloL (COREG) 12.5 mg tablet Take 1 tablet (12.5 mg total) by mouth 2 (two) times a day with meals. Take along with 6.25 mg tablet for total dose of 18.75 mg twice daily. 90 tablet 3 10/09/2023 4 Discontinu ed(Reorder ) Active Problems Problem Noted Date Diagnosed Date [...] Drugs 10/07/2022 Atherosclerotic Heart Diseas e Of [place] Coronary Artery Without Angina Pectoris 10/06/2022 Noninfective [...] 6 15. History of malignancies: no 16. [place] renal imaging if on dialysis >3 years: [...] 22. Surgical Issues: last visit with Dr. Martin Tello, [facility] 23. Peripheral Vascular Disease?: likely given claudication 24. Other Medical Issues: prior history of tobacco use; CT scan lung cancer screening ordered 25. Pending issues: as above 26. Exhausted dialysis access: no Stenosis Carotid Artery 10/29/201602/25 Immunizations Name Administration Dates Next Due H1N1 All Forms 08/25/2009 HZV (ZOSTAVAX) 07/21/2010 HepA / HepB 02/15/2017,11/16/2016,09/14/2016 Influenza (IM) Preservative Free 07/13/2011,10/0 03/2010 Influenza TIV (IM) 07/18/2020, 9,07/18/2018,2013,07/12/2013,09/09/2012,07/13/2011,1 Influenza high [...] drink = 0.6 oz pur e alcohol) [facility] Utilities Answer Date Recorded In the past 12 months has e [employer], [employer], oil, or water [employer] threatened to shut off services in your [...] often do you attend chur ch or hinduism services? More than 4 times per year 10/30/2022 Do you belong to any clubs o r organizations such as methodist groups, unions, fraternal or athletic groups, or [...] Answer Date Recorded PHQ-2 Score 0 04/23/2023 [facility] - [...] your living situation today? I have a [facility] place to live 11/29/2023 Education [...] 02/13/2024 6:57 AM CDT Plan of Treatment Upcoming Encounters Date Type Department Care Team (Late st Contact Info) Description 05/21/2024 7:50 AM CDT Appointment Department of Laboratory Medicine in [address] [phone] Rhonda Hampton P.A.-Louisa., M.S. [address] [place] [phone] 05/28/2024 8:30 AM CDT Infusion Department of Infusion Therapy in [address] [phone] Viktoriya Garza APRN C.N.P. [address] [place] [phone] Medical Devices Implanted Type Area Dietary Worker Device Identifier Shelf Expiration Date Model / Serial / Lot Hardware Ankle Implant Right: Ankle Conversions - Default Historical Implant Device Implanted:11/29 (Quantity not on file) Hardware e.g. pins/screws /rods Other/Legacy - See Implant Description Description:Body Location - Spine. lower back. Device Status Text - Hardware. Stent Other- 0 Implanted:10/29 (Quantity not on file) Stent Other Heart Explanted Type Area Dietary Worker Device Identifier Shelf Expiration Date Model / Serial / Lot Stnt Uret Cls Tp Dbl [id number] - S - [id number] Implanted:Qty : 1 on 10/06/2022 by Praveen Dela Cruz M.D., Ph.D. at [facility] Explanted:Qty : 1 on 10/23/2022 by Chuck Stinson PVanda Ureteral Stent [facility] [id number] / / [id number] Procedures Procedure Name Priority Date/Time Associated Diagnosis Comments OPTICAL COHERENCE TOMOGRAPHY - MACULA/RETINA - OU - BOTH EYES Routine 03/10/2024 9:52 AM CDT Membrane Macula Epiretinal Left OPHTHALMOLOGY IMAGE EXAM Routine 03/10/2024 12:00 AM CDT CALCIUM, TOT, S/P Routine 02/27/2024 7:5 1 AM CDT Transplant Renal ([facility]) High Risk Medication OXALATE, PLASMA Routine 02/27/2024 7:51 AM CDT Transplant Renal ([facility]) High Risk Medication POTASSIUM, S/P Routine 02/27/2024 7:51 AM CDT Transplant Renal ([facility]) High Risk Medication TACROLIMUS LEVEL, B Routine 02/27/2024 7 :51 AM CDT Transplant Renal ([facility]) High Risk Medication GLUCOSE, FASTING, S/P Routine 02/27/2024 7:51 AM CDT Transplant Renal ([facility]) High Risk Medication CREATININE WITH EGFR, S/P Routine 02/27/2024 7:51 AM CDT Transplant Renal ([facility]) High Risk Medication BKV DNA DETECT/QUANT, P Routine 02/27/2024 7:51 AM CDT Transplant Renal ([facility]) High Risk Medication CBC WITH DIFFERENTIAL, B Routine 02/27/2024 7:50 AM CDT Transplant Renal ([facility]) High Risk Medication GLUCOSE POCT, B Routine 02/13/2024 8:55 AM CDT GLUCOSE POCT, B Routine 02/13/2024 7:22 AM CDT VITRECTOMY - PARS PLANA 25 GAUGE 02/13/2024 7:18 AM CDT Membrane Macula Epiretinal Left DX CHEST AP OR PA AND LATERAL 2 VIEWS RAD - Routine (most inpatients and all outpatients) 02/07/2024 11:56 AM CDT Transplant Renal ([facility]) Atherosclerotic Heart Disease Of [place] Coronary Artery Without Angina Pectoris ECG Routine 02/07/2024 11:19 AM CDT Transplant Renal (HCC) Atherosclerotic Heart Disease Of [place] Coronary Artery Without Angina Pectoris (TTE) 2D ECHO DOPPLER COLOR Routine 02/07/2024 10:43 AM CDT Transplant Renal (HCC) Atherosclerotic Heart Disease Of [place] Coronary Artery Without Angina Pectoris SUPERSATURATION, 24H, [...] inpatients and all outpatients) 10/02/2023 9:55 AM DIRECTOR BUSINESS TRAVEL ALBUMIN, RANDOM, U Routine 07/09/2018 10:48 AM [...] Zheng M.D. OPHTH TOMOGRAPHY Performing Organization Address [facility] de Phone Number OPHTHALMOLOGY IMAGING EXAM * [...] RAD IMAGI NG PROCEDURES Performing Organization Address [facility] de Phone Number [facility] NA * (ABNORMAL) BKV DNA Detect/Quant (02/27/2024 7:51 AM CDT) [facility] BKV DNA Detect/Quant, P 102(A) Undetected IU/mL 02/28/2024 4:52 PM CDT [facility] Comment: Result in log IU/mL is 2.01. ----ADDITIONAL INFORMATION---- The quantification range of this assay is 22 to 100,000,000 IU/mL (1.34 log to 8.00 log IU/mL). Testing was performed using the rianna BKV test ([employer] Blood (Blood, Venous) 02/27/2024 7:51 AM CDT 02/27/2024 7:54 PM CDT Rhonda Hampton P.A.-C., M.S. LAB SANGEETHA ROBIOLOGY - BLOOD ORDERABLES Performing Organization Address [facility]/ZIP Co de Phone Number [facility] [address] [place] [id number] [facility] [address] [place] [address] [place] [address] * (ABNORMAL) Oxalate (02/27/2024 7:51 AM CDT) Pathologist [facility] Oxalate, Plasma 2.8(H) <=2.0 mcmol/L 02/28/2024 2:14 PM CDT [facility] Comment: Sample was received nonacidified and frozen. In nonacidified samples oxalate values may increase spontaneously. ----ADDITIONAL INFORMATION---- This test has been modified from the section repairer's instructions. Its performance characteristics were determined by [facility] in a manner consistent with CLIA requirements. This test has not been cleared or approved by the U.S. Food and Drug Administration. Blood (Blood, Venous) 02/27/2024 7:51 AM CDT 02/28/2024 8:13 AM CDT Rhonda Hampton P.A.-C. MJoseSJose LAB BLO OD NON ADD-ON Performing Organization Address [facility] [[email or web address]] Co de Phone Number [facility] [address] [place] [address], [address] [address] * Tacrolimus, Trough (02/27/2024 7:51 AM CDT) [facility] Tacrolimus, Trough 6.6 5.0-15.0 (Trough) ng/mL 02/28/2024 12:11 PM CDT [facility] Comment: ----ADDITIONAL INFORMATION---- Target steady-state trough concentrations vary depending on the type of transplant, concomitant immunosuppression, clinical/institutional protocols, and time post-transplant. Results should be interpreted in conjunction with this clinical information and any physical signs/symptoms of rejection/toxicity. Testing performed by Liquid Chromatography-Tandem Mass Spectrometry (LC-MS/MS). This test was developed and its performance characteristics determined by [facility] in a manner consistent with CLIA requirements. This test has not been cleared or approved by the U.S. Food and Drug Administration. Blood (Blood, Venous) 02/27/2024 7:51 AM CDT 02/28/2024 7:26 AM CDT Rhonda Hampton P.A.-C. MJoseSJose LAB BLO OD NON ADD-ON Performing Organization Address [facility] [[email or web address]] Co de Phone Number [facility] [address] [place] [address] [facility] [address] [place] [address] [place] [address] * Potassium (02/27/2024 7:51 AM CDT) Potassium, P 4.5 3.6 - 5.2 mmol/L 02/27/2024 8:10 AM CDT CNFL Blood (Blood, Venous) 02/27/2024 7:51 AM CDT 02/27/2024 7:52 AM CDT Rhonda Hampton P.A.-C., M.S. LAB BLO OD ADD-ON Performing Organization Address City/[facility] [[email or web address]] [place] [address], [facility] CNFL [facility] [address] * (ABNORMAL) Glucose, Fasting (02/27/2024 7:51 AM CDT) Glucose, P 148(H) 70 - 100 mg/dL 02/27/2024 8:07 AM CDT CNFL Last Intake 12 hr 02/27/2024 7:52 AM CDT CNFL Blood (Blood, Venous) 02/27/2024 7:51 AM CDT 02/27/2024 7:52 AM CDT Rhonda Hampton P.A.-C., M.S. LAB BLO OD NON ADD-ON Performing Organization Address City/[facility]/ZIP Co de Phone Number [address] [address], [facility] CNFL [facility] [address] * Creatinine with Estimated GFR (02/27/2024 7:51 AM CDT) Creatinine 0.67 0.59 - 1.04 mg/dL 02/27/2024 8:10 AM CDT CNFL Estimated GFR (eGFR) >90 >=60 mL/min/BSA 02/27/2024 8:10 AM CDT CN[facility] Comment: Estimated GFR calculated using the 2020 CKD_EPI creatinine equation. Blood (Blood, Venous) 02/27/2024 7:51 AM CDT 02/27/2024 7:52 AM CDT Rhonda Hampton P.A.-C., M.S. LAB BLO OD ADD-ON Performing Organization Address [facility] [[email or web address]] [place] [address], [place] [address] * Calcium, Total (02/27/2024 7:51 AM CDT) Calcium, Total, P 9.3 8.8 - 10.2 mg/dL 02/27/2024 8:10 AM CDT CNFL Blood (Blood, Venous) 02/27/2024 7:51 AM CDT 02/27/2024 7:52 AM CDT Rhonda Hampton P.A.-C., M.S. LAB BLO OD ADD-ON Performing Organization Address [facility] [place] [address], [place] [address] * CBC with Differential, Blood (02/27/2024 7:50 [...] Hampton P.A.-C., M.S. LAB BLO OD ADD-ON [facility] [address] [place] [address], [facility] in [address] [address] * (ABNORMAL) Glucose, POCT (02/13/2024 8:55 AM CDT) Only the most recent of2 resultswithin the time period is included. [facility] Signature Glucose, POCT, B 144(H) 70 - 140 mg/dL 02/13/2024 9:26 AM CDT PCLX Site Capillary 02/13/2024 9:26 AM CDT PCLX Blood 02/13/2024 8:55 AM CDT 02/13/2024 9:27 AM CDT Unknown Provider LAB POCT ORDERABLES- MANUAL POC [facility] [address] [place] [address], [place] PCLX [facility] - [place] POC [address] [place] [address] * DX Chest AP or PA and [...] CDT) Ventricular Rate ECG/Min 83 BPM MUSE CA Interval 158 ms MUSE QRSD Interval 82 ms MUSE QT Interval 380 ms MUSE QTC Interval 446 ms MUSE P Hamilton 54 degrees MUSE R [place] 19 degrees MUSE T Wave [place] 65 degrees MUSE 02/07/2024 11:1 9 AM [...] Reviewed by SANGEETHA Putnam Rhonda Anderson Memo Rendon, M.S. ECG ORD ERABLES MUSE NA * [...] 24 hour, Urine (02/05/2024 12:36 PM CDT) [facility] Sodium, 24 HR, U 83 22 - [...] developed and its performance characteristics determined by [facility] in a manner consistent with CLIA requirements. [...] developed and its performance characteristics determined by [facility] in a manner consistent with CLIA requirements. This test has not been cleared or approved by the U.S. Food and Drug Administration. Oxalate, 24 HR, U (mmol/24 HR) 0.53(H) 0.11 - 0.46 mmol/24 h 02/06/2024 2:53 PM CDT [facility] Comment: ----ADDITIONAL INFORMATION---- This test was developed and its performance characteristics determined by [facility] in a manner consistent with CLIA requirements. [...] This test has been modified from the section repairer's instructions. Its performance characteristics were determined by [facility] in a manner consistent with CLIA requirements. [...] Hampton P.A.-C., M.S. LAB URI NE ORDERABLES [facility] [address] [place] [address], [facility] [address] [place] [address] DTL 200 [facility] [address] [place] [address] * Phosphorus Inorganic (02/04/2024 8:09 AM CDT) Phosphorus (Inorganic), P 3.9 2.5 - 4.5 mg/dL 02/04/2024 8:38 AM CDT CNFL Blood (Blood, Venous) 02/04/2024 8:09 AM CDT 02/04/2024 8:11 AM CDT Rhonda Hampton P.A.-C., M.S. LAB BLO OD ADD-ON Performing Organization Address City/[facility] [[email or web address]] Co de Phone Number [facility] [address] [place] [address], [facility] CNFL [facility] in [address] [address] * (ABNORMAL) Hemoglobin A1c (02/04/2024 8:09 AM [...] LAB BLO OD ADD-ON Performing Organization Address City/[facility]/ZIP Co de Phone Number [facility] [address] [place] [address], [facility] CNFL [facility] in [address] [address] * (ABNORMAL) Basic Metabolic Panel (02/04/2024 8:09 [...] APRN C.N.P., M.S. LAB BLO OD ADD-ON [facility] [address] [place] [address], [facility] [place] [address] * (ABNORMAL) Microalbumin, Random, Urine (07/09/2018 10:48 AM CDT) Microalbumin 1550.7 mg/L 07/09/2018 11:39 AM CDT [facility] Comment: ----ADDITIONAL INFORMATION---- This test has been modified from the section repairer's instructions. Its performance characteristics were determined by [facility] in a manner consistent with CLIA requirements. This test has not been cleared or approved by the U.S. Food and Drug Administration. Creatinine 77 mg/dL 07/09/2018 11:26 AM CDT [facility] Albumin/Creatinine Ratio 2013(H) <25 mg/g 07/09/2018 11:39 AM CDT [facility] Urine (Urine, Voided) 07/09/2018 10:48 AM CDT 07/09/2018 11:39 AM CDT Peter Hennessy Jr., D.O. LAB URINE OR DERABLES [facility] [address] [place] [id number] from Last 3 Months or Most Recently Relevant to Health Maintenance Additional Health Concerns Infection Onset Date Last Indicated Protective Environment 02/01/2023 3 Advance Directives For more information, please contact: [phone] * Full Code (Latest Code Status on [...] Answer Comments Full Code: Discussed Care Teams Pulping Machine Operator Relationship Specialty Start Date End Date Elsewhere, Pcp PCP - General Internal Medicine 03/22/22 [facility] 10/25/22
--- OUTSIDE RECORDS SUMMARY | 2024-04-17 14:04 | XMS_ITS | Clinical Summary ---
Author Organization [facility] Address [address] [place] [address] Care Team Providers Care Powder Expert Name Role Phone Elsewhere, Pcp Primary Care Provider Unavailabl e Source Comments Patient records contain information from all sites at [facility]. For routine questions regarding patient records, call [phone] during business hours, M-F 8:00 AM - 5:00 PM Central Time. Record requests for emergency care only can be directed to [phone] at any time.[facility] Allergies Active Allergy Reactions Criticality Noted Date [...] capsule by mouth daily. 12/18/2016 Active vitamins A,C,B-jaiq-frqzmj (PRESERVISION AREDS) 7,160 Units-113 mg-100 Units per [...] (HCC),Immunodefici ency Due To Drugs (HCC),Medication Therapy Bell Spinner Not Anticoagulant Take 3 tablets (540 mg total) by mouth 2 (two) times a day. 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 History of malignancies: no 16. [place] renal imaging if on dialysis >3 years: [...] [facility] in [place], [place] [address] [place] [address] Jacky Bansal APRN C.N.P., M.S.N. Med Refill 03/22/2024 Refill [facility] in [place], [place] [address] [place] [address] Rene King M.D. Med Refill 03/10/2024 11:10 AM CDT Ancillary Procedure Department of Ophthalmology in [place], [place] [address] [place] [address] Monty Zheng M.D. Membrane Macula Epiretinal Left 03/10/2024 10:30 AM CDT Office Visit Department of Ophthalmology in [place], [place] [address] [place] [address] Monty Zheng M.D. 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 Transplant Renal (HCC); High Risk Medication Discharge Disposition: Home or Self Care 02/27/2024 Refill [facility] in [place], [place] [address] [place] [address] Rene King M.D. Med Refill 02/21/2024 1:30 PM CDT Office Visit Department of Ophthalmology in [place], [place] [address] [place] [phone] Monty Zheng M.D. 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 Post PPV Positioning 02/13/2024 7:27 AM CDT Anesthesia Event RST RONT MAIN OR [facility] [place] [phone] Deborah Owens APRN, WASH DRILLER HELPER 02/13/2024 7:20 AM CDT - 02/13/2024 9:01 AM CDT Surgery RST RONT MAIN OR [facility] [place] [phone] Monty Zheng M.D. VITRECTOMY, PARS PLANA 25 GAUGE, MEMBRANE PEEL, FLUID AIR EXCHANGE, Laser LEFT EYE. 02/13/2024 6:07 AM CDT - 02/13/2024 11:59 PM CDT Hospital Encounter RST RONT MAIN OR [facility] [place] [phone] Monty Zheng M.D. Discharge Disposition: Home or Self Care 02/07/2024 2:15 PM CDT Office Visit [facility] in [place], [place] [address] [place] [address] Kevin Fregoso M.D. da Silva de Abreu, Adrian J, M.D., Ph.D. Coronary Stent Status Post (Primary Dx); Atherosclerotic Heart Disease Of [place] Coronary Artery Without Angina Pectoris; Atherosclerosis Aortic (HCC); Regurgitation Mitral; Transplant Renal (HCC) 02/07/2024 11:39 AM CDT - 02/07/2024 11:59 PM CDT Hospital Encounter Department of Radiology, [facility] in [place], [place] [address] [place] [phone] Rhonda Hampton P.A.-Louisa., M.S. Transplant Renal (HCC); Atherosclerotic Heart Disease Of [place] Coronary Artery Without Angina Pectoris Discharge Disposition: Home or Self Care 02/07/2024 10:05 AM CDT - 02/07/2024 11:38 AM CDT Hospital Encounter Department of Cardiovascular Diseases in [place], [place] [address] [place] [phone] Rhonda Hampton P.Beryl.-Louisa., M.S. Transplant Renal (HCC); Atherosclerotic Heart Disease Of [place] Coronary Artery Without Angina Pectoris Discharge Disposition: Home or Self Care 02/07/2024 9:00 AM CDT Comprehensive Visit Preoperative Evaluation Center in [place] [phone] Monty Zheng M.D. Kayla Shin M.D., Ph.D., MSweta., Ph.D. Preoperative Exam (Primary Dx); Membrane Macula Epiretinal Left; 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 Bilateral; Detachment Vitreous Posterior Bilateral; Hyperlipidemia Mixed; Diabetes Mellitus Type 2 (HCC); Hypertensive Chronic Kidney Disease With Stage 5 Chronic Kidney Disease Or End Stage Renal Disease, Chronic Kidney Disease Stage 5 (HCC); Atherosclerotic Heart Disease Of [place] Coronary Artery Without Angina Pectoris; Transplant Renal (HCC); Immunodeficiency Due To Drugs (HCC); Surgery Bariatric Status Post 02/07/2024 Clinical Communication Department of Ophthalmology in [place], [place] [address] [place], [place] [phone] Monty Zheng M.D. Pre-Surgery Question 02/05/2024 9:38 AM CDT - 02/05/2024 11:59 PM CDT Hospital Encounter Department of Laboratory Medicine in [address] [phone] Rhonda Hampton P.A.-C., M.S. Discharge Disposition: Home or Self Care 02/04/2024 7:58 AM CDT - 02/04/2024 11:59 PM CDT Hospital Encounter Department of Laboratory Medicine in [address] [phone] Rhonda Hampton P.A.-C., M.S. Transplant Renal (HCC) Discharge Disposition: Home or Self Care 02/04/2024 7:50 AM CDT - 02/04/2024 7:57 AM CDT Hospital Encounter Department of Laboratory Medicine in [address] [phone] Rhonda Hampton P.A.-C., M.S. Transplant Renal (HCC); Preanesthetic Medical Exam; 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 Bilateral; Detachment Vitreous Posterior Bilateral; Diabetes Mellitus Type 2 (HCC) Discharge Disposition: Home or Self Care 01/30/2024 11:30 AM CDT Clinical Communication Virtual Review in [place], [place] [address] [place] [address] 01/22/2024 [facility] [place], [place] [address] [place] [phone] [employer] from Last 3 Months Immunizations Name Administration [...] Owen Coronary artery disease Father Owen in 1984 Hypertension Father Owen Depression Maternal Grandmother Lola Osteoporosis Maternal Grandmother Lola Arthritis Mother Michelle Coronary artery disease Mother Michelle Hyperlipidemia Mother Michelle Hypertension Mother Michelle Transient ischemic attack Mother Michelle Coronary artery disease Paternal Grandmother Lesia yrs ago after having a stroke Stroke Paternal Grandmother Lesia Relation Name Status Comments Brother Flip Father Milford Maternal Grandmother Lola Mother Michelle Paternal Grandmother Lesia Social History Tobacco Use Types Packs/Day Years Used Date Smoking Tobacco: Former Cigarettes 1 20 1 - 08/06/1983 Smokeless Tobacco: Never Tobacco Cessation:Counseling Given: Not Answered Alcohol Use Standard Drinks/Week Comments No 0 (1 standard drink = 0.6 oz pur e alcohol) [facility] Utilities Answer Date Recorded In the past 12 months has th e [employer], gas, oil, or water [employer] threatened to shut off services in [...] any clubs o r organizations such as anabaptist groups, unions, fraternal or athletic groups, or [...] Date Recorded PHQ-2 Score 0 04/23/2023 [facility] - Occupational [...] your living situation today? I have a [facility] place to live 11/29/2023 Education Answer [...] CDT Appointment Department of Laboratory Medicine in [address] [phone] Rhonda Hampton P.A.-C., M.S. [address] [place] [phone] 05/28/2024 8:30 AM CDT Infusion Department of Infusion Therapy in [address] [phone] Viktoriya Garza APRN, C.N.P. [address] [place] [phone] Health Maintenance Due Date Last Done Comments [...] this topic Medical Devices Implanted Type Area Cook Roast Device Identifier Shelf Expiration Date Model / Serial / Lot Hardware Ankle Implant Right: Ankle Conversions - Default Historical Implant Device Implanted:11/29 (Quantity not on file) Hardware e.g. pins/screws /rods Other/Legacy - See Implant Description Description:Body Location - Spine. lower back. Device Status Text - Hardware. Stent Other- 0 Implanted:10/29 (Quantity not on file) Stent Other Heart Explanted Type Area Cook Roast Device Identifier Shelf Expiration Date Model / Serial / Lot Stnt Uret Cls Tp Dbl 7fx12 - S - [id number] Implanted:Qty : 1 on 10/06/2022 by Praveen Dela Cruz M.D., Ph.D. at [facility] Explanted:Qty : 1 on 10/23/2022 by Chuck Stinson PJoseANicholas. Ureteral Stent [facility] [id number] / / [id number] Procedures Procedure Name Priority Date/Time Associated Diagnosis Comments OPTICAL COHERENCE TOMOGRAPHY - MACULA/RETINA - OU - BOTH EYES Routine 03/10/2024 9:52 AM CDT Membrane Macula Epiretinal Left OPHTHALMOLOGY IMAGE EXAM Routine 03/10/2024 12:00 AM CDT CALCIUM, TOT, S/P Routine 02/27/2024 7:5 1 AM CDT Transplant Renal (HCC) High Risk Medication OXALATE, PLASMA Routine 02/27/2024 7:51 AM CDT Transplant Renal ([facility]) High Risk Medication POTASSIUM, S/P Routine 02/27/2024 7:51 AM CDT Transplant Renal ([facility]) High Risk Medication TACROLIMUS LEVEL, B Routine 02/27/2024 7 :51 AM CDT Transplant Renal ([facility]) High Risk Medication GLUCOSE, FASTING, S/P Routine 02/27/2024 7:51 AM CDT Transplant Renal ([facility]) High Risk Medication CREATININE WITH EGFR, S/P Routine 02/27/2024 7:51 AM CDT Transplant Renal ([facility]) High Risk Medication BKV DNA DETECT/QUANT, P Routine 02/27/2024 7:51 AM CDT Transplant Renal ([facility]) High Risk Medication CBC WITH DIFFERENTIAL, B Routine 02/27/2024 7:50 AM CDT Transplant Renal ([facility]) High Risk Medication GLUCOSE POCT, B Routine 02/13/2024 8:55 AM CDT GLUCOSE POCT, B Routine 02/13/2024 7:22 AM CDT VITRECTOMY - PARS PLANA 25 GAUGE 02/13/2024 7:18 AM CDT Membrane Macula Epiretinal Left DX CHEST AP OR PA AND LATERAL 2 VIEWS RAD - Routine (most inpatients and all outpatients) 02/07/2024 11:56 AM CDT Transplant Renal (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 OPHTH TOMOGRAPHY Performing Organization Address [facility]/ZIP Co de Phone Number OPHTHALMOLOGY IMAGING EXAM [...] RAD IMAGI NG PROCEDURES Performing Organization Address [facility]/ZIP Co de Phone Number IINY NA * (ABNORMAL) BKV DNA Detect/Quant (02/27/2024 7:51 AM CDT) [facility] BKV DNA Detect/Quant, P 102(A) Undetected IU/mL 02/28/2024 4:52 PM CDT [facility] Comment: Result in log IU/mL is 2.01. ----ADDITIONAL INFORMATION---- The quantification range of this assay is 22 to 100,000,000 IU/mL (1.34 log to 8.00 log IU/mL). Testing was performed using the rianna BKV test ([employer] Blood (Blood, Venous) 02/27/2024 7:51 AM CDT 02/27/2024 7:54 PM CDT Rhonda Hampton P.A.-C., M.S. LAB SANGEETHA ROBIOLOGY - BLOOD ORDERABLES Performing Organization Address City/[facility]/ZIP Co de Phone Number [facility] [address] [place] [address] [facility] [address] [place] [address] [place] [address] * (ABNORMAL) Oxalate (02/27/2024 7:51 AM CDT) Oxalate, Plasma 2.8(H) <=2.0 mcmol/L 02/28/2024 2:14 PM CDT [facility] Comment: Sample was received nonacidified and frozen. In nonacidified samples oxalate values may increase spontaneously. ----ADDITIONAL INFORMATION---- This test has been modified from the wholesale manager's instructions. Its performance characteristics were determined by [facility] in a manner consistent with CLIA requirements. This test has not been cleared or approved by the U.S. Food and Drug Administration. Blood (Blood, Venous) 02/27/2024 7:51 AM CDT 02/28/2024 8:13 AM CDT Rhonda Hampton P.A.-C., M.S. LAB BLO OD NON ADD-ON Performing Organization Address [facility] Co de Phone Number [facility] [address] [place] [address], [facility] [address] [place] [address] * Tacrolimus, Trough (02/27/2024 7:51 AM CDT) Pathologist [facility] Tacrolimus, Trough 6.6 5.0-15.0 (Trough) ng/mL 02/28/2024 12:11 PM CDT [facility] Comment: ----ADDITIONAL INFORMATION---- Target steady-state trough concentrations vary depending on the type of transplant, concomitant immunosuppression, clinical/institutional protocols, and time post-transplant. Results should be interpreted in conjunction with this clinical information and any physical signs/symptoms of rejection/toxicity. Testing performed by Liquid Chromatography-Tandem Mass Spectrometry (LC-MS/MS). This test was developed and its performance characteristics determined by [facility] in a manner consistent with CLIA requirements. This test has not been cleared or approved by the U.S. Food and Drug Administration. Blood (Blood, Venous) 02/27/2024 7:51 AM CDT 02/28/2024 7:26 AM CDT Rhonda Hampton P.A.-C., M.S. LAB BLO OD NON ADD-ON [facility] [address] [place] [address] [facility] [address] [place] [address] [place] [address] * Potassium (02/27/2024 7:51 AM CDT) Potassium, P 4.5 3.6 - 5.2 mmol/L 02/27/2024 8:10 AM CDT [facility] Blood (Blood, Venous) 02/27/2024 7:51 AM CDT 02/27/2024 7:52 AM CDT Rhonda Hampton P.A.-C., M.S. LAB BLO OD ADD-ON Performing Organization Address City/[facility]/ZIP Co de Phone Number [facility] [address] [place] [address], [facility] CNFL [facility] in [address] [address] * (ABNORMAL) Glucose, Fasting (02/27/2024 7:51 AM CDT) Glucose, P 148(H) 70 - 100 mg/dL 02/27/2024 8:07 AM CDT CN[facility] Last Intake 12 hr 02/27/2024 7:52 AM CDT [facility] Blood (Blood, Venous) 02/27/2024 7:51 AM CDT 02/27/2024 7:52 AM CDT Rhonda Hampton P.A.-C., M.S. LAB BLO OD NON ADD-ON [address] [address], [address] [address] * Creatinine with Estimated GFR (02/27/2024 7:51 AM CDT) Creatinine 0.67 0.59 - 1.04 mg/dL 02/27/2024 8:10 AM CDT [facility] Estimated GFR (eGFR) >90 >=60 mL/min/BSA 02/27/2024 8:10 AM CDT [facility] Comment: Estimated GFR calculated using the 2020 CKD_EPI creatinine equation. Blood (Blood, Venous) 02/27/2024 7:51 AM CDT 02/27/2024 7:52 AM CDT Rhonda Hampton P.A.-C., M.S. LAB BLO OD ADD-ON [address] [address], [address] [address] * Calcium, Total (02/27/2024 7:51 AM CDT) Calcium, Total, P 9.3 8.8 - 10.2 mg/dL 02/27/2024 8:10 AM CDT [facility] Blood (Blood, Venous) 02/27/2024 7:51 AM CDT 02/27/2024 7:52 AM CDT Rhonda Hampton P.A.-C., M.S. LAB BLO OD ADD-ON [address] [address], [address] [address] * CBC with Differential, Blood (02/27/2024 7:50 [...] LAB BLO OD ADD-ON Performing Organization Address City/State/[facility] Co de Phone Number [facility] [address], [facility] CNFL [facility] in [address] [address] * (ABNORMAL) Glucose, POCT (02/13/2024 8:55 AM CDT) Only the most recent of2 resultswithin the time period is included. Glucose, POCT, B 144(H) 70 - 140 mg/dL 02/13/2024 9:26 AM CDT PCLX Site Capillary 02/13/2024 9:26 AM CDT PCLX Blood 02/13/2024 8:55 AM CDT 02/13/2024 9:27 AM CDT Unknown Provider LAB POCT ORDERABLES- MANUAL POC [facility] [address] [place] [address], [facility] PCLX [facility] [place] POC [address] [place] [address] * DX Chest AP or PA and [...] CDT) Ventricular Rate ECG/Min 83 BPM MUSE WA Interval 158 ms MUSE QRSD Interval 82 ms MUSE QT Interval 380 ms MUSE QTC Interval 446 ms MUSE P Ona 54 degrees MUSE R Ona 19 degrees MUSE T Wave Ona 65 degrees MUSE 02/07/2024 11:1 9 AM [...] developed and its performance characteristics determined by [facility] in a manner consistent with CLIA requirements. [...] developed and its performance characteristics determined by [facility] in a manner consistent with CLIA requirements. This test has not been cleared or approved by the U.S. Food and Drug Administration. Oxalate, 24 HR, U (mmol/24 HR) 0.53(H) 0.11 - 0.46 mmol/24 h 02/06/2024 2:53 PM CDT [facility] Comment: ----ADDITIONAL INFORMATION---- This test was developed and its performance characteristics determined by [facility] in a manner consistent with CLIA requirements. [...] This test has been modified from the wholesale manager's instructions. Its performance characteristics were determined by [facility] in a manner consistent with CLIA requirements. [...] Hampton P.A.-C., M.S. LAB URI NE ORDERABLES Performing Organization Address City/[facility]/ZIP Co de Phone Number [facility] [address] [place] [address], [place] [facility] [address] [place] [address] DT 200 [facility] [address] [place] [address] * Phosphorus Inorganic (02/04/2024 8:09 AM CDT) Phosphorus (Inorganic), P 3.9 2.5 - 4.5 mg/dL 02/04/2024 8:38 AM CDT [facility] Blood (Blood, Venous) 02/04/2024 8:09 AM CDT 02/04/2024 8:11 AM CDT Rhonda Hampton P.A.-C., M.S. LAB BLO OD ADD-ON Performing Organization Address City/[facility] Co de Phone Number [address] [address], [facility] [place] [address] * (ABNORMAL) Hemoglobin A1c (02/04/2024 8:09 AM [...] BLO OD ADD-ON Performing Organization Address City/[facility]/ZIP Co de Phone Number [address] [place] [address], [facility] CNFL [facility] in [address] [address] * (ABNORMAL) Basic Metabolic Panel (02/04/2024 8:09 [...] APRN C.N.P., M.S. LAB BLO OD ADD-ON [facility]- [address] [address], [facility] CNFL [facility] in [address] [address] * (ABNORMAL) Microalbumin, Random, Urine (07/09/2018 10:48 AM CDT) Microalbumin 1550.7 mg/L 07/09/2018 11:39 AM CDT [facility] Comment: ----ADDITIONAL INFORMATION---- This test has been modified from the wholesale manager's instructions. Its performance characteristics were determined by [facility] in a manner consistent with CLIA requirements. This test has not been cleared or approved by the U.S. Food and Drug Administration. Creatinine 77 mg/dL 07/09/2018 11:26 AM CDT [facility] Albumin/Creatinine Ratio 2014(H) <25 mg/g 07/09/2018 11:39 AM CDT [facility] Urine (Urine, Voided) 07/09/2018 10:48 AM CDT 07/09/2018 11:39 AM CDT Peter Hennessy Jr., D.O. LAB URINE OR DERABLES [facility] [address] from Last 3 Months or Most Recently Relevant to Health Maintenance Additional Health Concerns Infection Onset Date Last Indicated Protective Environment 02/01/2023 3 Advance Directives For more information, please contact: [phone] * Full Code (Latest Code Status on [...] Answer Comments Full Code: Discussed Care Teams Powder Expert Relationship Specialty Start Date End Date Elsewhere, Pcp PCP - General Internal Medicine 03/22/22 [facility] 10/25/22
--- OUTSIDE RECORDS SUMMARY | 2024-04-17 14:04 | XMS_ITS | Continuity of Care Document ---
Author Organization [facility] Address [address] [place] [address] Phone Care Team Providers Care Mechanical Research Engineer Name Role Phone Alex Mckeon Unavailable [...] Copied on Encounter [facility], [address], [place], [place], [id number], [place] tel:[phone] [facility] No Information 1 Kike Johnson. [facility], [address], [place], [place], [id number], [place]. tel:[phone] Office/Outpa tient Visit,New, [facility] [place], [address], [place], [place], [id number], [place] tel:[phone] [facility] [place] Radiculopath y, cervical regionRadicu lopathy, lumbar region 0 Kike Johnson. [facility], [address], [place], [place], [id number], [place]. tel:[phone] Referring Provider: Alex Stokes, [facility] [address], [place], [address] . tel:[phone] Initial Hospital Care, Low [facility], [address], [place], [place], [id number], [place] tel:[phone] [facility] No Information 0 Naomi Bess. [facility], [address], [place], [address], [place]. tel:[phone] Referring Provider: Sanjay Cordoba, [facility], [place], [address] . tel:[phone] Office/outpa tient visit,est, mod Z [facility], [address], [place], [address], [place] tel:[phone] [facility] No Information 0 6201 1 Transfeldt Ensor. [facility], [address] [place] [address], [address], [place], [id number], [place]. tel:[phone] Referring Provider: Praveen Anderson, [facility] [address], [place], [address]. tel:[phone] Z [facility], [address], [place], [place], [facility], [place] tel:[phone] [facility] No Information 0 6 1 Eckroth Edwin. [address] [place] [address], [place], [id number], [place]. tel:[phone] Z [facility], [address], [place], [address], [place] tel:[phone] [facility] No Information 2 8201 0 Transfeldt Ensor. [facility], [address] [place] [address], [facility] [address], [place], [id number], [place]. tel:[phone] Referring Provider: Praveen Anderson, [address], [place], [address]. tel:[phone] Z [facility], [address] [facility] [address], [place], [facility], [place] tel:[phone] [facility] No Information 6-201 0 Transfeldt Ensor. [facility], [address] [place] [address], [address], [place], [id number], [place]. tel:[phone] Referring Provider: Praveen Anderson, [facility] [address] [facility], [place], [address]. tel:[phone] Office consultation , moderate Z [facility], [address] [place], [place] [address] [address], [place], [address], [place] tel:[phone] [facility] No Information 3-201 0 Transfeldt Ensor. [facility] [place], [address] [place] [address], [facility] [address], [place], [id number], [place]. tel:[phone] Family History Family Member Type Diagnosis Age At Onset Mother Problem (finding) Heart disease Father Problem (finding) Heart disease Payers Payer name Insurance type Covered republican ID Lesa yoon(s) [facility] [id number] Medicare [facility] [id number] 1 Social History Type Description Quantity Date [...]
--- OUTSIDE RECORDS SUMMARY | 2024-04-17 14:05 | XMS_ITS | Encounter Summary ---
Author Organization [facility] Address [address] [place] [address] Care Team Providers Care Pet Caretaker Name Role Phone Elsewhere, Pcp Primary Care Provider Unavailabl e Encounter Details Date Type Department Care Team (Late st Contact Info) Description 02/27/2024 7:44 AM CDT - 02/27/2024 11:59 PM CDT Hospital Encounter Department of Laboratory Medicine in [address] [phone] Rhonda Hampton P.A.-C., M.S. 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 More than 4 times per year 10/30/2022 Do you belong to any clubs o r organizations such as shinto groups, unions, fraternal or athletic groups, or [...] your living situation today? I have a [facility] place to live 11/29/2023 Education [...] 300 tablet 3 06/27/2023 06/26/2024 carvediloL (COREG) 6.25 mg tablet TAKE 1 [...] (HCC),Medication Therapy [facility] Not Anticoagulant Take 1 tablet (5 mg [...] times a day. 180 capsule 3 06/27/2023 vitamins A,C,V-zurb-qstfrh (PRESERVISION AREDS) 7,160 Units-113 mg-100 Units per [...] for 7 days. 10 mL 02/14/2024 03/13/2024 carvediloL (COREG) 12.5 mg tablet Take 1 tablet (12.5 mg total) by mouth 2 (two) times a day with meals. Take along with 6.25 mg tablet for total dose of 18.75 mg twice daily. 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 180 capsule 3 04/05/2023 04/09/2024 documented as of this encounter Plan of Treatment Upcoming Encounters Date Type Department Care Team (Late st Contact Info) Description 05/21/2024 7:50 AM CDT Appointment Department of Laboratory Medicine in [address] [phone] Rhonda Hampton P.A.-C., M.S. 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 LAB BLO OD ADD-ON Performing Organization Address City/State/[facility] Co de Phone Number [place] [address], [facility] [place] [address] * (ABNORMAL) Oxalate (02/27/2024 7:51 AM CDT) Oxalate, Plasma 2.8(H) <=2.0 mcmol/L 02/28/2024 2:14 PM CDT [facility] Comment: Sample was received nonacidified and frozen. In nonacidified samples oxalate values may increase spontaneously. ----ADDITIONAL INFORMATION---- This test has been modified from the electronic warfare operator's instructions. Its performance characteristics were determined by [facility] in a manner consistent with CLIA requirements. This test has not been cleared or approved by the U.S. Food and Drug Administration. Blood (Blood, Venous) 02/27/2024 7:51 AM CDT 02/28/2024 8:13 AM CDT Rhonda Hampton P.A.-C., M.S. LAB BLO OD NON ADD-ON [facility] [address] [place] [address], [facility] MANUELA [facility] [address] [place] [address] * (ABNORMAL) BKV DNA Detect/Quant (02/27/2024 7:51 AM CDT) BKV DNA Detect/Quant, P 102(A) Undetected IU/mL 02/28/2024 4:52 PM CDT [facility] Comment: Result in log IU/mL is 2.01. ----ADDITIONAL INFORMATION---- The quantification range of this assay is 22 to 100,000,000 IU/mL (1.34 log to 8.00 log IU/mL). Testing was performed using the rianna BKV test ([employer] Blood (Blood, Venous) 02/27/2024 7:51 AM CDT 02/27/2024 7:54 PM CDT Rhonda Hampton P.A.-C., M.S. LAB SANGEETHA ROBIOLOGY - BLOOD ORDERABLES Performing Organization Address [facility] Co de Phone Number [facility] [address] [place] [address] [facility] [address] [place] [address] [place] [address] * Potassium (02/27/2024 7:51 AM CDT) Pathologist [facility] Potassium, P 4.5 3.6 - 5.2 mmol/L 02/27/2024 8:10 AM CDT [facility] Blood (Blood, Venous) 02/27/2024 7:51 AM CDT 02/27/2024 7:52 AM CDT Rhonda Hampton P.A.-C., M.S. LAB BLO OD ADD-ON Performing Organization Address City/[facility]/ZIP Co de Phone Number [facility] [address] [place] [address], [facility] in [address] [address] * Tacrolimus, Trough (02/27/2024 7:51 AM CDT) Tacrolimus, Trough 6.6 5.0-15.0 (Trough) ng/mL 02/28/2024 12:11 PM CDT [facility] Comment: ----ADDITIONAL INFORMATION---- Target steady-state trough concentrations vary depending on the type of transplant, concomitant immunosuppression, clinical/institutional protocols, and time post-transplant. Results should be interpreted in conjunction with this clinical information and any physical signs/symptoms of rejection/toxicity. Testing performed by Liquid Chromatography-Tandem Mass Spectrometry (LC-MS/MS). This test was developed and its performance characteristics determined by [facility] in a manner consistent with CLIA requirements. This test has not been cleared or approved by the U.S. Food and Drug Administration. Blood (Blood, Venous) 02/27/2024 7:51 AM CDT 02/28/2024 7:26 AM CDT Rhonda Hampton P.A.-C., M.S. LAB BLO OD NON ADD-ON [facility] [address] [place] [address] [facility] [address] [place] [address] [place] [address] * (ABNORMAL) Glucose, Fasting (02/27/2024 7:51 AM CDT) Glucose, P 148(H) 70 - 100 mg/dL 02/27/2024 8:07 AM CDT [facility] Last Intake 12 hr 02/27/2024 7:52 AM CDT [facility] Blood (Blood, Venous) 02/27/2024 7:51 AM CDT 02/27/2024 7:52 AM CDT Rhonda Hampton P.A.-C., M.S. LAB BLO OD NON ADD-ON [facility] [address] [address], [facility] [address] [address] * Creatinine with Estimated GFR (02/27/2024 7:51 AM CDT) Creatinine 0.67 0.59 - 1.04 mg/dL 02/27/2024 8:10 AM CDT [facility] Estimated GFR (eGFR) >90 >=60 mL/min/BSA 02/27/2024 8:10 AM CDT [facility] Comment: Estimated GFR calculated using the 2020 CKD_EPI creatinine equation. Blood (Blood, Venous) 02/27/2024 7:51 AM CDT 02/27/2024 7:52 AM CDT Rhonda Hampton P.A.-C., M.S. LAB BLO OD ADD-ON [address] [address], [facility] in [address] [address] * CBC with Differential, Blood (02/27/2024 7:50 [...] Hampton P.A.-C., M.S. 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
--- OUTSIDE RECORDS SUMMARY | 2024-04-17 14:05 | XMS_ITS | Encounter Summary ---
Author Organization [facility] Address [address] [place] [address] Care Team Providers Care Orthotics Assistant Name Role Phone Elsewhere, Pcp Primary Care Provider Unavailabl e Reason for Visit * Outpatient (Routine) - Closed Specialty Diagnoses / Procedures Referred By Roman del castillo Referred To Contact Ophthalmology Monty Zheng M.D. [address] [place] [address] [facility] Region Referral ID Status Reason Start Date Expiration Date Visits Re quested Visits Authorized [id number] Closed 12/06/2023 06/06/2025 1 1 Encounter Details Date Type Department Care Team (Latest Contact Info) Description 02/14/2024 1:30 PM CDT Office Visit Department of Ophthalmology in [place], [place] [address] [place] [address] Monty Zheng M.D. 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 More than 4 times per year [...] Answer Date Recorded PHQ-2 Score 0 04/23/2023 [facility] - Occupational Stress Questionnaire Answer Date [...] your living situation today? [facility] 11/29/2023 Education Answer Date [...] Subfoveal Involvement Bilateral Receiving monthly injections at [facility] Membrane Macula Epiretinal Left Very [...] documented in this encounter Plan of Treatment Upcoming Encounters Date Type Department Care Team (Late st Contact Info) Description 05/21/2024 7:50 AM CDT Appointment Department of Laboratory Medicine in [address] [phone] Rhonda Hampton P.A.-C., M.S. [address] [place] [phone] 05/28/2024 8:30 AM CDT Infusion Department of Infusion Therapy in [address] [phone] Viktoriya Garza APRN, C.N.P. [address] [place] [address] documented as of this encounter Visit Diagnoses [...] documented as of this encounter Care Teams Orthotics Assistant Relationship Specialty Start Date End Date Elsewhere, Pcp PCP - General Internal Medicine 03/22/22 [facility] [place] [facility] Medicine 10/25/22 documented as of this encounter
--- OUTSIDE RECORDS SUMMARY | 2024-04-17 14:05 | XMS_ITS ---
Author Organization [facility] Address [address] [place] [address] Care Team Providers Care Market Superintendent Name Role Phone Elsewhere, Pcp Primary Care [...] Drugs 10/07/2022 Atherosclerotic Heart Diseas e Of [place] Coronary Artery Without Angina Pectoris 10/06/2022 Noninfective [...] treatments are documented for this patient in [facility]. Treatments may have been administered in another [...] 6 15. History of malignancies: no 16. [place] renal imaging if on dialysis >3 years: [...]
--- OUTSIDE RECORDS SUMMARY | 2024-04-17 14:05 | XMS_ITS | Encounter Summary ---
Author Organization [facility] Address [address] [place] [address] Care Team Providers Care Crm Technical Lead Name Role Phone Elsewhere, Pcp Primary Care Provider Unavailabl e Encounter Details Date Type Department Care Team (Late st Contact Info) Description 02/13/2024 7:27 AM CDT Anesthesia Event [facility] [address] [place] [phone] Deborah Owens APRN, VP [employer] [address] [place] [phone] Anesthesia Record Procedure Summary Procedure Name Responsible Anesthesiologist Anesthesia Start Time Anesthesia Stop Time VITRECTOMY, PARS PLANA 25 GAUGE, MEMBRANE PEEL, FLUID AIR EXCHANGE, Laser LEFT EYE. (Left: Eye) Deborah Owens APRN VP [employer] 02/13/24 0727 02/13/24 0850 Events Date Time [...] drink = 0.6 oz pur e alcohol) [facility] Utilities Answer Date Recorded In the past 12 months has [facility] [employer], [employer], or water [employer] threatened to shut off services in your [...] often do you attend chur ch or gnosticism services? More than 4 times per year 10/30/2022 Do you belong to any clubs o r organizations such as orthodoxy groups, unions, fraternal or athletic groups, or [...] Answer Date Recorded PHQ-2 Score 0 04/23/2023 [facility] - Occupational [...] your living situation today? I have a [facility] place to live 11/29/2023 Education Answer Date [...] Procedure Summary Date: 02/13/24 Room / Location: [address] [address] / [facility] in [place], [place] Anesthesia Start: 726 Anesthesia Stop: 849 [...] diagnosis: Membrane Macula Epiretinal Left [H35.372]. Location: [place] [address] / [facility] in [place], [place] Providers: Monty Zheng M.D. Pertinent components [...] CONDITIONS CV (+) Atherosclerotic Heart Disease Of [place] Coronary Artery Without Angina Pectoris (+) Hypertension [...] patient / legal guardian, or through an carpenter supervisor; patient evaluated and approved for anesthesia / sedation The use of blood products not discussed Approval to Proceed: approved for anesthesia documented in this encounter Miscellaneous Notes * Addendum Note - Deborah Owens APRN, CRNA - 02/19/2024 3:33 PM CDT Addendum created 02/19/241532 by Deborah Owens APRN, CRNA Clinical Note Signed, Intraprocedure Flowsheets edited documented in this encounter Plan of Treatment Upcoming Encounters Date Type Department Care Team (Late st Contact Info) Description 05/21/2024 7:50 AM CDT Appointment Department of Laboratory Medicine in [address] [phone] Rhonda Hampton P.A.-C., M.S. [address] [place] [phone] 05/28/2024 8:30 AM CDT Infusion Department of Infusion Therapy in [address] [phone] Viktoriya Garza, ELODIA, C.N.P. [address] [place] [address] documented as of this encounter Visit Diagnoses [...] (VERSED) intravenous, As needed, Starting on Deyanira 02/13/24 at 0727, Anesthesia Intra-op Given 02/13/2024 7:34 [...] documented as of this encounter Care Teams Crm Technical Lead Relationship Specialty Start Date End Date Elsewhere, Pcp PCP - General Internal Medicine 03/22/22 [facility] [place] Laboratory Medicine 10/25/22 documented as of this encounter
--- OUTSIDE RECORDS SUMMARY | 2024-04-17 14:05 | XMS_ITS ---
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 12/18/2016 Active vitamins A,C,Y-mdkj-zijlqk (PRESERVISION AREDS) 7,160 Units-113 mg-100 Units per [...] day with meals. 300 tablet 3 06/27/2023 4 Active tacrolimus (Prograf) 0.5 mg capsule Take [...] Drugs (HCC),Medication Therapy Mcc Not Anticoagulant Take 3 tablets (540 mg [...] one tablet twice daily., Reported on 01/30/2024 multivitamin-blasting gang miner jyv-YH-oxtzvs (CENTRUM SILVER) 400-250 mcg per chewable tablet [...] (HCC),Medication Therapy Mcc Not Anticoagulant Take 1 capsule (1 mg [...] (HCC),Immunodefici ency Due To Drugs (HCC),Medication Therapy General Assignment Reporter Not Anticoagulant Take 1 capsule (1 mg [...] Drugs 10/07/2022 Atherosclerotic Heart Diseas e Of [place] Coronary Artery Without Angina Pectoris 10/06/2022 Noninfective [...] often do you attend chur ch or congregation services? More than 4 times per year 10/30/2022 Do you belong to any clubs o r organizations such as moravian groups, unions, fraternal or athletic groups, or [...] Answer Date Recorded PHQ-2 Score 0 04/23/2023 [facility] of Occupat ional [facility] - Occupational Stress Questionnaire Answer Date [...] your living situation today? I have a [facility] place to live 11/29/2023 Education Answer Date [...] Zheng M.D. OPHTH TOMOGRAPHY Performing Organization Address [facility] Co de Phone Number OPHTHALMOLOGY IMAGING EXAM [...] RAD IMAGI NG PROCEDURES Performing Organization Address City/[facility]/ZIP Co de Phone Number IIMS NA * (ABNORMAL) BKV DNA Detect/Quant (02/27/2024 7:51 AM CDT) BKV DNA Detect/Quant, P 102(A) Undetected IU/mL 02/28/2024 4:52 PM CDT [facility] Comment: Result in log IU/mL is 2.01. ----ADDITIONAL INFORMATION---- The quantification range of this assay is 22 to 100,000,000 IU/mL (1.34 log to 8.00 log IU/mL). Testing was performed using the rianna BKV test ([employer] Blood (Blood, Venous) 02/27/2024 7:51 AM CDT 02/27/2024 7:54 PM CDT Rhonda Hampton P.A.-C. MJoseSJose LAB SANGEETHA ROBIOLOGY - BLOOD ORDERABLES Performing Organization Address [facility] Co de Phone Number [facility] [address] [place] [address] [facility] [address] [place] [address] [place] [address] * (ABNORMAL) Oxalate (02/27/2024 7:51 AM CDT) Oxalate, Plasma 2.8(H) <=2.0 mcmol/L 02/28/2024 2:14 PM CDT [facility] Comment: Sample was received nonacidified and frozen. In nonacidified samples oxalate values may increase spontaneously. ----ADDITIONAL INFORMATION---- This test has been modified from the nursing specialist's instructions. Its performance characteristics were determined by [facility] in a manner consistent with CLIA requirements. This test has not been cleared or approved by the U.S. Food and Drug Administration. Blood (Blood, Venous) 02/27/2024 7:51 AM CDT 02/28/2024 8:13 AM CDT Rhonda Hampton P.A.-C. M.SJose LAB BLO OD NON ADD-ON Performing Organization Address [facility] Co de Phone Number [facility] [address] [place] [address], [place] [facility] [address] [place] [address] * Tacrolimus, Trough (02/27/2024 7:51 AM CDT) Tacrolimus, Trough 6.6 5.0-15.0 (Trough) ng/mL 02/28/2024 12:11 PM CDT [facility] Comment: ----ADDITIONAL INFORMATION---- Target steady-state trough concentrations [...] P.A.-C., M.S. LAB BLO OD NON ADD-ON [facility] [address] [place] [address] [facility] [address] [place] [address] [place] [address] * Potassium (02/27/2024 7:51 AM CDT) Potassium, P 4.5 3.6 - 5.2 mmol/L 02/27/2024 8:10 AM CDT [facility] Blood (Blood, Venous) 02/27/2024 7:51 AM CDT 02/27/2024 7:52 AM CDT Rhonda Hampton P.A.-C., M.S. LAB BLO OD ADD-ON [facility] [address] [place] [address], [place] [facility] in [address] [address] * (ABNORMAL) Glucose, Fasting (02/27/2024 7:51 AM CDT) Glucose, P 148(H) 70 - 100 mg/dL 02/27/2024 8:07 AM CDT CNFL Last Intake 12 hr 02/27/2024 7:52 AM CDT CNFL Blood (Blood, Venous) 02/27/2024 7:51 AM CDT 02/27/2024 7:52 AM CDT Rhonda Hampton P.A.-C., M.S. LAB [place] [address], [place] [address] * Creatinine with Estimated GFR (02/27/2024 7:51 AM CDT) Creatinine 0.67 0.59 - 1.04 mg/dL 02/27/2024 8:10 AM CDT CNFL Estimated GFR (eGFR) >90 >=60 mL/min/BSA 02/27/2024 8:10 AM CDT CNFL Comment: Estimated GFR calculated using the 2020 CKD_EPI creatinine equation. Blood (Blood, Venous) 02/27/2024 7:51 AM CDT 02/27/2024 7:52 AM CDT Rhonda Hampton P.A.-C., M.S. [place] [address], [place] [address] * Calcium, Total (02/27/2024 7:51 AM CDT) Calcium, Total, P 9.3 8.8 - 10.2 mg/dL 02/27/2024 8:10 AM CDT CNFL Blood (Blood, Venous) 02/27/2024 7:51 AM CDT 02/27/2024 7:52 AM CDT Rhonda Hampton P.A.-C., M.S. LAB BLO OD ADD-ON [facility] [address] [place] [address], [facility] CNFL [facility] in [address] [address] * CBC with Differential, Blood (02/27/2024 7:50 [...] Hampton P.A.-C. MJoseS. LAB BLO OD ADD-ON [facility] [address] [place] [address], [facility] CNFL [facility] [address] * (ABNORMAL) Glucose, POCT (02/13/2024 8:55 AM CDT) Only the most recent of2 resultswithin the time period is included. [facility] Signature Glucose, POCT, B 144(H) 70 - 140 mg/dL 02/13/2024 9:26 AM CDT PCLX Site Capillary 02/13/2024 9:26 AM CDT PCLX Blood 02/13/2024 8:55 AM CDT 02/13/2024 9:27 AM CDT Unknown Provider LAB POCT ORDERABLES- MANUAL Performing Organization Address City/[facility]/ZIP Co de Phone Number POC [facility] [address] [place] [address], [place] [facility] [employer] [facility] [address] [place] [address] * DX Chest AP or PA and [...] CDT) Ventricular Rate ECG/Min 83 BPM MUSE MA Interval 158 ms MUSE QRSD Interval 82 ms MUSE QT Interval 380 ms MUSE QTC Interval 446 ms MUSE P [employer] 54 degrees MUSE R [employer] 19 degrees MUSE T Wave [employer] 65 degrees MUSE 02/07/2024 11:1 9 AM [...] 24 hour, Urine (02/05/2024 12:36 PM CDT) [facility] Sodium, 24 HR, U 83 22 - [...] This test has been modified from the nursing specialist's instructions. Its performance characteristics were determined by [...] LAB URI NE ORDERABLES Performing Organization Address City/[facility]/ZIP Co de Phone Number [facility] [address] [place] [address], [facility] [address] [place], [place] [id number] [place] [address] 200 [facility] [address] [place] [address] * Phosphorus Inorganic (02/04/2024 8:09 AM CDT) Phosphorus (Inorganic), P 3.9 2.5 - 4.5 mg/dL 02/04/2024 8:38 AM CDT [facility] Blood (Blood, Venous) 02/04/2024 8:09 AM CDT 02/04/2024 8:11 AM CDT Rhonda Hampton P.A.-C., M.S. LAB BLO OD ADD-ON [facility] [address] [place] [address], [facility] in [address] [address] * (ABNORMAL) Hemoglobin A1c (02/04/2024 8:09 AM [...] APRN, C.N.P., M.S. LAB BLO OD ADD-ON [facility] [address] [place] [address], [facility] CNFL [place] [address] * (ABNORMAL) Basic Metabolic Panel (02/04/2024 8:09 [...] Arreguin APRNN.P., M.S. LAB BLO OD ADD-ON Performing Organization Address City/[facility]/ZIP Co de Phone Number [facility] [address] [place] [address], [facility] CNFL [place] [address] * (ABNORMAL) Microalbumin, Random, Urine (07/09/2018 10:48 AM CDT) Microalbumin 1550.7 mg/L 07/09/2018 11:39 AM CDT [facility] Comment: ----ADDITIONAL INFORMATION---- This test has been modified from the nursing specialist's instructions. Its performance characteristics were determined by [facility] in a manner consistent with CLIA requirements. This test has not been cleared or approved by the U.S. Food and Drug Administration. Creatinine 77 mg/dL 07/09/2018 11:26 AM CDT [facility] Albumin/Creatinine Ratio 2014(H) <25 mg/g 07/09/2018 11:39 AM CDT [facility] Urine (Urine, Voided) 07/09/2018 10:48 AM CDT 07/09/2018 11:39 AM CDT James Gates Jr.OJose LAB URINE OR DERABLES [facility] [address] [place] [address], [facility] from Last 3 Months or Most Recently Relevant to Health Maintenance
--- OUTSIDE RECORDS SUMMARY | 2024-04-17 14:05 | XMS_ITS | Encounter Summary ---
Author Organization [facility] Address [address] [place] [address] Care Team Providers Care Land Development Manager Name Role Phone Elsewhere, Pcp Primary Care Provider Unavailabl e Reason for Visit * Reason Comments Med Refill Encounter Details Date Type Department Care Team (Late st Contact Info) Description 03/22[facility]2024 [facility] [place], [place] [address] [place] [address] Rene King M.D. [address] [place] [phone] Med Refill Social History Tobacco Use Types Packs/Day Years Used Date Smoking Tobacco: Former Cigarettes 1 20 1 - 08/06/1983 Smokeless Tobacco: Never Alcohol Use Standard Drinks/Week Comments No 0 (1 standard drink = 0.6 oz pur e alcohol) [facility] Utilities Answer Date Recorded In the [...] How often do you attend chur or jainism services? More than 4 times per year 10/30/2022 Do you belong to any clubs o r organizations such as lutheran groups, unions, fraternal or athletic groups, or [...] PHQ-2 Score 0 04/23/2023 [facility] [place] [facility] of Occupat ional Health - [...] your living situation today? I have a [facility] place to live 11/29/2023 Education Answer [...] CDT Appointment Department of Laboratory Medicine in [address] [phone] Rhonda Hampton P.A.-C., M.S. [address] [place] [address] 05/28/2024 8:30 AM CDT Infusion Department of Infusion Therapy in [address] [phone] Viktoriya Garza, ELODIA, C.N.P. [address] [place] [address] documented as of this encounter Visit Diagnoses Diagnosis Hypokalemia Aftercare Transplant Renal (HCC) Abnormal Laboratory Results documented in this encounter Additional Health Concerns Infection Onset Date Last Indicated Resolved Time Protective Environment 02/01/2023 02/01/2023 Assessment Noted Time PHQ-9 Depression Total Score: 2 04/23/20 23 11:30 AM CDT documented as of this encounter Care Teams Land Development Manager Relationship Specialty Start Date End Date Elsewhere, Pcp PCP - General Internal Medicine 03/22/22 [facility] 10/25/22 documented as of this encounter
--- OUTSIDE RECORDS SUMMARY | 2024-04-17 14:05 | XMS_ITS | Encounter Summary ---
Author Organization [facility] Address [address] [place] [address] Care Team Providers Care Director Digital Sales Name Role Phone Elsewhere, Pcp Primary Care Provider Unavailabl e Reason for Visit * Reason Comments Med Refill Encounter Details Date Type Department Care Team (Late st Contact Info) Description 02/27/2024 [facility] [place], [place] [address] [place] [address] Rene King M.D. [address] [place] [phone] Med Refill Social History Tobacco Use Types Packs/Day Years Used Date Smoking Tobacco: Former Cigarettes 1 20 1 - 08/06/1983 Smokeless Tobacco: Never Alcohol Use Standard Drinks/Week Comments No 0 (1 standard drink = 0.6 oz pur e alcohol) [facility] Utilities Answer Date Recorded In the past 12 months has [employer], gas, oil, or water company threatened [...] How often do you attend chur or alevism services? More than 4 times per year 10/30/2022 Do you belong to any clubs o r organizations such as jewish groups, unions, fraternal or athletic groups, or [...] Answer Date Recorded PHQ-2 Score 0 04/23/2023 [facility] of Occupat ional Health - [...] your living situation today? I have a [facility] place to live 11/29/2023 Education Answer [...] CDT Appointment Department of Laboratory Medicine in [address] [phone] Rhonda Hampton P.A.-C., M.S. [address] [place] [phone] 05/28/2024 8:30 AM CDT Infusion Department of Infusion Therapy in [address] [phone] Viktoriya Garza APRN CJoseN.P. [address] [place] [phone] documented as of this encounter Visit Diagnoses Diagnosis Hypokalemia Aftercare Transplant Renal (HCC) Abnormal Laboratory Results documented in this encounter Additional Health Concerns Infection Onset Date Last Indicated Resolved Time Protective Environment 02/01/2023 02/01/2023 Assessment Noted Time PHQ-9 Depression Total Score: 2 04/23/20 23 11:30 AM CDT documented as of this encounter Care Teams Director Digital Sales Relationship Specialty Start Date End Date Elsewhere, Pcp PCP - General Internal Medicine 03/22/22 [facility] 10/25/22 documented as of this encounter
--- OUTSIDE RECORDS SUMMARY | 2024-04-17 14:05 | XMS_ITS | Encounter Summary ---
Author Organization [facility] Address [address] [place] [address] Care Team Providers Care Aircraft Fuselage Framer Name Role Phone Elsewhere, Pcp Primary Care Provider Unavailabl e Reason for Visit * Reason Comments Med Refill Encounter Details Date Type Department Care Team (Late st Contact Info) Description 04/09/2024 Refill Benito yip [facility] in [place], [place] [address] [place] [phone] Jacky Bansal, ELODIA, C.N.P., M.S.N. [address] [place] [phone] Med Refill Social History Tobacco Use Types Packs/Day Years Used Date Smoking Tobacco: Former Cigarettes 1 20 1 - 08/06/1983 Smokeless Tobacco: Never Alcohol Use Standard Drinks/Week Comments No 0 (1 standard drink = 0.6 oz pur e alcohol) [facility] Utilities Answer Date Recorded In the past [...] How often do you attend chur or lutheran services? More than 4 times per year [...] Answer Date Recorded PHQ-2 Score 0 04/23/2023 [facility] [place] of Occupat ional Health - Occupational Stress [...] your living situation today? I have a [facility] place to live 11/29/2023 Education Answer [...] CDT Appointment Department of Laboratory Medicine in [address] [phone] Rhonda Hampton P.A.-C., M.S. [address] [place] [address] 05/28/2024 8:30 AM CDT Infusion Department of Infusion Therapy in [address] [phone] Viktoriya Garza APRN, C.N.P. 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
--- OUTSIDE RECORDS SUMMARY | 2024-04-17 14:05 | XMS_ITS | Encounter Summary ---
Author Organization [facility] Address [address] [place] [address] Care Team Providers Care Bible Reader Name Role Phone Elsewhere, Pcp Primary Care Provider Unavailabl e Encounter Details Date Type Department Care Team (Latest Contact Info) Description 03/10/2024 11:10 AM CDT Ancillary Procedure Department of Ophthalmology in [place], [place] [address] [place] [address] Monty Zheng M.D. [address] [place] [address] Membrane Macula Epiretinal Left Social History Tobacco Use Types Packs/Day Years Used Date Smoking Tobacco: Former Cigarettes 1 20 1 - 08/06/1983 Smokeless Tobacco: Never Alcohol Use Standard Drinks/Week Comments No 0 (1 standard drink = 0.6 oz pur e alcohol) [facility] Utilities Answer Date Recorded In [...] often do you attend chur ch or holiness services? More than 4 times per year 10/30/2022 Do you belong to any clubs o r organizations such as yazidi groups, unions, fraternal or athletic groups, or [...] Recorded PHQ-2 Score 0 04/23/2023 [facility] [place] of Occupat ional Health - Occupational Stress [...] your living situation today? I have a [facility] place to live 11/29/2023 Education [...] CDT Appointment Department of Laboratory Medicine in [address] [phone] Rhonda Hampton P.A.-C., M.S. [address] [place] [address] 05/28/2024 8:30 AM CDT Infusion Department of Infusion Therapy in [address] [phone] Viktoriya Garza, ELODIA, C.N.P. [address] [place] [phone] documented as of this encounter Procedures Procedure [...] documented as of this encounter Care Teams Bible Reader Relationship Specialty Start Date End Date Elsewhere, Pcp PCP - General Internal Medicine 03/22/22 [facility] [place] 10/25/22 documented as of this encounter
--- OUTSIDE RECORDS SUMMARY | 2024-04-17 14:05 | XMS_ITS | Encounter Summary ---
Author Organization [facility] Address [address] [place] [address] Care Team Providers Care Rotary Cutter Name Role Phone Elsewhere, Pcp Primary Care Provider Unavailabl e Reason for Visit * Reason Comments Post-op Follow-up * Outpatient (Routine) - Closed Specialty Diagnoses / Procedures Referred By Roman del castillo Referred To Contact Ophthalmology Monty Zheng M.D. [address] [place] [address] [facility] Referral ID Status Reason Start Date Expiration Date Visits Re quested Visits Authorized [id number] Closed 12/06/2023 06/06/2025 1 1 Encounter Details Date Type Department Care Team (Latest Contact Info) Description 03/10/2024 10:30 AM CDT Office Visit Department of Ophthalmology in [place], [place] [address] [place] [phone] Monty Zheng M.D. [address] [place] [phone] Exudative Age-Related Macular Degeneration With [...] often do you attend chur ch or latter-day services? More than 4 times per year 10/30/2022 Do you belong to any clubs o r organizations such as sabianist groups, unions, fraternal or athletic groups, or [...] Answer Date Recorded PHQ-2 Score 0 04/23/2023 [facility] Questionnaire Answer Date Recorded [...] your living situation today? I have a [facility] place to live 11/29/2023 Education Answer [...] M.D. 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 [address] [place] [phone] 05/28/2024 8:30 AM CDT Infusion Department of Infusion Therapy in [address] [phone] Viktoriya Garza APRN, C.N.P. 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
--- OUTSIDE RECORDS SUMMARY | 2024-04-17 14:05 | XMS_ITS | Encounter Summary ---
Author Organization [facility] Address [address] [place] [address] Care Team Providers Care Video Games Storywriter Name Role Phone Elsewhere, Pcp Primary Care Provider Unavailabl e Encounter Details Date Type Department Care Team (Late st Contact Info) Description 02/13/2024 7:20 AM CDT - 02/13/2024 9:01 AM CDT Surgery [facility] OR [address] [place] [phone] Monty Zheng M.D. [address] [place] [phone] VITRECTOMY, PARS PLANA 25 GAUGE, MEMBRANE PEEL, FLUID AIR EXCHANGE, Laser LEFT EYE. Social History Tobacco Use Types Packs/Day Years Used Date Smoking Tobacco: Former Cigarettes 1 20 1 - 08/06/1983 Smokeless Tobacco: Never Alcohol Use Standard Drinks/Week Comments No 0 (1 standard drink = 0.6 oz pur e alcohol) [facility] Utilities Answer Date Recorded In the past 12 months has [facility] [employer], gas, oil, or water [employer] threatened to shut off services in your [...] any clubs o r organizations such as gnosticism groups, unions, fraternal or athletic groups, or [...] Answer Date Recorded PHQ-2 Score 0 04/23/2023 [facility] of Occupat ional Health - Occupational Stress [...] your living situation today? I have a [facility] place to live 11/29/2023 Education Answer [...] type of surgery. In general, we recommend wuuc-rru-lkrakjo pain medications such as Extra Strength Tylenol. [...] evaluation. Any questions or concerns please call [phone] (Business hours) [phone] (Evenings and weekends, ask for the Finance Business Partner travel money advisor) documented in this encounter Medications at Time of Discharge Medication Sig Dispensed Refills Start Date End Date amLODIPine (NORVASC) 5 mg tablet Take 1 tablet (5 mg total) by mouth 2 (two) times a day. 30 tablet 1 10/19/2022 carvediloL (COREG) 6.25 mg tablet TAKE 1 TAB BY MOUTH 2 TIMES A DAY WITH MEALS.TAKE WITH 12.5MG TAB FOR TOTAL OF 18.75MG TWICE DAILY. 180 tablet 3 12/20/2023 esomeprazole (NexIUM) [address] capsule Take 1 capsule (20 mg total) by mouth every morning before breakfast. 90 capsule 3 12/12/2022 mycophenolate (MYFORTIC) 180 mg EC tabletIndications:Addison splant Renal (HCC),Immunodeficiency Due To Drugs (HCC),Medication Therapy Residential Not Anticoagulant Take 3 tablets (540 mg total) by mouth 2 (two) times a day. 540 tablet 3 10/31/2023 predniSONE (DELTASONE) 5 mg tabletIndications:Addison splant Renal (HCC),Immunodeficiency Due To Drugs (HCC),Medication Therapy Residential Not Anticoagulant Take 1 tablet (5 mg total) by mouth daily. 90 tablet 3 11/12/2023 tacrolimus (Prograf) 0.5 mg capsule Take 1 capsule (0.5 mg total) by mouth 2 (two) times a day. 180 capsule 3 06/27/2023 Accu-Chek Guide test strips 1 test by other route 2 (two) times a day. 01/30/2024 aspirin 81 mg chewable tablet Chew 1 [...] with meals. 300 tablet 3 06/27/2023 06/26/2024 cholecalciferol (VITAMIN D3) 50 mcg (2,000 Unit) [...] Take 1 capsule by mouth daily. 12/18/2016 magnesium oxide (MAG-OX) 400 mg (241.3 mg [...] chewable tablet Chew 1 tablet daily. 11/14/2023 potassium chloride (K-TAB) 20 mEq CR tablet Take 1 tablet (20 mEq total) by mouth daily. 90 tablet 3 12/23/2023 rosuvastatin (CRESTOR) 40 mg tablet Take 1 tablet by mouth at bedtime. 09/02/2019 semaglutide (OZEMPIC) 1 mg/dose (4 mg/3 mL) injection Inject 1 mg under the skin every 7 (seven) days. 3 mL 11 11/14/2023 vitamins A,C,A-nhcb-uvoqis (PRESERVISION AREDS) 7,160 Units-113 mg-100 Units per tablet Take 1 tablet by mouth 2 (two) times a day. For eye health 12/19/2016 tacrolimus (PROGRAF) 1 mg capsuleIndications:Tra nsplant Renal (HCC),Immunodeficiency Due To Drugs (HCC),Medication Therapy Residential Not Anticoagulant Take 1 capsule (1 mg total) by mouth every morning AND 1 capsule (1 mg total) every evening. 180 capsule 3 04/05/2023 04/09/2024 polymyxin B-trimethoprim (POLYTRIM) 10,000 unit- 1 mg/mL [...] twice daily. 90 tablet 3 10/09/2023 04/09/2024 documented as of this encounter Nursing Notes [...] Left Post-op Diagnosis Membrane Macula Epiretinal Left Food And Beverage Manager A first breaker feeder actively participated and was necessary for one [...] Findings As expected. Complications None Juan M Zheng M.D. documented in this encounter Plan of Treatment Upcoming Encounters Date Type Department Care Team (Late st Contact Info) Description 05/21/2024 7:50 AM CDT Appointment Department of Laboratory Medicine in [address] [phone] Rhonda Hampton P.A.-C., M.S. [address] [place] [phone] 05/28/2024 8:30 AM CDT Infusion Department of Infusion Therapy in [address] [phone] Viktoriya Garza APRN, C.N.P. [address] [place] [phone] documented as of this encounter Procedures Procedure [...] LAB POCT ORDERABLES- MANUAL Performing Organization Address City/[facility]/ZIP Co de Phone Number POC [facility] 200 [place] [address], [facility] POC 200 [place] [address] * (ABNORMAL) Glucose, POCT (02/13/2024 7:22 AM CDT) Glucose, POCT, B 149(H) 70 - 140 mg/dL 02/13/2024 7:29 AM CDT PCLX Site Venstick 02/13/2024 7:29 AM CDT PCLX Blood 02/13/2024 7:22 AM CDT 02/13/2024 7:29 AM CDT Unknown Provider LAB POCT ORDERABLES- MANUAL Performing Organization Address [facility] Co de Phone Number POC [facility] 200 [place] [address], [facility] POC 200 [place] [address] documented in this encounter Visit Diagnoses Diagnosis Membrane Macula Epiretinal Left- Primary Membrane Macula Epiretinal Left documented in this encounter Admitting Diagnoses Diagnosis Membrane Macula Epiretinal Left documented in this encounter Administered Medications Inactive Administered Medications - up to 3 most recent administrations Medication Order MAR Action Action Date Dose Rate Site balanced salt solution ophthalmic irrigation (BSS) As needed, Starting on Sat02/13/24 at 0740, Intra-Op Given 02/13/2024 7:40 AM CDT 30 mL Left Eye balanced salt solution plus ophthalmic irrigation (BSS PLUS) As needed, Starting on Sat02/13/24 at 0741, Intra-Op Given 02/13/2024 7:41 AM CDT 250 mL Left Eye BUPivacaine PF 0.75 % (7.5 mg/mL) injection (MARCAINE) As needed, Starting on Sat02/13/24 at 0752, Intra-Op Given 02/13/2024 8:38 AM [...] intraocular solution (OCUCOAT) As needed, Starting on Sat02/13/24 at 0740, Intra-Op Given 02/13/2024 7:40 AM CDT 1 mL Left Eye indocyanine green injection (IC-GREEN) As needed, Starting on Sat02/13/24 at 0754, Intra-Op Given 02/13/2024 7:54 AM CDT 0.24 mg ygxngimob-XOPaxraqqhn-kxgtltkjb dase human recombinant (Ophthalmic Block Solution #4) 9.3 mg-3.5 mg-11.2 Units/mL 20.1 mL 20.1 mL, ophthalmic, Once in surgery, OR use only, Starting on Sat02/13/24 at 0750, For 1 dose, Intra-Op Given 02/13/2024 7:40 AM CDT 5 mL Lef t Eye neomycin-polymyxin B-dexameth ophthalmic ointment (MAXITROL) As needed, Starting on Sat02/13/24 at 0754, Intra-Op Given 02/13/2024 8:40 AM CDT 1 Application Left Eye phenylephrine 2.5 % ophthalmic solution 1 drop (MYDFRIN) 1 drop, left eye, Every 5 min, First dose on Sat02/13/24 at 0700, For 3 doses, Pre-Op, In [...] 12 hours scheduled, First dose on Deyanira 24 at 0900, Pre-Op, Peripheral Intravenous Catheter and Rapid Infusion Catheter, when no infusion to maintain patency 0900 (Due)2100 (Due) tropicamide 1 % ophthalmic solution 1 drop (MYDRIACYL) (COMPLETED) 1 drop, left eye, Every 5 min, First dose on Deyanira 24 at 0700, For 3 doses, Pre-Op, In operative eye. 0701 (Given - Provid er: Yojana Hodgson R.N.)0709 (Given - Provider: Yojana Hodgson RJoseN.)0717 (Given - Provider: Yojana Hodgson R.N.) Continuous Medication Order 02/11/2024 02/12/2024 02/13/2024 Lactated Ringer's 20 mL/hr, intravenous, Continuous, Starting on Deyanira 24 at 0815, PACU & Post-Op 0815 (Due) PRN Medication Order 02/11/2024 02/12/2024 02/13/2024 balanced salt solution ophthalmic irrigation (BSS) (CANCELED) As needed, Starting on Deyanira 1824 at 0740, Intra-Op 0740 (Given - Provid er: Hayes Rob M.D. - Comment: Used throughout procedure) balanced salt solution plus ophthalmic irrigation (BSS PLUS) (CANCELED) As needed, Starting on Deyanira 4/18/24 at 0741, Intra-Op 0741 (Given - Provid [...] (Given - Provid er: Hayes Rob M.D.) gavjtxsnl-ELShotjlwgs-pufhlrgsuyzx e human recombinant (Ophthalmic Block Solution #4) [...] documented as of this encounter Care Teams Video Games Storywriter Relationship Specialty Start Date End Date Elsewhere, Pcp PCP - General Internal Medicine 03/22/22 [facility] [place] Laboratory Medicine 10/25/22 documented as of this encounter
--- OUTSIDE RECORDS SUMMARY | 2024-04-17 14:05 | XMS_ITS | Encounter Summary ---
Author Organization [facility] Address [address] [place] [address] Care Team Providers Care Construction Technician Name Role Phone Elsewhere, Pcp Primary Care Provider Unavailabl e Reason for Visit * Reason Onset Date Comments Post PPV Positioning 02/14/2024 Encounter Details Date Type Department Care Team (Latest Contact Info) Description 02/14/2024 Clinical Communication Department of Ophthalmology in [place], [place] [address] [place] [address] Monty Zheng M.D. [address] [place] [phone] Post PPV Positioning Social History Tobacco Use Types Packs/Day Years Used Date Smoking Tobacco: Former Cigarettes 1 20 1 - 08/06/1983 Smokeless Tobacco: Never Alcohol Use Standard Drinks/Week Comments No 0 (1 standard drink = 0.6 oz pur e alcohol) [facility] Utilities Answer Date Recorded In the [...] How often do you attend chur or rastafari services? More than 4 times per year [...] your living situation today? I have a [facility] place to live 11/29/2023 Education [...] CDT Appointment Department of Laboratory Medicine in [address] [phone] Rhonda Hampton P.A.-C., M.S. [address] [place] [phone] 05/28/2024 8:30 AM CDT Infusion Department of Infusion Therapy in [address] [phone] Viktoriya Garza, ELODIA, C.N.P. [address] [place] [phone] documented as of this encounter Visit Diagnoses Not on filedocumented in this encounter Additional Health Concerns Infection Onset Date Last Indicated Resolved Time Protective Environment 02/01/2023 02/01/2023 Assessment Noted Time PHQ-9 Depression Total Score: 2 04/23/20 23 11:30 AM CDT documented as of this encounter Care Teams Construction Technician Relationship Specialty Start Date End Date Elsewhere, Pcp PCP - General Internal Medicine 03/22/22 [facility] [place] [facility] 10/25/22 documented as of this encounter
--- OUTSIDE RECORDS SUMMARY | 2024-04-17 14:05 | XMS_ITS | Encounter Summary ---
Author Organization [facility] Address [address] [place] [address] Care Team Providers Care White Washer Piler Name Role Phone Elsewhere, Pcp Primary Care [...] = 0.6 oz pur e alcohol) [facility] Utilities Answer Date Recorded In the past 12 months has e electric, gas, oil, or water [employer] threatened to shut off services in your [...] often do you attend chur ch or temple services? More than 4 times per year [...] Answer Date Recorded PHQ-2 Score 0 04/23/2023 [facility] of Occupat ional Health - Occupational Stress [...] your living situation today? I have a [facility] place to live 11/29/2023 Education [...] CDT Appointment Department of Laboratory Medicine in [address] [phone] Rhonda Hampton P.A.-Louisa., M.S. [address] [place] [phone] 05/28/2024 8:30 AM CDT Infusion Department of Infusion Therapy in [address] [phone] Viktoriya Garza APRN, C.N.P. [address] [place] [phone] documented as of this encounter Procedures Procedure [...] documented as of this encounter Care Teams White Washer Piler Relationship Specialty Start Date End Date Elsewhere, Pcp PCP - General Internal Medicine 03/22/22 [facility] [place] Laboratory Medicine 10/25/22 documented as of this encounter
--- OUTSIDE RECORDS SUMMARY | 2024-04-17 14:05 | XMS_ITS | Encounter Summary ---
Author Organization [facility] Address [address] [place] [address] Care Team Providers Care Web Marketing Strategist Name Role Phone Elsewhere, Pcp Primary Care Provider Unavailabl e Reason for Visit * Outpatient (Routine) - Closed Specialty Diagnoses / Procedures Referred By Roman del castillo Referred To Contact Ophthalmology Monty Zheng M.D. 200 [place] [address] [facility] Region Referral ID Status Reason Start Date Expiration Date Visits Re quested Visits Authorized [id number] Closed 12/06/2023 06/06/2025 1 1 Encounter Details Date Type Department Care Team (Latest Contact Info) Description 02/21/2024 1:30 PM CDT Office Visit Department of Ophthalmology in [place], [place] [address] [place] [phone] Monty Zheng M.D. 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) Social History Tobacco Use Types Packs/Day Years Used Date Smoking Tobacco: Former Cigarettes 1 20 1 - 08/06/1983 Smokeless Tobacco: Never Alcohol Use Standard Drinks/Week Comments No 0 (1 standard drink = 0.6 oz pur e alcohol) [facility] Utilities Answer Date Recorded In [...] Answer Date Recorded PHQ-2 Score 0 04/23/2023 [facility] of Occupat ional [facility] - Occupational Stress Questionnaire Answer [...] Subfoveal Involvement Bilateral Receiving monthly injections at [facility]2 Membrane Macula Epiretinal Left Very [...] Appointment Department of Laboratory Medicine in [address] [phone] Rhonda Hampton P.A.-C., M.S. [address] [place] [phone] 05/28/2024 8:30 AM CDT Infusion Department of Infusion Therapy in [place] [address] [place] [phone] Viktoriya Garza, ELODIA, C.N.P. 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
--- OUTSIDE RECORDS SUMMARY | 2024-04-17 14:06 | XMS_ITS | Encounter Summary ---
Author Organization [facility] Address [address] [place] [address] Care Team Providers Care Battery Stacker Name Role Phone Elsewhere, Pcp Primary Care Provider Unavailabl e Encounter Details Date Type Department Care Team (Latest Contact Info) Description 02/13/2024 6:07 AM CDT - 02/13/2024 11:59 PM CDT Hospital Encounter [facility] OR [address] [place] [phone] Monty Zheng M.D. [address] [place] [phone] Discharge Disposition: Home or Self Care Social History Tobacco Use Types Packs/Day Years Used Date Smoking Tobacco: Former Cigarettes 1 20 1 - 08/06/1983 Smokeless Tobacco: Never Alcohol Use Standard Drinks/Week Comments No 0 (1 standard drink = 0.6 oz pur e alcohol) [facility] Utilities Answer Date Recorded In the [...] How often do you attend chur or anabaptist services? More than 4 times per year 10/30/2022 Do you belong to any clubs o r organizations such as judaism groups, unions, fraternal or athletic groups, or [...] Answer Date Recorded PHQ-2 Score 0 04/23/2023 [facility] [place] of Occupat ional Health - Occupational Stress [...] your living situation today? I have a [facility] place to live 11/29/2023 Education Answer [...] type of surgery. In general, we recommend iuqc-vna-tdafnen pain medications such as Extra Strength Tylenol. [...] evaluation. Any questions or concerns please call [phone] (Business hours) [phone] (Evenings and weekends, ask for the Charge Master Specialist party plan salesperson) documented in this encounter Medications at Time [...] Renal (HCC),Immunodeficiency Due To Drugs (HCC),Medication Therapy Bar Useful Or Busser Not Anticoagulant Take 3 tablets (540 mg total) by mouth 2 (two) times a day. 540 tablet 3 10/31/2023 predniSONE (DELTASONE) 5 mg tabletIndications:Addison splant Renal (HCC),Immunodeficiency Due To Drugs (HCC),Medication Therapy Correction Not Anticoagulant Take 1 tablet (5 mg [...] (seven) days. 3 mL 11 11/14/2023 vitamins A,C,H-gljm-jaiuzv (PRESERVISION AREDS) 7,160 Units-113 mg-100 Units per tablet Take 1 tablet by mouth 2 (two) times a day. For eye health 12/19/2016 tacrolimus (PROGRAF) 1 mg capsuleIndications:Tra nsplant Renal (HCC),Immunodeficiency Due To Drugs (HCC),Medication Therapy Correction Not Anticoagulant Take 1 capsule (1 mg [...] Left Post-op Diagnosis Membrane Macula Epiretinal Left Pottery Striper A assistant county attorney actively participated and was necessary for one [...] Findings As expected. Complications None Juan M Grace Zheng. documented in this encounter Plan of Treatment Upcoming Encounters Date Type Department Care Team (Late st Contact Info) Description 05/21/2024 7:50 AM CDT Appointment Department of Laboratory Medicine in [address] [phone] Rhonda Hampton P.A.-C., M.S. [address] [place] [phone] 05/28/2024 8:30 AM CDT Infusion Department of Infusion Therapy in [address] [phone] Viktoriya Garza APRN, C.N.P. [address] [place] [phone] documented as of this encounter Procedures Procedure [...] LAB POCT ORDERABLES- MANUAL Performing Organization Address [facility] Co de Phone Number POC [facility] 200 [place] [address], [facility]X [facility] POC 200 [place] [address] * (ABNORMAL) Glucose, POCT (02/13/2024 7:22 AM CDT) Glucose, POCT, B 149(H) 70 - 140 mg/dL 02/13/2024 7:29 AM CDT PCLX Site Venstick 02/13/2024 7:29 AM CDT PCLX Blood 02/13/2024 7:22 AM CDT 02/13/2024 7:29 AM CDT Unknown Provider LAB POCT ORDERABLES- MANUAL Performing Organization Address [facility] Co de Phone Number POC [facility] [address] [place] [address], [facility] POC [address] [place] [address] documented in this encounter Visit Diagnoses Diagnosis [...] eye, Every 5 min, First dose on Deyaniar 02/13/24 at 0700, For 3 doses, Pre-Op, In operative eye. 0701 (Given - Provid er: Nazia HathawayN.)0709 (Given - Provider: Yojana Hodgson R.N.)0717 (Given - Provider: Yojana Hodgson R.N.) phenylephrine 2.5 % ophthalmic solution 1 drop (MYDFRIN) (COMPLETED) 1 drop, left eye, Every 5 min, First dose on Deyanira 02/13/24 at 0700, For 3 doses, Pre-Op, In operative eye. 0701 (Given - Provid er: Yojana Hodgson R.N.)0709 (Given - Provider: Emmett Hathaway.N.)0717 (Given - Provider: Emmett Hathaway.N.) sodium chloride 0.9 % injection 3 mL [...] (Given - Provid er: Hayes Rob M.D.) sbybnescj-IKEzzkqinag-irnjekbjocit e human recombinant (Ophthalmic Block Solution #4) [...] documented as of this encounter Care Teams Battery Stacker Relationship Specialty Start Date End Date Elsewhere, Pcp PCP - General Internal Medicine 03/22/22 [facility] [place] Laboratory Medicine 10/25/22 documented as of this encounter
--- OUTSIDE RECORDS SUMMARY | 2024-04-17 14:06 | XMS_ITS | Encounter Summary ---
Author Organization [facility] Address [address] [place] [address] Care Team Providers Care Carver Hand Name Role Phone Elsewhere, Pcp Primary Care Provider Unavailabl e Encounter Details Date Type Department Care Team (Late st Contact Info) Description 01/22/2024 [facility]ation [facility] [place], [place] [address] [place] [address] [employer] Social History Tobacco Use Types Packs/Day Years Used Date Smoking Tobacco: Former Cigarettes 1 20 1 - 08/06/1983 Smokeless Tobacco: Never Alcohol Use Standard Drinks/Week Comments No 0 (1 standard drink = 0.6 oz pur e alcohol) [facility] Utilities Answer Date Recorded In the past 12 months has [facility] [employer], gas, oil, or water [employer] threatened to shut off services in your [...] Answer Date Recorded PHQ-2 Score 0 04/23/2023 [facility] of Occupat ional Health - Occupational [...] your living situation today? I have a [facility] place to live 11/29/2023 Education Answer [...] CDT Appointment Department of Laboratory Medicine in [address] [phone] Rhonda Hampton P.A.-C., M.S. [address] [place] [phone] 05/28/2024 8:30 AM CDT Infusion Department of Infusion Therapy in [address] [phone] Viktoriya Garza, ELODIA, C.N.P. [address] [place] [address] documented as of this encounter Visit Diagnoses Not on filedocumented in this encounter Additional Health Concerns Infection Onset Date Last Indicated Resolved Time Protective Environment 02/01/2023 02/01/2023 Assessment Noted Time PHQ-9 Depression Total Score: 2 04/23/20 23 11:30 AM CDT documented as of this encounter Care Teams Carver Hand Relationship Specialty Start Date End Date Elsewhere, Pcp PCP - General Internal Medicine 03/22/22 [facility] [place] Laboratory Medicine 10/25/22 documented as of this encounter
--- OUTSIDE RECORDS SUMMARY | 2024-04-17 14:06 | XMS_ITS | Encounter Summary ---
Author Organization [facility] Address [address] [place] [address] Care Team Providers Care Solvent Station Attendant Name Role Phone Elsewhere, Pcp Primary Care Provider Unavailabl e Encounter Details Date Type Department Care Team (Late st Contact Info) Description 02/04/2024 7:58 AM CDT - 02/04/2024 11:59 PM CDT Hospital Encounter Department of Laboratory Medicine in [address] [phone] Rhonda Hampton P.A.-C., M.S. [address] [place] [phone] Transplant Renal (HCC) Discharge Disposition: Home or Self Care Social History Tobacco Use Types Packs/Day Years Used Date Smoking Tobacco: Former Cigarettes 1 20 1 - 08/06/1983 Smokeless Tobacco: Never Alcohol Use Standard Drinks/Week Comments No 0 (1 standard drink = 0.6 oz pur e alcohol) [facility] Utilities Answer Date Recorded In the past 12 months has e [employer], gas, oil, or water [employer] threatened to shut off services in your [...] often do you attend chur ch or mu-ism services? More than 4 times per year [...] Answer Date Recorded PHQ-2 Score 0 04/23/2023 [facility] [place] of Occupat ional Health - Occupational Stress [...] living situation today? I have a [facility] place to live 11/29/2023 Education [...] Drugs (HCC),Medication Therapy Usp Not Anticoagulant Take 3 tablets (540 mg [...] a day. 180 capsule 3 06/27/2023 vitamins A,C,Z-ukpf-zyzslf (PRESERVISION AREDS) 7,160 Units-113 mg-100 Units per [...] CDT Appointment Department of Laboratory Medicine in [address] [phone] Rhonda Hampton P.A.-Louisa., M.S. [address] [place] [phone] 05/28/2024 8:30 AM CDT Infusion Department of Infusion Therapy in [address] [phone] Viktoriya Garza APRN, C.N.P. [address] [place] [phone] documented as of this encounter Procedures Procedure [...] developed and its performance characteristics determined by [facility] in a manner consistent with [...] developed and its performance characteristics determined by [facility] in a manner consistent with CLIA requirements. This test has not been cleared or approved by the U.S. Food and Drug Administration. Oxalate, 24 HR, U (mmol/24 HR) 0.53(H) 0.11 - 0.46 mmol/24 h 02/06/2024 2:53 PM CDT DTL Comment: ----ADDITIONAL INFORMATION---- This test was developed and its performance characteristics determined by [facility] in a manner consistent with [...] This test has been modified from the automotive customer experience advisor's instructions. Its performance characteristics were determined by [facility] in a manner consistent with [...] Hampton P.A.-C. MJoseS. LAB URI NE ORDERABLES [facility] [address] [place] [address], [facility] [address] [place] [address] [facility] 200 [facility] [address] [place] [address] documented in this encounter Visit Diagnoses Diagnosis Transplant Renal (HCC) documented in this encounter Additional Health Concerns Infection Onset Date Last Indicated Resolved Time Protective Environment 02/01/2023 02/01/2023 Assessment Noted Time PHQ-9 Depression Total Score: 2 04/23/20 23 11:30 AM CDT documented as of this encounter Care Teams Solvent Station Attendant Relationship Specialty Start Date End Date Elsewhere, Pcp PCP - General Internal Medicine 03/22/22 [facility] [place] [facility] 10/25/22 documented as of this encounter
--- OUTSIDE RECORDS SUMMARY | 2024-04-17 14:06 | XMS_ITS | Encounter Summary ---
Author Organization [facility] Address [address] [place] [address] Care Team Providers Care Front Desk Agent Name Role Phone Elsewhere, Pcp Primary Care Provider Unavailabl e Reason for Visit * Outpatient (Routine) - Closed Specialty Diagnoses / Procedures Referred By Roman del castillo Referred To Contact Anesthesiology Diagnoses Membrane Macula Epiretinal Left Monty Zheng M.D. [address] [place] [phone] [facility] Referral ID Status Reason Start Date Expiration Date Visits Re quested Visits Authorized [id number] Closed 12/06/2023 06/06/2025 1 1 Encounter Details Date Type Department Care Team (Latest Contact Info) Description 02/07/2024 9:00 AM CDT Comprehensive Visit Preoperative Evaluation Center in [place], [place] [address] [place] [phone] Monty Zheng M.D. [address] [place] [phone] Kayla Shin M.D., Ph.D., MJoseD., Ph.D. [address] [place] [phone] Preoperative Exam (Primary Dx); Membrane Macula Epiretinal Left; 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 Bilateral; Detachment Vitreous Posterior Bilateral; Hyperlipidemia Mixed; Diabetes Mellitus Type 2 (HCC); Hypertensive Chronic Kidney Disease With Stage 5 Chronic Kidney Disease Or End Stage Renal Disease, Chronic Kidney Disease Stage 5 (HCC); Atherosclerotic Heart Disease Of [place] Coronary Artery Without Angina Pectoris; Transplant Renal [...] e alcohol) [facility] [employer] Answer Date Recorded In the past 12 months has e [employer], gas, oil, or water [employer] threatened to shut off services in your [...] often do you attend chur ch or advent services? More than 4 times per year 10/30/2022 Do you belong to any clubs o r organizations such as adventist groups, unions, fraternal or athletic groups, or [...] Answer Date Recorded PHQ-2 Score 0 04/23/2023 [facility] [place] of Occupat ional Health - Occupational Stress [...] living situation today? I have a [facility] place to live 11/29/2023 Education Answer Date [...] from 02/07/2024 in Preoperative Evaluation Center in [place], [place] DASI Total Score 29.45 Estimated V02 [...] today. ECHO: Last TTE 04/23/2023 - small qoygo-el-ziwi shunt at atrial level with Valsalva release. [...] and Amlodipine #8 Atherosclerotic Heart Disease Of [place] Coronary Artery Without Angina Pectoris Hx of [...] Get Ready for Your Surgery or Procedure: [facility] [id number] rev 0124. Written and [...] of chemoprophylaxis. Kayla Mckeon M.D., Ph.D Clinical residential monitor Anesthesiology and Perioperative Medicine Pager: [phone] documented in this encounter Plan of Treatment Upcoming Encounters Date Type Department Care Team (Late st Contact Info) Description 05/21/2024 7:50 AM CDT Appointment Department of Laboratory Medicine in [address] [phone] Rhonda Hampton P.A.-C., M.S. [address] [place] [phone] 05/28/2024 8:30 AM CDT Infusion Department of Infusion Therapy in [address] [phone] Viktoriya Garza APRN, C.N.P. 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
--- OUTSIDE RECORDS SUMMARY | 2024-04-17 14:06 | XMS_ITS | Encounter Summary ---
Author Organization [facility] Address [address] [place] [address] Care Team Providers Care Shoe Shiner Name Role Phone Elsewhere, Pcp Primary Care Provider Unavailabl e Encounter Details Date Type Department Care Team (Latest Contact Info) Description 01/15/2024 Clinical Communication Department of Ophthalmology in [place], [place] [address] [place] [address] Monty Zheng M.D. [address] [place] [phone] Social History Tobacco Use Types Packs/Day Years Used Date Smoking Tobacco: Former Cigarettes 1 20 1 - 08/06/1983 Smokeless Tobacco: Never Alcohol Use Standard Drinks/Week Comments No 0 (1 standard drink = 0.6 oz pur e alcohol) [facility] Utilities Answer Date Recorded In the past 12 months has e [employer], gas, oil, or water [employer] threatened to shut off services in your [...] often do you attend chur ch or synagogue services? More than 4 times per year [...] Appointment Department of Laboratory Medicine in [address] [phone] Rhonda Hampton P.A.-C., M.S. [address] [place] [phone] 05/28/2024 8:30 AM CDT Infusion Department of Infusion Therapy in [address] [phone] Viktoriya Garza, ELODIA, C.N.P. [address] [place] [phone] documented as of this encounter Visit Diagnoses Not on filedocumented in this encounter Additional Health Concerns Infection Onset Date Last Indicated Resolved Time Protective Environment 02/01/2023 02/01/2023 Assessment Noted Time PHQ-9 Depression Total Score: 2 04/23/20 23 11:30 AM CDT documented as of this encounter Care Teams Shoe Shiner Relationship Specialty Start Date End Date Elsewhere, Pcp PCP - General Internal Medicine 03/22/22 [facility] [place] [facility] 10/25/22 documented as of this encounter
--- OUTSIDE RECORDS SUMMARY | 2024-04-17 14:06 | XMS_ITS | Encounter Summary ---
Author Organization [facility] Address [address] [place] [address] Care Team Providers Care Director Statistical Programming Name Role Phone Elsewhere, Pcp Primary Care Provider Unavailabl e Encounter Details Date Type Department Care Team (Late st Contact Info) Description 02/05/2024 9:38 AM CDT - 02/05/2024 11:59 PM CDT Hospital Encounter Department of Laboratory Medicine in [address] [phone] Rhonda Hampton P.A.-C., M.S. [address] [place] [phone] Discharge Disposition: Home or Self Care Social History Tobacco Use Types Packs/Day Years Used Date Smoking Tobacco: Former Cigarettes 1 20 1 - 08/06/1983 Smokeless Tobacco: Never Alcohol Use Standard Drinks/Week Comments No 0 (1 standard drink = 0.6 oz pur e alcohol) [facility] Utilities Answer Date Recorded In the past 12 months has e [employer], gas, oil, or water [email or web address] threatened to shut off services in your [...] any clubs o r organizations such as spiritism groups, unions, fraternal or athletic groups, or [...] Answer Date Recorded PHQ-2 Score 0 04/23/2023 [facility] [place] of Occupat ional Health - Occupational Stress [...] your living situation today? I have a [facility] place to live 11/29/2023 Education Answer [...] Renal (HCC),Immunodeficiency Due To Drugs (HCC),Medication Therapy Dairy Hand Not Anticoagulant Take 3 tablets (540 mg total) by mouth 2 (two) times a day. 540 tablet 3 10/31/2023 potassium chloride (K-TAB) 20 mEq CR tablet Take 1 tablet (20 mEq total) by mouth daily. 90 tablet 3 12/23/2023 predniSONE (DELTASONE) 5 mg tabletIndications:Addison splant Renal (HCC),Immunodeficiency Due To Drugs (HCC),Medication Therapy Dairy Hand Not Anticoagulant Take 1 tablet (5 mg [...] a day. 180 capsule 3 06/27/2023 vitamins A,C,I-fnxw-dvixqs (PRESERVISION AREDS) 7,160 Units-113 mg-100 Units per [...] Renal (HCC),Immunodeficiency Due To Drugs (HCC),Medication Therapy Mcfp Not Anticoagulant Take 1 capsule (1 mg total) by mouth every morning AND 1 capsule (1 mg total) every evening. 180 capsule 3 04/05/2023 04/09/2024 documented as of this encounter Plan of Treatment Upcoming Encounters Date Type Department Care Team (Late st Contact Info) Description 05/21/2024 7:50 AM CDT Appointment Department of Laboratory Medicine in [address] [phone] Rhonda Hampton P.A.-Louisa., M.S. [address] [place] [phone] 05/28/2024 8:30 AM CDT Infusion Department of Infusion Therapy in [address] [phone] Viktoriya Garza APRN, C.N.P. [address] [place] [phone] documented as of this encounter Visit Diagnoses Not on filedocumented in this encounter Additional Health Concerns Infection Onset Date Last Indicated Resolved Time Protective Environment 02/01/2023 02/01/2023 Assessment Noted Time PHQ-9 Depression Total Score: 2 04/23/20 23 11:30 AM CDT documented as of this encounter Care Teams Director Statistical Programming Relationship Specialty Start Date End Date Elsewhere, Pcp PCP - General Internal Medicine 03/22/22 [facility] [place] [facility] 10/25/22 documented as of this encounter
--- OUTSIDE RECORDS SUMMARY | 2024-04-17 14:06 | XMS_ITS | Encounter Summary ---
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 [address] [place] [address] [facility] Referral ID Status Reason Start Date Expiration Date Visits Re quested Visits Authorized [id number] Closed 11/14/2023 11/13/2024 1 1 Encounter Details Date Type Department Care Team (Late st Contact Info) Description 02/07/2024 11:39 AM CDT - 02/07/2024 11:59 PM CDT Hospital Encounter Department of Radiology, [facility], in [place], [place] [address] [place] [address] Rhonda Hampton P.A.-C., M.S. [address] [place] [address] Transplant Renal (HCC); Atherosclerotic Heart Disease Of [place] Coronary Artery Without Angina Pectoris Discharge Disposition: Home or Self Care Social History Tobacco Use Types Packs/Day Years Used Date Smoking Tobacco: Former Cigarettes 1 20 1 - 08/06/1983 Smokeless Tobacco: Never Alcohol Use Standard Drinks/Week Comments No 0 (1 standard drink = 0.6 oz pur e alcohol) [facility] Utilities Answer Date Recorded In the past 12 months has [employer], gas, oil, or water [employer] threatened to shut off services in your [...] often do you attend chur ch or scientologist services? More than 4 times per year [...] your living situation today? I have a [facility] place to live 11/29/2023 Education Answer [...] Renal (HCC),Immunodeficiency Due To Drugs (HCC),Medication Therapy Cut Press Operator Not Anticoagulant Take 1 tablet (5 mg [...] a day. 180 capsule 3 06/27/2023 vitamins A,C,Z-molb-llsupa (PRESERVISION AREDS) 7,160 Units-113 mg-100 Units per [...] CDT Appointment Department of Laboratory Medicine in [address] [phone] Rhonda Hampton P.A.-C., M.S. [address] [place] [phone] 05/28/2024 8:30 AM CDT Infusion Department of Infusion Therapy in [address] [phone] Viktoriya Garza, ELODIA, C.N.P. 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
--- OUTSIDE RECORDS SUMMARY | 2024-04-17 14:06 | XMS_ITS | Encounter Summary ---
Author Organization [facility] Address [address] [place] [address] Care Team Providers Care Customs Compliance Analyst Name Role Phone Elsewhere, Pcp Primary Care Provider Unavailabl e Reason for Visit * Reason Onset Date Comments Pre-Surgery Question 02/07/2024 Encounter Details Date Type Department Care Team (Latest Contact Info) Description 02/07/2024 Clinical Communication Department of Ophthalmology in [place], [place] [address] [place] [address] Monty Zheng M.D. [address] [place] [address] Pre-Surgery Question Social History Tobacco Use Types Packs/Day Years Used Date Smoking Tobacco: Former Cigarettes 1 20 1 - 08/06/1983 Smokeless Tobacco: Never Alcohol Use Standard Drinks/Week Comments No 0 (1 standard drink = 0.6 oz pur e alcohol) [facility] Utilities Answer Date Recorded In [...] How often do you attend chur or spiritism services? More than 4 times per year 10/30/2022 Do you belong to any clubs o r organizations such as mormonism groups, unions, fraternal or athletic groups, or [...] your living situation today? I have a [facility] place to live 11/29/2023 Education [...] CDT Appointment Department of Laboratory Medicine in [address] [phone] Rhonda Hampton P.A.-C., M.S. [address] [place] [address] 05/28/2024 8:30 AM CDT Infusion Department of Infusion Therapy in [address] [phone] Viktoriya Garza, ELODIA, C.N.P. [address] [place] [address] documented as of this encounter Visit Diagnoses Not on filedocumented in this encounter Additional Health Concerns Infection Onset Date Last Indicated Resolved Time Protective Environment 02/01/2023 02/01/2023 Assessment Noted Time PHQ-9 Depression Total Score: 2 04/23/20 23 11:30 AM CDT documented as of this encounter Care Teams Customs Compliance Analyst Relationship Specialty Start Date End Date Elsewhere, Pcp PCP - General Internal Medicine 03/22/22 [facility] [place] [facility] 10/25/22 documented as of this encounter
--- OUTSIDE RECORDS SUMMARY | 2024-04-17 14:06 | XMS_ITS | Encounter Summary ---
Author Organization [facility] Address [address] [place] [address] Care Team Providers Care Scientific Associate Name Role Phone Elsewhere, Pcp Primary Care Provider Unavailabl e Encounter Details Date Type Department Care Team (Latest Contact Info) Description 01/30/2024 11:30 AM CDT Clinical Communication Virtual Review in [place], [place] [address] [place] [address] Social History Tobacco Use Types Packs/Day Years Used Date Smoking Tobacco: Former Cigarettes 1 20 1 - 08/06/1983 Smokeless Tobacco: Never Tobacco Cessation:Counseling Given: Not Answered Alcohol Use Standard Drinks/Week Comments No 0 (1 standard drink = 0.6 oz pur e alcohol) [facility] Utilities Answer Date Recorded In the past 12 months has [facility] [employer] gas, oil, or water [employer] threatened to shut off services in your [...] often do you attend chur ch or buddhist services? More than 4 times per year [...] Answer Date Recorded PHQ-2 Score 0 04/23/2023 [facility] of Occupat ional Health - Occupational [...] living situation today? I have a [facility] place to live 11/29/2023 Education [...] CDT Appointment Department of Laboratory Medicine in [address] [phone] Rhonda Hampton P.A.-Louisa., M.S. [address] [place] [phone] 05/28/2024 8:30 AM CDT Infusion Department of Infusion Therapy in [address] [phone] Viktoriya Garza, SALES AGENT [employer] VENDING [employer]ICE, C.N.P. [address] [place] [phone] documented as of this encounter Visit Diagnoses Not on filedocumented in this encounter Additional Health Concerns Infection Onset Date Last Indicated Resolved Time Protective Environment 02/01/2023 02/01/2023 Assessment Noted Time PHQ-9 Depression Total Score: 2 04/23/20 23 11:30 AM CDT documented as of this encounter Care Teams Scientific Associate Relationship Specialty Start Date End Date Elsewhere, Pcp PCP - General Internal Medicine 03/22/22 [facility] [place] [facility] 10/25/22 documented as of this encounter
--- OUTSIDE RECORDS SUMMARY | 2024-04-17 14:06 | XMS_ITS | Encounter Summary ---
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 [address] [place] [address] 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 [address] [place] [address] [facility] Referral ID Status Reason Start Date Expiration Date Visits Re quested Visits Authorized [id number] Closed 11/14/2023 11/13/2024 1 1 Encounter Details Date Type Department Care Team (Latest Contact Info) Description 02/07/2024 10:05 AM CDT - 02/07/2024 11:38 AM CDT Hospital Encounter Department of Cardiovascular Diseases in [place], [place] [address] [place] [address] Rhonda Hampton P.A.-C., M.S. [address] [place] [address] Transplant Renal (HCC); Atherosclerotic Heart Disease Of [place] Coronary Artery Without Angina Pectoris Discharge Disposition: Home or Self Care Social History Tobacco Use Types Packs/Day Years Used Date Smoking Tobacco: Former Cigarettes 1 20 1 - 08/06/1983 Smokeless Tobacco: Never Alcohol Use Standard Drinks/Week Comments No 0 (1 standard drink = 0.6 oz pur e alcohol) [place] ProviderTrustities Answer Date Recorded In the past 12 months has [employer], gas, oil, or water [employer] threatened to shut off services in your [...] any clubs o r organizations such as cheondoism groups, unions, fraternal or athletic groups, or [...] Answer Date Recorded PHQ-2 Score 0 04/23/2023 [facility] of Occupat ional [facility] - Occupational Stress Questionnaire Answer Date [...] your living situation today? I have a [facility] place to live 11/29/2023 Education Answer [...] Renal (HCC),Immunodeficiency Due To Drugs (HCC),Medication Therapy Air Pumper Not Anticoagulant Take 3 tablets (540 mg total) by mouth 2 (two) times a day. 540 tablet 3 10/31/2023 potassium chloride (K-TAB) 20 mEq CR tablet Take 1 tablet (20 mEq total) by mouth daily. 90 tablet 3 12/23/2023 predniSONE (DELTASONE) 5 mg tabletIndications:Addison splant Renal (HCC),Immunodeficiency Due To Drugs (HCC),Medication Therapy Jail Not Anticoagulant Take 1 tablet (5 mg [...] a day. 180 capsule 3 06/27/2023 vitamins A,C,N-hgxb-nogxso (PRESERVISION AREDS) 7,160 Units-113 mg-100 Units per [...] Renal (HCC),Immunodeficiency Due To Drugs (HCC),Medication Therapy Air Pumper Not Anticoagulant Take 1 capsule (1 mg total) by mouth every morning AND 1 capsule (1 mg total) every evening. 180 capsule 3 04/05/2023 04/09/2024 documented as of this encounter Plan of Treatment Upcoming Encounters Date Type Department Care Team (Late st Contact Info) Description 05/21/2024 7:50 AM CDT Appointment Department of Laboratory Medicine in [address] [phone] Rhonda Hampton P.A.-C., M.S. [address] [place] [phone] 05/28/2024 8:30 AM CDT Infusion Department of Infusion Therapy in [place] [address] [place] [address] Viktoriya Garza APRN, C.N.P. 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
--- OUTSIDE RECORDS SUMMARY | 2024-04-17 14:06 | XMS_ITS | Encounter Summary ---
Author Organization [facility] Address [address] [place] [address] Care Team Providers Care Pneumatic Tube Operator Name Role Phone Elsewhere, Pcp Primary Care Provider Unavailabl e Encounter Details Date Type Department Care Team (Late st Contact Info) Description 02/04/2024 7:50 AM CDT - 02/04/2024 7:57 AM CDT Hospital Encounter Department of Laboratory Medicine in [address] [phone] Rhonda Hampton P.A.-C., M.S. [address] [place] [phone] Transplant Renal (HCC); Preanesthetic Medical Exam; Nonexudative [...] drink = 0.6 oz pur e alcohol) [facility] Utilities Answer Date Recorded In the past 12 months has [employer], gas, oil, or water company threatened [...] week 10/30/2022 How often do you attend [facility] or bahai services? More than 4 times [...] Answer Date Recorded PHQ-2 Score 0 04/23/2023 [facility] of Occupat ional Health - Occupational Stress [...] your living situation today? I have a [facility] place to live 11/29/2023 Education Answer [...] Renal (HCC),Immunodeficiency Due To Drugs (HCC),Medication Therapy Senior Technical Recruiter Not Anticoagulant Take 3 tablets (540 mg [...] a day. 180 capsule 3 06/27/2023 vitamins A,C,R-thdq-cqvcws (PRESERVISION AREDS) 7,160 Units-113 mg-100 Units per [...] CDT Appointment Department of Laboratory Medicine in [address] [phone] Rhonda Hampton P.A.-C., M.S. [address] [place] [phone] 05/28/2024 8:30 AM CDT Infusion Department of Infusion Therapy in [address] [phone] Viktoriya Garza APRN, C.N.P. [address] [place] [phone] documented as of this encounter Procedures Procedure [...] CDT 02/04/2024 8:11 AM CDT Jackie Arreguin APRNN.Che., M.S. LAB BLO OD ADD-ON [facility] [address] [place] [address], [facility] CNFL [facility] [place] [address] * (ABNORMAL) Basic Metabolic Panel (02/04/2024 8:09 [...] LAB BLO OD ADD-ON Performing Organization Address [facility] [place] [address], [place] [address] * Phosphorus Inorganic (02/04/2024 8:09 AM CDT) Phosphorus (Inorganic), P 3.9 2.5 - 4.5 mg/dL 02/04/2024 8:38 AM CDT CNFL Blood (Blood, Venous) 02/04/2024 8:09 AM CDT 02/04/2024 8:11 AM CDT Rhonda Hampton P.A.-C., M.S. LAB BLO OD ADD-ON Performing Organization Address [facility] Co de Phone Number [place] [id number], [place] [address] documented in this encounter Visit Diagnoses Diagnosis [...] documented as of this encounter Care Teams Pneumatic Tube Operator Relationship Specialty Start Date End Date Elsewhere, Pcp PCP - General Internal Medicine 03/22/22 [facility] Medicine 10/25/22 documented as of this encounter
--- OUTSIDE RECORDS SUMMARY | 2024-04-17 14:06 | XMS_ITS | Encounter Summary ---
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 [address] [place] [phone] [facility] Referral ID Status Reason Start Date Expiration Date V isits Requested Visits Authorized [id number] Authorized 02/07/2024 02/06/2025 1 1 * Transplant (Routine) - Authorized Specialty Diagnoses / Procedures Referred By Contac t Referred To Contact Transplant Edward Bright M.D., Ph.D. 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 [address] [place] [phone] [facility] Referral ID Status Reason Start Date Expiration Date Visits Re quested Visits Authorized [id number] Closed 11/14/2023 05/15/2025 1 1 Encounter Details Date Type Department Care Team (Latest Contact Info) Description 02/07/2024 2:15 PM CDT Office Visit Benito yip [facility] for Transplantation and Clinical Regeneration in [place], [place] [address] [place] [phone] Kevin Fregoso M.D. [address] [place], [place] [phone] Edward Bright M.D., Ph.D. [address] [place] [phone] Coronary Stent Status Post (Primary Dx); Atherosclerotic Heart Disease Of [place] Coronary Artery Without Angina Pectoris; Atherosclerosis Aortic (HCC); Regurgitation Mitral; Transplant Renal (HCC) Social History Tobacco Use Types Packs/Day Years Used Date Smoking Tobacco: Former Cigarettes 1 20 1 - 08/06/1983 Smokeless Tobacco: Never Alcohol Use Standard Drinks/Week Comments No 0 (1 standard drink = 0.6 oz pur e alcohol) [facility] Utilities Answer Date Recorded In the past 12 months has e [employer], gas, oil, or water [employer] threatened to shut off services in your [...] How often do you attend chur or sabianist services? More than 4 times per year 10/30/2022 Do you belong to any clubs o r organizations such as sabianism groups, unions, fraternal or athletic groups, or [...] Answer Date Recorded PHQ-2 Score 0 04/23/2023 [facility] of Occupat ional Health - Occupational Stress [...] your living situation today? I have a [facility] place to live 11/29/2023 Education Answer [...] in this encounter Consult Notes * Edward Bright M.D., Ph.D. - 02/07/2024 2:15 PM CDT [...] was evaluated before in our clinic for ygvebhvd-mw-otomer mitral regurgitation which was functional etiology on [...] was pushing the grocery cart at the [employer] and felt presyncopal. She does admit that [...] Status Post #2 Atherosclerotic Heart Disease [facility] [place] Coronary Artery Without Angina Pectoris #3 Atherosclerosis Aortic (HCC) #4 Regurgitation Mitral #5 Transplant Renal ([facility]) Anayeli Davidsолег he has been very well [...] CDT Appointment Department of Laboratory Medicine in [address] [phone] Rhonda Hampton P.Beryl.-C., M.S. [address] [place] [phone] 05/28/2024 8:30 AM CDT Infusion Department of Infusion Therapy in [address] [phone] Viktoriya Garza APRN, C.N.P. [address] [place] [phone] Scheduled Orders Name Type Priority Associated Diagnoses Orde r Schedule ECG 12 Lead ECG Routine Transplant Renal (HCC) Atherosclerotic Heart Disease [place] Coronary Artery Without Angina Pectoris Expected: 02/06/2025 (Approximate), Expires: 05/08/2025 Scheduled Referrals Name Type Priority Associated Diagnoses Order Schedule Transplant Heart office visit (clinic) Outpatient Referral Routine Expected: 02/06/2025 (Approximate), Expires: 05/08/2025 documented as of this encounter Visit Diagnoses Diagnosis Coronary Stent Status Post- Primary Atherosclerotic Heart Disease Of [place] Coronary Artery Without Angina Pectoris Atherosclerosis Aortic (HCC) Regurgitation Mitral Transplant Renal (HCC) documented in this encounter Additional Health Concerns Infection Onset Date Last Indicated Resolved Time Protective Environment 02/01/2023 02/01/2023 Assessment Noted Time PHQ-9 Depression Total Score: 2 04/23/20 23 11:30 AM CDT documented as of this encounter Care Teams Air Traffic Instructor Relationship Specialty Start Date End Date Elsewhere, Pcp PCP - General Internal Medicine 03/22/22 [facility] [place] Laboratory Medicine 10/25/22 documented as of this encounter
--- OUTSIDE RECORDS SUMMARY | 2024-04-17 14:07 | XMS_ITS | Clinical Summary ---
Author Organization [facility] Address [address] [place] [address] Care Team Providers Care Ceramist Name Role Phone Sanjay Allan MD Primary Care Provider [phone] Allergies Active Allergy Reactions Criticality Noted Date [...] by mouth every morning 12/15/2019 Active B Esafhvi-E-Ofxcy Acid (RENAL-FLO) 0.8 MG TABS Take 1 [...] Comments Blood Pressure 145/75 10/06/2020 2:50 PM SPECIAL PROCEDURES TECH Pulse 81 10/06/2020 2:50 PM SPECIAL PROCEDURES TECH Temperature 36.9 ??C (98.4 ??F) 10/06/2020 12:[address] Respiratory Rate 16 10/06/2020 2:50 PM SPECIAL PROCEDURES TECH Oxygen Saturation 95% 10/06/2020 2:50 PM SPECIAL PROCEDURES TECH Inhaled Oxygen Concentration - - Weight 58 kg (127 lb 12.8 oz) 10/06/2020 8:44 AM SPECIAL PROCEDURES TECH Height 160 cm (5' 3) 10/06/2020 8:44 AM SPECIAL PROCEDURES TECH Body Mass Index 22.64 10/06/2020 8:44 AM SPECIAL PROCEDURES TECH Plan of Treatment Not on file Care Teams Ceramist Relationship Specialty Start Date End Date Sanjay Allan MD [address] [place] [address] PCP - General 04/26/20
--- OUTSIDE RECORDS SUMMARY | 2024-04-17 14:07 | XMS_ITS ---
Author Organization [facility] Address [address] [place] [address] Care Team Providers Care Maritime Pilot Name Role Phone Elsewhere, Pcp Primary Care Provider Unavailabl e Transplant Episode Kidney Recipient [facility] ([place], [place]) - [facility] Organ Received: Right Kidney Transplanted on 10/06/2022 Marked as Active Follow-up on 10/06/2022 Kidney CoordinatorTXP POST KIDNEY NURSE TEAM 3 [facility] Phone: N/A Fax: N/A Email: N/A [place] Organ Diagnosis Organ Primary Contributory Kidney Diabetes [...] Email TX[facility] POST KIDNEY NURSE TEAM 3 [facility] Kidney Coordinator N/A N/A N/A Lavinia Nash M.D. Transplant Director Hair [phone] [email or web address] Sanjay Allan M.D. Referring Provider Transplant External Managing Extrusion Operator [phone] [email or web address] [email or web address] [email or web address]. Transplant Surgeon [phone] [email or web address] Post-Transplant Pre-Transplant Admitted: 10/06/2022 Referred: 10/08/2016 Transplanted: 10/06/2022 Evaluation began: 7 Discharged: 10/10/2022 Committee: 05/10/2017 Center waitlisted: 7 Dialysis History Dialysis History Start End Type Comments Center 10/12/2022 10/12/2022 In-center Hemodialysis [facility] 08/14/2019 10/06/2022 Hemo [facility] Information Center Phone Fax Address [facility] [phone] [place] [phone] [facility] [phone] [address] [facility] [address]
--- OUTSIDE RECORDS SUMMARY | 2024-04-17 14:07 | XMS_ITS | Referral Summary ---
Author Organization [facility] Address [address] [place] [address] Care Team Providers Care Cut Out Operator Name Role Phone Sanjay Allan MD Primary Care Provider [phone] Allergies Active Allergy Reactions Criticality Noted Date [...] by mouth every morning 12/15/2019 Active B Ysaufww-A-Duhpo Acid (RENAL-FLO) 0.8 MG TABS Take 1 [...] Comments Blood Pressure 145/75 10/06/2020 2:50 PM LIGHT RAIL TRANSIT OPERATOR Pulse 81 10/06/2020 2:50 PM LIGHT RAIL TRANSIT OPERATOR Temperature 36.9 ??C (98.4 ??F) 10/06/2020 12:[address] Respiratory Rate 16 10/06/2020 2:50 PM LIGHT RAIL TRANSIT OPERATOR Oxygen Saturation 95% 10/06/2020 2:50 PM LIGHT RAIL TRANSIT OPERATOR Inhaled Oxygen Concentration - - Weight 58 kg (127 lb 12.8 oz) 10/06/2020 8:44 AM LIGHT RAIL TRANSIT OPERATOR Height 160 cm (5' 3) 10/06/2020 8:44 AM LIGHT RAIL TRANSIT OPERATOR Body Mass Index 22.64 10/06/2020 8:44 AM LIGHT RAIL TRANSIT OPERATOR Plan of Treatment Not on file Care Teams Cut Out Operator Relationship Specialty Start Date End Date Sanjay Allan MD [address] [place] [address] PCP - General 04/26/20
== END 2024-04-17 14:00 | disposition home or self-care (01) ==
LOC: INJ CL 14:00
PROVIDERS: PCP Surgery; Visit Provider Family Medicine
DX: M54.16 Radiculopathy, lumbar region (principal); M51.36 Other intervertebral disc degeneration, lumbar region
CPT/HCPCS: 64483; J1100; Q9966

== ENCOUNTER 2024-07-10 17:26 | Emergency (ER) | payer MEDICARE, BC, SELFPAY ==
[2024-07-10 17:36] VITALS: BP 180/100; PULSE 79; RESP 16; TEMP 36.2; O2SAT 99; BMI 20.4
--- NOTE | 2024-07-10 17:56 | ED.GENADULT ---
HPI - General Adult General Chief complaint: Back Injury/Pain Stated complaint: pain - arms, hands, back Time Seen by Provider: 07/10/24 17:27 History of Present Illness HPI narrative: Patient here with chronic back pain and two herniated discs that have worsened this week. States she can't have surgery for them until her A1C is down. See medical record for additional details as she has been going thru this since October. She was communicating with Dr. Allan at [facility]. Per patient report he didn' t want to increase medication doses and advised her to come to the ER. Takes gabapentin, oxycodone, and flexeril. History of kidney transplant 07/2022. 78-year-old woman presenting to the emergency department with complaint of neck shoulder and arm and hand pain. Does have a history of problems with her neck in the form of herniated discs. Does have a history of surgery for this. Does have a history of lumbar radicular pain as well and apparently has a fusion reilly of some sort. She did receive, on review of record, an injection in March of this year. Records also show impingement problem in the left shoulder. She has pain however radiating down both arms. This has qualities of sharp and aching. Feels pain in his sensation of some weakness as well in the palm of her left hand. Aching pain in the right forearm. Turning her head to the left exacerbates left arm pain. Last week was initiated on gabapentin for this upper extremity symptoms. Taking 100 mg daily. She is not take NSAID other than acetaminophen as history of renal transplant in 2021. She is able to show me from April of this year creatinine of 0.66 and an excellent GFR. Takes low-dose prednisone, I believe I misunderstood as half a mg daily -- records show 5 mg daily. Apparently primary care physician gave permission to increase oxycodone dosing. She has been taking 5 mg once daily but had gone to 2 per day and now just in the last day even tried 4 tabs over the course of the day. She just got permission to go to 2 tab per dose intermittently. Related Data Home Medications ?Medication ?Instructions ?Recorded ?Confirmed amlodipine 5 mg tablet 5 mg PO BID 03/05/23 06/14/24 aspirin 81 mg capsule 81 mg PO QDAY 03/05/23 06/14/24 biotin 10,000 mcg capsule 10 cap PO DAILY 03/05/23 06/14/24 carvedilol 6.25 mg tablet (Coreg) 6.25 mg PO BID 03/05/23 06/14/24 coenzyme Q10 100 mg capsule mg PO DAILY 03/05/23 06/14/24 copper gluconate 2 mg capsule 2 mg PO QDAY 03/05/23 06/14/24 cyanocobalamin (vitamin B-12) 1,000 mcg PO 03/05/23 06/14/24 1,000 mcg tablet duloxetine 60 mg capsule,delayed 60 mg PO QDAY 03/05/23 06/14/24 release esomeprazole magnesium 20 mg 20 mg PO QDAY 03/05/23 06/14/24 capsule,delayed release (Nexium) folic acid 5 mg-vitamin B complex 1 tab PO QDAY 03/05/23 06/14/24 with C no.17 tablet magnesium oxide 400 mg (241.3 mg 400 mg PO QDAY 03/05/23 06/14/24 magnesium) tablet metoprolol succinate 25 mg mg PO 03/05/23 06/14/24 tablet,extended release 24 hr mycophenolate sodium 180 mg 720 mg PO BID 03/05/23 06/14/24 tablet,delayed release (Myfortic) prednisone 5 mg tablet 5 mg PO QDAY 03/05/23 06/14/24 rosuvastatin 40 mg tablet 40 mg PO 03/05/23 06/14/24 tacrolimus 1 mg capsule, 3 mg PO Q12H 03/05/23 06/14/24 immediate-release glipizide 5 mg tablet 5 mg PO DAILY 06/14/24 06/14/24 metformin 500 mg tablet,extended 500 mg PO BID 06/14/24 06/14/24 release 24 hr semaglutide 2 mg/dose (8 mg/3 mL) mg subcut 06/14/24 06/14/24 subcutaneous pen injector (Ozempic) cyclobenzaprine 5 mg tablet 5 mg PO BID PRN muscle spasm 07/10/24 07/10/24 gabapentin 100 mg capsule 100 mg PO 3XD 07/10/24 07/10/24 oxycodone 5 mg tablet 5 mg PO Q6H PRN pain 07/10/24 07/10/24 Allergies Allergy/AdvReac Type Severity Reaction Status Date / Time JOEL Inhibitors Allergy Verified 06/14/24 12:07 amitriptyline Allergy Verified 06/14/24 12:07 amoxicillin Allergy Verified 06/14/24 12:07 bisacodyl [From PEG-Prep] Allergy Verified 06/14/24 12:07 bitolterol Allergy Verified 06/14/24 12:07 clopidogrel Allergy Verified 06/14/24 12:07 Penicillins Allergy Verified 06/14/24 12:07 polyethylene glycol 3350 Allergy Verified 06/14/24 12:07 [From PEG-Prep] potassium chloride Allergy Verified 06/14/24 12:07 [From PEG-Prep] sodium bicarbonate Allergy Verified 06/14/24 12:07 [From PEG-Prep] sodium chloride Allergy Verified 06/14/24 12:07 [From PEG-Prep] [id number]-[id number]-XcH Reductase Allergy Verified 06/14/24 12:07 Inhibitor venlafaxine [From Effexor] Allergy Verified 06/14/24 12:07 Review of Systems Status of ROS: Reports: 6 or more systems reviewed and unremarkable except as noted in History and below PFSH PFS Medical History End stage renal disease on dialysis ?N18.6 - End stage renal disease (ICD-10) ?Z99.2 - Dependence on renal dialysis (ICD-10) History of squamous cell carcinoma of skin ?Z85.828 - Personal history of other malignant neoplasm of skin (ICD-10) Spinal stenosis of lumbar region ?M48.061 - Spinal stenosis, lumbar region without neurogenic claudication (ICD-10) Urolithiasis ?N20.9 - Urinary calculus, unspecified (ICD-10) Tubular adenoma of colon (10/25/09) ?D12.6 - Benign neoplasm of colon, unspecified (ICD-10) Sepsis (02/22/13) ?A41.9 - Sepsis, unspecified organism (ICD-10) Painless hematuria ?R31.9 - Hematuria, unspecified (ICD-10) Osteopenia (10/25/09) ?M85.80 - Other specified disorders of bone density and structure, unspecified site (ICD-10) Hypertension (07/26/09) ?I10 - Essential (primary) hypertension (ICD-10) Hyperlipidemia (07/26/09) ?E78.5 - Hyperlipidemia, unspecified (ICD-10) Gastroesophageal reflux (07/26/09) ?K21.9 - Gastro-esophageal reflux disease without esophagitis (ICD-10) Fibromyalgia (04/20/11) ?M79.7 - Fibromyalgia (ICD-10) Depression (07/26/09) ?F32.A - Depression, unspecified (ICD-10) Bimalleolar fracture ?S82.843A - Displaced bimalleolar fracture of unspecified lower leg, initial encounter for closed fracture (ICD-10) Ehvaq-un-gadlcqw renal failure (02/22/13) ?N17.9 - Acute kidney failure, unspecified (ICD-10) ?N18.9 - Chronic kidney disease, unspecified (ICD-10) Acute pyelonephritis (02/22/13) ?N10 - Acute pyelonephritis (ICD-10) Type 2 diabetes mellitus ?E11.9 - Type 2 diabetes mellitus without complications (ICD-10) CAD (coronary artery disease) ?I25.10 - Atherosclerotic heart disease of [place] coronary artery without angina pectoris (ICD-10) Surgical History History of kidney transplant (~09/2022) ?Z94.0 - Kidney transplant status (ICD-10) History of hysterectomy ?Z90.710 - Acquired absence of both cervix and uterus (ICD-10) History of gastric bypass ?Z98.84 - Bariatric surgery status (ICD-10) History of fusion of cervical spine ?Z98.1 - Arthrodesis status (ICD-10) History of lumbar surgery (04/20/11) ?Z98.890 - Other specified postprocedural states (ICD-10) History of heart artery stent ?Z95.5 - Presence of coronary angioplasty implant and graft (ICD-10) Status post open reduction with internal fixation (ORIF) of fracture of ankle (12/18/21) ?Z98.890 - Other specified postprocedural states (ICD-10) ?Z87.81 - Personal history of (healed) traumatic fracture (ICD-10) Social History Smoking Status: Former smoker Do you use any of these nicotine containing products: None Second hand tobacco smoke exposure: No How often do you have a drink containing alcohol: never AUDIT-C Alcohol total score: 0 Non-prescribed substance use: denies use Exam Narrative: Exam Narrative: Pleasant. Seated semi recumbent in bed. Clearly uncomfortable and intermittently wincing in apparent spasms of pain. Movement of her neck generally exacerbates pain. She is well-perfused peripherally in the upper extremities. Moving right greater than left arm also seems to exacerbate some pain. Quite tense and tender to palpation in the paracervical and trapezial musculature right greater than left. No discrete midline neck tenderness. No back tenderness. I do not see evidence of trauma, swelling or erythema. Const: Vital Signs, click to edit/add: Vital Signs - 24 hr 07/10/24 17:36 Temperature 97.1 F L Pulse Rate [Pulse Oximeter] 79 Respiratory Rate 16 Blood Pressure [Ri ght Upper Arm] 180/100 H Pulse Oximetry 99 Documenting provider has reviewed patient's vital signs: yes Course Vital Signs Vital signs: Initial Vital Signs Temperature 97.1 F L 07/10/24 17:36 Temperature Source Temporal Artery Scan 07/10/24 17:36 Pulse Rate 79 07/10/24 17:36 Pulse Rhythm Regular 07/10/24 17:36 Respiratory Rate 16 07/10/24 17:36 Blood Pressure 180/100 H 07/10/24 17:36 Blood Pressure Mean 126 H 07/10/24 17:36 Blood Pressure Position Sitting 07/10/24 17:36 Pulse Oximetry 99 07/10/24 17:36 Vital Signs Temperature 97.1 F L 07/10/24 17:36 Pulse Rate 79 07/10/24 17:36 Respiratory Rate 16 07/10/24 17:36 Blood Pressure 180/100 H 07/10/24 17:36 Pulse Oximetry 99 07/10/24 17:36 Temperature 97.1 F L 07/10/24 17:36 Pulse Rate 79 07/10/24 17:36 Respiratory Rate 16 07/10/24 17:36 Blood Pressure 180/100 H 07/10/24 17:36 Pulse Oximetry 95 07/10/24 18:50 Oxygen Delivery Method Room Air 07/10/24 18:50 Medications Administered Medications: Discontinued Medications Generic Name Dose Route Start Last Admin Trade Name Freq PRN Reason Stop Dose Admin Hydromorphone HCl 1 mg 07/10/24 18:11 07/10/24 18:29 Hydromorphone 0.5 Mg/0.5 Ml Inj IM 07/10/24 18:12 1 mg ONCE ONE Administration Medical Decision Making MDM Narrative Medical decision making narrative: Appears to be experiencing a flare of chronic pain. No trauma. I think we need to break her pain. Is quite tense across the trapezius. Soft collar might be beneficial as well to help neck and shoulders relaxe. Increasing prednisone of course will not help A1c dosing. At 5 mg daily as standard dose I am hopeful that will not really need to do a taper can just do this singular pulse Placing soft collar and singular dosing of Dilaudid. Does have room to go up with her gabapentin. On reassessment after soft collar and IM Dilaudid is markedly improved. Clearly moving more fluidly. She does have regularly prescribed medications in the form of opiates and other available. Easy in good communication with primary care as well. See patient discharge plan for further discussion Medical Records Medical records reviewed: Yes I reviewed the patient's medical records Discharge Plan Discharge Clinical Impression: Cervical radicular pain, Muscle tension pain Patient Disposition: Home w/ Parent or Adult Condition: Improved Additional Instructions: I would consider wearing this soft collar for comfort over this next week. We will briefly increase your prednisone dosing to address any inflammation that is in your neck. Prescribed from [facility] You can take 2 tabs of your 5 mg oxycodone per dose 3 times daily if needed. As oxycodone can be constipating, I would consider taking a senna containing product 1 to 2 tabs twice daily on the days that you are using your oxycodone. Gabapentin can be sedating. Consider increasing your dosing to up to 300 mg 3 times a day. Try 200 mg per dose for a couple of days and then if needed increased to 300 mg per dose. Continue with cyclobenzaprine as needed as prescribed; also sedating in that it relaxes your muscles. Prescriptions: No Action rosuvastatin 40 mg tablet 40 mg PO coenzyme Q10 100 mg capsule PO DAILY metoprolol succinate 25 mg tablet extended release 24 hr PO biotin 10,000 mcg capsule 10 cap PO DAILY esomeprazole magnesium [Nexium] 20 mg capsule,delayed release(DR/EC) 20 mg PO QDAY cyanocobalamin (vitamin B-12) 1,000 mcg tablet 1,000 mcg PO copper gluconate 2 mg capsule 2 mg PO QDAY folic acid-B complex,C no.17 5 mg tablet 1 tab PO QDAY aspirin 81 mg capsule 81 mg PO QDAY duloxetine 60 mg capsule,delayed release(DR/EC) 60 mg PO QDAY amlodipine 5 mg tablet 5 mg PO BID carvedilol [Coreg] 6.25 mg tablet 6.25 mg PO BID Rx Instructions: must administer with a meal/food magnesium oxide 400 mg (241.3 mg magnesium) tablet 400 mg PO QDAY mycophenolate sodium [Myfortic] 180 mg tablet,delayed release (DR/EC) 720 mg PO BID prednisone 5 mg tablet 5 mg PO QDAY tacrolimus 1 mg capsule 3 mg PO Q12H Ozempic 2 mg/dose (8 mg/3 mL) pen injector subcut glipizide 5 mg tablet 5 mg PO DAILY metformin 500 mg tablet extended release 24 hr 500 mg PO BID gabapentin 100 mg capsule 100 mg PO 3XD oxycodone 5 mg tablet 5 mg PO Q6H PRN (Reason: pain) cyclobenzaprine 5 mg tablet 5 mg PO BID PRN (Reason: muscle spasm) Follow Up/Referrals: Sanjay Allan MD [Primary Care Provider] - Stand Alone [facility]: [facility]
--- OUTSIDE RECORDS SUMMARY | 2024-07-10 18:19 | XMS_ITS | Encounter Summary ---
Author Organization [facility] Address [address] [facility] [address] [place] [address] Care Team Providers Care Archival Records Clerk Name Role Phone Sanjay Allan MD Primary Care Provider [phone] Encounter Details Date Type Department Care Team (Late st Contact Info) Description 06/23/2024 Telephone [facility] [address] [facility] [address] [place] [address] Guero Villanueva MD [address] [place] [address] Social History Tobacco Use Types Packs/Day Years Used Date Smoking Tobacco: Former Cigarettes 1 30 0 10/28/1963 - 10/28/1993 Comments:Smoking History Inf o:Every day Sex and Gender Information Value Date Recorded Sex Assigned at Not on file Gender Identity Not on file Sexual Orientation Not on file documented as of this encounter Miscellaneous Notes * Telephone Encounter - Diamante Patricio - 06/23/2024 10:10 AM CDT Patient to schedule follow up with Dr. Villanueva at [facility] in . No pre-visit labs needed. Message from Dr. Villanueva: Hi there, This patient was a patient of mine in CKD clinic at [facility] and then I saw her on dialysis at [facility] until she was transplanted at [place]. She would like to see me at my [facility] clinic for follow-up. Can you please reach out to her and schedule her with me in June or July in my [facility] clinic? She just had labs and does not need additional labs prior to the visit. I see that in her chart, her home number is listed but not her mobile. I called her on her mobile and got a hold of her so that might be a better number. That number is [phone]. Thank you! Van Villanueva MD documented in this encounter Plan of Treatment Upcoming Encounters Date Type Department Care Team (Late st Contact Info) Description 07/17/2024 1:00 PM EDT Office Visit [facility] [address] [place] [address] Guero Villanueva MD [address] [place] [id number] documented as of this encounter Visit Diagnoses Not on filedocumented in this encounter Care Teams Archival Records Clerk Relationship Specialty Start Date End Date Sanjay Allan MD [address] [place] [address] PCP - General 07/13/19 documented as of this encounter
--- OUTSIDE RECORDS SUMMARY | 2024-07-10 18:19 | XMS_ITS | Data Portability ---
Author Organization [place] - [facility], [employer] Address [address] [place] [address] Care Team Providers Care Program Facilitator Name Role Phone BRYANT TYSON Primary Care Provider Assessment Encounter Date Assessment Date Assessment LastModified by Organization Details LastModified Time 05/30/2023 05/30/2023 Patient seen in office today for a diabetic foot exam. Diabetes is improving. Abnormal findings include onycho. Patient educated on diabetic foot complications and prevention. Discussed treatment/diagno stic plan and orders with patient as indicated below. We triled [employer] orthtoses today. Size 8 shoes. [email or web address] Not available 06/01/2023 10:44:33 08/29/2023 08/29/2023 Patient [...] as indicated below. Not available 03/05/2024 12:01:03 06/09/2024 06/09/2024 Patient seen in office today for a diabetic foot exam. Diabetes is improving. Abnormal findings include onycho. Patient educated on diabetic foot complications and prevention. Discussed treatment/diagno stic plan and orders with patient as indicated below. We will be fitting the patient for diabetic shoes and insoles today. Not available 06/09/2024 14:35:42 Plan of Treatment Reminders Order Date Submit Date Provider Last Modified By Organization Details Last Modified Time Details Appointments DME DISPENSE 15 2023 01:15P M Not available Not available Not available [facility] 15 2023 01:00P M Not available Not available Not available Lab None recorded. Referral None recorded. Procedures None recorded. Surgeries None recorded. Imaging None recorded. Medication Orders None recorded. Patient TargetsNo targets recorded. Patient Instructions Encounter Date Encounter Id Patient Instructions Last Modified By Organization Details Last Modified Time 05/30/2023 [id number] diabetes foot health: care instructions Not available 06/01/2023 10:45:37 08/29/2023 [id number] diabetes foot health: care instructions [email or web address] Not available 09/02/2023 18:42:56 12/05/2023 [id number] diabetes foot health: care instructions Not available 12/06/2023 10:16:46 Reason for Referral None Reported. Problems Name Problem SNOMED Code Status Onset Date Resolution Date Notes Provider Name and Address Organization Details Recorded Time Chronic ulcer of foot 023216801 Active 2020 Chronic ulcer of foot; Original Code: 4181433516 Original Codesystem : SNOMED CT Classif ication: Medical Co nfirmation Status: Confirmed Not Available [facility] 3 09:11:08 Ingrowing nail 743524433 Active 2013 Ingrowing nail; Original Code: 4000037707 Original Codesystem : SNOMED CT Classif ication: Medical Co nfirmation Status: Confirmed Not Available [facility] 3 09:11:08 Disorder of nail 62393791 Active 2013 Disorder of nail; Original Code: 6349364894 Original Codesystem : SNOMED CT Classif ication: Medical Co nfirmation Status: Confirmed Not Available [facility] 3 09:11:08 Secondary diabetes mellitus 7228057 Active 2019 Secondary diabetes mellitus; Original Code: 76816948 O riginal Codesystem : SNOMED CT Classif ication: Medical Co nfirmation Status: Confirmed Parvez boss [place] - [facility] 3 15:36:12 Essential hypertens ion 99082303 Active 2014 Essential hypertensi on; Original Code: 20848644 O riginal Codesystem : SNOMED CT Classif ication: Medical Co nfirmation Status: Confirmed Parvez boss [place] - [facility] 3 15:36:07 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; Original Code: 05633591 O riginal Codesystem : SNOMED CT Classif ication: Medical Co nfirmation Status: Confirmed Not Available [facility] 3 09:11:08 Foot pain 18110255 Active 2020 Foot pain; Original Code: 882041763 Original Codesystem : SNOMED CT Classif ication: Medical Co nfirmation Status: Confirmed Not Available [facility] 3 09:11:09 Onychomyc osis of toenails 049958638 Active 2018 Onychomyco sis of toenails; Original Code: 0672856705 Original Codesystem : SNOMED CT Classif ication: Medical Co nfirmation Status: Confirmed Not Available [facility] 3 09:11:09 Transplan t of kidney Active 2022 Parvez Barkley gera [place] - [facility] 3 15:36:26 Diabetic care Active [address] Sanjay Allan 06/20 [facility] Sperry osmin boss [place] [facility] 4 14:34:08 Problem Notes None recorded. Procedures Surgical History Date Name Laterality Status Provider Name and Address Organization Details Recorded Time [address] Joce boss [place] [facility] 06/09/2024 14:13:[address] Joce boss [facility] 03/05/2024 12:01:[address] Hobson completed Ana boss, [facility] 12/06/2023 04:18:35 3 NAIL/CallusDEBR IDEMENT completed Ana boss, [facility] 08/29/2023 12:34:36 3 NAIL/CallusDEBR IDEMENT completed Joel Lovell, [facility] [address] [place], [address], [facility] 06/01/2023 10:42:[address] [place] 02/14/2023 15:37:11 Imaging Results None recorded. Procedure Notes None recorded. Medical Equipment None Reported. Allergies Allergen ID Allergen Name Allergen Category Reaction Reaction Severity Criticality Documentation Date Start Date Code Code System Note Provider Name and Address Organization Details Recorded Time 17590 amoxicill in medicatio n Not available Not available Not available 01/01/2023 723 RxNorm Comme nt: React ion Class : Aller gy Al lergy Ident ifier : d0008 8 All ergy Categ ory: Multu m Drug Ident ifier Iden tifie r Assig amrk Autho rity: 24913 _[place] ; Not Available [facility] 3 08:52:37 90800 Product containin g angiotens in-conver ting enzyme inhibitor (product) medicatio n Not available Not available Not available 01/01/2023 60892 009 SNOMED Comme nt: React ion Class : Aller gy Al lergy Ident ifier : 416 A llerg y Categ ory: Aller gy Categ ories Iden tifie r Assig mark Autho rity: 74810 _[place] ; Not Available [facility] 3 08:52:37 15393 metoprolo l Not available Not available Not available Not available 01/01/2023 6918 RxNorm Comme nt: React ion Class : Aller gy Al lergy Ident ifier : d0013 4 All ergy Categ ory: Multu m Drug Ident ifier Iden tifie r Alex clemensg Autho rity: 58896 _[place] ; Not Available [facility] 3 08:52:37 89664 Elavil medicatio n Not available Not available Not available 01/01/2023 26254 RxNorm Comme nt: React ion Class : Aller gy Al lergy Ident ifier : d0014 6 All ergy Categ ory: Multu m Drug Ident ifier Iden tifie r Assmuriel mark Autho rity: 93669 _[place] ; Not Available [facility] 3 08:52:37 37639 Effexor medicatio n Not available Not available Not available 01/01/2023 59939 2 RxNorm Comme nt: React ion Class : Aller gy Al lergy Ident ifier : d0318 1 All ergy Categ ory: Multu m Drug Ident ifier Iden tifie r Alex clemensg Autho rity: 38545 _[place] ; Not Available [facility] 3 08:52:37 Medications Name Sig Start Date [...] active Not Available Not Available Not Available cyanocobalam in (vit B-12) 1,000 mcg tablet TAKE 1 TABLET (1,000 MCG) BY MOUTH ONCE DAILY active Not Available Not Available N ot Available Accu-Chek Softclix Lancets DISPENSE ITEM COVERED BY PT INS. E11.9 NIDDM TYPE II - TEST 1 TIME/DAY active Not Available Not Available No t Available amlodipine 2.5 mg tablet TAKE 1 TABLET BY MOUTH ONCE DAILY. active Not Available Not Available No [...] Not Available Not Available No t Available lidocaine 5 % topical patch APPLY 1 PATCH TO PAINFUL AREA OF SKIN FOR UP TO 12 HOURS WITHIN A 24-HOUR PERIOD. active Not Available Not Available No t [...] Not Available Not Available No t Available glipizide 5 mg tablet TAKE 1 TABLET (5 MG) BY MOUTH ONCE DAILY BEFORE A MEAL. active Not Available Not Available No t Available oxycodone 5 mg tablet TAKE 1 TABLET (5 MG) BY MOUTH EVERY 6 HOURS IF NEEDED FOR PAIN. active Not Available Not Available No t Available cyclobenzapr ine 5 mg tablet TAKE 1 TABLET (5 MG) BY MOUTH 2 TIMES DAILY IF NEEDED FOR MUSCLE SPASM. active Not Available Not Available No t Available rosuvastatin 40 mg tablet TAKE 1 TABLET BY MOUTH AT BEDTIME active Not Available Not Available No t Available Meche-Corby 0.8 mg tablet TAKE 1 TABLET BY MOUTH EVERY DAY active Not Available Not Available No t Available duloxetine 60 mg capsule,alicia yed release TAKE 1 CAPSULE BY MOUTH ONCE DAILY. active Not Available Not Available No [...] Tobacco Smoking Status Never Smoker [facility] 02/14/2023 15:36:41 What Is Your Level Of Alcohol Consumption? None Information not available 02/14/2023 Do You Use Any Illicit Or Recreational Drugs? No [email or web address] Information not available 02/14/2023 Sex: Unknown Functional Status None recorded. Mental Status None recorded. Family History Nothing Reported. Medical History No medical history recorded. Gynecological HistoryNo gynecological history recorded. Obstetrics History GPAL:G 0 P 0 0 0 0 Past Encounters Encounter ID Performer Location Encounter Start Date Encounter Closed Date Diagnosis/Indication Diagnosis SNOMED-CT Code Diagnosis ICD10 Code [id number] Parvez Barkley [facility] [address] [place] [phone] 4 02/14/2023 14:43:15 02/15/2023 13:05:43 Type 2 diabetes mellitus with peripheral angiopathy 558324361 E11.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 092915902 E11.49 Onychomycosis 116820610 B35.1 [id number] Joel Lovell DPM [facility] [address] [place] [address]654-343 4 05/30/2023 12:06:34 06/03/2023 09:58:10 Type 2 diabetes mellitus with peripheral angiopathy 478499249 E11.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 026076604 E11.49 Onychomycosis 466833923 B35.1 Foot callus 177621640 L8 4 Hallux rajeev henri AND bunion [id number] M20.12 [id number] Joel Lovell DPM [facility] [address] [place] [id number] 4 08/29/2023 11:50:05 09/03/2023 10:05:21 Type 2 diabetes mellitus with peripheral angiopathy 607751311 E11.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 143865330 E11.49 Onychomycosis 334358442 B35.1 Foot callus 732318880 L8 4 Hallux rajeev henri AND bunion [id number] M20.12 [id number] Joel Lovell, [facility] [address] 12/05/2023 11:58:54 12/06/2023 13:52:34 Type 2 diabetes mellitus with peripheral angiopathy 403833625 E11.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 630553016 E11.49 Onychomycosis 803853509 B35.1 Foot callus 041331184 L8 4 Hallux rajeev henri AND bunion [id number] M20.12 [id number] Joel Lovell, [facility] [address] 03/05/2024 11:47:14 03/06/2024 15:17:07 Type 2 diabetes mellitus with peripheral angiopathy 290665725 E11.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 430883124 E11.49 Onychomycosis 194555669 B35.1 Foot callus 837873991 L8 4 Hallux rajeev henri AND bunion [id number] M20.12 [id number] Joel Lovell, [facility] [address] 06/09/2024 13:56:08 06/11/2024 11:43:28 Type 2 diabetes mellitus with peripheral angiopathy 996397776 E11.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 913842661 E11.49 Onychomycosis 547399333 B35.1 Foot callus 132438052 L8 4 Hallux rajeev henri AND bunion [id number] M20.12 Health Concerns Section Related Observation LastModified by Organization Detai ls LastModified Time None Recorded Concern Status LastModified by Organization Details LastModified Time None Recorded Advance Directives Directive None Recorded Payers Encounter Date Sequence Insurance Name Policy Number Policy Mcclelland Covered Member ID Mcclelland Member ID Guarantor Name 05/30/2023 1 [place] [id number] Anayeli E Splettstoeszer [id number] Anayeli E Splettstoeszer 08/29/2023 1 [place] [id number] Anayeli E Splettstoeszer [id number] Anayeli E Splettstoeszer 12/05/2023 1 [place] [id number] Anayeli E Splettstoeszer [id number] Anayeli E Splettstoeszer 03/05/2024 1 [place] [id number] Anayeli E Splettstoeszer [id number] Anayeli E Splettstoeszer 06/09/2024 1 [place] [id number] Anayeli E Splettstoeszer [id number] Anayeli E Splettstoeszer Notes Date Note Type Note Provider Name and Address Organization Details Recorded Time 05/30/2023 text/html HPI Notes: This established patient ptc today for diabetic foot care. Patient is in need of nail care today. Denies any new foot complaints. Patient did last see Bryant Tyson on 02/04/23. She did have a kidney transplant in September,. Joel Lovell DPM [address] [place], [address], [facility] - [facility] 06/01/2023 10:48:19 08/29/2023 text/html HPI Notes: This established patient ptc today for diabetic foot care. Patient is in need of nail care today. Denies any new foot complaints. Patient did last see Bryant Tyson on 02/04/23. She did have a kidney transplant in September,. Joel Lovell DPM [address] [place], [address], [facility] - [facility] 09/02/2023 18:43:00 12/05/2023 text/html HPI Notes: This established patient ptc today for diabetic foot care. Patient is in need of nail care today. Denies any new foot complaints. Patient did last see Bryant Tyson on 02/04/23. She did have a kidney transplant in September,. Joel Lovell DPM [address] [place], [address], [facility] - [facility] 12/06/2023 10:17:18 03/05/2024 text/html HPI Notes: This established patient ptc today for diabetic foot care. Patient is in need of nail care today. Denies any new foot complaints. Patient did last see Dr. Bryant Tyson for diabetes care last seen on 02/14/2024 She did have a kidney transplant in September,. Joel Lovell DPM [address] [place], [address], [facility] - [facility] 03/06/2024 10:13:41 06/09/2024 text/html HPI Notes: This established patient ptc today for diabetic foot care. Patient is in need of nail care today. Denies any new foot complaints. Patient did last see Dr. Bryant Tyson for diabetes care last seen on 05/2024 Joel Lovell DPM [address] [place], [address], [facility] - [facility] 06/10/2024 15:54:47 OBGyn Episode No OBEpisode recorded.
--- OUTSIDE RECORDS SUMMARY | 2024-07-10 18:19 | XMS_ITS | Clinical Summary ---
Author Organization [employer] [facility] Address [place], [place] [address] Care Team Providers Care Administrative Coordinator Name Role Phone Sanjay Allan MD Primary Care Provider [phone] Leila Elizalde MD Unavailable [phone] Inga Bose NP Unavailable Allergies Active Allergy [...] once daily with a meal. Active VITAMINS A,C,K-BTQH-MWKIIK (OCUVITE PRESERVISION) 7,160-113-100 uyse-ob-dxap tablet Take 1 Tablet by mouth 2 times daily. Active Copper Gluconate 2 mg tab Take 4 mg by mouth at bedtime. Active acetaminophen (TYLENOL EXTRA STRGTH) 500 mg tablet Take 1,000 mg by mouth every 6 hours if needed for Pain. Max acetaminophen dose: 4000mg in 24 hrs. Active lancetsIndications: Type 2 diabetes mellitus with chronic kidney disease on chronic dialysis, without long-term current use of insulin (HC) Dispense item covered by pt ins. E11.9 NIDDM type II - Test 1 time/day 200 Each 3 2 Active carvediloL (COREG) 12.5 mg tablet Take [...] a meal. 90 Capsule 3 3 Active predniSONE (DELTASONE) 5 mg tablet [...] 1 Capsule by mouth once daily. Active ws-hbl-nofoc acid-lutein 400-250 mcg chew Chew 1 Tablet by mouth once daily. 4 Active metFORMIN (GLUCOPHAGE XR) 500 mg [...] 24-hour period. 5 Patch 3 4 Active magnesium oxide (MAG-OX 400) 400 mg tablet Take 1 Tablet (400 mg) by mouth two times daily. 4 Active mycophenolate sodium (MYFORTIC) 180 mg EC tablet Take 3 Tablets (540 mg) by mouth every 12 hours. 4 Active cyclobenzaprine (FLEXERIL) 5 mg tabletIndications:M uscle spasms of neck Take 1 Tablet (5 mg) by mouth 2 times daily if needed for Muscle Spasm. As needed for muscle spasms 30 Tablet 4 Active glipiZIDE (GLUCOTROL) 5 mg tabletIndications:T ype 2 diabetes mellitus with other diabetic kidney complication, without long-term current use of insulin (HC) Take 1 Tablet (5 mg) by mouth two times daily before meals. 180 Tablet 3 4 Active oxyCODONE (ROXICODONE) 5 mg immediate release tabletIndications:L umbar radiculopathy,S/P lumbar spinal fusion,Foraminal stenosis of lumbar region,DDD (degenerative disc disease), lumbar Take 1 Tablet (5 mg) by mouth every 6 hours if needed for Pain. 60 Tablet 4 Active potassium chloride (K-TAB) 20 mEq extended-release tablet Take 20 mEq by mouth once daily. 4 Active gabapentin (NEURONTIN) 100 mg capsuleIndications: Cervical spinal stenosis Take 1 Capsule (100 mg) by mouth three times daily. 90 Capsule 2 4 Active calcium citrate-vitamin D3, 250 mg-200 units, tablet Take 1 Tablet by mouth two times daily with meals. 3 06/26/20 24 oxyCODONE (ROXICODONE) 5 mg immediate release tabletIndications:L umbar radiculopathy,S/P lumbar spinal fusion,Foraminal stenosis of lumbar region,DDD (degenerative disc disease), lumbar Take 1 Tablet (5 mg) by mouth every 6 hours if needed for Pain. 60 Tablet 4 06/18/20 24 Discontinue d(Reorder (E-cancel not sent)) glipiZIDE (GLUCOTROL) 5 mg tabletIndications:T ype 2 diabetes mellitus with other diabetic kidney complication, without long-term current use of insulin (HC) Take 1 Tablet (5 mg) by mouth once daily before a meal. 90 Tablet 3 4 06/12/20 24 Discontinue d(*Medicati on adjustment) amLODIPine (NORVASC) 2.5 mg tabletIndications:H TN (hypertension) Take 1 Tablet (2.5 mg) by mouth once daily. 90 Tablet 3 4 06/26/20 24 Discontinue d(*Medicati on adjustment) Active Problems Patient Care Coordination No te Formatting of this note migh t be different from the original. HF/Structural/Prevention Research Eligibility Review Date: 11/02/19 Upcoming Visit Location: [x] Outreach Age: 74 y.o. 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 No parental history of hip fracture. Type 2 diabetes mellitus, [facility] long-term current use of insulin 02/27/2022 Nephrolithiasis 07/14/2020 PAD (peripheral artery disease) 11/10/2019 Secondary renal hyperparathyroidism 05/28/2019 Fibromyalgia 07/18/2018 Iron deficiency anemia 07/18/2018 B12 deficiency 07/18/2018 CAD (coronary artery disease) 07/17/2018 Overview (11/18/2019): -Presumed with +angina in 2018, ++risk factors, abnormal myocardial perfusion. Saw cardiology, medically managing as of 06/2018. -Abnormal Coronary CTA 11/10/2019 -Coronary Angiogram 11/17/2019: DUDLEY to mLAD, DUDLEY to 1st marginal, DUDLEY to RPDA, DS to RPAV Recurrent major depressive disorder, in full rem ission 06/17/2018 History of gastric bypass 10/14/2017 Acute anastomotic ulcer of gastrojejunal region 10/14/2017 Overview (10/16/2017): EGD 09/2017 small anastomotic ulcer Gallstones 04/11/2017 Squamous cell skin cancer 04/11/2017 Urinary incontinence 05/12/2013 Adenomatous colon polyp 11/06/2012 Overview (04/06/2020): Colonoscopy 10/2012 large polyp repeat in 6 months Colonoscopy 10/2014 polyps repeat in 5 years Colonoscopy 03/2020 polyps, repeat in 5 years Mixed hyperlipidemia 09/23/2012 HTN (hypertension) 09/09/2012 Spinal stenosis: Severe L2-3, Moderate L4-5 04/2010 Esophageal reflux 09/01/2007 Resolved Problems Problem Noted Date Diagnosed Date Resolved Date Prediabetes 08/22/2021 02/27/2022 Chronic diarrhea 01/11/2021 05/22/2024 Overview (01/11/2021): flexible sigmoidoscopy 12/2020 normal biopsies ESRD (end stage renal disease) on dialysis 07/14/2020 05/22/2024 Thrombocytopenia 07/11/2020 11/26/2022 Overview (07/11/2020): Component Latest Ref Rng & Units 03/08/2020 [...] insulin 11/20/2018 08/22/2021 Angina pectoris 11/20/2018 07/14/2020 Anemia in stage 5 chronic ki dney disease, not on chronic dialysis 07/18/2018 05/22/2024 Steal syndrome dialysis vascular access 04/11/2017 07/18/2018 Overview (04/11/2017): Right hand, AV fistula placed 08/12. CKD [...] 09/28/2002 12/15/2008 Myalgia and myositis, unspecified 07/18/2018 Overview (02/17/2007): receives acupunture for pain relief Major depressive disorder, s doris episode, mild 06/25/2013 Encounters Date Type Department Care Team Description 07/01/2024 11:20 AM CDT Ancillary Procedure [facility] [address] [place] [address] 07/01/2024 11:15 AM CDT Ancillary Procedure [facility] [address] [place] [address] 07/01/2024 Travel 06/30/2024 Orders Only [facility] [address] [place] [address] Tonio Pete MD <No scans attached> 06/26/2024 10:05 AM CDT Office Visit [facility] [address] [place] [address] Sanjay Allan MD Follow Up (Diabetes) 06/26/2024 Telephone [facility] [address] [place] [address] [address] Sanjay Allan MD VITALS READINGS 06/26/2024 Travel 06/12/2024 10:05 AM CDT Office Visit [facility] [address] [facility] [address] Sanjay Allan MD Neck Pain/problem (getting better see specialist on Saturday); Back Pain (lower back still aches); Blood Pressure (blood pressure-still feeling light headed and dizzy ) 06/12/2024 Travel 06/11/2024 Orders Only [facility] [address] [facility] [address] [place] [address] Tonio Pete MD <No scans attached> 06/09/2024 Refill [facility] [address] [facility] [address] Sanjay Allan MD Refill Request (Cyclobenzaprine) 05/25/2024 2:00 PM CDT Ancillary Procedure [facility] [address] [facility] [address] [place] [address] 05/25/2024 Travel 05/22/2024 8:50 AM CDT Office Visit [facility] [address] [facility] [address] Sanjay Allan MD Diabetes; Neck Pain/problem (Spasms across been going on for a couple of months/Goes in to her left arm and hand); Back Pain (Lower back pain on right side and goes down right leg/Has gotten better) 05/22/2024 Travel 05/19/2024 Travel 05/15/2024 Medical Messaging [facility] [address] [facility] [place] [address] Praveen Weston MD BACK 05/08/2024 8:35 AM CDT Procedure Only [facility] [address] [facility] [place] [address] Praveen Weston MD Procedure (USGI - Left shoulder subacromia... 05/08/2024 Travel 05/05/2024 Travel 05/01/2024 Medical Messaging [facility] [address] [facility] [place] [address] Praveen Weston MD BACK 04/17/2024 2:40 PM CDT Office Visit [facility] at [facility] [address] [place] [phone] Praveen Weston MD Procedure (Right L5-S1 TFESI) 04/15/2024 1:00 PM CDT Office Visit [facility] [address] [place] [phone] Karla Aguero PA Consult (Abnormal sensation in right ear [H93.8X1] /Sensorineural hearing loss, asymmetrical ) 04/14/2024 Travel from Last 3 Months Immunizations Name Administration Dates Next Due COVID-19 VACCINE SPIKEVAX (M ODERNA 50MCG/0.5ML) 12YO+ PFS 08/30/2023 COVID-19 vaccine (Moderna 100mcg/0.5mL) PF, MDV [...] Heart Disease Father Hypertension Father Other Father NC @ 51 Heart Disease Mother Hyperlipidemia Mother [...] Communication with Friends and Fami ly 0 06/12/2024 Financial Resource Strain Answer Date R ecorded Difficulty of Paying Living Expenses 1 06/12/2024 Difficulty of Paying Living Expenses 2 06/12/2024 Food Insecurity Answer Date Recorded Worried About Running Out of Food in the Last Ye ar 1 06/12/2024 Transportation Needs Answer Date Record ed Lack of Transportation (Medical) 1 06/12/2024 Housing Stability Answer Date Recorded Unable to Pay for Housing in the Last Year 1 06/12/2024 Sex and Gender Information Value Date Recorded Sex Assigned at Not on file Gender Identity Not on file Sexual Orientation Not on file Obstetrics History Para Term AB IAB SAB Ectopic Multiple Livin g Live Births 0 0 0 0 0 0 0 0 0 0 0 Last Filed Vital Signs Vital Sign Reading Time Taken Comments Blood Pressure 155/88 06/26/2024 10:00 AM CDT Pulse 87 06/26/2024 10:00 AM CDT Temperature 36.4 ??C (97.5 ??F) 05/08/2024 8:07 AM CD T Respiratory Rate 16 04/25/2023 8:45 AM CDT Oxygen Saturation 100% 06/26/2024 10:00 AM CDT Inhaled Oxygen Concentration - - Weight 52.2 kg (115 lb 1.6 oz) 06/26/2024 10:00 AM CDT Height 158.7 cm (5' 2.48) 08/30/2023 9:19 AM CD T Body Mass Index 20.73 08/30/2023 9:19 AM CDT Plan of Treatment Upcoming Encounters Date Type Department Care Team (Late st Contact Info) Description 07/21/2024 2:15 PM CDT Orders Only [facility] [address] [place] [address] [place], [place] 08/25/2024 10:55 AM CDT Office Visit [facility] [address] [place] [address] Sanjay Allan MD [address] [place] [address] Health Maintenance Due Date Last Done Comments COVID-19 vaccine series ( season) 2024 08/30/2023, 08/03/2022, 03/30/2022, Additional history exists Influenza [...] 65+ Completed 08/12/2020, 08/12/2015 (Completed outside of [facility]), 08/02/2015, Additional history exists RSV vaccine for adults or Completed 09/16/2023 Goals Goal Patient Goal Type Associated Problems Recent Progress Patient-Stated? Author BLOOD PRESSURE - MAINTAINS BP less than 140/90 Blood Pressure No Nikko Mederos MD Medical Devices Implanted Type Area Chair Trimmer Device Identifier Shelf Expiration Date Model / Serial / Lot Jacques 5.0cmx5.5mm Pre-Cut - [id number] Implanted:Qty: 2 on 06/12/2010 at [facility] Spine Implants Spine SOFAMOR DANEK [id number]# / / Screw Thin Crest 6.5x45mm - [id number] Implanted:Qty: 4 on 06/12/2010 at [facility] N/A: Spine [employer]ANEK [id number] # / / Set Screw 3dx - [id number] Implanted:Qty: 1 on 06/12/2010 at [facility] N/A: Lumbar Vertebrae [employer] PS MEDICAL [id number]# / / Cnnctr Tsrh 3dx Sm - [id number] Implanted:Qty: 1 on 06/12/2010 at [facility] N/A: Lumbar Vertebrae Medtronic [id number]# / / Kit Infuse Sm - [id number] Implanted:Qty: 1 on 06/12/2010 at [facility] Spine SOFAMOR DANEK [id number]# / / [id number] AR Spacer Peek 25x12 [place] - [id number] Implanted:Qty: 1 on 06/12/2010 at [facility] Spine [employer]OR [employer]ANEK [id number]# / / [id number] Power Port Isp Mri 6fr [id number] - [id number] Implanted:Qty: 1 on 03/24/2020 by Stephane Williamson DO at [facility] Left: Chest [employer] 01/25/2021 [id number]# / / [id number] Procedures Procedure Name Priority Date/Time Associated Diagnosis Comments XR SPINE LUMBAR MINIMUM 4 VIEWS Routine 07/01/2024 11:34 AM CDT Pain of lumbar spine XR SPINE CERVICAL 2 VIEWS FLEXION AND EXTENSION Routine 07/01/2024 11:33 AM CDT Spine pain, cervical MR SPINE CERVICAL WO Routine 05/25/2024 2:25 PM CDT Cervical radiculopathy Foraminal stenosis of cervical region HEPATIC FUNCTION PANEL Add On 05/22/2024 8:47 AM CDT Elevated liver enzymes BASIC METABOLIC PANEL Routine 05/22/2024 8:47 AM CDT Type 2 diabetes mellitus with other diabetic kidney complication, without long-term current use of insulin (HC) HEMOGLOBIN A1C Routine 05/22/2024 8:47 AM CDT Type 2 diabetes mellitus with other diabetic kidney complication, without long-term current use of insulin (HC) BEDSIDE US STUDY ARCHIVE Routine 05/08/2024 10:17 AM CDT Chronic left shoulder pain Chronic periscapular pain on left side Osteoarthritis of left glenohumeral joint Myofascial pain on left side AMB EPIDURAL STEROID INJECTION JOJO 04/21/2024 12:00 AM CDT Lumbar radiculopathy S/P lumbar spinal fusion Lumbar disc herniation HEARING AID MEDICAL CLEARANCE Routine 04/15/2024 1:36 PM CDT Sensorineural hearing loss, asymmetrical ANTI HCV Routine 07/18/2017 10:38 AM CDT Need for hepatitis C screening test XR DXA BONE DENSITY 2 SITES AXIAL Routine 12/17/2014 11:44 AM DIRECTOR OF MEDICARE Osteopenia from Last 3 Months or Most Recently Relevant to Health Maintenance Results * XR SPINE LUMBAR MINIMUM 4 VIEWS (07/01/2024 11:34 AM CDT) Anatomical Region Laterality Modality Spine, LUMBAR SPINE Digital Radi ography 07/01/2024 11:3 4 AM CDT Impressions 07/01/2024 9:28 PM CDT L2-L3 posterior fusion hardware without complication. Straightening of usual lumbar lordosis with 4 mm retrolisthesis of L3 over L4. Spinal alignment is maintained during flexion/extension No acute fracture. Vascular calcification. Scattered surgical clips. Pelvic phleboliths. Multilevel degenerative change most prominent at L4-L5 where there is moderate to severe disc height loss Narrative 07/01/2024 9:28 PM CDT For Patients: As a result of the Cures Act, medical imaging exams and procedure reports are released immediately into your electronic medical record. You may view this report before your referring provider. If you have questions, please contact your health care provider. EXAM: XR SPINE LUMBAR MINIMUM 4 VIEWS LOCATION: [facility] DATE: 07/01/2024 INDICATION: Pain Of Lumbar Spine COMPARISON: Lumbar spine MRI dated 04/06/2024. Procedure Note Monty Cruz MD - 07/01/2024 For Patients: As a result of the Cures Act, medical imagingexams and procedure reports are released immediately into your electronicmedical record. You may view this report before your referring provider.If you have questions, please contact your health care provider. EXAM: XR SPINE LUMBAR MINIMUM 4 VIEWS LOCATION: [facility] DATE: 07/01/2024 INDICATION: Pain Of Lumbar Spine COMPARISON: Lumbar spine MRI dated 04/06/2024. IMPRESSION: L2-L3 posterior fusion hardware without complication. Straightening ofusual lumbar lordosis with 4 mm retrolisthesis of L3 over L4. Spinalalignment is maintained during flexion/extension No acute fracture.Vascular calcification. Scattered surgical clips. Pelvic phleboliths.Multilevel degenerative change most prominent at L4-L5 where there ismoderate to severe disc height loss Tonio Pete MD GENERAL IMAGING * XR SPINE CERVICAL 2 VIEWS FLEXION AND EXTENSION (07/01/2024 11:33 AM CDT) Anatomical Region Laterality Modality Spine, CERVICAL SPINE Digital Ra diography 07/01/2024 11:3 3 AM CDT Impressions 07/01/2024 9:27 PM CDT Mild anterolisthesis of C4-C5, which is maintained during//extension. No acute fracture. C5-C6 interbody ankylosis. Multilevel degenerative change most prominent at C6-C7 where there is advanced disc height loss Narrative 07/01/2024 9:27 PM CDT For Patients: As a result of the Cures Act, medical imaging exams and procedure reports are released immediately into your electronic medical record. You may view this report before your referring provider. If you have questions, please contact your health care provider. EXAM: XR SPINE CERVICAL 2 VIEWS FLEXION AND EXTENSION LOCATION: [facility] DATE: 07/01/2024 INDICATION: Neck pain COMPARISON: Cervical spine MRI dated 05/25/2024. Procedure Note Monty Cruz MD - 07/01/2024 For Patients: As a result of the s , medical imagingexams and procedure reports are released immediately into your electronicmedical record. You may view this report before your referring provider.If you have questions, please contact your health care provider. EXAM: XR SPINE CERVICAL 2 VIEWS FLEXION AND EXTENSION LOCATION: [facility] DATE: 07/01/2024 INDICATION: Neck pain COMPARISON: Cervical spine MRI dated 05/25/2024. IMPRESSION: Mild anterolisthesis of C4-C5, which is maintained during//extension. Noacute fracture. C5-C6 interbody ankylosis. Multilevel degenerative changemost prominent at C6-C7 where there is advanced disc height loss Tonio Pete MD GENERAL IMAGING * MR SPINE CERVICAL WO (05/25/2024 2:25 PM CDT) Anatomical Region Laterality Modality Spine, CERVICAL SPINE Magnetic R esonance 05/25/2024 3:01 PM CDT Narrative 05/25/2024 3:01 PM CDT For Patients: ??As a result of the s Act, medical imaging exams and procedure reports are released immediately into your electronic medical record. ??You may view this report before your referring provider. ??If you have questions, please contact your health care provider. Indication: Cervical radiculopathy. Technique: Multisequence multiplanar MRI of the cervical spine without the use of intravenous contrast. Comparison: MRI cervical spine dated 04/23/2022. Findings: Redemonstrated postsurgical changes of anterior discectomy and fusion at C5-C6. Slight increase in grade 1 anterolisthesis at C7-T1 and similar minimal anterolisthesis at C4-C5. Slight worsening of disc height loss at C6-C7 and C7- T1, with edema in the opposing endplates at C7-T1. The cervical spinal cord is normal in signal intensity. The paraspinal soft tissues are unremarkable. C2-C3: No significant spinal canal stenosis. Similar moderate bilateral neural foraminal narrowing associated with facet joint hypertrophy. C3-C4: Slight worsening of mild spinal canal stenosis resulting from symmetric disc bulging and ligamentum flavum hypertrophy. Similar severe right and moderate left neural foraminal narrowing associated with uncovertebral and facet joint arthrosis. C4-C5: Similar moderate spinal canal stenosis resulting from a posterior disc osteophyte complex and ligamentum flavum hypertrophy. Similar severe bilateral neural foraminal narrowing associated with uncovertebral and facet joint arthrosis. C5-C6: Postoperative changes. No significant spinal canal or neural foraminal stenosis. C6-C7: Similar mild spinal canal stenosis resulting from a posterior disc osteophyte complex and ligamentum flavum hypertrophy. Similar moderate-severe bilateral neural foraminal narrowing associated with uncovertebral arthrosis. C7-T1: Anterolisthesis with disc uncovering. Advanced facet joint and ligamentum flavum hypertrophy. Worsening of now moderate-severe spinal canal stenosis and bilateral neural foraminal narrowing. Impression: 1. Slight worsening of anterolisthesis and disc height loss at C7-T1 with edema in the opposing endplates favored to represent Modic type 1 degenerative signal. 2. At C2-C3, similar moderate bilateral neural foraminal narrowing. 3. At C3-C4, slight worsening of mild spinal canal stenosis, similar severe right neural foraminal narrowing, and similar moderate left neural foraminal narrowing. 4. At C4-C5, similar moderate spinal canal stenosis and severe bilateral neural foraminal narrowing. 5. At C5-C6, redemonstrated postsurgical changes of discectomy and fusion with no significant spinal canal or neural foraminal stenosis. 6. At C6-C7, similar mild spinal canal stenosis and moderate-severe bilateral neural foraminal narrowing. 7. At C7-T1, worsening of now moderate-severe spinal canal stenosis and bilateral neural foraminal narrowing. Dictated by Parvez Bowser MD @ 05/25/2024 3:01:56 PM (Electronically Signed) Procedure Note Benito Bowser MD - 05/25/2024 For Patients: As a result of the Cures Act, medical imagingexams and procedure reports are released immediately into your electronicmedical record. You may view this report before your referring provider.If you have questions, please contact your health care provider. Indication: Cervical radiculopathy. Technique: Multisequence multiplanar MRI of the cervical spine without the use ofintravenous contrast. Comparison: MRI cervical spine dated 04/23/2022. Findings: Redemonstrated postsurgical changes of anterior discectomy and fusion atC5-C6. Slight increase in grade 1 anterolisthesis at C7-T1 and similarminimal anterolisthesis at C4-C5. Slight worsening of disc height loss atC6-C7 and C7-T1, with edema in the opposing endplates at C7-T1. Thecervical spinal cord is normal in signal intensity. The paraspinal softtissues are unremarkable. C2-C3: No significant spinal canal stenosis. Similar moderate bilateralneural foraminal narrowing associated with facet joint hypertrophy. C3-C4: Slight worsening of mild spinal canal stenosis resulting fromsymmetric disc bulging and ligamentum flavum hypertrophy. Similar severeright and moderate left neural foraminal narrowing associated withuncovertebral and facet joint arthrosis. C4-C5: Similar moderate spinal canal stenosis resulting from a posteriordisc osteophyte complex and ligamentum flavum hypertrophy. Similar severebilateral neural foraminal narrowing associated with uncovertebral andfacet joint arthrosis. C5-C6: Postoperative changes. No significant spinal canal or neuralforaminal stenosis. C6-C7: Similar mild spinal canal stenosis resulting from a posterior discosteophyte complex and ligamentum flavum hypertrophy. Similarmoderate-severe bilateral neural foraminal narrowing associated withuncovertebral arthrosis. C7-T1: Anterolisthesis with disc uncovering. Advanced facet joint andligamentum flavum hypertrophy. Worsening of now moderate-severe spinalcanal stenosis and bilateral neural foraminal narrowing. Impression: 1. Slight worsening of anterolisthesis and disc height loss at C7-T1 withedema in the opposing endplates favored to represent Modic type 1degenerative signal. 2. At C2-C3, similar moderate bilateral neural foraminal narrowing. 3. At C3-C4, slight worsening of mild spinal canal stenosis, similarsevere right neural foraminal narrowing, and similar moderate left neuralforaminal narrowing. 4. At C4-C5, similar moderate spinal canal stenosis and severe bilateralneural foraminal narrowing. 5. At C5-C6, redemonstrated postsurgical changes of discectomy and fusionwith no significant spinal canal or neural foraminal stenosis. 6. At C6-C7, similar mild spinal canal stenosis and moderate-severebilateral neural foraminal narrowing. 7. At C7-T1, worsening of now moderate-severe spinal canal stenosis andbilateral neural foraminal narrowing. Dictated by Parvez Bowser MD @ 05/25/2024 3:01:56 PM (Electronically Signed) Praveen Weston MD MR * (ABNORMAL) HEMOGLOBIN A1C MONITORING (POCT) (05/22/2024 8:47 AM CDT) HEMOGLOBIN A1C MONITORING (POCT) 8.5(H) <=6.4 % 05/22/2024 8:57 AM CDT [facility] Blood BLOOD SPECIMEN / Unknown Venipuncture / Unknown 05/22/2024 8:47 AM CDT 05/22/2024 8:48 AM CDT Narrative [facility] - 05/22/2024 8:57 AM CDT ? (<=6.9%) ? Indicates good control ? (7.0% to 7.9%) ? Indicates fair control ? (>=8.0%) ? Indicates poor control ?? NOTE: ??These thresholds are guidelines and ?individual targets may vary. Falsely low levels may be seen with: Recent Transfusion, Recent Significant Blood Loss, Hemolytic Diseases, or Falsely elevated levels may be seen with: Untreated Anemias, Splenectomy ? Sanjay Allan MD CHEMISTRY [facility] [address] [place] [address], [place] [phone] * (ABNORMAL) HEPATIC FUNCTION PANEL (05/22/2024 8:47 AM CDT) ALBUMIN 3.9(L) 4.0 - 4.9 g/dL 05/22/2024 7:24 PM CDT [facility] PROTEIN,TOTAL 5.8(L) 6.0 - 8.0 g/dL 05/22/2024 7:24 PM CDT [facility] BILIRUBIN,TOTAL 0.5 0.0 - 1.2 mg/dL 05/22/2024 7:24 PM CDT [facility] BILIRUBIN,DIRECT <0.2 0.0 - 0.3 mg/dL 05/22/2024 7:24 PM CDT [facility] BILIRUBIN,INDIRE CT 05/22/2024 7:24 PM CDT [facility] Comment:Unable to calculate, Direct Bili <0.2 ALK PHOSPHATASE 62 35 - 104 IU/L 05/22/2024 7:24 PM CDT [facility] ALT (SGPT) 105(H) 10 - 35 IU/L 05/22/2024 7:24 PM CDT [facility] AST (SGOT) 52(H) 10 - 35 IU/L 05/22/2024 7:24 PM CDT [facility] Blood BLOOD SPECIMEN / Unknown Venipuncture / Unknown 05/22/2024 8:47 AM CDT 05/22/2024 8:48 AM CDT Sanjay Allan MD CHEMISTRY [facility] [address] [place] [address], [place] * (ABNORMAL) BASIC METABOLIC PANEL (05/22/2024 8:47 AM CDT) SODIUM 141 136 - 145 mmol/L 05/22/2024 7:24 PM CDT [facility] POTASSIUM 4.2 3.5 - 5.1 mmol/L 05/22/2024 7:24 PM CDT [facility] CHLORIDE 105 98 - 107 mmol/L 05/22/2024 7:24 PM T [facility] CO2,TOTAL 26 22 - 29 mmol/L 05/22/2024 7:24 PM T [facility] ANION GAP 10 5 - 18 05/22/2024 7:24 PM T [facility] GLUCOSE 132(H) 70 - 99 mg/dL 05/22/2024 7:24 PM T [facility] CALCIUM 9.3 8.8 - 10.2 mg/dL 05/22/2024 7:24 PM T [facility] BUN 18 8 - 23 mg/dL 05/22/2024 7:24 PM T [facility] CREATININE 0.61 0.50 - 0.90 mg/dL 05/22/2024 7:24 PM T [facility] BUN/CREAT RATIO 30(H) 10 - 20 7:24 PM T [facility] eGFR >90 >90 mL/min/1.7 3m2 05/22/2024 7:24 PM T [facility] Comment:As of 2022, eG FR is calculated by the CKD-EPI creatinine equation without race adjustment. ??eGFR can be influenced by muscle mass, exercise, and diet. ??The reported eGFR is an estimation only and is only applicable if the renal function is stable. Blood BLOOD SPECIMEN / Unknown Venipuncture / Unknown 05/22/2024 8:47 AM CDT 05/22/2024 8:48 AM CDT Sanjay Allan MD CHEMISTRY [facility] [address] [place] [address], [place] * BEDSIDE US STUDY ARCHIVE (05/08/2024 10:17 AM CDT) Narrative Ramona Lopez - 05/08/2024 10:17 AM CDT The patient was seen for ultrasound guided injection by Dr. Praveen Weston. Ultrasound was not used for diagnostic purposes, but to guide the needle placement and document the position of the injection. ?? See patient's EPIC encounter for the detail of the procedure; see SAM for saved images of the injection. Praveen Weston MD PROCEDURE ORD * AMB EPIDURAL STEROID INJECTION (04/21/2024 12:00 AM CDT) Praveen Weston MD NEUROLOGY ORD * ANTI HCV [47231.2] (07/18/2017 10:38 AM CDT) HEPATITIS C ANTIBODY Non-Reacti ve Non-Reacti ve 07/18/2017 5:15 PM CDT [facility] Blood BLOOD SPECIMEN / Unknown Venipuncture / Unknown 07/18/2017 10:38 AM CDT 07/18/2017 10:[address] [facility] - 07/18/2017 5:15 PM CDT Antibodies to HCV not detected; does not exclude the possibility of exposure to HCV. Sanjay Allan MD [facility] [address] [place] [address], [place] * (ABNORMAL) XR DXA BONE DENSITY 2 SITES (12/17/2014 11:44 AM DIRECTOR OF MEDICARE) Anatomical Region Laterality Modality Spine, HIPS, HIPL, HIPR Other Narrative 12/21/2014 7:46 AM DIRECTOR OF MEDICARE Please see scanned document for results of this study. Procedure Note [facility] - 12/21/2014 Please see scanned document for results of this study. Nikko POTTER from Last 3 Months or Most Recently Relevant to Health Maintenance Advance Directives Documents on File Type Date Recorded Patient Modeling Agency Manager Expl anation Treatment Guidelines 12/28/2021 Healthcare Directive [...] Code Status Discussion: Not Discussed Care Teams Administrative Coordinator Relationship Specialty Start Date End Date Sanjay Allan MD [address] [place] [address] PCP - General Family Practice 03/05/17 Leila Elizalde MD [address] [place] [address] Hematology Hematology and Oncology 05/23/20 Inga Bose NP [address] [place] [address] Hematology Nurse Practitioner - Family 05/23/20
--- OUTSIDE RECORDS SUMMARY | 2024-07-10 18:19 | XMS_ITS | Clinical Summary ---
Author Organization [facility] Address [address] [place] [address] Phone Care Team Providers Care Card Puncher Name Role Phone Sanjay Allan MD Primary Care Provider [phone] Encounters Date Type Department Care Team Description 06/23/2024 Telephone [facility] [address] [place] [address] Guero Villanueva MD from Last 3 Months Family History Medical History Relation Comments Heart [...] 04/10/2018 11:00 AM CDT Plan of Treatment Upcoming Encounters Date Type Department Care Team (Late st Contact Info) Description 07/17/2024 1:00 PM EDT Office Visit [facility] [address] [place] [address] Guero Villanueva MD [address] [place] [address] Health Maintenance Due Date Last Done Comments Pneumococcal Vaccine: 65+ Ye ars (3 of 3 - PPSV23 or PCV20) 09/27/2015 08/02/2015, 08/26/2009 Hepatitis B Vaccine (3 of 3 - Hep B Twinrix 3-dose series) 07/18/2017 02/15/2017, 11/16/2016, 09/14/2016 Diabetes: Ophthalmology Exam 01/14/2020 Diabetes: Pedal Pulse Checked 01/14/2020 Diabetes: Sensory Foot Exam 01/14/2020 Diabetes: Visual Foot Exam 01/14/2020 Diabetes: Hemoglobin A1C 05/23/2021 021, 04/03/2018, 04/03/2018, Additional history exists Influenza Vaccine (#1) 2024 0, 07/02/2019, 07/18/2018, Additional history exists Procedures Procedure [...] Recently Relevant to Health Maintenance Care Teams Card Puncher Relationship Specialty Start Date End Date Sanjay Allan MD [address] [place] [address] PCP - General 07/13/19
--- OUTSIDE RECORDS SUMMARY | 2024-07-10 18:19 | XMS_ITS | Continuity of Care Document ---
Author Organization [place] [facility] Address [address] [facility] [address] [place] [address] Care Team Providers Care Switchboard Operator Receptionist Name Role Phone BRYANT TYSON Primary Care Provider Assessment Encounter Date Assessment Date Assessment LastModified by Organization Details LastModified Time 06/09/2024 06/09/2024 Patient seen in office today [...] Details Recorded Time Chronic ulcer of foot 372638855 Active 2020 Chronic ulcer of foot; Original Code: 5929898257 Original Codesystem : SNOMED CT Classif ication: Medical Co nfirmation Status: Confirmed Not Available [facility] 3 09:11:08 Ingrowing nail 731791091 Active 2013 Ingrowing nail; Original Code: 0266041132 Original Codesystem : SNOMED CT Classif ication: Medical Co nfirmation Status: Confirmed Not Available [facility] 3 09:11:08 Disorder of nail 18396916 Active 2013 Disorder of nail; Original Code: 4020718716 Original Codesystem : SNOMED CT Classif ication: Medical Co nfirmation Status: Confirmed Not Available [facility] 3 09:11:08 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 diabetes mellitus; Original Code: 60161863 O riginal Codesystem : SNOMED CT Classif ication: Medical Co nfirmation Status: Confirmed [place] boss, [place] - [facility] 3 15:36:12 Essential hypertens ion 58621565 Active 2014 Essential hypertensi on; Original Code: 96325350 O riginal Codesystem : SNOMED CT Classif ication: Medical Co nfirmation Status: Confirmed Parvez boss, [place] - [facility] 3 15:36:07 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; Original Code: 08503633 O riginal Codesystem : SNOMED CT Classif ication: Medical Co nfirmation Status: Confirmed Not Available [facility] 3 09:11:08 Foot pain 64194787 Active 2020 Foot pain; Original Code: 657666658 Original Codesystem : SNOMED CT Classif ication: Medical Co nfirmation Status: Confirmed Not Available [facility] 3 09:11:09 Onychomyc osis of toenails 938247455 Active 2018 Onychomyco sis of toenails; Original Code: 6535035346 Original Codesystem : SNOMED CT Classif ication: Medical Co nfirmation Status: Confirmed Not Available [facility] 3 09:11:09 Transplan t of kidney Active 2022 Parvez boss, [place] - [facility] 3 15:36:26 Diabetic care Active [address] Sanjay Allan 06/20 [facility] [place] boss [place] - [facility] 4 14:34:08 Problem Notes None recorded. Procedures Surgical History Date Name Laterality Status Provider Name and Address Organization Details Recorded Time [address] Hobson completed Ana Alvarez [facility] 06/09/2024 14:13:[address] Hobson completed Ana Alvarez [facility] 03/05/2024 12:01:[address] Hobson completed Ana Alvarez [facility] 12/06/2023 04:18:35 3 NAIL/CallusDEBR IDEMENT completed Ana Alvarez [facility] 08/29/2023 12:34:36 3 NAIL/CallusDEBR IDEMENT completed Joel Lovell DPM [address] [place], [address], [facility] 06/01/2023 10:42:[address] Hobson completed Parvez Barkley [facility] 02/14/2023 15:37:11 Imaging Results None recorded. Procedure Notes None recorded. Medical Equipment None Reported. Allergies Allergen ID Allergen Name Allergen Category Reaction Reaction Severity Criticality Documentation Date Start Date Code Code System Note Provider Name and Address Organization Details Recorded Time 17681 amoxicill in medicatio n Not available Not available Not available 01/01/2023 723 RxNorm Comme nt: React ion Class : Aller gy Al lergy Ident ifier : d0008 8 All ergy Categ ory: Multu m Drug Ident ifier Iden rayrayie r [place] Autho rity: [address] _[place]_F [place] ; Not Available [facility] 3 08:52:37 08385 Product containin g angiotens in-conver ting enzyme inhibitor (product) medicatio n Not available Not available Not available 01/01/2023 01141 009 SNOMED Comme nt: React ion Class : Aller gy Al lergy Ident ifier : 416 A llerg y Categ ory: Aller gy Categ ories Iden tifie r Assig mark Autho rity: 28974 _[place] ; Not Available [facility] 3 08:52:37 28762 metoprolo l Not available Not available Not available Not available 01/01/2023 6918 RxNorm Comme nt: React ion Class : Aller gy Al lergy Ident ifier : d0013 4 All ergy Categ ory: Multu m Drug Ident ifier Iden tifie r Assig mark Autho rity: 33314 _[place] ; Not Available [facility] 3 08:52:37 26980 Elavil medicatio n Not available Not available Not available 01/01/2023 93129 RxNorm Comme nt: React ion Class : Aller gy Al lergy Ident ifier : d0014 6 All ergy Categ ory: Multu m Drug Ident ifier Iden tifie r Assig mark Autho rity: 08910 _[place] ; Not Available [facility] 3 08:52:37 86489 Effexor medicatio n Not available Not available Not available 01/01/2023 72804 2 RxNorm Comme nt: React ion Class : Aller gy Al lergy Ident ifier : d0318 1 All ergy Categ ory: Multu m Drug Ident ifier Iden tifie r Assig mark Autho rity: 81531 _[place] ; Not Available [facility] 3 08:52:37 Medications Name Sig [...] LastModified Time Tobacco Smoking Status Never Smoker [facility] 02/14/2023 15:36:41 What Is Your Level Of Alcohol Consumption? None Information not available 02/14/2023 Do You Use Any Illicit Or Recreational Drugs? No Information not available 02/14/2023 Sex: Unknown Functional Status None recorded. Mental Status None recorded. Family History Nothing Reported. Medical History No medical history recorded. Gynecological HistoryNo gynecological history recorded. Obstetrics History GPAL:G 0 P 0 0 0 0 Past Encounters Encounter ID Performer Location Encounter Start Date Encounter Closed Date Diagnosis/Indication Diagnosis SNOMED-CT Code Diagnosis ICD10 Code [id number] Joel Lovell DPM [place] [facility] [address] [facility] [address] [place] [address] 06/09/2024 13:56:08 06/11/2024 11:43:28 Type 2 diabetes mellitus with peripheral angiopathy 061011163 E11.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 592044066 E11.49 Onychomycosis 511397342 B35.1 Foot callus 282250657 L8 4 Hallux rajeev henri AND bunion 241920513 M20.12 Health Concerns Section Related Observation LastModified by Organization Detai ls LastModified Time None Recorded Concern Status LastModified by Organization Details LastModified Time None Recorded Payers Encounter Date Sequence Insurance Name Policy Number Policy Mcclelland Covered Member ID Mcclelland Member ID Guarantor Name 06/09/2024 1 [place] (MEDICARE [place]ACEMENT PPO) [id number] Anayeli E Splettstoeszer [id number] Anayeli Petit Notes Date Note Type Note Provider Name and Address Organization Details Recorded Time 06/09/2024 text/html HPI Notes: This established patient ptc today for diabetic foot care. Patient is in need of nail care today. Denies any new foot complaints. Patient did last see Dr. Bryant Tyson for diabetes care last seen on 05/2024 Joel Lovell, [place] [address] [place], [address], [facility] 06/10/2024 15:54:47 OBGyn Episode No OBEpisode recorded.
--- OUTSIDE RECORDS SUMMARY | 2024-07-10 18:20 | XMS_ITS ---
Author Organization [facility] Address [address] [place] [address] Care Team Providers Care Substation Maintenance Technician Name Role Phone Unavailable Unavailable Unavailable Surgery Details Not on file Complications Check Surgery Details section. Procedure Estimated Blood Loss Check Surgery Details section. Procedure Findings Check Surgery Details section. Procedure Specimens Taken Check Surgery Details section.
--- OUTSIDE RECORDS SUMMARY | 2024-07-10 18:20 | XMS_ITS | Referral Summary ---
Author Organization [facility] Address [address] [place] [address] Care Team Providers Care Manager Rn Case Name Role Phone Elsewhere, Pcp Primary Care Provider Unavailabl e Source Comments Patient records contain information from all sites at [facility]. For routine questions regarding patient records, call [phone] during business hours, M-F 8:00 AM - 5:00 PM Central Time. Record requests for emergency care only can be directed to [phone] at any time.[facility] Encounters Date Type Department Care Team Description 06/30/2024 Orders Only Department of Orthopedic Surgery in [place], [place] [address] [place] [address] Shawn Gonzalez, P.A.-C., M.S. 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 06/22/2024 Clinical Communication [facility] [address] [place] [address] Damaris Ojeda C.Ph.T. Med Refill 06/22/2024 [facility] [place], [place] [address] [place] [phone] Jacky Bansal APRN, C.N.P., M.S.N. Med Refill 06/18/2024 Orders Only [facility] Transplantation and Clinical Regeneration in [address] [phone] Charlette Barragan R.N. Transplant Renal (HCC) (Primary Dx); Immunodeficiency (HCC); Respiratory Infection Type Unknown Due To COVID-19 06/09/2024 Refill [facility] Transplantation and Clinical Regeneration in [place], [place] [address] [place] [phone] Rene King M.D. Med Refill 05/28/2024 8:30 AM CDT Infusion Department of Infusion Therapy in [address] [phone] Viktoriya Garza APRN, C.N.P. Osteoporosis (Primary Dx); Transplant Renal (HCC) 05/21/2024 7:40 AM CDT - 05/21/2024 11:59 PM CDT Hospital Encounter Department of Laboratory Medicine in [address] [address] Rhonda Hampton PJoseA.-C., M.S. Transplant Renal (HCC); High Risk Medication; Osteoporosis Discharge Disposition: Home or Self Care 05/15/2024 Clinical Communication Department of Spine in [address] [address] Prescheduling, Provider Pre-scheduling Questionnaire 04/09/2024 Refill [facility] Transplantation and Clinical Regeneration in [address] [address] Jacky Bansal APRN, C.N.P., M.S.N. Med Refill from Last 3 [...] capsule by mouth daily. 12/18/2016 Active vitamins A,C,B-pdri-auupoc (PRESERVISION AREDS) 7,160 Units-113 mg-100 Units per [...] 8 weeks 36 tablet 1 04/23/2023 Active magnesium oxide (MAG-OX) 400 mg (241.3 mg magnesium) tabletIndications: Hypokalemia,Afterc are Transplant Renal (HCC),Abnormal Laboratory Results TAKE 1 TABLET (400 MG TOTAL) BY MOUTH 2 (TWO) TIMES A DAY BEFORE BREAKFAST AND DINNER. 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),Medication Therapy Retirement Not Anticoagulant Take 1 tablet (5 mg [...] Patient taking differently: 500 mg Daily with morning meal, Take one tablet with breakfast and 2 tablets with evening meal. If not tolerated decrease back to one tablet twice daily., Reported on 05/28/2024 multivitamin-road test examiner [id number] (CENTRUM SILVER) 400-250 mcg per chewable tablet [...] (two) times a day. 01/30/2024 Active carvediloL (Coreg) 12.5 mg tablet Take 1 tablet (12.5 mg total) by mouth 2 (two) times a day with meals. Take along with 6.25 mg tablet for total dose of 18.75 mg twice daily. 90 tablet 3 04/09/2024 Active tacrolimus (Prograf) 1 mg capsuleIndications :Transplant Renal (HCC),Immunodefici ency Due To Drugs (HCC),Medication Therapy Retirement Not Anticoagulant Take 1 capsule (1 mg total) by mouth 2 (two) times a day. Take with 0.5 mg for a total dose of 1.5 mg in the morning and 1.5 mg in the evening. 180 capsule 3 04/09/2024 Active tacrolimus (Prograf) 0.5 mg capsule Take 1 capsule (0.5 mg total) by mouth 2 (two) times a day. 180 capsule 3 06/23/2024 Active multivitamin tablet Take 1 tablet by mouth daily. 90 tablet 3 10/07/2022 10/08/20 22 Discontinue d(Reorder) calcium citrate-vitamin D3 (CITRACAL+D) 250 mg-5 mcg (200 Unit) per tablet Take 1 tablet by mouth 3 (three) times a day with meals. 300 tablet 3 06/27/2023 06/26/20 24 tacrolimus (Prograf) 0.5 mg capsule Take 1 capsule (0.5 mg total) by mouth 2 (two) times a day. 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 12/06/2023 Detachment Vitreous Posterior Bilateral 12/06/19 Intraocular Lens Implant Status Post 12/06/2023 Regurgitation Mitral 06/13/2023 Osteoporosis 04/26/2023 Overview (11/14/2023): Diagnosed in 2021 based on screening bone [...] Drugs 10/07/2022 Atherosclerotic Heart Diseas e Of [place] Coronary Artery Without Angina Pectoris 10/06/2022 Noninfective Gastroenteritis And Colitis Unspeci fied 01/11/2021 Overview (10/07/2022): flexible sigmoidoscopy 12/2020 normal biopsies Intra Abdominal And Pelvic S welling Mass And Lump Unspecified Site 2020 Polyneuropathy 2020 Nephrolithiasis 07/14/2020 Thrombocytopenia 07/11/2020 Overview (10/07/2022): Component Latest Ref Rng & Units 03/08/2020 [...] Gastrojejunal Ulcer Without Hemorrhage Or Perforation 10/14/2017 Overview (10/07/2022): EGD 09/2017 small anastomotic ulcer Gallstone Without Obstruction 04/11/2017 Malignant Neoplasm Of Skin Squamous Cell Carcino ma 04/11/2017 Atherosclerosis Aortic 01/01/2017 Vaginal Squamous High Grade Intraepithelial Lesi on 12/31/2016 Chronic Kidney Disease Stage 5 Glomerular Filtration Rate Less Than 15 12/20/2016 Hypertensive Chronic Kidney Disease With Stage 5 Chronic Kidney Disease Or End Stage Renal Disease 10/29/2016 Chronic Kidney Disease NOS 10/29/2016 Depression Personal History 10/29/2016 Diabetes Mellitus Type 2 10/29/2016 Overview (11/14/2023): Diagnosed 1997 based on OGTT Initially managed [...] Incontinence Urinary 05/12/2013 Polyp Colon Adenomatous 11/06/2012 Overview (02/21/2021): Colonoscopy 10/2012 large polyp repeat in 6 months Colonoscopy 10/2014 polyps repeat in 5 years Colonoscopy 03/2020 polyps, repeat in 5 years Hyperlipidemia Mixed 09/23/2012 Spinal Stenosis Lumbar Regio n Without Neurogenic Claudication 03/03/2010 Gastroesophageal Reflux Disease NOS 09/01/2007 Resolved Problems Problem Noted Date Diagnosed Date Resolved Date Pretransplant Recipient Evaluation Exam 03/08/2019 10/11/2022 Overview (03/08/2019): Transplant Evaluation Summary: 1. Cause of Renal [...] 6 15. History of malignancies: no 16. [place] renal imaging if on dialysis >3 years: [...] (ZOSTAVAX) 07/21/2010 HepA / HepB 02/15/2017,11/16/2016,09/14/2016 Influenza TIV (IM) 07/18/2020, 9,07/18/2018,2013,07/12/2013,09/09/2012,07/13/2011,1 Influenza high dose QV(65 ye ars or older) (PF) 08/03/2022,07/28/2021 Influenza, Quadrivalent, Adj uvanted, Preservative Free 08/30/2023 Influenza, Seasonal, Injectable 07/28/2014,09/09,08/27/2006 Influenza, Unspecified 07/26/2009 PCV13 08/02/2015 PPSV23 08/12/2020,08/26/2009 RZV (SHINGRIX) 09/26/2018,07/28/2018 SARS-COV-2 (COVID-19) - MODE RNA BIVALENT(Discontinued) 08/03/2022 SARS-COV-2 (COVID-19) - MODERNA(Discontinued) 09/08/2021 Td (Adult), adsorbed 12/26/2005 Tdap 07/28/2014 influenza trivalent high dos e (HD)(PF) 07/11/2017,09/14/2016,08/02/2015 influenza trivalent vaccine (6 months and older)(PF) 07/13/2011,08/02/2010 influenza vaccine quad (FLUZ ONE) (6 months-35 months) (PF) 07/15/2013 influenza vaccine quad (FLUZONE/FLUARIX) (6 months and older)(PF) 07/18/2020,08/25/2009 Social History Tobacco Use Types Packs/Day Years Used Date Smoking Tobacco: Former Cigarettes 1 20 1 - 08/06/1983 Smokeless Tobacco: Never Tobacco Cessation:Counseling Given: Not Answered Alcohol Use Standard Drinks/Week Comments No 0 (1 standard drink = 0.6 oz pur e alcohol) [facility] [employer] Answer Date Recorded In the past 12 months has e [employer] gas, oil, or water [employer] threatened to shut off services in your [...] week 10/30/2022 How often do you attend [facility] or [facility] services? More than 4 times per year [...] Answer Date Recorded PHQ-2 Score 0 04/23/2023 [facility] - [...] Sign Reading Time Taken Comments Blood Pressure 109/63 05/28/2024 8:29 AM CDT Pulse 84 05/28/2024 8:29 AM CDT Temperature 36.4 ??C (97.5 ??F) 05/28/2024 8:29 AM CD T Respiratory Rate 18 05/28/2024 8:29 AM CDT Oxygen Saturation 100% 05/28/2024 8:29 AM CDT Inhaled Oxygen Concentration - - Weight 55.5 kg (122 lb 5.7 oz) 02/13/2024 6:57 A M CDT Height 160 cm (5' 3) 02/13/2024 6:57 AM CDT Body Mass Index 21.67 02/13/2024 6:57 AM CDT Plan of Treatment Not on file Medical Devices Implanted Type Area Gold Frame Assembler Device Identifier Shelf Expiration Date Model / Serial / Lot Hardware Ankle Implant Right: Ankle Conversions - Default Historical Implant Device Implanted:11/29 (Quantity not on file) Hardware e.g. pins/screws /rods Other/Legacy - See Implant Description Description:Body Location - Spine. lower back. Device Status Text - Hardware. Stent Other- 0 Implanted:10/29 (Quantity not on file) Stent Other Heart Explanted Type Area Gold Frame Assembler Device Identifier Shelf Expiration Date Model / Serial / Lot Stnt Uret Cls Tp Dbl [id number] - S - [id number] Implanted:Qty : 1 on 10/06/2022 by Praveen Dela Cruz M.D., Ph.D. at [facility] Explanted:Qty : 1 on 10/23/2022 by Chuck Stinson PJoseANicholas. Ureteral Stent [facility] Indu [id number] / / [id number] Procedures Procedure Name Priority Date/Time Associated Diagnosis Comments OUTSIDE MR NEURO Routine 05/25/2024 2:05 PM CDT PHOSPHORUS (INORGANIC), S Routine 05/21/2024 7:50 AM CDT Transplant Renal ([facility]) CALCIUM, TOT, S/P Routine 05/21/2024 7:5 0 AM CDT Transplant Renal ([facility]) High Risk Medication OXALATE, PLASMA Routine 05/21/2024 7:50 AM CDT Transplant Renal ([facility]) High Risk Medication POTASSIUM, S/P Routine 05/21/2024 7:50 AM CDT Transplant Renal ([facility]) High Risk Medication TACROLIMUS LEVEL, B Routine 05/21/2024 7 :50 AM CDT Transplant Renal ([facility]) High Risk Medication GLUCOSE, FASTING, S/P Routine 05/21/2024 7:50 AM CDT Transplant Renal ([facility]) High Risk Medication CREATININE WITH EGFR, S/P Routine 05/21/2024 7:50 AM CDT Transplant Renal ([facility]) High Risk Medication CBC WITH DIFFERENTIAL, B Routine 05/21/2024 7:50 AM CDT Transplant Renal ([facility]) High Risk Medication BKV DNA DETECT/QUANT, P Routine 05/21/2024 7:50 AM CDT Transplant Renal ([facility]) High Risk Medication OPHTHALMOLOGY IMAGE EXAM Routine 03/10/2024 12:00 AM CDT HEMOGLOBIN A1C, B Routine 02/04/2024 8:0 9 AM CDT Preanesthetic Medical Exam 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 Bilateral Detachment 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) OUTSIDE MG MAMMOGRAM Routine 08/24/2020 11:05 AM CDT ALBUMIN, RANDOM, U Routine 07/09/2018 10 :48 AM CDT Chronic Kidney Disease Stage 5 Glomerular Filtration Rate Less Than 15 (HCC) Diabetes Mellitus Type 2 (HCC) Hypertension And Chronic Kidney Disease Stage 5 (HCC) Atherosclerosis Aortic (HCC) from Last 3 Months or Most Recently Relevant to Health Maintenance Results * MR SPINE CERVICAL WO-Outside MR Neuro (05/25/2024 2:05 PM CDT) Narrative IIMS - 05/29/2024 9:48 AM CDT This order has been created and auto-finalized to support the import of outside images. If available, original interpretation can be found on the Media Tab in Chart Review, in Document Viewer, as an image in QREADS or as an Addendum. If a re-interpretation or overread is required please follow defined workflow.?? Provider Not In System IMG MRI PROCEDURE S [facility] NA * (ABNORMAL) BKV DNA Detect/Quant (05/21/2024 7:50 AM CDT) BKV DNA Detect/Quant, P 38(A) Undetected IU/mL 05/22/2024 8:15 PM CDT [facility] Comment: Result in log IU/mL is 1.57. ----ADDITIONAL INFORMATION---- The quantification range of this assay is 22 to 100,000,000 IU/mL (1.34 log to 8.00 log IU/mL). Testing was performed using the rianna BKV test ([employer] Blood (Blood, Venous) 05/21/2024 7:50 AM CDT 05/21/2024 9:14 PM CDT Rhonda Hampton P.A.-C., M.S. LAB SANGEETHA ROBIOLOGY - BLOOD ORDERABLES Performing Organization Address City/[facility]/ZIP Co de Phone Number [facility] [address] [place] [address] [facility] [address] [place] [address] [place] [address] * (ABNORMAL) Oxalate (05/21/2024 7:50 AM CDT) Oxalate, Plasma 2.9(H) <=2.0 mcmol/L 05/22/2024 2:47 PM CDT [facility] Comment: Sample was received nonacidified and frozen. In nonacidified samples oxalate values may increase spontaneously. ----ADDITIONAL INFORMATION---- This test has been modified from the lighting engineer's instructions. Its performance characteristics were determined by [facility] in a manner consistent with CLIA requirements. This test has not been cleared or approved by the U.S. Food and Drug Administration. Blood (Blood, Venous) 05/21/2024 7:50 AM CDT 05/22/2024 7:45 AM CDT Rhonda Hampton P.A.-C. MJoseS. LAB BLO OD NON ADD-ON Performing Organization Address [facility] Co de Phone Number [facility] [address] [place] [address], [facility] [address] [place] [address] * Tacrolimus, Trough (05/21/2024 7:50 AM CDT) Tacrolimus, Trough 7.9 5.0-15.0 (Trough) ng/mL 05/22/2024 10:31 AM CDT [facility] Comment: ----ADDITIONAL INFORMATION---- Target steady-state trough concentrations vary depending on the type of transplant, concomitant immunosuppression, clinical/institutional protocols, and time post-transplant. Results should be interpreted in conjunction with this clinical information and any physical signs/symptoms of rejection/toxicity. Testing performed by Liquid Chromatography-Tandem Mass Spectrometry (LC-MS/MS). This test was developed and its performance characteristics determined by [facility] in a manner consistent with CLIA requirements. This test has not been cleared or approved by the U.S. Food and Drug Administration. Blood (Blood, Venous) 05/21/2024 7:50 AM CDT 05/22/2024 7:00 AM CDT Rhonda Hampton P.A.-C., M.S. LAB BLO OD NON ADD-ON [facility] [address] [place] [address] [facility] [address] [place] [address] [place] [address] * (ABNORMAL) CBC with Differential, Blood (05/21/2024 7:50 AM CDT) Hemoglobin 13.9 11.6 - 15.0 g/dL 05/21/2024 8:01 AM CDT CNFL Hematocrit 43.4 35.5 - 44.9 % 05/21/2024 8:01 AM CDT CNFL Erythrocytes 4.59 3.92 - 5.13 x10(12)/L 05/21/2024 8:01 AM CDT CNFL MCV 94.6 78.2 - 97.9 fL 05/21/2024 8:01 AM CDT CNFL RBC Distrib Width 14.3 12.2 - 16.1 % 05/21/2024 8:01 AM CDT CNFL Platelet Count 155(L) 157 - 371 x10(9)/L 05/21/2024 8:01 AM CDT CNFL Leukocytes 4.5 3.4 - 9.6 x10(9)/L 05/21/2024 8:01 AM CDT CNFL Neutrophils 2.52 1.56 - 6.45 x10(9)/L 05/21/2024 8:01 AM CDT CNFL Lymphocytes 1.41 0.95 - 3.07 x10(9)/L 05/21/2024 8:01 AM CDT CNFL Monocytes 0.48 0.26 - 0.81 x10(9)/L 05/21/2024 8:01 AM CDT CNFL Eosinophils 0.05 0.03 - 0.48 x10(9)/L 05/21/2024 8:01 AM CDT CNFL Basophils <0.04 0.01 - 0.08 x10(9)/L 05/21/2024 8:01 AM CDT CNFL Blood (Blood, Venous) 05/21/2024 7:50 AM CDT 05/21/2024 7:52 AM CDT Rhonda Hampton P.A.-C., M.S. LAB BLO OD ADD-ON Performing Organization Address City/[facility]/[place] [address], [facility] [place] [address] * Potassium (05/21/2024 7:50 AM CDT) Potassium, P 4.3 3.6 - 5.2 mmol/L 05/21/2024 8:12 AM CDT CNFL Blood (Blood, Venous) 05/21/2024 7:50 AM CDT 05/21/2024 7:51 AM CDT Rhonda Hampton P.A.-C., M.S. LAB BLO OD ADD-ON Performing Organization Address [facility] [place] [address], [place] [address] * Phosphorus Inorganic (05/21/2024 7:50 AM CDT) Phosphorus (Inorganic), P 4.1 2.5 - 4.5 mg/dL 05/21/2024 8:12 AM CDT CNFL Blood (Blood, Venous) 05/21/2024 7:50 AM CDT 05/21/2024 7:51 AM CDT Rhonda Hampton P.A.-C., M.S. LAB BLO OD ADD-ON Performing Organization Address City/[facility]/ZIP Co de Phone Number [address] [address], [place] [address] * (ABNORMAL) Glucose, Fasting (05/21/2024 7:50 AM CDT) Glucose, P 140(H) 70 - 100 mg/dL 05/21/2024 8:09 AM CDT CNFL Last Intake 13 hr 05/21/2024 7:52 AM CDT CNFL Blood (Blood, Venous) 05/21/2024 7:50 AM CDT 05/21/2024 7:51 AM CDT Rhonda Hampton P.A.-C., M.S. LAB BLO OD NON ADD-ON Performing Organization Address [facility]/ZIP Co de Phone Number [place] [phone], [address] [address] * Creatinine with Estimated GFR (05/21/2024 7:50 AM CDT) Creatinine 0.66 0.59 - 1.04 mg/dL 05/21/2024 8:12 AM CDT CNFL Estimated GFR (eGFR) >90 >=60 mL/min/BSA 05/21/2024 8:12 AM CDT [place] Comment: Estimated GFR calculated using the 2020 CKD_EPI creatinine equation. Blood (Blood, Venous) 05/21/2024 7:50 AM CDT 05/21/2024 7:51 AM CDT Rhonda Hampton P.A.-C., M.S. LAB BLO OD ADD-ON Performing Organization Address City/[facility]/ZIP Co de Phone Number [place] [phone], [address] [place] [address] * Calcium, Total (05/21/2024 7:50 AM CDT) Calcium, Total, P 8.9 8.8 - 10.2 mg/dL 05/21/2024 8:12 AM CDT [facility] Blood (Blood, Venous) 05/21/2024 7:50 AM CDT 05/21/2024 7:51 AM CDT Rhonda Hampton P.A.-C., M.S. LAB BLO OD ADD-ON Performing Organization Address [facility] de Phone Number [facility] [address] [place] [address], [facility] in [address] [address] * Eyes Spectralis OCT-Ophthalmology Image Exam (03/10/2024 12:00 AM CDT) Narrative IIOK - 03/10/2024 9:57 AM CDT This order has been created and auto-finalized to support the import of images acquired without order. The clinical documentation to support these images can be found on the encounter that produced images. Provider Not In System IMG NON RAD IMAGI NG PROCEDURES Performing Organization Address [facility] Co de Phone Number IIMS NA * XR MAMMO BEBO BILAT SCREEN-Outside Mammogram (08/24/2020 11:05 AM CDT) Narrative IIMS - 02/24/2021 6:13 PM CDT This order has been created and auto-finalized to support the import of outside images. If available, original interpretation can be found on the Media Tab in Chart Review, in Document Viewer, or as an image in QREADS. If a re-interpretation or overread is required please follow defined workflow. ?? Provider Not In System IMG BI PROCEDURES Performing Organization Address [facility] Co de Phone Number [facility] NA * (ABNORMAL) Microalbumin, Random, Urine (07/09/2018 10:48 AM CDT) Microalbumin 1550.7 mg/L 07/09/2018 11:39 AM CDT [facility] Comment: ----ADDITIONAL INFORMATION---- This test has been modified from the lighting engineer's instructions. Its performance characteristics were determined by [facility] in a manner consistent with CLIA requirements. This test has not been cleared or approved by the U.S. Food and Drug Administration. Creatinine 77 mg/dL 07/09/2018 11:26 AM CDT [facility] Albumin/Creatinine Ratio 2014(H) <25 mg/g 07/09/2018 11:39 AM CDT [facility] Urine (Urine, Voided) 07/09/2018 10:48 AM CDT 07/09/2018 11:39 AM CDT Peter Hennessy Jr., D.O. LAB URINE OR DERABLES [facility] [address] from Last 3 Months or Most Recently Relevant to Health Maintenance Additional Health Concerns Infection Onset Date Last Indicated Protective Environment 02/01/2023 3 Advance Directives For more information, please contact: [phone] * Full Code (Latest Code Status on [...] Answer Comments Full Code: Discussed Care Teams Manager Rn Case Relationship Specialty Start Date End Date Elsewhere, Pcp PCP - General Internal Medicine 03/22/22 [facility] - [facility] Medicine 10/25/22
--- OUTSIDE RECORDS SUMMARY | 2024-07-10 18:20 | XMS_ITS ---
Author Organization [facility] Address [address] [place] [address] Care Team Providers Care Pourer Bull Ladle Name Role Phone Elsewhere, Pcp Primary Care [...] Drugs 10/07/2022 Atherosclerotic Heart Diseas e Of [place] Coronary Artery Without Angina Pectoris 10/06/2022 Noninfective [...] Current Plans zoledronic acid (RECLAST)* Plan Start Date:05/28/2024 Plan Provider:Viktoriya Garza APRN, C.N.P. Linked Problems Transplant Renal (HCC)Osteop orosis Treatment Medications No medications scheduled. Past Plans Radiation Treatments * No radiation treatments are documented for this patient in [facility]. Treatments may have been administered in another [...] 6 15. History of malignancies: no 16. [place] renal imaging if on dialysis >3 years: [...]
--- OUTSIDE RECORDS SUMMARY | 2024-07-10 18:20 | XMS_ITS | Encounter Summary ---
Author Organization [facility] Address [address] [place] [address] Care Team Providers Care Direct Marketing Intern Name Role Phone Elsewhere, Pcp Primary Care Provider Unavailabl e Encounter Details Date Type Department Care Team (Late st Contact Info) Description 06/30/2024 Orders Only Department of Orthopedic Surgery in [place], [place] [address] [place] [phone] Shawn Gonzalez, P.A.-C., M.S. 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
--- OUTSIDE RECORDS SUMMARY | 2024-07-10 18:20 | XMS_ITS | Encounter Summary ---
Author Organization [facility] Address [address] [place] [address] Care Team Providers Care Microbiology Director Name Role Phone Elsewhere, Pcp Primary Care Provider Unavailabl e Reason for Visit * Reason Onset Date Comments Med Refill 06/22/2024 Encounter Details Date Type Department Care Team (Late st Contact Info) Description 06/22/2024 Clinical Communication [facility] [address] [place] [phone] Damaris Ojeda C.Ph.T. [address] [place] [phone] Med Refill Social History Tobacco Use Types [...] often do you attend chur ch or mormon services? More than 4 times [...] Answer Date Recorded PHQ-2 Score 0 04/23/[address] [facility] [place] of Occupat ional Health - Occupational Stress [...] documented as of this encounter Care Teams Microbiology Director Relationship Specialty Start Date End Date Elsewhere, Pcp PCP - General Internal Medicine 03/22/22 [facility] Medicine 10/25/22 documented as of this encounter
--- OUTSIDE RECORDS SUMMARY | 2024-07-10 18:20 | XMS_ITS | Encounter Summary ---
Author Organization [facility] Address [address] [place] [address] Care Team Providers Care Bull Driver Name Role Phone Elsewhere, Pcp Primary Care Provider Unavailabl e Encounter Details Date Type Department Care Team (Late st Contact Info) Description 06/24/2024 Clinical Communication Division of Nephrology and Hypertension in [place], [place] [address] [place] [phone] Jonna Canas M.D. [address] [place] [phone] Social History Tobacco Use Types Packs/Day Years Used Date Smoking Tobacco: Former Cigarettes 1 20 1 - 08/06/1983 Smokeless Tobacco: Never Alcohol Use Standard Drinks/Week Comments No 0 (1 standard drink = 0.6 oz pur e alcohol) [facility] Utilities Answer Date Recorded In the [...] often do you attend chur ch or jewish services? More than 4 times per year 10/30/2022 Do you belong to any clubs o r organizations such as voodoo groups, unions, fraternal or athletic groups, or [...] Answer Date Recorded PHQ-2 Score 0 04/23/2023 [facility] of Occupat ional Health - Occupational [...] your living situation today? I have a [facility] place to live 11/29/2023 Education Answer Date [...] documented as of this encounter Care Teams Bull Driver Relationship Specialty Start Date End Date Elsewhere, Pcp PCP - General Internal Medicine 03/22/22 [facility] Medicine 10/25/22 documented as of this encounter
--- OUTSIDE RECORDS SUMMARY | 2024-07-10 18:20 | XMS_ITS ---
Author Organization [facility] Address [address] [place] [address] Care Team Providers Care Title Clerk Name Role Phone Elsewhere, Pcp Primary Care Provider Unavailabl e Procedures Procedure Name Priority Date/Time Associated Diagnosis Comments OUTSIDE MR NEURO Routine 05/25/2024 2:05 PM CDT PHOSPHORUS (INORGANIC), S Routine 05/21/2024 7:50 AM CDT Transplant Renal ([facility]) CALCIUM, TOT, S/P Routine 05/21/2024 7:5 0 AM CDT Transplant Renal ([facility]) High Risk Medication OXALATE, PLASMA Routine 05/21/2024 7:50 AM CDT Transplant Renal ([facility]) High Risk Medication POTASSIUM, S/P Routine 05/21/2024 7:50 AM CDT Transplant Renal ([facility]) High Risk Medication TACROLIMUS LEVEL, B Routine 05/21/2024 7 :50 AM CDT Transplant Renal ([facility]) High Risk Medication GLUCOSE, FASTING, S/P Routine 05/21/2024 7:50 AM CDT Transplant Renal ([facility]) High Risk Medication CREATININE WITH EGFR, S/P Routine 05/21/2024 7:50 AM CDT Transplant Renal ([facility]) High Risk Medication CBC WITH DIFFERENTIAL, B Routine 05/21/2024 7:50 AM CDT Transplant Renal ([facility]CC) High Risk Medication BKV DNA DETECT/QUANT, P Routine 05/21/2024 7:50 AM CDT Transplant Renal (HCC) High Risk Medication OPHTHALMOLOGY IMAGE EXAM Routine [...] capsule by mouth daily. 12/18/2016 Active vitamins A,C,B-kjyo-ldtosu (PRESERVISION AREDS) 7,160 Units-113 mg-100 Units per [...] (HCC),Medication Therapy Group Home Not Anticoagulant Take 3 tablets (540 mg total) by mouth 2 (two) times a day. 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),Medication Therapy Group Home Not Anticoagulant Take 1 tablet (5 mg [...] one tablet twice daily., Reported on 05/28/2024 multivitamin-sock lining examiner kkj-XI-drwjsj (CENTRUM SILVER) 400-250 mcg per chewable tablet [...] Drugs 10/07/2022 Atherosclerotic Heart Diseas e Of [place] Coronary Artery Without Angina Pectoris 10/06/2022 Noninfective [...] drink = 0.6 oz pur e alcohol) [facility] Utilities Answer Date Recorded In the past 12 months has e [employer], oil, or water [employer] threatened to shut off services in your [...] Answer Date Recorded PHQ-2 Score 0 04/23/2023 [facility] of Occupat ional [facility] - Occupational Stress Questionnaire Answer Date [...] your living situation today? I have a [facility] place to live 11/29/2023 Education [...] 21.67 02/13/2024 6:57 AM CDT Results * MR SPINE CERVICAL WO-Outside MR [...] Not In System IMG MRI PROCEDURE S [facility] NA * (ABNORMAL) BKV DNA Detect/Quant (05/21/2024 7:50 AM CDT) BKV DNA Detect/Quant, P 38(A) Undetected IU/mL 05/22/2024 8:15 PM CDT [facility] Comment: Result in log IU/mL is 1.57. ----ADDITIONAL INFORMATION---- The quantification range of this assay is 22 to 100,000,000 IU/mL (1.34 log to 8.00 log IU/mL). Testing was performed using the rianna BKV test ([employer] Blood (Blood, Venous) 05/21/2024 7:50 AM CDT 05/21/2024 9:14 PM CDT Rhonda Hampton P.A.-C., M.S. LAB SANGEETHA ROBIOLOGY - BLOOD ORDERABLES Performing Organization Address City/[facility]/ZIP Co de Phone Number [facility] [address] [place] [address] [facility] [address] [place] [address] [place] [address] * (ABNORMAL) Oxalate (05/21/2024 7:50 AM CDT) Oxalate, Plasma 2.9(H) <=2.0 mcmol/L 05/22/2024 2:47 PM CDT [facility] Comment: Sample was received nonacidified and frozen. In nonacidified samples oxalate values may increase spontaneously. ----ADDITIONAL INFORMATION---- This test has been modified from the environmental protection inspector's instructions. Its performance characteristics were determined by [facility] in a manner consistent with CLIA requirements. This test has not been cleared or approved by the U.S. Food and Drug Administration. Blood (Blood, Venous) 05/21/2024 7:50 AM CDT 05/22/2024 7:45 AM CDT Rhonda Hampton P.A.-C. MJoseSJose LAB BLO OD NON ADD-ON Performing Organization Address City/[facility]/ZIP Co de Phone Number [facility] [address] [place] [address], [place] [facility] [address] [place] [address] * Tacrolimus, Trough (05/21/2024 7:50 AM CDT) Tacrolimus, Trough 7.9 5.0-15.0 (Trough) ng/mL 05/22/2024 10:31 AM CDT [facility] Comment: ----ADDITIONAL INFORMATION---- Target steady-state trough concentrations vary depending on the type of transplant, concomitant immunosuppression, clinical/institutional protocols, and time post-transplant. Results should be interpreted in conjunction with this clinical information and any physical signs/symptoms of rejection/toxicity. Testing performed by Liquid Chromatography-Tandem Mass Spectrometry (LC-MS/MS). This test was developed and its performance characteristics determined by [facility] in a manner consistent with CLIA requirements. This test has not been cleared or approved by the U.S. Food and Drug Administration. Blood (Blood, Venous) 05/21/2024 7:50 AM CDT 05/22/2024 7:00 AM CDT Rhonda Hampton P.A.-C., M.S. LAB BLO OD NON ADD-ON [facility] [place] [address] [place] [address] [facility] [address] [place] [address] [place] [address] * (ABNORMAL) CBC with Differential, Blood (05/21/2024 7:50 AM CDT) [facility] Hemoglobin 13.9 11.6 - 15.0 g/dL 05/21/2024 [...] Hampton P.A.-C., M.S[place] [address], [facility] in [address] [address] * Potassium (05/21/2024 7:50 AM CDT) Potassium, P 4.3 3.6 - 5.2 mmol/L 05/21/2024 8:12 AM CDT [facility] Blood (Blood, Venous) 05/21/2024 7:50 AM CDT 05/21/2024 7:51 AM CDT Rhonda Hampton P.A.-C., M.[place] [address], [facility] CNFL [facility] in [address] [address] * Phosphorus Inorganic (05/21/2024 7:50 AM CDT) Phosphorus (Inorganic), P 4.1 2.5 - 4.5 mg/dL 05/21/2024 8:12 AM CDT [facility] Blood (Blood, Venous) 05/21/2024 7:50 AM CDT 05/21/2024 7:51 AM CDT Rhonda Hampton P.A.-C., M.S. LAB BLO OD ADD-ON Performing Organization Address [facility] [place] [address], [place] [address] * (ABNORMAL) Glucose, Fasting (05/21/2024 7:50 AM CDT) Glucose, P 140(H) 70 - 100 mg/dL 05/21/2024 8:09 AM CDT [facility] Last Intake 13 hr 05/21/2024 7:52 AM CDT [facility] Blood (Blood, Venous) 05/21/2024 7:50 AM CDT 05/21/2024 7:51 AM CDT Rhonda Hampton P.A.-C., M.S. LAB BLO OD NON ADD-ON Performing Organization Address [facility]/[place] [address], [facility] [place] [address] * Creatinine with Estimated GFR (05/21/2024 7:50 AM CDT) Creatinine 0.66 0.59 - 1.04 mg/dL 05/21/2024 8:12 AM CDT [facility] Estimated GFR (eGFR) >90 >=60 mL/min/BSA 05/21/2024 8:12 AM CDT [facility] Comment: Estimated GFR calculated using the 2020 CKD_EPI creatinine equation. Blood (Blood, Venous) 05/21/2024 7:50 AM CDT 05/21/2024 7:51 AM CDT Rhonda Hampton P.A.-C., M.S. LAB BLO OD ADD-ON Performing Organization Address [facility] [place] [address], [place] [address] * Calcium, Total (05/21/2024 7:50 AM CDT) Pathologist [facility] Calcium, Total, P 8.9 8.8 - 10.2 mg/dL 05/21/2024 8:12 AM CDT [facility] Blood (Blood, Venous) 05/21/2024 7:50 AM CDT 05/21/2024 7:51 AM CDT Rhonda Hampton P.A.-C., M.S. LAB BLO OD ADD-ON Performing Organization Address [facility] [place] [address], [place] [address] * Eyes Spectralis OCT-Ophthalmology Image Exam (03/10/2024 12:00 AM CDT) Narrative [facility] - 03/10/2024 9:57 AM CDT This order has been created and auto-finalized to support the import of images acquired without order. The clinical documentation to support these images can be found on the encounter that produced images. Provider Not In System IMG NON RAD IMAGI NG PROCEDURES Performing Organization Address City/[facility]/ZIP Co de Phone Number [facility] NA * [...] System IMG BI PROCEDURES Performing Organization Address [facility] Co de Phone Number [facility] NA * (ABNORMAL) Microalbumin, Random, Urine (07/09/2018 10:48 AM CDT) Microalbumin 1550.7 mg/L 07/09/2018 11:39 AM CDT [facility] Comment: ----ADDITIONAL INFORMATION---- This test has been modified from the environmental protection inspector's instructions. Its performance characteristics were determined by [facility] in a manner consistent with CLIA requirements. This test has not been cleared or approved by the U.S. Food and Drug Administration. Creatinine 77 mg/dL 07/09/2018 11:26 AM CDT [facility] Albumin/Creatinine Ratio 2014(H) <25 mg/g 07/09/2018 11:39 AM CDT [facility] Urine (Urine, Voided) 07/09/2018 10:48 AM CDT 07/09/2018 11:39 AM CDT Peter Hennessy Jr., D.O. LAB URINE OR DERABLES Performing Organization Address City/[facility] Co de Phone Number [facility] [address] [place], [place] [address] from Last 3 Months or Most Recently Relevant to Health Maintenance
--- OUTSIDE RECORDS SUMMARY | 2024-07-10 18:20 | XMS_ITS | Clinical Summary ---
Author Organization [facility] Address [address] [place] [address] Care Team Providers Care Hiv Prevention Specialist Name Role Phone Elsewhere, Pcp Primary Care Provider Unavailabl e Source Comments Patient records contain information from all sites at [facility]. For routine questions regarding patient records, call [phone] during business hours, M-F 8:00 AM - 5:00 PM Central Time. Record requests for emergency care only can be directed to [phone] at any time.[facility] Allergies Active Allergy Reactions Criticality Noted Date [...] capsule by mouth daily. 12/18/2016 Active vitamins A,C,J-efpm-jyoxbq (PRESERVISION AREDS) 7,160 Units-113 mg-100 Units per [...] Drugs (HCC),Medication Therapy Retirement Not Anticoagulant Take 3 tablets (540 mg [...] one tablet twice daily., Reported on 05/28/2024 multivitamin-cloth colors examiner aqx-WN-gsqljt (CENTRUM SILVER) 400-250 mcg per chewable tablet [...] Drugs 10/07/2022 Atherosclerotic Heart Diseas e Of [place] Coronary Artery Without Angina Pectoris 10/06/2022 Noninfective [...] 6 15. History of malignancies: no 16. [place] renal imaging if on dialysis >3 years: [...] Surgical Issues: last visit with Dr. Salazar 2017, [facility] 23. Peripheral Vascular Disease?: likely given claudication 24. Other Medical Issues: prior history of tobacco use; CT scan lung cancer screening ordered 25. Pending issues: as above 26. 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 06/22/2024 Clinical Communication [facility] [address] [place] [address] Damaris Ojeda C.Ph.T. Med Refill 06/22/2024 Refill [facility] in [place], [place] [address] [place] [address] Jacky Bansal APRN, C.N.P., M.S.N. Med Refill 06/18/2024 Orders Only [facility] in [place], [place] [address] [place] [address] Charlette Barragan, R.N. Transplant Renal (HCC) (Primary Dx); Immunodeficiency (HCC); Respiratory Infection Type Unknown Due To COVID-19 06/09/2024 Refill [facility] in [place], [place] [address] [place] [address] Rene King M.D. Med Refill 05/28/2024 8:30 AM CDT Infusion Department of Infusion Therapy in [address] [phone] Viktoriya Garza APRN, C.N.P. Osteoporosis (Primary Dx); Transplant Renal (HCC) 05/21/2024 7:40 AM CDT - 05/21/2024 11:59 PM CDT Hospital Encounter Department of Laboratory Medicine in [address] [phone] Rhonda Hampton P.A.-C., M.S. Transplant Renal (HCC); High Risk Medication; Osteoporosis Discharge Disposition: Home or Self Care 05/15/2024 Clinical Communication Department of Spine in [place], [place] [address] [place] [phone] Prescheduling, Provider Pre-scheduling Questionnaire 04/09/2024 Refill [facility] in [place], [place] [address] [place] [phone] Jacky Bansal, ELODIA, C.N.P., M.S.N. Med Refill [...] alcohol) [facility] [email or web address] Answer Date Recorded In the past 12 months has e [employer], gas, oil, or water [employer] threatened to shut off services in [...] [facility] of Occupat ional Health - Occupational Stress [...] your living situation today? I have a [facility] place to live 11/29/2023 Education [...] Diabetic Office Visit with Foot Exam 1945 Meningococcal Vaccine (1 - Risk 1-dose series ) 1949 MenB Vaccine (1 of 2 - Patient Seeks Protection) 1963 Urine Albumin 07/09/2019 07/09/2018 Depression Screening (Annual PHQ-2) 10/28/2023 COVID-19 Vaccine ( season) 2024 08/30/2023, 08/03/2022, 03/30/2022, Additional history exists DTaP,Tdap,and Td Vaccines (2 - Td or Tdap) 07/28/2024 07/28/2014, 12/26/2005 Influenza Vaccine (#1) 2024 , 08/03/2022, 07/28/2021, Additional history exists Hemoglobin A1C 08/22/2024 05/22/2024, 040 06/2024, 11/11/2023, Additional history exists Dilated Eye Exam 03/10/2025 03/10/2024 Creatinine Level (Kidney Function Test) 05/22/2025 05/22/2024, 05/21/2024, 02/27/2024, Additional history exists Office Visit for Blood Pressure Check / Re-check 05/28/2025 05/28/2024 Zoster Vaccines Completed 09/26/2018, 10/2017, 07/21/2010 Colonoscopy Discontinued 04/04/2020, 07/28 (Performed elsewhere) Colonoscopy Discontinued 04/04/2020, 07/28 (Performed elsewhere) Colorectal Cancer Screening Discontinued Colorectal Cancer Surveillance Discontinued Pneumococcal vaccine (65+ years) Completed 08/12/2020, 08/02/2015, 08/26/2009 Mammogram Discontinued 10/02/2023, 03/2023, 09/24/2022, Additional history exists Bone Density Scan (Osteoporosis Screen) Discontinued 11/14/2023 Fall Risk Screen (Annual) Completed 02/13/[address] Colonography Discontinued Cologuard Discontinued FIT Discontinued HPV Vaccines Aged Out No longer eligi ble based on patient's age to complete this topic Medical Devices Implanted Type Area Fresh Foods Clerk Device Identifier Shelf Expiration Date Model / Serial / Lot Hardware Ankle Implant Right: Ankle Conversions - Default Historical Implant Device Implanted:11/29 (Quantity not on file) Hardware e.g. pins/screws /rods Other/Legacy - See Implant Description Description:Body Location - Spine. lower back. Device Status Text - Hardware. Stent Other- 0 Implanted:10/29 (Quantity not on file) Stent Other Heart Explanted Type Area Fresh Foods Clerk Device Identifier Shelf Expiration Date Model / Serial / Lot Stnt Uret Cls Tp Dbl 7fx12 - S - [id number] Implanted:Qty : 1 on 10/06/2022 by Praveen Dela Cruz M.D., Ph.D. at [facility] Explanted:Qty : 1 on 10/23/2022 by Chuck Stinson PJoseANicholas. Ureteral Stent [facility] [id number] / / [id number] Procedures Procedure Name Priority Date/Time Associated Diagnosis Comments OUTSIDE MR NEURO Routine 05/25/2024 2:05 PM CDT PHOSPHORUS (INORGANIC), S Routine 05/21/2024 7:50 AM CDT Transplant Renal ([facility]) CALCIUM, TOT, S/P Routine 05/21/2024 7:5 0 AM CDT Transplant Renal ([facility]) High Risk Medication OXALATE, PLASMA Routine 05/21/2024 7:50 AM CDT Transplant Renal ([facility]) High Risk Medication POTASSIUM, S/P Routine 05/21/2024 7:50 AM CDT Transplant Renal ([facility]) High Risk Medication TACROLIMUS LEVEL, B Routine 05/21/2024 7 :50 AM CDT Transplant Renal ([facility]) High Risk Medication GLUCOSE, FASTING, S/P Routine 05/21/2024 7:50 AM CDT Transplant Renal ([facility]) High Risk Medication CREATININE WITH EGFR, S/P Routine 05/21/2024 7:50 AM CDT Transplant Renal ([facility]) High Risk Medication CBC WITH DIFFERENTIAL, B Routine 05/21/2024 7:50 AM CDT Transplant Renal ([facility]) High Risk Medication BKV DNA DETECT/QUANT, [...] Not In System IMG MRI PROCEDURE S IIVA NA * (ABNORMAL) BKV DNA Detect/Quant (05/21/2024 7:50 AM CDT) BKV DNA Detect/Quant, P 38(A) Undetected IU/mL 05/22/2024 8:15 PM CDT [facility] Comment: Result in log IU/mL is 1.57. ----ADDITIONAL INFORMATION---- The quantification range of this assay is 22 to 100,000,000 IU/mL (1.34 log to 8.00 log IU/mL). Testing was performed using the rianna BKV test ([employer] Blood (Blood, Venous) 05/21/2024 7:50 AM CDT 05/21/2024 9:14 PM CDT Rhonda Hampton P.A.-C., M.S. LAB SANGEETHA ROBIOLOGY - BLOOD ORDERABLES Performing Organization Address [facility] Co de Phone Number [facility] [address] [place] [address] [facility] [address] [place] [address] [place] [address] * (ABNORMAL) Oxalate (05/21/2024 7:50 AM CDT) Pathologist [facility] Oxalate, Plasma 2.9(H) <=2.0 mcmol/L 05/22/2024 2:47 PM CDT [facility] Comment: Sample was received nonacidified and frozen. In nonacidified samples oxalate values may increase spontaneously. ----ADDITIONAL INFORMATION---- This test has been modified from the die cast patternmaker's instructions. Its performance characteristics were determined by [facility] in a manner consistent with CLIA requirements. This test has not been cleared or approved by the U.S. Food and Drug Administration. Blood (Blood, Venous) 05/21/2024 7:50 AM CDT 05/22/2024 7:45 AM CDT Rhonda Hampton P.A.-C. MJoseSJose LAB BLO OD NON ADD-ON Performing Organization Address City/[facility]/ZIP Co de Phone Number [facility] [address] [place] [address], [facility] [address] [place] [address] * Tacrolimus, Trough (05/21/2024 7:50 AM CDT) Tacrolimus, Trough 7.9 5.0-15.0 (Trough) ng/mL 05/22/2024 10:31 AM CDT [facility] Comment: ----ADDITIONAL INFORMATION---- Target steady-state trough concentrations vary depending on the type of transplant, concomitant immunosuppression, clinical/institutional protocols, and time post-transplant. Results should be interpreted in conjunction with this clinical information and any physical signs/symptoms of rejection/toxicity. Testing performed by Liquid Chromatography-Tandem Mass Spectrometry (LC-MS/MS). This test was developed and its performance characteristics determined by [facility] in a manner consistent with CLIA requirements. This test has not been cleared or approved by the U.S. Food and Drug Administration. Blood (Blood, Venous) 05/21/2024 7:50 AM CDT 05/22/2024 7:00 AM CDT Rhonda Hampton P.A.-C. M.S. LAB BLO OD NON ADD-ON [facility] [address] [place] [address] [facility] [address] [place] [address] [place] [address] * (ABNORMAL) CBC with Differential, Blood (05/21/2024 [...] Hampton P.A.-C., M.S. [place] [address], [place] [address] * Potassium (05/21/2024 7:50 AM CDT) Potassium, P 4.3 3.6 - 5.2 mmol/L 05/21/2024 8:12 AM CDT [facility] Blood (Blood, Venous) 05/21/2024 7:50 AM CDT 05/21/2024 7:51 AM CDT Rhonda Hampton P.A.-C., M.S. LAB BLO OD ADD-ON [place] [id number], [place] [address] * Phosphorus Inorganic (05/21/2024 7:50 AM CDT) Phosphorus (Inorganic), P 4.1 2.5 - 4.5 mg/dL 05/21/2024 8:12 AM CDT [facility] Blood (Blood, Venous) 05/21/2024 7:50 AM CDT 05/21/2024 7:51 AM CDT Rhonda Hampton P.A.-C., M.S. LAB BLO OD ADD-ON Performing Organization Address [facility] [place] [address], [facility] [place] [address] * (ABNORMAL) Glucose, Fasting (05/21/2024 7:50 AM CDT) Glucose, P 140(H) 70 - 100 mg/dL 05/21/2024 8:09 AM CDT [facility] Last Intake 13 hr 05/21/2024 7:52 AM CDT [facility] Blood (Blood, Venous) 05/21/2024 7:50 AM CDT 05/21/2024 7:51 AM CDT Rhonda Hampton P.A.-C., M.S. LAB BLO OD NON ADD-ON Performing Organization Address [facility] [place] [address], [facility] [place] [phone] * Creatinine with Estimated GFR (05/21/2024 7:50 AM CDT) Creatinine 0.66 0.59 - 1.04 mg/dL 05/21/2024 8:12 AM CDT [facility] Estimated GFR (eGFR) >90 >=60 mL/min/BSA 05/21/2024 8:12 AM CDT [facility] Comment: Estimated GFR calculated using the 2020 CKD_EPI creatinine equation. Blood (Blood, Venous) 05/21/2024 7:50 AM CDT 05/21/2024 7:51 AM CDT Rhonda Hampton P.A.-C., M.S. LAB BLO OD ADD-ON Performing Organization Address [facility] [place] [address], [place] [address] * Calcium, Total (05/21/2024 7:50 AM CDT) Calcium, Total, P 8.9 8.8 - 10.2 mg/dL 05/21/2024 8:12 AM CDT [facility] Blood (Blood, Venous) 05/21/2024 7:50 AM CDT 05/21/2024 7:51 AM CDT Rhonda Hampton P.A.-C., M.S. LAB BLO OD ADD-ON Performing Organization Address [facility] [place] [address], [place] [address] * Eyes Spectralis OCT-Ophthalmology Image Exam (03/10/2024 12:00 AM CDT) Narrative [facility] - 03/10/2024 9:57 AM CDT This order has been created and auto-finalized to support the import of images acquired without order. The clinical documentation to support these images can be found on the encounter that produced images. Provider Not In System IMG NON RAD IMAGI NG PROCEDURES Performing Organization Address City/[facility] Co de Phone Number I[facility] NA * XR MAMMO BEBO BILAT SCREEN-Outside Mammogram (08/24/2020 11:05 AM CDT) Narrative [facility] - 02/24/2021 6:13 PM CDT This order [...] System IMG BI PROCEDURES Performing Organization Address [facility] Co de Phone Number [facility] NA * (ABNORMAL) Microalbumin, Random, Urine (07/09/2018 10:48 AM CDT) Microalbumin 1550.7 mg/L 07/09/2018 11:39 AM CDT [facility] Comment: ----ADDITIONAL INFORMATION---- This test has been modified from the die cast patternmaker's instructions. Its performance characteristics were determined by [facility] in a manner consistent with CLIA requirements. This test has not been cleared or approved by the U.S. Food and Drug Administration. Creatinine 77 mg/dL 07/09/2018 11:26 AM CDT [facility] Albumin/Creatinine Ratio 2014(H) <25 mg/g 07/09/2018 11:39 AM CDT [facility] Urine (Urine, Voided) 07/09/2018 10:48 AM CDT 07/09/2018 11:39 AM CDT Peter Hennessy Jr., D.O. LAB URINE OR DERABLES Performing Organization Address [facility] de Phone Number [address] from Last 3 Months or Most Recently Relevant to Health Maintenance Additional Health Concerns Infection Onset Date Last Indicated Protective Environment 02/01/2023 3 Advance Directives For more information, please contact: [phone] * Full Code (Latest Code Status on [...] Answer Comments Full Code: Discussed Care Teams Hiv Prevention Specialist Relationship Specialty Start Date End Date Elsewhere, Pcp PCP - General Internal Medicine 03/22/22 [facility] [place] Laboratory Medicine 10/25/22
--- OUTSIDE RECORDS SUMMARY | 2024-07-10 18:21 | XMS_ITS | Encounter Summary ---
Author Organization [facility] Address [address] [place] [address] Care Team Providers Care Marker Machine Name Role Phone Elsewhere, Pcp Primary Care Provider Unavailabl e Reason for Visit * Episode Based Medications (Routine) - Pending Review Specialty Diagnoses / Procedures Referred By Roman t Referred To Contact Diagnoses Transplant Renal (HCC) Osteoporosis Procedures CT ZOLEDRONIC ACID 1MG Viktoriya Garza APRN, C.N.P. [address] [place] [phone] [facility] Region Referral ID Status Reason Start Date Expiration Date V isits Requested Visits Authorized [id number] Pending Review 11/15/2023 11/14/2025 99 99 Encounter Details Date Type Department Care Team (Late st Contact Info) Description 05/28/2024 8:30 AM CDT Infusion Department of Infusion Therapy in [address] [phone] Viktoriya Garza APRN, C.N.P. [address] [place] [phone] Osteoporosis (Primary Dx); Transplant Renal (HCC) Social History Tobacco Use Types Packs/Day Years Used Date Smoking Tobacco: Former Cigarettes 1 20 1 - 08/06/1983 Smokeless Tobacco: Never Alcohol Use Standard Drinks/Week Comments No 0 (1 standard drink = 0.6 oz pur e alcohol) [facility] Utilities Answer Date Recorded In the past [...] often do you attend chur ch or oriental orthodox services? More than 4 times per year [...] Date Recorded PHQ-2 Score 0 04/23/2023 [facility] of Occupat ional Health - Occupational Stress [...] your living situation today? I have a [facility] place to live 11/29/2023 Education Answer [...] Index - - documented in this encounter Plan of Treatment Not on file documented as of this encounter Visit Diagnoses Diagnosis Osteoporosis- Primary Transplant Renal (HCC) documented in this encounter Administered Medications Inactive Administered Medications - up to 3 most recent administrations Medication Order MAR Action Action Date Dose Rate Site zoledronic quxy-mzlvcbtg-vamzv IVPB 5 mg (Reclast) 5 mg, intravenous, at 400 mL/hr, Administer over 15 Minutes, Once, On Deyanira 05/28/24 at 0900, For 1 dose, Notify Provider for creatinine clearance less than 35mL/min as treatment is not recommended. Monitor serum creatinine before each dose, Restriction Criteria (Pharmacy will review and approve if criteria met): Osteoporosis patient who has failed or cannot tolerate one of the oral bisphosphonates, alendronate (Fosamax) and risendronate (Actonel) New Bag 05/28/2024 8:37 AM CDT 5 mg 400 mL/h r documented in this encounter Additional Health Concerns Infection Onset Date Last Indicated Resolved Time Protective Environment 02/01/2023 02/01/2023 Assessment Noted Time PHQ-9 Depression Total Score: 2 04/23/20 23 11:30 AM CDT documented as of this encounter Care Teams Marker Machine Relationship Specialty Start Date End Date Elsewhere, Pcp PCP - General Internal Medicine 03/22/22 [facility] [place] Laboratory Medicine 10/25/22 documented as of this encounter
--- OUTSIDE RECORDS SUMMARY | 2024-07-10 18:21 | XMS_ITS | Referral Summary ---
Author Organization [facility] Address [address] [place] [address] Care Team Providers Care Leadite Heater Name Role Phone Sanjay Allan MD Primary Care Provider [phone] Allergies Active Allergy Reactions Criticality Noted Date [...] by mouth every morning 12/15/2019 Active B Gzgxece-S-Zftvn Acid (RENAL-FLO) 0.8 MG TABS Take 1 [...] Comments Blood Pressure 145/75 10/06/2020 2:50 PM REAL ESTATE INSPECTOR Pulse 81 10/06/2020 2:50 PM REAL ESTATE INSPECTOR Temperature 36.9 ??C (98.4 ??F) 10/06/2020 12:[address] Respiratory Rate 16 10/06/2020 2:50 PM REAL ESTATE INSPECTOR Oxygen Saturation 95% 10/06/2020 2:50 PM REAL ESTATE INSPECTOR Inhaled Oxygen Concentration - - Weight 58 kg (127 lb 12.8 oz) 10/06/2020 8:44 AM REAL ESTATE INSPECTOR Height 160 cm (5' 3) 10/06/2020 8:44 AM REAL ESTATE INSPECTOR Body Mass Index 22.64 10/06/2020 8:44 AM REAL ESTATE INSPECTOR Plan of Treatment Not on file Care Teams Leadite Heater Relationship Specialty Start Date End Date Sanjay Allan MD [address] [place] [address] PCP - General 04/26/20
--- OUTSIDE RECORDS SUMMARY | 2024-07-10 18:21 | XMS_ITS | Encounter Summary ---
Author Organization [facility] Address [address] [place] [address] Care Team Providers Care Editor Index Name Role Phone Elsewhere, Pcp Primary Care Provider Unavailabl e Reason for Visit * Reason Comments Med Refill Encounter Details Date Type Department Care Team (Late st Contact Info) Description 06/09/2024 [facility] [place], [place] [address] [place] [phone] Rene King M.D. [address] [place] [phone] Med Refill Social History Tobacco Use Types Packs/Day Years Used Date Smoking Tobacco: Former Cigarettes 1 20 1 - 08/06/1983 Smokeless Tobacco: Never Alcohol Use Standard Drinks/Week Comments No 0 (1 standard drink = 0.6 oz pur e alcohol) [facility] Utilities Answer Date Recorded In the past [...] How often do you attend chur or adventism services? More than 4 times per year 10/30/2022 Do you belong to any clubs o r organizations such as mormon groups, unions, fraternal or athletic groups, or [...] living situation today? I have a [facility] place to live 11/29/2023 Education Answer Date [...] encounter Miscellaneous Notes * Telephone Encounter - Ralf Toro R.N., C.C.T.C. - 06/10/2024 8:18 AM CDT No longer needs documented in this encounter Plan of Treatment Not on file documented as of this encounter Visit Diagnoses Not on filedocumented in this encounter Additional Health Concerns Infection Onset Date Last Indicated Resolved Time Protective Environment 02/01/2023 02/01/2023 Assessment Noted Time PHQ-9 Depression Total Score: 2 04/23/20 23 11:30 AM CDT documented as of this encounter Care Teams Editor Index Relationship Specialty Start Date End Date Elsewhere, Pcp PCP - General Internal Medicine 03/22/22 [facility] [place] Laboratory Medicine 10/25/22 documented as of this encounter
--- OUTSIDE RECORDS SUMMARY | 2024-07-10 18:21 | XMS_ITS | Clinical Summary ---
Author Organization [facility] Address [address] [place] [address] Care Team Providers Care Doubler Operator Name Role Phone Sanjay Allan MD Primary Care Provider [phone] Allergies Active Allergy Reactions Criticality Noted Date [...] by mouth every morning 12/15/2019 Active B Hgtnjaq-T-Fdzsa Acid (RENAL-FLO) 0.8 MG TABS Take 1 [...] Comments Blood Pressure 145/75 10/06/2020 2:50 PM RUBY RAILS DEVELOPER Pulse 81 10/06/2020 2:50 PM RUBY RAILS DEVELOPER Temperature 36.9 ??C (98.4 ??F) 10/06/2020 12:[address] Respiratory Rate 16 10/06/2020 2:50 PM RUBY RAILS DEVELOPER Oxygen Saturation 95% 10/06/2020 2:50 PM RUBY RAILS DEVELOPER Inhaled Oxygen Concentration - - Weight 58 kg (127 lb 12.8 oz) 10/06/2020 8:44 AM RUBY RAILS DEVELOPER Height 160 cm (5' 3) 10/06/2020 8:44 AM RUBY RAILS DEVELOPER Body Mass Index 22.64 10/06/2020 8:44 AM RUBY RAILS DEVELOPER Plan of Treatment Not on file Care Teams Doubler Operator Relationship Specialty Start Date End Date Sanjay Allan MD [address] [place] [address] PCP - General 04/26/20
--- OUTSIDE RECORDS SUMMARY | 2024-07-10 18:21 | XMS_ITS | Encounter Summary ---
Author Organization [facility] Address [address] [place] [address] Care Team Providers Care Director [employer]eron[employer] Commission Name Role Phone Elsewhere, Pcp Primary Care Provider Unavailabl e Reason for Referral * Outpatient (Routine) - Authorized Specialty Diagnoses / Procedures Referred By Roman t Referred To Contact Diagnoses Transplant Renal (HCC) Immunodeficiency (HCC) Respiratory Infection Type Unknown Due To COVID-19 Jonna Canas M.D. [address] [place] [address] [facility] Referral ID Status Reason Start Date Expiration Date V isits Requested Visits Authorized [id number] Authorized 06/18/2024 12/18/2025 1 1 Encounter Details Date Type Department Care Team (Late st Contact Info) Description 06/18/2024 Orders Only Benito yip [facility] in [place], [place] [address] [place] [phone] Charlette Barragan, R.N. Transplant Renal (HCC) (Primary Dx); Immunodeficiency (HCC); Respiratory Infection Type Unknown Due To COVID-19 Social History Tobacco Use Types Packs/Day Years Used Date Smoking Tobacco: Former Cigarettes 1 20 1 - 08/06/1983 Smokeless Tobacco: Never Alcohol Use Standard Drinks/Week Comments No 0 (1 standard drink = 0.6 oz pur e alcohol) [facility] Utilities Answer Date Recorded In the [...] often do you attend chur ch or bahai services? More than 4 times per year 10/30/2022 Do you belong to any clubs o r organizations such as mandaeism groups, unions, fraternal or athletic groups, or [...] Answer Date Recorded PHQ-2 Score 0 04/23/2023 [facility] - Occupational Stress Questionnaire Answer Date [...] your living situation today? I have a [facility] place to live 11/29/2023 Education Answer Date [...] as of this encounter Plan of Treatment Scheduled Referrals Name Type Priority Associated Diagnoses Order Schedule Family Medicine - COVID treatment telehealth consult (clinic) Outpatient Referral Routine Transplant Renal (HCC) Immunodeficiency (HCC) Respiratory Infection Type Unknown Due To COVID-19 Expected: 06/18/2024, Expires: 09/18/2025 documented as of this encounter Visit Diagnoses Diagnosis Transplant Renal (HCC)- Primary Immunodeficiency (HCC) Respiratory Infection Type Unknown Due To COVID-19 documented in this encounter Additional Health Concerns Infection Onset Date Last Indicated Resolved Time Protective Environment 02/01/2023 02/01/2023 Assessment Noted Time PHQ-9 Depression Total Score: 2 04/23/20 23 11:30 AM CDT documented as of this encounter Care Teams Director Aeronautics Commission Relationship Specialty Start Date End Date Elsewhere, Pcp PCP - General Internal Medicine 03/22/22 [facility] [place] [facility] Medicine 10/25/22 documented as of this encounter
--- OUTSIDE RECORDS SUMMARY | 2024-07-10 18:21 | XMS_ITS | Encounter Summary ---
Author Organization [facility] Address [address] [place] [address] Care Team Providers Care Contract Clerk Automobile Name Role Phone Elsewhere, Pcp Primary Care Provider Unavailabl e Reason for Visit * Episode Based Medications (Routine) - Pending Review Specialty Diagnoses / Procedures Referred By Roman t Referred To Contact Diagnoses Transplant Renal (HCC) Osteoporosis Procedures AR ZOLEDRONIC ACID 1MG Viktoriya Garza APRN, C.N.P. [address] [place] [phone] [facility] Region Referral ID Status Reason Start Date Expiration Date V isits Requested Visits Authorized [id number] Pending Review 11/15/2023 11/14/2025 99 99 Encounter Details Date Type Department Care Team (Late st Contact Info) Description 05/21/2024 7:40 AM CDT - 05/21/2024 11:59 PM CDT Hospital Encounter Department of Laboratory Medicine in [address] [phone] Rhonda Hampton P.A.-Louisa., M.S. [address] [place] [phone] Transplant Renal (HCC); High Risk Medication; Osteoporosis Discharge Disposition: Home or Self Care Social History Tobacco Use Types Packs/Day Years Used Date Smoking Tobacco: Former Cigarettes 1 20 1 - 08/06/1983 Smokeless Tobacco: Never Alcohol Use Standard Drinks/Week Comments No 0 (1 standard drink = 0.6 oz pur e alcohol) [facility] Utilities Answer Date Recorded In [...] often do you attend chur ch or rastafari services? More than 4 times per year 10/30/2022 Do you belong to any clubs o r organizations such as advent groups, unions, fraternal or athletic groups, or [...] Answer Date Recorded PHQ-2 Score 0 04/23/2023 [facility] - Occupational [...] your living situation today? [facility] 11/29/2023 Education Answer Date [...] (three) times a day with meals. 11/14/2023 carvediloL (Coreg) 12.5 mg tablet Take 1 tablet (12.5 mg total) by mouth 2 (two) times a day with meals. Take along with 6.25 mg tablet for total dose of 18.75 mg twice daily. 90 tablet 3 04/09/2024 carvediloL (COREG) 6.25 mg tablet TAKE 1 TAB BY MOUTH 2 TIMES A DAY WITH MEALS.TAKE WITH 12.5MG TAB FOR TOTAL OF 18.75MG TWICE DAILY. 180 tablet 3 12/20/2023 cholecalciferol (VITAMIN D3) 50 mcg (2,000 Unit) capsule Take 1 capsule by mouth 2 (two) times a day. coenzyme Q10 200 mg capsule Take 1 capsule by mouth every evening. For muscle pain 12/19/2016 cyanocobalamin, vitamin B-12, 1,000 mcg capsule Take 1,000 mcg by mouth daily. 03/05/2023 DULoxetine (CYMBALTA) [address] capsule Take 1 capsule by mouth daily. 12/18/2016 esomeprazole (NexIUM) [address] capsule Take 1 capsule (20 mg total) by mouth every morning before breakfast. 90 capsule 3 12/12/2022 magnesium oxide (MAG-OX) 400 mg (241.3 mg magnesium) tabletIndications:Hypok alemia,Aftercare Transplant Renal (HCC),Abnormal Laboratory Results TAKE 1 TABLET (400 MG TOTAL) BY MOUTH 2 (TWO) TIMES A DAY BEFORE BREAKFAST AND DINNER. 180 tablet 3 11/04/2023 metFORMIN XR (GLUCOPHAGE-XR) 500 mg 24 hr tablet Take one tablet with breakfast and 2 tablets with evening meal. If not tolerated decrease back to one tablet twice daily. 270 tablet 3 11/14/2023 ckcxrafgesjb-mheisfvu-R A-lutein (CENTRUM SILVER) 400-250 mcg per chewable tablet Chew 1 tablet daily. 11/14/2023 mycophenolate (Myfortic) [address] tabletIndications:Trans plant Renal (HCC),Immunodeficiency Due To Drugs (HCC),Medication Therapy Maintenance Helper Not Anticoagulant Take 3 tablets (540 mg total) by mouth 2 (two) times a day. 540 tablet 3 10/31/2023 potassium chloride (K-TAB) 20 mEq CR tablet Take 1 tablet (20 mEq total) by mouth daily. 90 tablet 3 12/23/2023 predniSONE (Deltasone) 5 mg tabletIndications:Trans plant Renal (HCC),Immunodeficiency Due To Drugs (HCC),Medication Therapy Maintenance Helper Not Anticoagulant Take 1 tablet (5 mg total) by mouth daily. 90 tablet 3 11/12/2023 rosuvastatin (CRESTOR) 40 mg tablet Take 1 tablet by mouth at bedtime. 09/02/2019 semaglutide (OZEMPIC) 1 mg/dose (4 mg/3 mL) injection Inject 1 mg under the skin every 7 (seven) days. 3 mL 11 11/14/2023 tacrolimus (Prograf) 1 mg capsuleIndications:Addison splant Renal (HCC),Immunodeficiency Due To Drugs (HCC),Medication Therapy Mcfp Not Anticoagulant Take 1 capsule (1 mg total) by mouth 2 (two) times a day. Take with 0.5 mg for a total dose of 1.5 mg in the morning and 1.5 mg in the evening. 180 capsule 3 04/09/2024 vitamins A,C,J-sbtg-xqkvcf (PRESERVISION AREDS) 7,160 Units-113 mg-100 Units per tablet Take 1 tablet by mouth 2 (two) times a day. For eye health 12/19/2016 calcium citrate-vitamin D3 (CITRACAL+D) 250 mg-5 mcg (200 Unit) per tablet Take 1 tablet by mouth 3 (three) times a day with meals. 300 tablet 3 06/27/2023 06/26/2024 tacrolimus (Prograf) 0.5 mg capsule Take 1 capsule (0.5 mg total) by mouth 2 (two) times a day. 180 capsule 3 06/27/2023 06/22/2024 documented as of this encounter Plan of Treatment Not on file documented as of this encounter Procedures Procedure Name Priority Date/Time Associated Diagnosis Comments BKV DNA DETECT/QUANT, P Routine 05/21/2024 7:50 AM CDT Transplant Renal ([facility]) High Risk Medication OXALATE, PLASMA Routine 05/21/2024 7:50 AM CDT Transplant Renal ([facility]) High Risk Medication TACROLIMUS LEVEL, B Routine 05/21/2024 7 :50 AM CDT Transplant Renal ([facility]) High Risk Medication CBC WITH DIFFERENTIAL, B Routine 05/21/2024 7:50 AM CDT Transplant Renal ([facility]) High Risk Medication POTASSIUM, S/P Routine 05/21/2024 7:50 AM CDT Transplant Renal ([facility]) High Risk Medication PHOSPHORUS (INORGANIC), S Routine 05/21/2024 7:50 AM CDT Transplant Renal ([facility]) GLUCOSE, FASTING, S/P Routine 05/21/2024 7:50 AM CDT Transplant Renal ([facility]) High Risk Medication CREATININE WITH EGFR, S/P Routine 05/21/2024 7:50 AM CDT Transplant Renal ([facility]) High Risk Medication CALCIUM, TOT, S/P Routine 05/21/2024 7:5 0 AM CDT Transplant Renal ([facility]) High Risk Medication documented in this encounter Results * Phosphorus Inorganic (05/21/2024 7:50 AM CDT) Phosphorus (Inorganic), P 4.1 2.5 - 4.5 mg/dL 05/21/2024 8:12 AM CDT CNFL Blood (Blood, Venous) 05/21/2024 7:50 AM CDT 05/21/2024 7:51 AM CDT Rhonda Hampton P.A.-C., M.S. LAB BLO OD ADD-ON Performing Organization Address [facility] [place] [address], [place] [address] * Calcium, Total (05/21/2024 7:50 AM CDT) Calcium, Total, P 8.9 8.8 - 10.2 mg/dL 05/21/2024 8:12 AM CDT [facility] Blood (Blood, Venous) 05/21/2024 7:50 AM CDT 05/21/2024 7:51 AM CDT Rhonda Hampton P.A.-C., M.S. LAB BLO OD ADD-ON Performing Organization Address [facility] [place] [address], [place] [address] * (ABNORMAL) Oxalate (05/21/2024 7:50 AM CDT) Oxalate, Plasma 2.9(H) <=2.0 mcmol/L 05/22/2024 2:47 PM CDT [facility] Comment: Sample was received nonacidified and frozen. In nonacidified samples oxalate values may increase spontaneously. ----ADDITIONAL INFORMATION---- This test has been modified from the engineering technologist's instructions. Its performance characteristics were determined by [facility] in a manner consistent with CLIA requirements. This test has not been cleared or approved by the U.S. Food and Drug Administration. Blood (Blood, Venous) 05/21/2024 7:50 AM CDT 05/22/2024 7:45 AM CDT Rhonda Hampton P.A.-C. MJoseSJose LAB BLO OD NON ADD-ON [facility] [address] [place] [address], [facility] [[email or web address]] [facility] [address] [place] [address] * (ABNORMAL) BKV DNA Detect/Quant (05/21/2024 7:50 AM CDT) Pathologist [facility] BKV DNA Detect/Quant, P 38(A) Undetected IU/mL 05/22/2024 8:15 PM CDT [facility] Comment: Result in log IU/mL is 1.57. ----ADDITIONAL INFORMATION---- The quantification range of this assay is 22 to 100,000,000 IU/mL (1.34 log to 8.00 log IU/mL). Testing was performed using the rianna BKV test ([employer] Blood (Blood, Venous) 05/21/2024 7:50 AM CDT 05/21/2024 9:14 PM CDT Rhonda Hampton P.A.-C. MJoseS. LAB SANGEETHA ROBIOLOGY - BLOOD ORDERABLES Performing Organization Address City/[facility]/ZIP Co de Phone Number [facility] [address] [place] [address] [facility] [address] [place] [address] [place] [address] * Potassium (05/21/2024 7:50 AM CDT) Pathologist [facility] Potassium, P 4.3 3.6 - 5.2 mmol/L 05/21/2024 8:12 AM CDT [facility] Blood (Blood, Venous) 05/21/2024 7:50 AM CDT 05/21/2024 7:51 AM CDT Justin Salinas P.A.-C.JoseS. LAB BLO OD ADD-ON [facility] [address] [place] [address], [facility] [[email or web address]] CNFL [facility] in [address] [address] * Tacrolimus, Trough (05/21/2024 7:50 AM CDT) Tacrolimus, Trough 7.9 5.0-15.0 (Trough) ng/mL 05/22/2024 10:31 AM CDT [facility] Comment: ----ADDITIONAL INFORMATION---- Target steady-state trough concentrations vary depending on the type of transplant, concomitant immunosuppression, clinical/institutional protocols, and time post-transplant. Results should be interpreted in conjunction with this clinical information and any physical signs/symptoms of rejection/toxicity. Testing performed by Liquid Chromatography-Tandem Mass Spectrometry (LC-MS/MS). This test was developed and its performance characteristics determined by [facility] in a manner consistent with CLIA requirements. This test has not been cleared or approved by the U.S. Food and Drug Administration. Blood (Blood, Venous) 05/21/2024 7:50 AM CDT 05/22/2024 7:00 AM CDT Rhonda Hampton P.A.-C. MJoseSJose LAB BLO OD NON ADD-ON [facility] [address] [place] [address] [facility] [address] [place] [address] [place] [address] * (ABNORMAL) Glucose, Fasting (05/21/2024 7:50 AM CDT) Glucose, P 140(H) 70 - 100 mg/dL 05/21/2024 8:09 AM CDT CNFL Last Intake 13 hr 05/21/2024 7:52 AM CDT [facility] Blood (Blood, Venous) 05/21/2024 7:50 AM CDT 05/21/2024 7:51 AM CDT Rhonda Hampton P.A.-C., M.S. LAB BLO OD NON ADD-ON Performing Organization Address City/[facility]/ZIP Co de Phone Number [address] [address], [facility] [[email or web address]] CNFL [facility] in [address] [address] * Creatinine with Estimated GFR (05/21/2024 7:50 AM CDT) Creatinine 0.66 0.59 - 1.04 mg/dL 05/21/2024 8:12 AM CDT [facility] Estimated GFR (eGFR) >90 >=60 mL/min/BSA 05/21/2024 8:12 AM CDT [facility] Comment: Estimated GFR calculated using the 2020 CKD_EPI creatinine equation. Blood (Blood, Venous) 05/21/2024 7:50 AM CDT 05/21/2024 7:51 AM CDT Rhonda Hampton P.A.-C., M.S. LAB BLO OD ADD-ON Performing Organization Address City/[facility]/ZIP Co de Phone Number [facility] [address] [place] [address], [facility] [[email or web address]] CNFL [facility] in [address] [address] * (ABNORMAL) CBC with Differential, Blood (05/21/2024 [...] LAB BLO OD ADD-ON Performing Organization Address City/State/[facility] Co de Phone Number [facility] [address] [place], [place] [phone], [facility] [[email or web address]] CNFL [facility] in [address] [address] documented in this encounter Visit Diagnoses Diagnosis Transplant Renal (HCC) High Risk Medication Osteoporosis documented in this encounter Additional Health Concerns Infection Onset Date Last Indicated Resolved Time Protective Environment 02/01/2023 02/01/2023 Assessment Noted Time PHQ-9 Depression Total Score: 2 04/23/20 23 11:30 AM CDT documented as of this encounter Care Teams Contract Clerk Automobile Relationship Specialty Start Date End Date Elsewhere, Pcp PCP - General Internal Medicine 03/22/22 [facility] [place] Laboratory Medicine 10/25/22 documented as of this encounter
--- OUTSIDE RECORDS SUMMARY | 2024-07-10 18:21 | XMS_ITS | Encounter Summary ---
Author Organization [facility] Address [address] [place] [address] Care Team Providers Care Route Rider Supervisor Name Role Phone Elsewhere, Pcp Primary Care Provider Unavailabl e Reason for Visit * Reason Comments Med Refill Encounter Details Date Type Department Care Team (Late st Contact Info) Description 03/22/2024 [facility] [place], [place] [address] [place] [phone] Rene King M.D. [address] [place] [phone] Med Refill Social History Tobacco Use Types Packs/Day Years Used Date Smoking Tobacco: Former Cigarettes 1 20 1 - 08/06/1983 Smokeless Tobacco: Never Alcohol Use Standard Drinks/Week Comments No 0 (1 standard drink = 0.6 oz pur e alcohol) [facility] Utilities Answer Date Recorded In [...] How often do you attend chur or sabianism services? More than 4 times per year [...] Answer Date Recorded PHQ-2 Score 0 04/23/2023 [facility] of Occupat ional Health - Occupational [...] your living situation today? I have a [facility] place to live 11/29/2023 Education [...] documented as of this encounter Care Teams Route Rider Supervisor Relationship Specialty Start Date End Date Elsewhere, Pcp PCP - General Internal Medicine 03/22/22 [facility] [place] Laboratory Medicine 10/25/22 documented as of this encounter
--- OUTSIDE RECORDS SUMMARY | 2024-07-10 18:21 | XMS_ITS | Encounter Summary ---
Author Organization [facility] Address [address] [place] [address] Care Team Providers Care Process Pumper Name Role Phone Elsewhere, Pcp Primary Care Provider Unavailabl e Reason for Referral * Medication Prior Authorization - Closed Specialty Diagnoses / Procedures Referred By Roman del castillo Referred To Contact Jonna Canas M.D. [address] [place] [phone] Referral ID Status Reason Start Date Expiration Date Visits Re quested Visits Authorized [id number] Closed 1 1 Reason for Visit * Reason Comments Med Refill Encounter Details Date Type Department Care Team (Late st Contact Info) Description 06/22/2024 [facility] [place], [place] [address] [place] [phone] Jacky Bansal, MANAGER RECRUITING, C.N.P., M.S.N. [address] [place] [phone] Med Refill Social History Tobacco Use Types Packs/Day Years Used Date Smoking Tobacco: Former Cigarettes 1 20 1 - 08/06/1983 Smokeless Tobacco: Never Alcohol Use Standard Drinks/Week Comments No 0 (1 standard drink = 0.6 oz pur e alcohol) [facility] Utilities Answer Date Recorded In the [...] often do you attend chur ch or uatsdin services? More than 4 times per year 10/30/2022 Do you belong to any clubs o r organizations such as caodaism groups, unions, fraternal or athletic groups, or [...] Answer Date Recorded PHQ-2 Score 0 04/23/2023 [facility]ational Stress Questionnaire Answer Date [...] documented as of this encounter Care Teams Process Pumper Relationship Specialty Start Date End Date Elsewhere, Pcp PCP - General Internal Medicine 03/22/22 [facility] [place] [facility] 10/25/22 documented as of this encounter
--- OUTSIDE RECORDS SUMMARY | 2024-07-10 18:21 | XMS_ITS | Encounter Summary ---
Author Organization [facility] Address [address] [place] [address] Care Team Providers Care Livestock Handler Name Role Phone Elsewhere, Pcp Primary Care Provider Unavailabl e Reason for Visit * Reason Onset Date Comments Pre-scheduling Questionnaire 05/15/2024 Encounter Details Date Type Department Care Team (Latest Contact Info) Description 05/15/2024 Clinical Communication Department of Spine in [place], [place] [address] [place] [phone] Prescheduling, Provider Pre-scheduling Questionnaire Social History Tobacco Use Types Packs/Day Years Used Date Smoking Tobacco: Former Cigarettes 1 20 1 - 08/06/1983 Smokeless Tobacco: Never Alcohol Use Standard Drinks/Week Comments No 0 (1 standard drink = 0.6 oz pur e alcohol) [facility] Utilities Answer Date Recorded In the past 12 months has [facility] [employer], gas, oil, or water [employer] threatened to shut off services in your [...] often do you attend chur ch or samaritan services? More than 4 times [...] Answer Date Recorded PHQ-2 Score 0 04/23/2023 [facility] of Occupat ional Health - Occupational Stress [...] your living situation today? [facility] 11/29/2023 Education Answer [...] encounter Miscellaneous Notes * Telephone Encounter - Niels Silva - 05/15/2024 9:39 AM CDT [facility] Question Set documented in this encounter Plan of Treatment Not on file documented as of this encounter Visit Diagnoses Not on filedocumented in this encounter Additional Health Concerns Infection Onset Date Last Indicated Resolved Time Protective Environment 02/01/2023 02/01/2023 Assessment Noted Time PHQ-9 Depression Total Score: 2 04/23/20 23 11:30 AM CDT documented as of this encounter Care Teams Livestock Handler Relationship Specialty Start Date End Date Elsewhere, Pcp PCP - General Internal Medicine 03/22/22 [facility] [place] Laboratory Medicine 10/25/22 documented as of this encounter
--- OUTSIDE RECORDS SUMMARY | 2024-07-10 18:21 | XMS_ITS ---
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 Transplant Sports Psychologist N/A N/A N/A Sanjay Allan M.D. Referring Provider Transplant External Managing Manager Social Services N/A N/A N/A Nahum Salazar M.D. Transplant Surgeon N/A N/A N/A Events Post-Transplant Pre-Transplant Admitted: 10/06/2022 Referred: 10/08/2016 Transplanted: 10/06/2022 Evaluation began: 7 Discharged: 10/10/2022 Committee: 05/10/2017 Center waitlisted: 7 Dialysis History Dialysis History Start End Type Comments Center 10/12/2022 10/12/2022 In-center Hemodialysis RS T [facility] ANASTAS[facility] 08/14/2019 10/06/2022 [facility] Information Center Phone Fax Address T [facility] [phone] [place] [phone] [facility] Kidney [facility] [phone] [address] [address]
--- OUTSIDE RECORDS SUMMARY | 2024-07-10 18:21 | XMS_ITS | Encounter Summary ---
Author Organization [facility] Address [address] [place] [address] Care Team Providers Care Keg Varnisher Name Role Phone Elsewhere, Pcp Primary Care Provider Unavailabl e Reason for Visit * Reason Comments Med Refill Encounter Details Date Type Department Care Team (Late st Contact Info) Description 04/09/2024 Refill Benito yip [facility] Clinical Regeneration in [place], [place] [address] [place] [phone] Jacky Bansal, ELODIA, C.N.P., M.S.N. [address] [place] [phone] Med Refill Social History Tobacco Use Types Packs/Day Years Used Date Smoking Tobacco: Former Cigarettes 1 20 1 - 08/06/1983 Smokeless Tobacco: Never Alcohol Use Standard Drinks/Week Comments No 0 (1 standard drink = 0.6 oz pur e alcohol) [facility] Utilities Answer Date Recorded In [...] Answer Date Recorded PHQ-2 Score 0 04/23/2023 [facility] [place] of Occupat ional Health - Occupational Stress [...] your living situation today? I have a [facility] place to live 11/29/2023 Education Answer [...] Immunodeficiency Due To Drugs (HCC) Medication Therapy Sheet Pile Driver Operator Not Anticoagulant documented in this encounter Additional Health Concerns Infection Onset Date Last Indicated Resolved Time Protective Environment 02/01/2023 02/01/2023 Assessment Noted Time PHQ-9 Depression Total Score: 2 04/23/20 23 11:30 AM CDT documented as of this encounter Care Teams Keg Varnisher Relationship Specialty Start Date End Date Elsewhere, Pcp PCP - General Internal Medicine 03/22/22 [facility] [place] Laboratory Medicine 10/25/22 documented as of this encounter
[2024-07-10] MEDS: HYDROmorphone 0.5 mg/0.5 ml inj 1 MG IM (18:29)
[2024-07-10 18:50] VITALS: O2SAT 95
== END 2024-07-10 19:08 | disposition home or self-care (01) ==
PROVIDERS: Emergency Provider Family Medicine; PCP Surgery
DX: M54.12 Radiculopathy, cervical region (principal)
CPT/HCPCS: 96372; 99283; 99284; J1170

== ENCOUNTER 2025-04-23 08:58 | Outpatient (CLI) | payer MEDICARE, BC, SELFPAY ==
--- NOTE | 2025-04-23 10:37 | P.ANES_ITS ---
Anesthesia Charges Start Date/Time Anesthesia Start Date: 04/23/25 Anesthesia Start Time: 10:25 Stop Date/Time Anesthesia Stop Date: 04/23/25 Anesthesia Stop Time: 10:51 Summary Extremes of Age - Over 70 or under 1: MDA Coding CPT Codes CPT Codes: ANES LWR INTST SCR COLSC - 62090 ([id number]) QK - ECONOMICS INSTRUCTOR 2-4 CNCRNT ANES PROC, QX - LICENSED PHYSICAL THERAPIST SVC W/ MD MED DIRECTION, P3 - PATIENT W/SEVERE SYS DISEASE Additional Codes: Summary - Extremes of Age - Over 70 or under 1: MDA ([id number])
--- NOTE | 2025-04-23 10:53 | P.ANES_ITS ---
Anesthesia Charges Start Date/Time Anesthesia Start Date: 04/23/25 Anesthesia Start Time: 10:25 Stop Date/Time Anesthesia Stop Date: 04/23/25 Anesthesia Stop Time: 10:51 Coding CPT Codes CPT Codes: ANES LWR INTST SCR COLSC - 82131 ([id number]) P3 - PATIENT W/SEVERE SYS DISEASE, QK - MEDICAL AUTHORIZATION SPECIALIST 2-4 CNCRNT ANES PROC, QX - TURBINE ASSEMBLER SVC W/ MD MED DIRECTION
--- NOTE | 2025-04-23 10:53 | W.ANESCHARGE ---
Anesthesia Charges Start Date/Time Anesthesia Start Date: 04/23/25 Anesthesia Start Time: 10:25 Stop Date/Time Anesthesia Stop Date: 04/23/25 Anesthesia Stop Time: 10:51 Coding CPT Codes CPT Codes: ANES LWR INTST SCR COLSC - 56915 ([id number]) P3 - PATIENT W/SEVERE SYS DISEASE, QK - HAT CONDITIONER 2-4 CNCRNT ANES PROC, QX - CLINIC LEAD SVC W/ MD MED DIRECTION
== END 2025-04-23 08:59 | disposition home or self-care (01) ==
PROVIDERS: PCP Surgery; Visit Provider Internal Medicine Gastroenterology
DX: Z12.11 Encounter for screening for malignant neoplasm of colon (principal); Z86.0100 Personal history of colon polyps, unspecified; I97.791 Other intraoperative cardiac functional disturbances during other surgery; I49.9 Cardiac arrhythmia, unspecified; Z53.09 Procedure and treatment not carried out because of other contraindication
CPT/HCPCS: 00812; 45378; 99100; J2704

== ENCOUNTER 2025-04-23 10:22 | Emergency (ER) | payer MEDICARE, BC, SELFPAY ==
--- OUTSIDE RECORDS SUMMARY | 2025-03-11 07:42 | XMS_ITS | Encounter Summary ---
Author Organization [facility] Address [address] [place] [address] Care Team Providers Care Automotive Hardware Engineer Name Role Phone Elsewhere, Pcp Primary Care Provider Unavailabl e Encounter Details Date Type Department Care Team (Latest Contact Info) Description 03/11/2025 7:42 AM CDT - 03/11/2025 11:59 PM CDT Hospital Encounter Department of Laboratory Medicine in [address] [phone] Rhonda Hampton P.A.-C., M.S. [address] [place] [phone] Immunodeficiency Due To Drugs (HCC); Transplant Renal (HCC); Medication Therapy Prison Not Anticoagulant Discharge Disposition: Home or Self Care Social History Tobacco Use Types Packs/Day Years Used Date Smoking Tobacco: Former Cigarettes 1 20 1 - 08/06/1983 Smokeless Tobacco: Never Alcohol Use Standard Drinks/Week Comments Never 0 (1 standard drink = 0.6 oz pur e alcohol) [facility] Utilities Answer Date Recorded In the past 12 months has e Isabella Oliver, gas, oil, or water [employer] threatened to shut off services in your [...] by your partner or ex-partner? No 10/30/2022 Hunger Vital Sign Answer Date Recorded Within [...] PHQ-9 Total Score (max 27) 2 04/23 Housing Stability Answer Date Recorded What is your living situation today? I have a [facility] place to live 11/29/2023 Education Answer Date Recorded What is the highest level of school you have completed or the highest degree you have received? 12th grade 01/15/2020 Comments No Sex and Gender Information Value Date Recorded Sex Assigned at Female 08/15/2022 12:28 PM CDT Legal Sex Female 5:03 AM CLEARING HAND Gender Identity Female 04/24/2018 8:21 PM CDT Sexual Orientation Straight 04/24/2018 8: 21 PM CDT documented as of this encounter Medications at Time of Discharge Accu-Chek Guide test strips 1 test by other route 2 (two) times a day. 01/30/2024 acetaminophen (TylenoL) 500 mg tablet Take 1,000 mg by mouth every 6 (six) hours as needed. aspirin 81 mg chewable tablet Chew 1 tablet (81 mg total) daily. HOLD until follow up with Neurology in 8 weeks 36 tablet 1 04/23/2023 biotin 10 mg tablet Take 10 capsules by mouth daily. 03/05/2023 CALCIUM CARBONATE-VITAMIN D3 ORAL Take 1,200 mg by mouth 2 (two) times a day with meals. carvediloL (Coreg) 12.5 mg tablet Take 1 tablet (12.5 mg total) by mouth 2 (two) times a day with meals. Take along with 6.25 mg tablet for total dose of 18.75 mg twice daily. 60 tablet 11 04/07/2025 12:36 PM CDT 10/09/2024 carvediloL (Coreg) 6.25 mg tablet TAKE 1 TAB BY MOUTH 2 TIMES A DAY WITH MEALS.TAKE WITH 12.5MG TAB FOR TOTAL OF 18.75MG TWICE DAILY. 180 tablet 3 01/29/2025 cholecalciferol (VITAMIN D3) 50 mcg (2,000 Unit) capsule Take 1 capsule by mouth 2 (two) times a day. coenzyme Q10 200 mg capsule Take 1 capsule by mouth every evening. For muscle pain 12/19/2016 copper gluconate 2 mg tablet Take 4 mg by mouth. cyanocobalamin, vitamin B-12, 1,000 mcg capsule Take 1,000 mcg by mouth daily. 03/05/2023 DULoxetine (CYMBALTA) [address] capsule Take 1 capsule by mouth daily. 12/18/2016 esomeprazole (NexIUM) [address] capsule Take 1 capsule (20 mg total) by mouth every morning before breakfast. 90 capsule 3 12/12/2022 ezetimibe (Zetia) 10 mg tabletIndications:C oronary Stent Status Post,Hyperlipidemia Mixed Take 1 tablet (10 mg total) by mouth daily. 90 tablet 3 10/17/2024 gabapentin (Neurontin) 100 mg capsule Take 100 mg by mouth as needed. 06/26/2024 glipiZIDE (GlucotroL) 5 mg tablet TAKE 1 TABLET (5 MG) BY MOUTH TWO TIMES DAILY BEFORE MEALS. magnesium oxide (Mag-Ox) 400 mg (241.3 mg magnesium) tabletIndications:H ypokalemia,Aftercar e Transplant Renal (HCC),Abnormal Laboratory Results TAKE 1 TABLET (400 MG TOTAL) BY MOUTH 2 (TWO) TIMES A DAY BEFORE BREAKFAST AND DINNER. 180 tablet 3 01/18/2025 metFORMIN XR (GLUCOPHAGE-XR) 500 mg 24 hr tablet Take one tablet with breakfast and 2 tablets with evening meal. If not tolerated decrease back to one tablet twice daily. 270 tablet 3 11/14/2023 multivitamin-eye (PreserVision Lutein) 226 mg-90 mg-5 mg-0.8 mg capsule Take 1 capsule by mouth daily. multivitamin-minera cr-RG-oenvnx (CENTRUM SILVER) 400-250 mcg per chewable tablet Chew 1 tablet daily. 11/14/2023 oxyCODONE-acetamino phen (Percocet) 5-325 mg per tablet as needed. 09/21/2024 potassium chloride (K-Tab) 20 mEq ER tablet TAKE 1 TABLET BY MOUTH EVERY DAY 90 tablet 3 10/30/2024 predniSONE (Deltasone) 5 mg tabletIndications:T ransplant Renal (HCC),Immunodeficie ncy Due To Drugs (HCC),Medication Therapy Prison Not Anticoagulant Take 1 tablet (5 mg total) by mouth daily. 90 tablet 3 04/22/2025 12:04 PM CDT 12/07/2024 rosuvastatin (CRESTOR) 40 mg tablet Take 1 tablet by mouth at bedtime. 09/02/2019 semaglutide (OZEMPIC) 1 mg/dose (4 mg/3 mL) injection Inject 1 mg under the skin every 7 (seven) days. 3 mL 11 11/14/2023 tacrolimus (Prograf) 0.5 mg capsule Take 1 capsule (0.5 mg total) by mouth 2 (two) times a day. 180 capsule 3 04/22/2025 12:04 PM CDT 06/23/2024 tacrolimus (Prograf) 1 mg capsuleIndications: Transplant Renal (HCC),Immunodeficie ncy Due To Drugs (HCC),Medication Therapy Dictaphone Operator Not Anticoagulant Take 1 capsule (1 mg total) by mouth 2 (two) times a day. Take with 0.5 mg for a total dose of 1.5 mg in the morning and 1.5 mg in the evening. 180 capsule 3 03/31/2025 11:08 AM CDT 04/09/2024 mycophenolate (Myfortic) [address] tabletIndications:T ransplant Renal (HCC),Immunodeficie ncy Due To Drugs (HCC),Medication Therapy Prison Not Anticoagulant Take 3 tablets (540 mg total) by mouth 2 (two) times a day. 540 tablet 3 03/03/2025 10:46 AM CDT 10/29/2024 documented as of this encounter Plan of Treatment Upcoming Encounters Date Type Department Care Team (Late st Contact Info) Description 05/05/2025 9:00 AM CDT Appointment Department of Laboratory Medicine in [address] [phone] Lavinia Nash M.D. [address] [place] [phone] 06/02/2025 11:40 AM CDT Appointment Department of Laboratory Medicine in [address] [phone] Lavinia Nash M.D. [address] [place] [phone] 06/02/2025 12:30 PM CDT Infusion Department of Infusion Therapy in [address] [phone] Viktoriya Garza APRN, C.N.P. [address] [place] [phone] 06/11/2025 7:50 AM CDT Appointment Department of Laboratory Medicine in [address] [phone] Rhonda Hampton P.A.-Louisa., M.S. [address] [place] [phone] 06/30/2025 9:00 AM CDT Appointment Department of Laboratory Medicine in [address] [phone] Lavinia Nash M.D. [address] [place] [phone] 07/28/2025 9:00 AM CDT Appointment Department of Laboratory Medicine in [address] [phone] Lavinia Nash M.D. 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) Medication Therapy Prison Not Anticoagulant BASIC METABOLIC PANEL, S/P Routine 03/11/2025 7:54 AM CDT 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) Medication Therapy Dictaphone Operator Not Anticoagulant documented in this encounter Results * [facility] NMS Testing (03/15/2025 8:23 AM CDT) Test Name Oxalate, Plasma 03/23/2025 9:03 AM CDT NMS Comment:REVISED RESULTS Result See Below 03/23/2025 10:09 AM CDT NMS Comment: Reporting Analysis and Comments Result Units Limit [id number] Oxalate, Serum/Plasma Analysis by High Performance Liquid Chromatography/ Tandem Mass Spectrometry (LC-MS/MS) Oxalate 12 mcmol/L 2.0 Synonym(s): Oxalic Acid Normal: Adults: Less than 2.0-3.1 mcmol/L 3 to 12 months: Less than 2.0-5.5 mcmol/L 1 to 18 years: Less than 2.0-5.7 mcmol/L Glycolate, ascorbic acid, and/or diets containing oxalate can increase concentrations. This test was developed and its performance characteristics determined by [facility]. It has not been cleared or approved by the US Food and Drug Administration. This test is not approved by [facility]. 03/15/2025 8:23 AM CDT 03/15/2025 8:23 AM CDT Rhonda Hampton P.A.-C., M.S. LAB MISC ORDERA BLES Final Result Performing Organization Address [facility] de Phone Number [facility] [address] [place] [phone], [facility] [address] [place] [phone] * Tacrolimus, Trough (03/11/2025 7:54 AM CDT) [facility] Signature Tacrolimus, Trough 6.6 5.0-15.0 (Trough) ng/mL 03/12/2025 10:40 AM CDT [facility] Comment: ----ADDITIONAL INFORMATION---- Target steady-state trough concentrations vary depending on the type of transplant, concomitant immunosuppression, clinical/institutional protocols, and time post-transplant. Results should be interpreted in conjunction with this clinical information and any physical signs/symptoms of rejection/toxicity. Testing performed by Liquid Chromatography-Tandem Mass Spectrometry (LC-MS/MS). This test was developed and its performance characteristics determined by [facility] in a manner consistent with CLIA requirements. This test has not been cleared or approved by the U.S. Food and Drug Administration. Blood (Blood, Venous) 03/11/2025 7:54 AM CDT 03/12/2025 7:08 AM CDT Rhonda Hampton P.A.-C., M.S. LAB BLOOD NON A DD-ON Final Result Performing Organization Address City/[facility] Co de Phone Number [facility] [place] [address] [place] [address] [facility] [address] [place] [address] [place] [address] * (ABNORMAL) BKV DNA Detect/Quant (03/11/2025 7:54 AM CDT) Pathologist [facility] BKV DNA Detect/Quant, P 709(A) Undetected IU/mL 03/12/2025 2:49 PM CDT [facility] Comment: Result in log IU/mL is 2.85. ----ADDITIONAL INFORMATION---- The quantification range of this assay is 22 to 100,000,000 IU/mL (1.34 log to 8.00 log IU/mL). Testing was performed using the rianna BKV test ([employer] Blood (Blood, Venous) 03/11/2025 7:54 AM CDT 03/12/2025 7:54 AM CDT Rhonda Hampton P.A.-C., M.S. LAB MICROBIOLOG Y - BLOOD ORDERABLES Final Result [facility] [address] [place] [address] [facility] [address] [place] [address] [place] [phone] * (ABNORMAL) Basic Metabolic Panel (03/11/2025 7:54 AM CDT) [facility] Potassium, P 3.1(L) 3.6 - 5.2 mmol/L 03/11/2025 8:18 AM CDT [facility] Sodium, P 142 135 - 145 mmol/L 03/11/2025 8:18 AM CDT [facility] Chloride, P 104 98 - 107 mmol/L 03/11/2025 8:18 AM CDT [facility] Bicarbonate, P 27 22 - 29 mmol/L 03/11/2025 8:18 AM CDT [facility] Anion Gap, P 11 7 - 15 03/11/2025 8:18 AM CDT [facility] BUN (Blood Urea Nitrogen), P 19 6 - 21 mg/dL 03/11/2025 8:18 AM CDT [facility] Creatinine 0.65 0.59 - 1.04 mg/dL 03/11/2025 8:18 AM CDT [facility] Estimated GFR (eGFR) >90 >=60 mL/min/BSA 03/11/2025 8:18 AM CDT [facility] Comment: Estimated GFR calculated using the 2020 CKD_EPI creatinine equation. Calcium, Total, P 8.3(L) 8.8 - 10.2 mg/dL 03/11/2025 8:18 AM CDT [facility] Glucose, P 123 70 - 140 mg/dL 03/11/2025 8:18 AM CDT [facility] Blood (Blood, Venous) 03/11/2025 7:54 AM CDT 03/11/2025 7:58 AM CDT us Rhonda Hampton P.A.-C., M.S. LAB BLOOD ADD-O N Final Result Performing Organization Address City/State/[facility] Co de Phone Number [facility] [address] [place] [address], [facility] CNFL [facility] [place] [address] * CBC with Differential, Blood (03/11/2025 7:54 AM CDT) Hemoglobin 13.2 11.6 - 15.0 g/dL 03/11/2025 8:02 AM CDT [facility] Hematocrit 41.0 35.5 - 44.9 % 03/11/2025 8:02 AM CDT [facility] Erythrocytes 4.36 3.92 - 5.13 x10(12)/L 03/11/2025 8:02 AM CDT [facility] MCV 94.0 78.2 - 97.9 fL 03/11/2025 8:02 AM CDT [facility] RBC Distrib Width 14.2 12.2 - 16.1 % 03/11/2025 8:02 AM CDT [facility] Platelet Count 159 157 - 371 x10(9)/L 03/11/2025 8:02 AM CDT [facility] Leukocytes 4.4 3.4 - 9.6 x10(9)/L 03/11/2025 8:02 AM CDT [facility] Neutrophils 2.48 1.56 - 6.45 x10(9)/L 03/11/2025 8:02 AM CDT [facility] Lymphocytes 1.34 0.95 - 3.07 x10(9)/L 03/11/2025 8:02 AM CDT [facility] Monocytes 0.48 0.26 - 0.81 x10(9)/L 03/11/2025 8:02 AM CDT [facility] Eosinophils 0.08 0.03 - 0.48 x10(9)/L 03/11/2025 8:02 AM CDT [facility] Basophils <0.04 0.01 - 0.08 x10(9)/L 03/11/2025 8:02 AM CDT [facility] Blood (Blood, Venous) 03/11/2025 7:54 AM CDT 03/11/2025 7:58 AM CDT us Rhonda Hampton P.A.-C., M.S. LAB BLOOD ADD-O N Final Result Performing Organization Address City/State/[facility] de Phone Number [facility] [address] [place] [phone], 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
--- OUTSIDE RECORDS SUMMARY | 2025-04-07 08:59 | XMS_ITS | Encounter Summary ---
Author Organization [facility] Address [address] [place] [address] Care Team Providers Care Buffer Automatic Name Role Phone Elsewhere, Pcp Primary Care Provider Unavailabl e Encounter Details Date Type Department Care Team (Latest Contact Info) Description 04/07/2025 8:59 AM CDT - 04/07/2025 11:59 PM CDT Hospital Encounter Department of Laboratory Medicine in [address] [phone] Lavinia Nash M.D. [address] [place] [phone] Transplant Renal (HCC); Immunodeficiency Due To Drugs (HCC); Medication Therapy [facility] Not Anticoagulant Discharge Disposition: Home or Self Care Social History Tobacco Use Types Packs/Day Years Used Date Smoking Tobacco: Former Cigarettes 1 20 1 - 08/06/1983 Smokeless Tobacco: Never Alcohol Use Standard Drinks/Week Comments Never 0 (1 standard drink = 0.6 oz pur e alcohol) [facility] Utilities Answer Date Recorded In the past 12 months has e [employer], gas, oil, or water company threatened to [...] your living situation today? I have a [facility] place to live 11/29/2023 Education Answer Date Recorded What is the highest level of school you have completed or the highest degree you have received? 12th grade 01/15/2020 Comments No Sex and Gender Information Value Date Recorded Sex Assigned at Female 08/15/2022 12:28 PM CDT Legal Sex Female 5:03 AM TESTING COORDINATOR Gender Identity Female 04/24/2018 8:21 PM CDT [...] Take 1 capsule by mouth daily. multivitamin-minera jk-ZX-dnbnex (CENTRUM SILVER) 400-250 mcg per chewable tablet Chew 1 tablet daily. 11/14/2023 mycophenolate (Myfortic) [address] tabletIndications:T ransplant Renal (HCC),Immunodeficie ncy Due To Drugs (HCC),Medication Therapy Chcf Not Anticoagulant Take 2 tablets (360 mg total) by mouth 2 (two) times a day. 360 tablet 3 03/30/2025 oxyCODONE-acetamino phen (Percocet) 5-325 mg per tablet as needed. 09/21/2024 potassium chloride (K-Tab) 20 mEq ER tablet TAKE 1 TABLET BY MOUTH EVERY DAY 90 tablet 3 10/30/2024 predniSONE (Deltasone) 5 mg tabletIndications:T ransplant Renal (HCC),Immunodeficie ncy Due To Drugs (HCC),Medication Therapy Chcf Not Anticoagulant Take 1 tablet (5 mg [...] (HCC),Immunodeficie ncy Due To Drugs (HCC),Medication Therapy Chcf Not Anticoagulant Take 1 capsule (1 mg total) by mouth 2 (two) times a day. Take with 0.5 mg for a total dose of 1.5 mg in the morning and 1.5 mg in the evening. 180 capsule 3 03/31/2025 11:08 AM CDT 04/09/2024 documented as of this encounter Plan of Treatment Upcoming Encounters Date Type Department Care Team (Late st Contact Info) Description 05/05/2025 9:00 AM CDT Appointment Department of Laboratory Medicine in [address] [phone] Lavinia Nash M.D. [address] [place] [phone] 06/02/2025 11:40 AM CDT Appointment Department of Laboratory Medicine in [address] [phone] Lavinia Nash M.D. [address] [place] [phone] 06/02/2025 12:30 PM CDT Infusion Department of Infusion Therapy in [address] [phone] Viktoriya Garza APRN, C.N.P. [address] [place] [phone] 06/11/2025 7:50 AM CDT Appointment Department of Laboratory Medicine in [address] [phone] Rhonda Hampton, P.A.-C., M.S. [address] [place] [phone] 06/30/2025 9:00 AM CDT Appointment Department of Laboratory Medicine in [address] [phone] Lavinia Nash M.D. [address] [place] [phone] 07/28/2025 9:00 AM CDT Appointment Department of Laboratory Medicine in [address] [phone] Lavinia Nash M.D. 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 ----ADDITIONAL INFORMATION---- The quantification range of this assay is 22 to 100,000,000 IU/mL (1.34 log to 8.00 log IU/mL). Testing was performed using the rianna BKV test ([employer] Blood (Blood, Venous) 04/07/2025 9:05 AM CDT 04/08/2025 7:33 AM CDT us Lavinia Nash M.D. LAB MICROBIOLOGY - BLOOD ORDERAB LES Final Result [facility] [place] [address] [place] [phone] [facility] 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
[2025-04-23] VITALS (15 sets, daily range): BP systolic 145–180; BP diastolic 58–91; PULSE 64–94; RESP 11–21; TEMP 36.8; O2SAT 89–100; BMI 20.5
[2025-04-23 11:06] LABS: Basophils Percent Auto 0.8 % (0.0-3.0); Eosinophils Percent Auto 2.2 % (0.0-7.0); Hematocrit 40.9 % (33.0-51.0); Hemoglobin* 13.2 gm/dL (12.0-16.0); Immature Granulocytes Pct Auto 0.3 %; Lymphocytes Percent Auto 34.8 % (20-44); Mean Corpuscular HGB Conc 32 gm/dL (32-36); Mean Corpuscular Hemoglobin 30 pg (26-34); Mean Corpuscular Volume 93 fL (80-100); Monocytes Percent Auto 10.8 % (0.0-11.0); Neutrophils Percent Auto 51.1 % (42.0-72.0); Platelet Count* 134 K/uL (140-440); RDW Coefficient of Variation % 13.5 % (11.5-15.5); Red Blood Count 4.38 m/uL (4.00-5.20); White Blood Count* 3.71 K/uL (4.50-11.00)
[2025-04-23 11:07] LABS: Slide Review Reflex No
--- NOTE | 2025-04-23 11:09 | ED.GENADULT ---
HPI - General Adult General Chief complaint: Unspecified Complaint, Adult Stated complaint: Cardiac Time Seen by Provider: 04/23/25 10:28 Source: patient Mode of arrival: ambulatory Limitations: no limitations History of Present Illness HPI narrative: 79-year-old female presenting today for rhythm changes on her EKG while she was getting her colonoscopy. Patient is asymptomatic. Related Data Home Medications ?Medication ?Instructions ?Recorded ?Confirmed amlodipine 5 mg tablet 5 mg PO BID 03/05/23 04/23/25 aspirin 81 mg capsule 81 mg PO QDAY 03/05/23 04/23/25 biotin 10,000 mcg capsule 10 cap PO DAILY 03/05/23 04/23/25 carvedilol 6.25 mg tablet (Coreg) 6.25 mg PO BID 03/05/23 04/23/25 coenzyme Q10 100 mg capsule mg PO DAILY 03/05/23 04/14/25 copper gluconate 2 mg capsule 2 mg PO QDAY 03/05/23 04/23/25 cyanocobalamin (vitamin B-12) 1,000 mcg PO 03/05/23 04/14/25 1,000 mcg tablet duloxetine 60 mg capsule,delayed 60 mg PO QDAY 03/05/23 04/23/25 release esomeprazole magnesium 20 mg 20 mg PO QDAY 03/05/23 04/23/25 capsule,delayed release (Nexium) folic acid 5 mg-vitamin B complex 1 tab PO QDAY 03/05/23 04/23/25 and vit C no.17 tablet magnesium oxide 400 mg (241.3 mg 400 mg PO QDAY 03/05/23 04/23/25 magnesium) tablet metoprolol succinate 25 mg mg PO 03/05/23 04/14/25 tablet,extended release 24 hr mycophenolate sodium 180 mg 720 mg PO BID 03/05/23 04/23/25 tablet,delayed release (Myfortic) prednisone 5 mg tablet 5 mg PO QDAY 03/05/23 04/23/25 rosuvastatin 40 mg tablet 40 mg PO 03/05/23 04/14/25 tacrolimus 1 mg capsule, 3 mg PO Q12H 03/05/23 04/23/25 immediate-release glipizide 5 mg tablet 5 mg PO DAILY 06/14/24 04/23/25 metformin 500 mg tablet,extended 500 mg PO BID 06/14/24 04/23/25 release 24 hr semaglutide 2 mg/dose (8 mg/3 mL) mg subcut 06/14/24 04/14/25 subcutaneous pen injector (Ozempic) cyclobenzaprine 5 mg tablet 5 mg PO BID PRN muscle spasm 07/10/24 04/23/25 gabapentin 100 mg capsule 100 mg PO 3XD 07/10/24 04/23/25 oxycodone 5 mg tablet 5 mg PO Q6H PRN pain 07/10/24 04/23/25 Allergies Allergy/AdvReac Type Severity Reaction Status Date / Time amoxicillin Allergy Verified 04/23/25 10:27 Penicillins Allergy Verified 04/23/25 10:27 Review of Systems Status of ROS: Reports: 10 or more systems reviewed and unremarkable except as noted in History and below [facility] Medical History (Updated 04/23/25 @ 13:07 by Yany Osorio MD) Cardiac arrhythmia ?I49.9 - Cardiac arrhythmia, unspecified (ICD-10) End stage renal disease on dialysis ?N18.6 - End stage renal disease (ICD-10) ?Z99.2 - Dependence on renal dialysis (ICD-10) History of squamous cell carcinoma of skin ?Z85.828 - Personal history of other malignant neoplasm of skin (ICD-10) Spinal stenosis of lumbar region ?M48.061 - Spinal stenosis, lumbar region without neurogenic claudication (ICD-10) Urolithiasis ?N20.9 - Urinary calculus, unspecified (ICD-10) Tubular adenoma of colon (10/25/09) ?D12.6 - Benign neoplasm of colon, unspecified (ICD-10) Sepsis (02/22/13) ?A41.9 - Sepsis, unspecified organism (ICD-10) Painless hematuria ?R31.9 - Hematuria, unspecified (ICD-10) Osteopenia (10/25/09) ?M85.80 - Other specified disorders of bone density and structure, unspecified site (ICD-10) Hypertension (07/26/09) ?I10 - Essential (primary) hypertension (ICD-10) Hyperlipidemia (07/26/09) ?E78.5 - Hyperlipidemia, unspecified (ICD-10) Gastroesophageal reflux (07/26/09) ?K21.9 - Gastro-esophageal reflux disease without esophagitis (ICD-10) Fibromyalgia (04/20/11) ?M79.7 - Fibromyalgia (ICD-10) Depression (07/26/09) ?F32.A - Depression, unspecified (ICD-10) Bimalleolar fracture ?S82.843A - Displaced bimalleolar fracture of unspecified lower leg, initial encounter for closed fracture (ICD-10) Aaqdy-bt-frgmava renal failure (02/22/13) ?N17.9 - Acute kidney failure, unspecified (ICD-10) ?N18.9 - Chronic kidney disease, unspecified (ICD-10) Acute pyelonephritis (02/22/13) ?N10 - Acute pyelonephritis (ICD-10) Type 2 diabetes mellitus ?E11.9 - Type 2 diabetes mellitus without complications (ICD-10) CAD (coronary artery disease) ?I25.10 - Atherosclerotic heart disease of [place] coronary artery without angina pectoris (ICD-10) Surgical History History of kidney transplant (~09/2022) ?Z94.0 - Kidney transplant status (ICD-10) History of hysterectomy ?Z90.710 - Acquired absence of both cervix and uterus (ICD-10) History of gastric bypass ?Z98.84 - Bariatric surgery status (ICD-10) History of fusion of cervical spine ?Z98.1 - Arthrodesis status (ICD-10) History of lumbar surgery (04/20/11) ?Z98.890 - Other specified postprocedural states (ICD-10) History of heart artery stent ?Z95.5 - Presence of coronary angioplasty implant and graft (ICD-10) Status post open reduction with internal fixation (ORIF) of fracture of ankle (12/18/21) ?Z98.890 - Other specified postprocedural states (ICD-10) ?Z87.81 - Personal history of (healed) traumatic fracture (ICD-10) Social History Smoking Status: Former smoker Do you use any of these nicotine containing products: None Second hand tobacco smoke exposure: No How often do you have a drink containing alcohol: never AUDIT-C Alcohol total score: 0 Non-prescribed substance use: denies use Exam Narrative: Exam Narrative: Well-nourished well-developed patient in no acute distress. Alert and oriented. Answers questions appropriately. Mood and affect are appropriate. Thoughts are goal oriented and rational. No tangential or magical thinking noted. Patient speaks in full sentences without needing to catch her breath. HEENT: Normocephalic atraumatic. Pupils are equally round reactive to light. Extraocular muscles are intact. Conjunctivae are moist without any icterus noted. Moist mucous membranes. Cardiovascular: Heart is regular rate and rhythm S1 and S2 are present with a soft 1/6 systolic murmur. Lungs: Clear to auscultation bilaterally no wheezes rhonchi or rales are appreciated. Patient takes deep breaths without any discomfort. Abdomen: Soft and nontender nondistended with normal bowel sounds. Skin: Well perfused. Const: Vital Signs, click to edit/add: Vital Signs - 24 hr 04/23/25 10:23 04/23/25 10:49 04/23/25 10:53 Temperature 98.3 F Pulse Rate 76 64 Pulse Rate [Right Pulse Oximeter] 79 Respiratory Rate 18 14 14 Blood Pressure 174/58 H Blood Pressure [Le ft Upper Arm] 162/91 H Pulse Oximetry 97 100 98 Oxygen Delivery Me thod Room Air 04/23/25 10:55 04/23/25 11:00 04/23/25 11:02 Temperature Pulse Rate 71 90 Pulse Rate [Right Pulse Oximeter] Respiratory Rate 14 Blood Pressure 178/80 H Blood Pressure [Le ft Upper Arm] Pulse Oximetry 97 100 95 Oxygen Delivery Me thod 04/23/25 11:03 04/23/25 11:30 04/23/25 11:32 Temperature Pulse Rate 94 86 78 Pulse Rate [Right Pulse Oximeter] Respiratory Rate 18 16 16 Blood Pressure 145/67 H Blood Pressure [Le ft Upper Arm] Pulse Oximetry 89 92 98 Oxygen Delivery Me thod Room Air Room Air Room Air 04/23/25 12:00 04/23/25 12:02 04/23/25 12:30 Temperature Pulse Rate 78 76 76 Pulse Rate [Right Pulse Oximeter] Respiratory Rate 16 14 15 Blood Pressure 180/77 H Blood Pressure [Le ft Upper Arm] Pulse Oximetry 98 98 100 Oxygen Delivery Me thod Room Air Room Air Room Air 04/23/25 12:32 04/23/25 13:00 04/23/25 13:02 Temperature Pulse Rate 85 74 71 Pulse Rate [Right Pulse Oximeter] Respiratory Rate 21 15 11 L Blood Pressure 168/89 H 162/74 H Blood Pressure [Le ft Upper Arm] Pulse Oximetry 98 96 98 Oxygen Delivery Me thod Room Air Room Air Room Air Course Course ED Course: I consulted Dr. Weiss, [facility], and we went over patient's EKG and her repeat EKG. He stated that it looks like a multifocal atrial rhythm that can sometimes be caused by electrolyte abnormalities, he recommended checking electrolytes. He then recommended a 7 day Holter in a cardiac consult. Patient did have an echocardiogram done in January of this year which looked normal, he did not recommend a repeat echo at this time. CBC shows mild thrombocytopenia at 134,000. Electrolytes unremarkable except for a minimally low magnesium. Because of this 1 g of IV magnesium was given. color television console monitor not did not have any concerning rhythm such as V-tach or VFib. TSH low, T4 pending at this time. Vital Signs Vital signs: Initial Vital Signs Temperature 98.3 F 04/23/25 10:23 Temperature Source Temporal Artery Scan 04/23/25 10:23 Pulse Rate 79 04/23/25 10:23 Pulse Rhythm Regular 04/23/25 10:23 Pulse Strength 3+ Normal 04/23/25 10:23 Respiratory Rate 18 04/23/25 10:23 Blood Pressure 162/91 H 04/23/25 10:23 Blood Pressure Mean 114 H 04/23/25 10:23 Blood Pressure Position Supine 04/23/25 10:23 Pulse Oximetry 97 04/23/25 10:23 Oxygen Delivery Method Room Air 04/23/25 10:23 Vital Signs Temperature 98.3 F 04/23/25 10:23 Pulse Rate 79 04/23/25 10:23 Respiratory Rate 18 04/23/25 10:23 Blood Pressure 162/91 H 04/23/25 10:23 Pulse Oximetry 97 04/23/25 10:23 Oxygen Delivery Method Room Air 04/23/25 10:23 Temperature 98.3 F 04/23/25 10:23 Pulse Rate 71 04/23/25 13:02 Respiratory Rate 11 L 04/23/25 13:02 Blood Pressure 162/74 H 04/23/25 13:02 Pulse Oximetry 98 04/23/25 13:02 Oxygen Delivery Method Room Air 04/23/25 13:02 Medications Administered Medications: Discontinued Medications Generic Name Dose Route Start Last Admin Trade Name Freq PRN Reason Stop Dose Admin Magnesium Sulfate/Dextrose 1 gm in 100 mls @ 100 mls/hr 04/23/25 12:00 04/23/25 12:12 Magnesium Sulf 1 G/100 Ml IVPB 04/23/25 12:59 100 mls/hr ONCE ONE Administration Medical Decision Making MDM Narrative Medical decision making narrative: 79-year-old female with cardiac arrhythmia, asymptomatic. Patient will be placed on a electronic device monitor and will have a Cardiology consult. Lab Data Lab results reviewed: Yes I reviewed the patient's lab results Labs: Lab Results 04/23/25 Range/Units 10:55 WBC 3.71 L (4.50-11.00) K/uL RBC 4.38 (4.00-5.20) m/uL Hgb 13.2 (12.0-16.0) gm/dL Hct 40.9 (33.0-51.0) % MCV 93 (80-100) fL MCH 30 (26-34) pg MCHC 32 (32-36) gm/dL RDW Coeff of Lacy 13.5 (11.5-15.5) % Plt Count 134 L (140-440) K/uL Neut % (Auto) 51.1 (42.0-72.0) % Lymph % (Auto) 34.8 (20-44) % [place] % (Auto) 10.8 (0.0-11.0) % Eos % (Auto) 2.2 (0.0-7.0) % Baso % (Auto) 0.8 (0.0-3.0) % Neut # (Auto) 1.90 (1.7-7.0) K/uL Lymph # (Auto) 1.30 (0.90-2.90) K/uL [place] # (Auto) 0.40 (0.00-0.90) K/UL Eos # (Auto) 0.10 (0.00-0.50) K/uL Baso # (Auto) 0.00 (0.00-0.30) K/uL Abs Immat Gran (auto) 0.00 (0.00-0.30) K/uL Imm/Tot Granulo (auto) 0.3 % Sodium 140 (135-149) mmol/L Potassium 3.8 (3.6-5.1) mmol/L Chloride 104 (96-114) mmol/L Carbon Dioxide 27 (20-32) mmol/L Anion Gap 9 (7-15) mEq/L BUN 19 (7-30) mg/dL Creatinine 0.7 (0.5-1.5) mg/dL Estimated Creat Clear 38.97 Estimated GFR 89 ml/min Glucose 87 (60-115) mg/dL Calcium 8.5 (8.4-10.6) mg/dL Magnesium 1.4 L (1.5-2.6) mg/dL Troponin I < 0.01 (0.01-0.04) ng/mL TSH 0.040 L (0.270-4.20) uIU/mL ECG Data Attestation: I personally reviewed and interpreted this ECG as follows: Discharge Plan Discharge Clinical Impression: Cardiac arrhythmia, Hypomagnesemia, Hyperthyroidism Patient Disposition: Home, Self-Care Condition: Stable Additional Instructions: Wear heart monitor as instructed. You will need a cardiology appointment to follow-up on the results. Recommend you call your primary care if you need assistance or call your nut dehydrator operator today the make that appointment. Thyroid stimulating hormone levels are quite low. Recommend you follow-up with your primary care provider early next week to discuss these results. Return to the ER if you develop shortness of breath, chest pain or palpitations. Prescriptions: No Action rosuvastatin 40 mg tablet 40 mg PO coenzyme Q10 100 mg capsule PO DAILY metoprolol succinate 25 mg tablet extended release 24 hr PO biotin 10,000 mcg capsule 10 cap PO DAILY esomeprazole magnesium [Nexium] 20 mg capsule,delayed release(DR/EC) 20 mg PO QDAY cyanocobalamin (vitamin B-12) 1,000 mcg tablet 1,000 mcg PO copper gluconate 2 mg capsule 2 mg PO QDAY folic acid-B complex,C no.17 5 mg tablet 1 tab PO QDAY aspirin 81 mg capsule 81 mg PO QDAY duloxetine 60 mg capsule,delayed release(DR/EC) 60 mg PO QDAY amlodipine 5 mg tablet 5 mg PO BID carvedilol [Coreg] 6.25 mg tablet 6.25 mg PO BID Rx Instructions: must administer with a meal/food magnesium oxide 400 mg (241.3 mg magnesium) tablet 400 mg PO QDAY mycophenolate sodium [Myfortic] 180 mg tablet,delayed release (DR/EC) 720 mg PO BID prednisone 5 mg tablet 5 mg PO QDAY tacrolimus 1 mg capsule 3 mg PO Q12H Ozempic 2 mg/dose (8 mg/3 mL) pen injector subcut glipizide 5 mg tablet 5 mg PO DAILY metformin 500 mg tablet extended release 24 hr 500 mg PO BID gabapentin 100 mg capsule 100 mg PO 3XD oxycodone 5 mg tablet 5 mg PO Q6H PRN (Reason: pain) cyclobenzaprine 5 mg tablet 5 mg PO BID PRN (Reason: muscle spasm) Follow Up/Referrals: Sanjay Allan MD [Primary Care Provider, Family Practice] Stand Alone Forms: MyHealth Info Instructions
--- OUTSIDE RECORDS SUMMARY | 2025-04-23 11:19 | XMS_ITS | Continuity of Care Document ---
Author Organization [place] - [facility], [place] Address [address] [place] [address] Care Team Providers Care Decorator Inspector Name Role Phone BRYANT KING Primary Care Provider Assessment Encounter Date Assessment Date Assessment LastModified by Organization Details LastModified Time 04/14/2025 04/14/2025 Toenails 1-5 bilateral were debrided in length and thickness by manual and mechanical means (nippers) without incident. Patient tolerated this well and will be seen as needed in the future. The patient is to return to the clinic in 9-10 weeks for routine care kiaurora Not available 04/14/2025 11:28:45 Plan of Treatment Reminders Order Date Submit Date Provider Last Modified By Organization Details Last Modified Time Details Appointments None record ed. Lab None record ed. Referral None record ed. Procedures None record ed. Surgeries None record ed. Imaging None record ed. Medication Orders None record ed. Patient TargetsNo targets recorded. Patient InstructionsNo instructions recorded. Reason for Referral None Reported. Problems Name Problem SNOMED Code Status Onset Date Resolution Date Notes Provider Name and Address Organization Details Recorded Time Chronic ulcer of foot 369737585 Active 2020 Chronic ulcer of foot; Original Code: 7872889761 Original Codesystem : SNOMED CT Classif ication: Medical Co nfirmation Status: Confirmed Not Available [facility] 3 09:11:08 Ingrowing nail 587259989 Active 2013 Ingrowing nail; Original Code: 3581918365 Original Codesystem : SNOMED CT Classif ication: Medical Co nfirmation Status: Confirmed Not Available [facility] 3 09:11:08 Disorder of nail 42089565 Active 2013 Disorder of nail; Original Code: 6157959424 Original Codesystem : SNOMED CT Classif ication: Medical Co nfirmation Status: Confirmed Not Available [facility] 3 09:11:08 Secondary diabetes mellitus 8879893 Active 2019 Secondary diabetes mellitus; Original Code: 40552322 O riginal Codesystem : SNOMED CT Classif ication: Medical Co nfirmation Status: Confirmed [place], [place] - [facility] 3 15:36:12 Essential hypertens ion 93974386 Active 2014 Essential hypertensi on; Original Code: 89078070 O riginal Codesystem : SNOMED CT Classif ication: Medical Co nfirmation Status: Confirmed [place], [place] - [facility] 3 15:36:07 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; Original Code: 13824603 O riginal Codesystem : SNOMED CT Classif ication: Medical Co nfirmation Status: Confirmed Not Available [facility] 3 09:11:08 Foot pain 09827042 Active 2020 Foot pain; Original Code: 500519933 Original Codesystem : SNOMED CT Classif ication: Medical Co nfirmation Status: Confirmed Not Available [facility] 3 09:11:09 Onychomyc osis of toenails 514176897 Active 2018 Onychomyco sis of toenails; Original Code: 1310096121 Original Codesystem : SNOMED CT Classif ication: Medical Co nfirmation Status: Confirmed Not Available [facility] 3 09:11:09 Transplan t of kidney Active 2022 [place], [place] - [facility] 3 15:36:26 Diabetic care Active [address] Sanjay Allan 06/12/24 [facility] manuela boss, [place] - [facility] 4 14:11:41 Problem Notes None recorded. Procedures Surgical History Date Name Laterality Status Provider Name and Address Organization Details Recorded Time [address] Zenaida STAPLES VALENTINE, DPM [address] [place], [address], [facility] 01/19/2025 12:19:[address] Estevez completed BEL GRIJALVA, DPM [address] [place], [address], [facility] 10/05/2024 14:56:[address] Hobson completed Ana Alvarez [facility] 06/09/2024 14:13:[address] Hobson completed Ana Alvarez [facility] 03/05/2024 12:01:[address] Hobson completed Ana Alvarez [facility] 12/06/2023 04:18:35 3 NAIL/CallusDEBR IDEMENT completed Ana Alvarez [facility] 08/29/2023 12:34:36 3 NAIL/CallusDEBR IDEMENT completed Joel Lovell, DPJustin [address] [place], [address], [facility] 06/01/2023 10:42:[address] Hobson completed Parvez Barkley [facility] 02/14/2023 15:37:11 Imaging Results None recorded. Procedure Notes None recorded. Medical Equipment None Reported. Allergies Allergen ID Allergen Name Allergen Category Reaction Reaction Severity Criticality Documentation Date Start Date Code Code System Note Provider Name and Address Organization Details Recorded Time 36378 amoxicill in medicatio n Not available Not available Not available 01/01/2023 723 RxNorm Comme nt: React ion Class : Aller gy Al lergy Ident ifier : d0008 8 All ergy Categ ory: Multu m Drug Ident ifier Iden tifie r Alex mark Autho rity: 00443 _[place] ; Not Available [facility] 3 08:52:37 61312 Product containin g angiotens in-conver ting enzyme inhibitor (product) medicatio n Not available Not available Not available 01/01/2023 40680 009 SNOMED Comme nt: React ion Class : Aller gy Al lergy Ident ifier : 416 A llerg y Categ ory: Aller gy Categ ories Iden tifie r Assig mark Autho rity: 97916 _[place] ; Not Available [facility] 3 08:52:37 86125 metoprolo l Not available Not available Not available Not available 01/01/2023 6918 RxNorm Comme nt: React ion Class : Aller gy Al lergy Ident ifier : d0013 4 All ergy Categ ory: Multu m Drug Ident ifier Iden tifie r Assig mark Autho rity: 16111 _[place] ; Not Available [facility] 3 08:52:37 73037 Elavil medicatio n Not available Not available Not available 01/01/2023 23785 RxNorm Comme nt: React ion Class : Aller gy Al lergy Ident ifier : d0014 6 All ergy Categ ory: Multu m Drug Ident ifier Iden tifie r Assig mark Autho rity: 57649 _[place] ; Not Available [facility] 3 08:52:37 02661 Effexor medicatio n Not available Not available Not available 01/01/2023 24631 2 RxNorm Comme nt: React ion Class : Aller gy Al lergy Ident ifier : d0318 1 All ergy Categ ory: Multu m Drug Ident ifier Iden tifie r Assig mark Autho rity: 69402 _[place] ; Not Available [facility] 3 08:52:37 Medications Name Sig Start Date Stop Date Status Note LastModified by Organization Details LastModified Time methocarbam ol 500 mg tablet TAKE 1 TABLET BY MOUTH EVERY 6 HOURS NEEDED FOR MUSCLE SPASMS active Not Available Not Available No t Available nystatin 100,000 unit/mL oral suspension 07/14 completed Not Available Not Available Not Available carvedilol 6.25 mg tablet TAKE 1 TAB BY MOUTH 2 TIMES A DAY WITH MEALS.CAROL E WITH 12.5MG TAB FOR TOTAL OF 18.75MG TWICE DAILY. active Not Available Not Available No t Available prednisone 10 mg tablet PLEASE SEE ATTACHED FOR DETAILED DIRECTION S active Not Available Not Available No t Available carvedilol 12.5 mg tablet active Not Available Not Available Not Available loperamide 2 mg capsule active Not Available Not Available Not Available sulfamethox azole 400 mg-trimetho prim 80 mg tablet active Not Available Not Available Not Available hydrocodone 5 mg-acetamin ophen 325 mg tablet TAKE 1 TO 2 TABLETS BY MOUTH EVERY 4 TO 6 HOURS NEEDED FOR PAIN active Not Available Not Available No t Available sucralfate 1 gram tablet TAKE 1 TABLET BY MOUTH 3 TIMES DAILY BEFORE MEALS. 07/14 completed Not Available Not Available Not Available famotidine 40 mg tablet TAKE 1 TABLET BY MOUTH EVERY DAY active Not Available Not Available No t Available prednisone 5 mg tablet active Not Available Not Available Not Available moxifloxaci n 400 mg tablet 07/14 completed Not Available Not Available Not Available cyanocobala min (vit B-12) 1,000 mcg tablet TAKE 1 TABLET (1,000 MCG) BY MOUTH ONCE DAILY active Not Available Not Available No t Available Accu-Chek Softclix Lancets DISPENSE ITEM COVERED BY PT INS. E11.9 NIDDM TYPE II - TEST 1 TIME/DAY active Not Available Not Available No t Available amlodipine 2.5 mg tablet TAKE 1 TABLET BY MOUTH ONCE DAILY. 07/14 completed Not Available Not Available Not Available amlodipine 5 mg tablet TAKE 1 TABLET BY MOUTH EVERY DAY 07/14 completed Not Available Not Available Not Available ciprofloxac in 500 mg tablet TAKE 1 TABLET BY MOUTH TWO TIMES DAILY FOR 7 DAYS. active Not Available Not Available No t Available lidocaine-p rilocaine 2.5 %-2.5 % topical cream APPLY SMALL AMOUNT TO ACCESS SITE (AVF) 1 HOUR BEFORE DIALYSIS. COVER WITH OCCLUSIVE DRESSING (SARAN WRAP) active Not Available Not Available No t Available oxycodone-a cetaminophe n 5 mg-325 mg tablet TAKE 1 TABLET BY MOUTH 2 TIMES DAILY IF NEEDED FOR PAIN. MAX ACETAMINO PHEN DOSE: 4000MG IN 24 HRS. active Not Available Not Available No t Available prednisolon e acetate 1 % eye drops,suspe nsion PLEASE SEE ATTACHED FOR DETAILED DIRECTION S 07/14 completed Not Available Not Available Not Available magnesium oxide 400 mg (241.3 mg magnesium) tablet TAKE 1 TABLET (400 MG TOTAL) BY MOUTH 2 (TWO) TIMES A DAY BEFORE BREAKFAST AND DINNER. active Not Available Not Available No t Available pantoprazol e 40 mg tablet,alicia yed release TAKE 1 TABLET BY MOUTH EVERY DAY 07/14 completed Not Available Not Available Not Available buspirone 30 mg tablet TAKE 1 TABLET BY MOUTH TWICE A DAY active Not Available Not Available No t Available lidocaine 5 % topical patch APPLY 1 PATCH TO PAINFUL AREA OF SKIN FOR UP TO 12 HOURS WITHIN A 24-HOUR PERIOD. active Not Available Not Available No t Available polymyxin B sulfate 10,000 unit-trimet hoprim 1 mg/mL eye drops ADMINISTE R 1 DROP INTO THE LEFT EYE 4 TIMES A DAY FOR 7 DAYS. 07/14 completed Not Available Not Available Not Available losartan 25 mg tablet TAKE 1 TABLET BY MOUTH EVERY DAY active Not Available Not Available No t Available Phospha Neutral 250 mg tablet TAKE 2 TABLETS BY MOUTH 2 TIMES A DAY. 07/14 completed Not Available Not Available Not Available furosemide 20 mg tablet 07/14 completed Not Available Not Available Not Available gabapentin 100 mg capsule TAKE 1 CAPSULE BY MOUTH THREE TIMES DAILY. active Not Available Not Available No t Available metoprolol succinate ER 25 mg tablet,exte nded release 24 hr TAKE 1 TABLET BY MOUTH EVERY DAY 07/14 completed Not Available Not Available Not Available methylpredn isolone 4 mg tablets in a dose pack TAKE BY MOUTH INSTRUCTE D PER PACKAGING . 07/14 completed Not Available Not Available Not Available ondansetron 4 mg disintegrat ing tablet 07/14 completed Not Available Not Available Not Available cefdinir 300 mg capsule TAKE 1 CAPSULE (300 MG) BY MOUTH EVERY 24 HOURS. 07/14 completed Not Available Not Available Not Available metformin ER 500 mg tablet,exte nded release 24 hr TAKE 3 TABLETS BY MOUTH EVERY DAY WITH EVENING MEAL active Not Available Not Available No t Available glipizide 5 mg tablet TAKE 1 TABLET (5 MG) BY MOUTH TWO TIMES DAILY BEFORE MEALS. active Not Available Not Available No t Available oxycodone 5 mg tablet TAKE 1 - 2 TABLET BY MOUTH EVERY 4 - 6 HOURS NEEDED FOR POSTOP PAIN active Not Available Not Available No t Available ezetimibe 10 mg tablet TAKE 1 TABLET BY MOUTH EVERY DAY active Not Available Not Available No t Available cyclobenzap rine 5 mg tablet TAKE 1 TABLET (5 MG) BY MOUTH 2 TIMES DAILY IF NEEDED FOR MUSCLE SPASM. active Not Available Not Available No t Available rosuvastati n 40 mg tablet TAKE 1 TABLET BY MOUTH AT BEDTIME active Not Available Not Available No t Available mycophenola te sodium 180 mg tablet,alicia yed release TAKE 2 TABLETS (360 MG TOTAL) BY MOUTH TWICE A DAY active Not Available Not Available No t Available Meche-Corby 0.8 mg tablet TAKE 1 TABLET BY MOUTH EVERY DAY active Not Available Not Available No t Available duloxetine 60 mg capsule,del ayed release TAKE 1 CAPSULE BY MOUTH ONCE DAILY. active Not Available Not Available No t Available BD Ultra-Fine Short Pen Needle 31 gauge x 5/16 active Not Available Not Available Not Available GaviLyte-G 236 gram-22.74 gram-6.74 gram-5.86 gram oral solution PLEASE SEE ATTACHED FOR DETAILED DIRECTION S active Not Available Not Available No t Available potassium chloride ER 20 mEq tablet,exte nded release TAKE 1 TABLET BY MOUTH EVERY [...] Novolin N FlexPen 100 unit/mL (3 mL) subcutaneou s insulin pen INJECT 15 UNITS UNDER THE SKIN EVERY MORNING. DO NOT TAKE IF NOT EATING. DOSE MAY NEED ADJUSTMEN T. 07/14 completed Not Available Not Available Not Available Ozempic 1 mg/dose (4 mg/3 mL) subcutaneou s pen injector INJECT 1 MG UNDER THE SKIN EVERY 7 (SEVEN) DAYS. 07/14 completed Not Available Not Available Not Available Ozempic 2 mg/dose (8 mg/3 mL) subcutaneou s pen injector INJECT 0.75 ML (2 MG) SUBCUTANE OUS ONCE WEEKLY. active Not Available Not Available No t Available Ozempic 0.25 mg or 0.5 mg (2 mg/3 mL) subcutaneou s pen injector PLEASE SEE ATTACHED FOR DETAILED DIRECTION S 07/14 completed Not Available Not Available Not Available Vitals None Recorded Social History None recorded. Functional Status Question Answer Note LastModified by Organizat ion Details LastModified Time Do you use any illicit or recreational drugs? No Information not available 02/14/2023 What is your level of alcohol consumption? None Information not available 02/14/2023 Mental Status None recorded. Family History Nothing Reported. Medical History No medical history recorded. Gynecological HistoryNo gynecological history recorded. Obstetrics History GPAL:G 0 P 0 0 0 0 Past Encounters Encounter ID Performer Location Encounter Start Date Encounter Closed Date Diagnosis/Indication Diagnosis SNOMED-CT Code Diagnosis ICD10 Code Diagnosis Note [id number] LU[address]IA TRAYLORgerardo rowe [address] [place] [address] 04/14/2025 08:55:46 04/14/2025 11:56:43 Onychomycosis 900073210 B35.1 Peripheral vascular disease 875638089 I73.89 Pain of to e of left foot 2944465765 65845 M79.675 Pain of to e of right foot 8514470086 36572 M79.674 Ingrowing nail 010803704 L60.0 Health Concerns Section Related Observation LastModified by Organization Detai ls LastModified Time None Recorded Concern Status LastModified by Organization Details LastModified Time None Recorded Payers Encounter Date Sequence Insurance Name Policy Number Policy Mcclelland Covered Member ID Mcclelland Member ID Guarantor Name 04/14/2025 [address] [facility]: (MEDICARE REPLACEMENT PPO) [id number] Anayeli E Splettstoeszer [id number] Anayeli E Splettstoeszer Notes Date Note Type Note Provider Name and Address Organization Details Recorded Time 04/14/2025 text/html The patient presents for routine foot care. Notes ingrown corners that make it painful for shoegear use. The patient had surgery in January, which they report went well, and they are currently wearing a neck brace for comfort, though it is not required. They mention that prior to surgery, they experienced pain radiating down their arm, which has since resolved, but now they are experiencing lower back discomfort. Physical therapy for the back is scheduled to begin next Saturday. Patient did last see Dr. Bryant King for diabetes care last seen on 07/13/24 ISAIAS DE LA CRUZ, LUCRETIA [address] [place], [address], [facility] - [facility] 04/14/2025 11:29:29 OBGyn Episode No OBEpisode recorded.
--- OUTSIDE RECORDS SUMMARY | 2025-04-23 11:19 | XMS_ITS | CCD ---
Author Name Interface, [id number] lity Address [address] [place] [address] [address] [place] [address] Organization [facility] Address [address] [facility] [address] [place] [address] Allergies and Adverse Reactions Medication/Group Name Reaction Severity Date JOEL Inhibitors 2020 amoxicillin 2020 clopidogrel 2020 metoprolol 2020 Penicillins 2020 Ttkdunv-Siu-Zgq Reductase Inhibitors 2020 Effexor 2020 Elavil 2020 Reason for Visit PSTOP - 60 1 WEEK POST OP - 60 1 WEEK POST OP Medications Date Name Route Dose Frequency Instructions Start Date End Date Status Furosemide Oral a ctive Gabapentin Oral a ctive Duloxetine Oral Delayed Release acti ve Lidocaine-Prilocaine Topical Cream 2.5 %-2.5 % active Aspirin Oral daily acti ve B Complex-Vitamin C-Folic Acid Oral 0.8 mg daily active Buspirone Oral BID ac tive Cyanocobalamin Oral active Losartan Oral act nitesh Copper Gluconate Oral active Biotin Oral daily activ e Pantoprazole (Sodium) Oral Delayed Release acti ve Nitroglycerin Sublingual active Vit A, C & U-Rjnqop-Ogpbotbn Oral 300 mcg-200 mg-27 mg-2 mg active Metoprolol Oral 24 hr Tab (Succinate) a ctive Coenzyme Q10 Oral active Problems Diagnosis Status Date of Diagnosis Resolution Date Depression Active Nephrolithiasis Active Pleural effusion Active CKD Active Diabetes mellitus type II Active Mixed hyperlipidemia Active Generalized anxiety disorder Active Coronary artery disease Active Pelvic mass Active GERD Active Social History Date Name Value 2020 Sex Female
--- OUTSIDE RECORDS SUMMARY | 2025-04-23 11:19 | XMS_ITS ---
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) Medication Therapy Skilled Nursing Not Anticoagulant BASIC METABOLIC PANEL, S/P Routine 03/11/2025 7:54 AM CDT 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) Medication Therapy Life Sciences Manager Not Anticoagulant CBC WITH DIFFERENTIAL, B Routine 03/11/2025 7:54 AM CDT 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) Medication Therapy Skilled Nursing Not Anticoagulant BKV DNA DETECT/QUANT, P Routine 03/11/2025 7:54 AM CDT 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) Medication Therapy Life Sciences Manager Not Anticoagulant HEMOGLOBIN A1C, B Routine 11/10/2024 7:1 9 AM WOODEN TANK ERECTOR Transplant Renal (HCC) OPHTHALMOLOGY IMAGE EXAM Routine 03/10/2024 12:00 AM CDT HEPATITIS B SURFACE ANTIGEN Routine 02/21/2021 7:14 AM CDT Pretransplant Recipient Evaluation Exam Chronic Kidney Disease 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 weight gain Weight gain and increased appetite. Amoxicillin Rash 12/18/2016 Has tolerated cefazolin 05/2021 and 08/2021 Penicillins Swelling,Other (see comments),Rash High 06/06/2010 Has tolerated cefazolin 05/2021 and 08/2021 Other Reaction(s): eye swelling, EYES SWELL Swelling of eyes Swelling of eyes Swelling of eyes Medications * This document contains information received from the source organization and may not represent a complete record from that organization. coenzyme Q10 200 mg capsule Take 1 capsule by mouth every evening. For muscle pain 12/19/19 17 Active DULoxetine (CYMBALTA) [address] capsule Take 1 capsule by mouth daily. 12/18/19 17 Active rosuvastatin (CRESTOR) 40 mg tablet Take 1 tablet by mouth at bedtime. 09/02/20 19 Active esomeprazole (NexIUM) [address] capsule Take 1 capsule (20 mg total) by mouth every morning before breakfast. 90 capsule 3 12/12/19 23 Active biotin 10 mg tablet Take 10 capsules by mouth daily. 03/05/20 Active cholecalciferol (VITAMIN D3) 50 mcg (2,000 Unit) capsule Take 1 capsule by mouth 2 (two) times a day. Active cyanocobalamin, vitamin B-12, 1,000 mcg capsule Take 1,000 mcg by mouth daily. 03/05/20 Active aspirin 81 mg chewable tablet Chew 1 tablet (81 mg total) daily. HOLD until follow up with Neurology in 8 weeks 36 tablet 1 04/23/20 23 Active Additional Information Patient not taking.Reported on 11/05/2024 semaglutide (OZEMPIC) 1 mg/dose (4 mg/3 mL) injection Inject 1 mg under the skin every 7 (seven) days. 3 mL 11 11/14/19 Active Additional Information Patient taking differently: 2 mgsubcutaneous Every 7 days, Reported on 11/05/2024 metFORMIN XR (GLUCOPHAGE-XR) 500 mg 24 hr tablet Take one tablet with breakfast and 2 tablets with evening meal. If not tolerated decrease back to one tablet twice daily. 270 tablet 3 11/14/19 Active Additional Information Patient taking differently: 500 mg Daily with evening meal, (No instructions reported), Reported on 11/05/2024 multivitamin-min iwpbq-RC-dxmmdf (CENTRUM SILVER) 400-250 mcg per chewable tablet Chew 1 tablet daily. 11/14/19 Active Accu-Chek Guide test strips 1 test by other route 2 (two) times a day. 01/30/20 Active tacrolimus (Prograf) 1 mg capsuleIndicatio ns:Transplant Renal (HCC),Immunodefi ciency Due To Drugs (HCC),Medication Therapy Skilled Nursing Not Anticoagulant Take 1 capsule (1 mg total) by mouth 2 (two) times a day. Take with 0.5 mg for a total dose of 1.5 mg in the morning and 1.5 mg in the evening. 180 capsule 3 5 11:08 AM CDT 04/09/20 24 Active tacrolimus (Prograf) 0.5 mg capsule Take 1 capsule (0.5 mg total) by mouth 2 (two) times a day. 180 capsule 3 5 12:04 PM CDT 06/23/20 24 Active Additional Information Patient taking differently: 1.5 mgoral 2 times daily, Reported on 11/05/2024 carvediloL (Coreg) 12.5 mg tablet Take 1 tablet (12.5 mg total) by mouth 2 (two) times a day with meals. Take along with 6.25 mg tablet for total dose of 18.75 mg twice daily. 60 tablet 11 5 12:36 PM CDT 10/09/20 24 Active acetaminophen (TylenoL) 500 mg tablet Take 1,000 mg by mouth every 6 (six) hours as needed. Active copper gluconate 2 mg tablet Take 4 mg by mouth. Active gabapentin (Neurontin) 100 mg capsule Take 100 mg by mouth as needed. 06/26/20 24 Active glipiZIDE (GlucotroL) 5 mg tablet TAKE 1 TABLET (5 MG) BY MOUTH TWO TIMES DAILY BEFORE MEALS. Active oxyCODONE-acetam inophen (Percocet) 5-325 mg per tablet as needed. 09/21/20 24 Active multivitamin-eye (PreserVision Lutein) 226 mg-90 mg-5 mg-0.8 mg capsule Take 1 capsule by mouth daily. Active ezetimibe (Zetia) 10 mg tabletIndication s:Coronary Stent Status Post,Hyperlipide echo Mixed Take 1 tablet (10 mg total) by mouth daily. 90 tablet 3 10/17/20 24 Active potassium chloride (K-Tab) 20 mEq ER tablet TAKE 1 TABLET BY MOUTH EVERY DAY 90 tablet 3 10/30/19 25 Active CALCIUM CARBONATE-VITAMI N D3 ORAL Take 1,200 mg by mouth 2 (two) times a day with meals. Active predniSONE (Deltasone) 5 mg tabletIndication s:Transplant Renal (HCC),Immunodefi ciency Due To Drugs (HCC),Medication Therapy Skilled Nursing Not Anticoagulant Take 1 tablet (5 mg total) by mouth daily. 90 tablet 3 5 12:04 PM CDT 12/07/19 25 Active magnesium oxide (Mag-Ox) 400 mg (241.3 mg magnesium) tabletIndication s:Hypokalemia,Af tercare Transplant Renal (HCC),Abnormal Laboratory Results TAKE 1 TABLET (400 MG TOTAL) BY MOUTH 2 (TWO) TIMES A DAY BEFORE BREAKFAST AND DINNER. 180 tablet 3 01/19/20 25 Active carvediloL (Coreg) 6.25 mg tablet TAKE 1 TAB BY MOUTH 2 TIMES A DAY WITH MEALS.TAKE WITH 12.5MG TAB FOR TOTAL OF 18.75MG TWICE DAILY. 180 tablet 3 01/30/20 25 Active mycophenolate (Myfortic) [address] tabletIndication s:Transplant Renal (HCC),Immunodefi ciency Due To Drugs (HCC),Medication Therapy Life Sciences Manager Not Anticoagulant Take 2 tablets (360 mg total) by mouth 2 (two) times a day. 360 tablet 3 03/30/20 25 Active multivitamin tablet Take 1 tablet by mouth daily. 90 tablet 3 10/07/20 22 022 Discontin ued(Reord er) mycophenolate (Myfortic) [address] tabletIndication s:Transplant Renal (HCC),Immunodefi ciency Due To Drugs (HCC),Medication Therapy Skilled Nursing Not Anticoagulant Take 3 tablets (540 mg total) by mouth 2 (two) times a day. 540 tablet 3 5 10:46 AM CDT 10/29/19 25 025 Discontin ued(Reord er) Active Problems Problem Noted Date Diagnosed Date Aneurysm Cerebral Unruptured 11/17/2024 Anesthesia Complication Personal History 025 Coronary Stent Status Post 02/07/2024 Membrane Macula [...] Drugs 10/07/2022 Atherosclerotic Heart Diseas e Of [place] Coronary Artery Without Angina Pectoris 10/06/2022 Noninfective [...] Disease Or End Stage Renal Disease 10/29/2016 Diabetes Mellitus Type 2 Wit h Diabetic Chronic Kidney Disease 10/29/2016 Depression Personal History 10/29/2016 Diabetes Mellitus [...] 03/03/2010 Gastroesophageal Reflux Disease NOS 09/01/2007 Immunizations Immunization Administration Dates Next Due H1N1 All Forms [...] Not Answered Alcohol Use Standard Drinks/Week Comments Never 0 (1 standard drink = 0.6 oz pur e alcohol) [facility] Utilities Answer Date Recorded In the past 12 months has e [employer], gas, oil, or water [employer] threatened to shut off services in your [...] PM CDT Legal Sex Female 5:03 AM WOODEN TANK ERECTOR Gender Identity Female 04/24/2018 8:21 PM CDT Sexual Orientation Straight 04/24/2018 8: 21 PM CDT Last Filed Vital Signs Vital Sign Reading Time Taken Comments Blood Pressure 165/86 11/17/2024 5:[address] Godoy ordered ok for d/c d/t pt plans to take shefali Coreg dose at 2000 tonight. Pt reports baseline SBP 150s. Pulse 98 11/17/2024 5:05 PM WOODEN TANK ERECTOR Temperature 36.4 C (97.5 F) 11/17/2024 9:52 AM WOODEN TANK ERECTOR Respiratory Rate 18 05/28/2024 8:29 AM CDT Oxygen Saturation 99% 11/17/2024 5:0 5 PM WOODEN TANK ERECTOR Inhaled Oxygen Concentration - - Weight 51.8 kg (114 lb 3.2 oz) 11/17/2024 3:48 PM WOODEN TANK ERECTOR Height 158.3 cm (5' 2.32) 11/17/2024 3 :48 PM WOODEN TANK ERECTOR Body Mass Index 20.67 11/17/2024 3:48 PM WOODEN TANK ERECTOR Results * (ABNORMAL) BKV DNA Detect/Quant (04/07/2025 9:05 AM CDT) Only the most recent of2 resultswithin the time period is included. Pathologist [facility] BKV DNA Detect/Quant, P 384(A) Undetected IU/mL 04/08/2025 2:35 PM CDT [facility] Comment: Result in log IU/mL is 2.58. ----ADDITIONAL INFORMATION---- The quantification range of this assay is 22 to 100,000,000 IU/mL (1.34 log to 8.00 log IU/mL). Testing was performed using the rianna BKV test ([employer] Blood (Blood, Venous) 04/07/2025 9:05 AM CDT 04/08/2025 7:33 AM CDT us Lavinia Nash M.D. LAB MICROBIOLOGY - BLOOD ORDERAB LES Final Result [facility] [place] [address] [place] [address] [facility] [address] [place] [address] [place] [address] * [facility] Testing (03/15/2025 8:23 AM CDT) Pathologist [facility] Test Name Oxalate, Plasma 03/23/2025 9:03 AM CDT [facility] Comment:REVISED RESULTS Result See Below 03/23/2025 10:09 AM CDT [facility] Comment: Reporting Analysis and Comments Result Units [...] developed and its performance characteristics determined by [facility]. It has not been cleared or approved by the US Food and Drug Administration. This test is not approved by [facility]. 03/15/2025 8:23 AM CDT 03/15/2025 8:23 AM CDT Rhonda Hampton P.A.-C., M.S. LAB MISC ORDERA BLES Final Result Performing Organization Address [facility] Co de Phone Number [facility] [address] [place] [phone], [facility] [address] [place] [phone] * Tacrolimus, Trough (03/11/2025 7:54 AM CDT) Tacrolimus, Trough 6.6 5.0-15.0 (Trough) ng/mL 03/12/2025 10:40 AM CDT [facility] Comment: ----ADDITIONAL INFORMATION---- Target steady-state trough concentrations vary depending on the type of transplant, concomitant immunosuppression, clinical/institutional protocols, and time post-transplant. Results should be interpreted in conjunction with this clinical information and any physical signs/symptoms of rejection/toxicity. Testing performed by Liquid Chromatography-Tandem Mass Spectrometry (LC-MS/MS). This test was developed and its performance characteristics determined by [facility] in a manner consistent with CLIA requirements. This test has not been cleared or approved by the U.S. Food and Drug Administration. Blood (Blood, Venous) 03/11/2025 7:54 AM CDT 03/12/2025 7:08 AM CDT Rhonda Hampton P.A.-C., M.S. LAB BLOOD NON A DD-ON Final Result Performing Organization Address City/[facility]/ZIP Co de Phone Number [facility] [place] [address] [place] [address] [facility] [address] [place] [address] [place] [address] * CBC with Differential, Blood (03/11/2025 7:54 [...] M.S. LAB BLOOD ADD-O N Final Result [facility] [address] [place] [phone], [facility] in [address] [address] * (ABNORMAL) Basic Metabolic Panel (03/11/2025 7:54 AM CDT) Pathologist [facility] Potassium, P 3.1(L) 3.6 - 5.2 mmol/L [...] 7:54 AM CDT 03/11/2025 7:58 AM CDT Rhonda Hampton PDanny., M.S. LAB BLOOD ADD-O N Final Result [facility] [address] [place] [id number], [facility] CNFL [facility] in [address] [address] * (ABNORMAL) Hemoglobin A1c (11/10/2024 7:19 AM WOODEN TANK ERECTOR) Hemoglobin A1c, B 7.3(H) 4.0 - 5.6 % 11/10/2024 8:12 AM WOODEN TANK ERECTOR [facility] Comment: Hemoglobin A1c values greater than or equal to 6.5 percent are diagnostic for diabetes mellitus. Diagnosis should be confirmed by repeat testing. In diabetic patients, HbA1c goals should be discussed with healthcare provider. Blood (Blood, Venous) 11/10/2024 7:19 AM WOODEN TANK ERECTOR 11/10/2024 7:45 AM WOODEN TANK ERECTOR us Rhonda Hampton P.A.-C., M.S. LAB BLOOD ADD-O N Final Result Performing Organization Address City/[facility]/ZIP Co de Phone Number [facility] [address] [place] [address], [facility] DTL [facility] [address] [place] [address] * Eyes Spectralis OCT-Ophthalmology Image Exam (03/10/2024 12:00 AM CDT) Narrative I[facility] - 03/10/2024 9:57 AM CDT This order has been created and auto-finalized to support the import of images acquired without order. The clinical documentation to support these images can be found on the encounter that produced images. us Provider Not In System IMG NON RAD IMAGING PROCE DURES Final Result Performing Organization Address [facility] Co de Phone Number [facility] NA * Hepatitis B Surface Antigen (02/21/2021 7:14 AM CDT) HBs Antigen, S Negative Negative 02/21/2021 10:48 AM CDT [facility] Blood (Blood, Venous) 02/21/2021 7:14 AM CDT 02/21/2021 9:51 AM CDT us Lavinia Nash M.D. LAB MICROBIOLOGY - BLOOD ORDERAB LES Final Result Performing Organization Address City/[facility] Co de Phone Number [facility] [address] [place] [address] [facility] Dept. of Laboratory Medicine and Pathology [address] [place] [address] * XR MAMMO BEBO BILAT SCREEN-Outside Mammogram [...] overread is required please follow defined workflow. us Provider Not In System IMG BI PROCEDURES Final R esult Performing Organization Address [facility] de Phone Number [facility] NA * (ABNORMAL) Microalbumin, Random, Urine (07/09/2018 10:48 AM CDT) Microalbumin 1550.7 mg/L 07/09/2018 11:39 AM CDT [facility] Comment: ----ADDITIONAL INFORMATION---- This test has been modified from the supervisor carbon paper coating's instructions. Its performance characteristics were determined by [facility] in a manner consistent with CLIA requirements. This test has not been cleared or approved by the U.S. Food and Drug Administration. Creatinine 77 mg/dL 07/09/2018 11:26 AM CDT [facility] Albumin/Creatinine Ratio 2014(H) <25 mg/g 07/09/2018 11:39 AM CDT [facility] Urine (Urine, Voided) 07/09/2018 10:48 AM CDT 07/09/2018 11:39 AM CDT us Peter Hennsesy Jr., D.O. LAB URINE ORDERABLES Final Result Performing Organization Address [facility] de Phone Number [facility] [address] [place] [address], [facility] from Last 3 Months or Most Recently Relevant to Health Maintenance
--- OUTSIDE RECORDS SUMMARY | 2025-04-23 11:19 | XMS_ITS | Encounter Summary ---
Author Organization [facility] Address [address] [place] [address] Care Team Providers Care Television Cable Installer Name Role Phone Elsewhere, Pcp Primary Care Provider Unavailabl e Reason for Visit * Reason Onset Date Comments Labs Only 03/17/2025 BK 03/17/2025 Encounter Details Date Type Department Care Team (Latest Contact Info) Description 03/17/2025 Clinical Communication Benito yip [facility] for Transplantation and Clinical Regeneration in [place], [place] [address] [place] [phone] Helga Israel, RJoseN., C.C.T.C. 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 - 03/17/2025 3:38 PM CDT Reason for Review: BK increased to 709 Anayeli was transplanted on 10/06/2022 (Kidney) Current Medications: Myfortic 540 BID Tacrolimus 1.5mg twice daily Prednisone 5mg daily Labs: Recent Labs 03/11/25 0754 02/13/25 0723 02/12/25 0855 TACROLIMUS 6.6 -- -- HGB 13.2 -- 13.5 HCT 41.0 -- 42.1 PLT 159 -- 125 L WBC 4.4 -- 6.1 NEUTROPHILS 2.48 -- 4 NA 142 139 138 KPLASMA 3.1 L -- -- KSERUM -- 3.5 3.6 BICARB 27 -- 26 CREATININE 0.65 0.65 0.62 LABPHOS -- -- 2 L CALCIUM 8.3 L -- 8.7 L MG -- 1.7 1.4 L GLUCOSE 123 -- 163 H ALKPHOS -- -- 48 ALT -- -- 33 AST -- -- 29 03/11: 709, Log 2.85 12/10: 400, Log 2.6 11/10: 119, Log 2.08 09/23: 50, Log 1.7 Serologies: Recent Labs 03/11/25 0754 BKVDNADETQUP 709 A Lab Results Component Value Date YARY 2013 (H) 07/09/2018 Immunosuppression Goal Range: 6-8 Current Lab Frequency: every 3 months Please advise on any changes or recommendations. Thanks, Helga Israel R.N., C.C.T.C. *All labs are now found in [employer] - Lab - Flowsheets. For further review of labs, please review thereor under Synopsis* documented in this encounter Plan of Treatment Upcoming Encounters Date Type Department Care Team (Late st Contact Info) Description 05/05/2025 9:00 AM CDT Appointment Department of Laboratory Medicine in [address] [phone] Lavinia Nash M.D. [address] [place] [phone] 06/02/2025 11:40 AM CDT Appointment Department of Laboratory Medicine in [address] [phone] Lavinia Nash M.D. [address] [place] [phone] 06/02/2025 12:30 PM CDT Infusion Department of Infusion Therapy in [address] [phone] Viktoriya Garza APRN, C.N.P. [address] [place] [phone] 06/11/2025 7:50 AM CDT Appointment Department of Laboratory Medicine in [address] [phone] Rhonda Hampton P.A.-C., M.S. [address] [place] [phone] 06/30/2025 9:00 AM CDT Appointment Department of Laboratory Medicine in [address] [phone] Lavinia Nash M.D. [address] [place] [phone] 07/28/2025 9:00 AM CDT Appointment Department of Laboratory Medicine in [address] [phone] Lavinia Nash M.D. 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 ----ADDITIONAL INFORMATION---- The quantification range of this assay is 22 to 100,000,000 IU/mL (1.34 log to 8.00 log IU/mL). Testing was performed using the rianna BKV test ([employer] Blood (Blood, Venous) 04/07/2025 9:05 AM CDT 04/08/2025 7:33 AM CDT us Lavinia Nash M.D. LAB MICROBIOLOGY - BLOOD ORDERAB LES Final Result [facility] [employer] [address] [place] [id number] [facility] [address] [place] [address] 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
--- OUTSIDE RECORDS SUMMARY | 2025-04-23 11:19 | XMS_ITS | Encounter Summary ---
Author Organization [facility] Address [address] [place] [address] Care Team Providers Care Health Data Administrator Name Role Phone Elsewhere, Pcp Primary Care Provider Unavailabl e Encounter Details Date Type Department Care Team (Latest Contact Info) Description 03/11/2025 Results Follow-Up Benito yip [facility] for Transplantation and Clinical Regeneration in [place], [place] [address] [place] [address] Charlette Barragan, R.N. CBC with Differential, Blood, Basic Metabolic Panel Social History Tobacco Use Types Packs/Day Years Used Date Smoking Tobacco: Former Cigarettes 1 20 1 - 08/06/1983 Smokeless Tobacco: Never Alcohol Use Standard Drinks/Week Comments Never 0 (1 standard drink = 0.6 oz pur e alcohol) [facility] Utilities Answer Date Recorded In the past 12 months has [facility] [employer], gas, oil, or water [employer] threatened to shut off services in your [...] your living situation today? I have a [facility] place to live 11/29/2023 Education Answer Date Recorded What is the highest level of school you have completed or the highest degree you have received? 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 200 [place] [address] 06/02/2025 11:40 AM CDT Appointment Department of Laboratory Medicine in [address] [phone] Lavinia Nash M.D. [address] [place] [phone] 06/02/2025 12:30 PM CDT Infusion Department of Infusion Therapy in [address] [phone] Viktoriya Garza APRN C.N.PJose [address] [place] [phone] 06/11/2025 7:50 AM CDT Appointment Department of Laboratory Medicine in [address] [phone] Rhonda Hampton P.A.-C., M.S. [address] [place] [phone] 06/30/2025 9:00 AM CDT Appointment Department of Laboratory Medicine in [address] [phone] Lavinia Nash M.D. [address] [place] [phone] 07/28/2025 9:00 AM CDT Appointment Department of Laboratory Medicine in [address] [phone] Lavinia Nash M.D. [address] [place] [phone] documented as of this encounter Visit Diagnoses Not on filedocumented in this encounter Additional Health Concerns Infection Onset Date Last Indicated Resolved Time Protective Environment 02/01/2023 02/01/2023 Assessment Noted Time PHQ-9 Depression Total Score: 2 04/23/20 23 11:30 AM CDT documented as of this encounter Care Teams Health Data Administrator Relationship Specialty Start Date End Date Elsewhere, Pcp PCP - General Internal Medicine 03/22/22 [facility] 10/25/22 documented as of this encounter
--- OUTSIDE RECORDS SUMMARY | 2025-04-23 11:19 | XMS_ITS ---
Author Organization [facility] Address [address] [place] [address] Care Team Providers Care Doper Operator Name Role Phone Elsewhere, Pcp Primary Care Provider Unavailabl e Active Problems * This document contains information received from the source organization and may not represent a complete record from that organization. Problem Noted Date Diagnosed Date Aneurysm Cerebral [...] Drugs 10/07/2022 Atherosclerotic Heart Diseas e Of [place] Coronary Artery Without Angina Pectoris 10/06/2022 Noninfective [...] 03/03/2010 Gastroesophageal Reflux Disease NOS 09/01/2007 Current Treatment and Therapy Plans No current plan information found. Other Current Plans zoledronic acid (RECLAST)* Plan Start Date:05/28/2025 Plan Provider:Viktoriya Garza APRN, C.N.P. Linked Problems OsteoporosisTransplant Renal (HCC) Treatment Medications No medications scheduled. Past Treatment and Therapy Plans Lifetime Dose Tracking * Chemical Lifetime Dose [...] 10. BMI: Body mass index is 28.18 kg/m . 11. Functional Status/Karnofsky Score: not very active, pending PMR evaluation 12. EPTS: pending% 13. Cardiopulmonary evaluation: history of chronic angina and positive nuclear stress test 05/2018, treated with nitrate, pending dobutamine stress echo and visit with cardiology 14. Troponin: < 6 15. History of malignancies: no 16. [place] renal imaging if on dialysis >3 years: [...]
--- OUTSIDE RECORDS SUMMARY | 2025-04-23 11:20 | XMS_ITS | Encounter Summary ---
Author Organization [facility] Address [address] [place] [address] Care Team Providers Care Field Trainer Name Role Phone Elsewhere, Pcp Primary Care Provider Unavailabl e Reason for Visit * Reason Comments Med Refill Encounter Details Date Type Department Care Team (Late st Contact Info) Description 03/31[facility]20[facility] [place], [place] [address] [place] [address] Rhonda Hampton P.A.-C., M.S. [address] [place] [phone] Med Refill Social History Tobacco Use Types [...] your living situation today? I have a [facility] place to live 11/29/2023 Education Answer Date Recorded What is the highest level of school you have completed or the highest degree you have received? 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 [address] [place] [phone] 06/02/2025 11:40 AM CDT Appointment Department of Laboratory Medicine in [address] [phone] Lavinia Nash M.D. [address] [place] [phone] 06/02/2025 12:30 PM CDT Infusion Department of Infusion Therapy in [address] [phone] Viktoriya Garza APRN, C.N.P. [address] [place] [phone] 06/11/2025 7:50 AM CDT Appointment Department of Laboratory Medicine in [address] [phone] Rhonda Hampton P.A.-Louisa., M.S. [address] [place] [phone] 06/30/2025 9:00 AM CDT Appointment Department of Laboratory Medicine in [address] [phone] Lavinia Nash M.D. [address] [place] [phone] 07/28/2025 9:00 AM CDT Appointment Department of Laboratory Medicine in [address] [phone] Lavinia Nash M.D. 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
--- OUTSIDE RECORDS SUMMARY | 2025-04-23 11:20 | XMS_ITS | CCD ---
Author Name Interface, [id number] Address [address] [place] [address] [facility] Address [address] [place] [address] Allergies and Adverse Reactions Reason for Visit Medications Problems Social History
--- OUTSIDE RECORDS SUMMARY | 2025-04-23 11:20 | XMS_ITS | Encounter Summary ---
Author Organization [facility] Address [address] [place] [address] Care Team Providers Care Drainage Engineer Name Role Phone Elsewhere, Pcp Primary Care Provider Unavailabl e Encounter Details Date Type Department Care Team (Latest Contact Info) Description 03/31/2025 Clinical Communication Division of Endocrinology in [place], [place] [address] [place] [address] Viktoriya Garza, ELODIA, C.N.P. [address] [place] [address] Social History Tobacco Use Types Packs/Day Years Used Date Smoking Tobacco: Former Cigarettes 1 20 1 - 08/06/1983 Smokeless Tobacco: Never Alcohol Use Standard Drinks/Week Comments Never 0 (1 standard drink = 0.6 oz pur e alcohol) [facility] Utilities Answer Date Recorded In the past 12 months has [employer], oil, or water [employer] threatened to shut off services in your [...] PM CDT Legal Sex Female 5:03 AM SYS DIR Gender Identity Female 04/24/2018 8:21 PM CDT Sexual Orientation Straight 04/24/2018 8: 21 PM CDT documented as of this encounter Plan of Treatment Upcoming Encounters Date Type Department Care Team (Late st Contact Info) Description 05/05/2025 9:00 AM CDT Appointment Department of Laboratory Medicine in [address] [phone] Lavinia Nash M.D. 200 [place] [address] 06/02/2025 11:40 AM CDT Appointment Department of Laboratory Medicine in [address] [phone] Lavinia Nash M.D. [address] [place] [phone] 06/02/2025 12:30 PM CDT Infusion Department of Infusion Therapy in [address] [phone] Viktoriya Garza APRN, C.N.PJose [address] [place] [phone] 06/11/2025 7:50 AM CDT Appointment Department of Laboratory Medicine in [address] [phone] Rhonda Hampton P.A.-C., M.S. [address] [place] [phone] 06/30/2025 9:00 AM CDT Appointment Department of Laboratory Medicine in [address] [phone] Lavinia Nash M.D. [address] [place] [phone] 07/28/2025 9:00 AM CDT Appointment Department of Laboratory Medicine in [address] [phone] Lavinia Nash M.D. [address] [place] [phone] documented as of this encounter Visit Diagnoses Not on filedocumented in this encounter Additional Health Concerns Infection Onset Date Last Indicated Resolved Time Protective Environment 02/01/2023 02/01/2023 Assessment Noted Time PHQ-9 Depression Total Score: 2 04/23/20 23 11:30 AM CDT documented as of this encounter Care Teams Drainage Engineer Relationship Specialty Start Date End Date Elsewhere, Pcp PCP - General Internal Medicine 03/22/22 [facility] [place] [facility] 10/25/22 documented as of this encounter
--- OUTSIDE RECORDS SUMMARY | 2025-04-23 11:20 | XMS_ITS | Encounter Summary ---
Author Organization [facility] [place] [facility] Address [address] [place] [address] Care Team Providers Care Cook Ice Cream Name Role Phone Elsewhere, Pcp Primary Care Provider Unavailabl e Encounter Details Date Type Department Care Team (Late st Contact Info) Description 04/09/2025 Results Follow-Up Benito yip [facility] for Transplantation and Clinical Regeneration in [place], [place] [address] [place] [address] Jagruti Hernandes, RJoseN. 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 [address] [place] [phone] 06/02/2025 11:40 AM CDT Appointment Department of Laboratory Medicine in [address] [phone] Lavinia Nash M.D. [address] [place] [phone] 06/02/2025 12:30 PM CDT Infusion Department of Infusion Therapy in [address] [phone] Viktoriya Garza APRN, C.N.P. [address] [place] [phone] 06/11/2025 7:50 AM CDT Appointment Department of Laboratory Medicine in [address] [phone] Rhonda Hampton P.A.-C., M.S. [address] [place] [phone] 06/30/2025 9:00 AM CDT Appointment Department of Laboratory Medicine in [address] [phone] Lavinia Nash M.D. [address] [place] [phone] 07/28/2025 9:00 AM CDT Appointment Department of Laboratory Medicine in [address] [phone] Lavinia Nash M.D. [address] [place] [phone] documented as of this encounter Visit Diagnoses Not on filedocumented in this encounter Additional Health Concerns Infection Onset Date Last Indicated Resolved Time Protective Environment 02/01/2023 02/01/2023 Assessment Noted Time PHQ-9 Depression Total Score: 2 04/23/20 23 11:30 AM CDT documented as of this encounter Care Teams Cook Ice Cream Relationship Specialty Start Date End Date Elsewhere, Pcp PCP - General Internal Medicine 03/22/22 [facility] 10/25/22 documented as of this encounter
--- OUTSIDE RECORDS SUMMARY | 2025-04-23 11:20 | XMS_ITS | Data Portability ---
Author Organization [place] - [facility], [employer] Address [address] [place] [address] Care Team Providers Care Neighborhood Worker Name Role Phone BRYANT KING Primary Care Provider [phone] Assessment Encounter Date Assessment Date Assessment LastModified [...] and insoles today. Not available 06/09/2024 14:35:42 07/14/2024 07/14/2024 I did dispense one pair diabetic shoes and a 3 pair of custom multi-density diabetic insoles. The insoles did conform well to the longitudinal arches. The shoes and insoles are both in good condition with no visible defects. They did fit well in both length and width. The patient did ambulate comfortably in the shoes prior to leaving clinic. The patient was instructed on proper break-in and use of the shoes. A break in instruction form was discussed and dispensed to the patient. We did discussed thinning the front end of her insole in a network relations consultant moving forward. The patient is to return to clinic for followup evaluation in one to 2-3 months or sooner if any problems Not available 07/14/2024 14:52:55 10/05/2024 10/05/2024 Debrided patient's mycotic nails without incident as documented. Recommended continued use of supportive shoegear and to monitor for injury and infection. Recommended regular follow-up to prevent complications and to manage pain due to thick, elongated nails and any callus formation. All questions answered. The patient was encouraged to call with any questions or concerns. Patient will follow up in 12 weeks for high risk foot care or sooner if needed. Not available 10/05/2024 14:57:06 01/18/2025 01/18/2025 Debrided all mycotic nails without complication as documented. The patient tolerated footcare well. Recommended regular follow-up to prevent complications and manage pain due to thick, elongated nails and calluses. All questions answered. The patient was encouraged to contact the office with any questions or concerns. Patient will follow up in 12 weeks for high risk foot care or sooner if needed. Not available 01/19/2025 12:24:42 04/14/2025 04/14/2025 Toenails 1-5 bilateral were debrided in length and thickness by manual and mechanical means (nippers) without incident. Patient tolerated this well and will be seen as needed in the future. The patient is to return to the clinic in 9-10 weeks for routine care [email or web address] Not available 04/14/2025 11:28:45 Plan of Treatment [...] Details Recorded Time Chronic ulcer of foot 623198760 Active 2020 Chronic ulcer of foot; Original Code: 2773787503 Original Codesystem : SNOMED CT Classif ication: Medical Co nfirmation Status: Confirmed Not Available [facility] 3 09:11:08 Ingrowing nail 203202994 Active 2013 Ingrowing nail; Original Code: 8667031635 Original Codesystem : SNOMED CT Classif ication: Medical Co nfirmation Status: Confirmed Not Available [facility] 3 09:11:08 Disorder of nail 05511423 Active 2013 Disorder of nail; Original Code: 3347222843 Original Codesystem : SNOMED CT Classif ication: Medical Co nfirmation Status: Confirmed Not Available [facility] 3 09:11:08 Secondary diabetes mellitus 7622734 Active 2019 Secondary diabetes mellitus; Original Code: 03943679 O riginal Codesystem : SNOMED CT Classif ication: Medical Co nfirmation Status: Confirmed Parvez boss, [place] - [facility] 3 15:36:12 Essential hypertens ion 26851361 Active 2014 Essential hypertensi on; Original Code: 25156002 O riginal Codesystem : SNOMED CT Classif ication: Medical Co nfirmation Status: Confirmed Parvez boss, [place] - [facility] 3 15:36:07 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; Original Code: 37612566 O riginal Codesystem : SNOMED CT Classif ication: Medical Co nfirmation Status: Confirmed Not Available [facility] 3 09:11:08 Foot pain 07937929 Active 2020 Foot pain; Original Code: 657830502 Original Codesystem : SNOMED CT Classif ication: Medical Co nfirmation Status: Confirmed Not Available [facility] 3 09:11:09 Onychomyc osis of toenails 625304050 Active 2018 Onychomyco sis of toenails; Original Code: 4708517739 Original Codesystem : SNOMED CT Classif ication: Medical Co nfirmation Status: Confirmed Not Available [facility] 3 09:11:09 Transplan t of kidney Active 2022 Parvez Barkley null, [place] - [facility] 3 15:36:26 Diabetic care Active [address] Sanjay Allan 06/12/24 [facility] Sperry manuela Castañeda null, [place] - [facility] 4 14:11:41 Problem Notes None recorded. Procedures Surgical History Date Name Laterality Status Provider Name and Address Organization Details Recorded Time [address] Estevez completed BEL GRIJALVA, DPM [address] [place], [address], [facility] 01/19/2025 12:19:[address] Estevez completed BEL GRIJALVA, M [address] [place], [address], [facility] 10/05/2024 14:56:[address] Hobson completed Ana Alvarez [facility] 06/09/2024 14:13:[address] Hobson completed Ana Alvarez [facility] 03/05/2024 12:01:[address] Hobson completed Ana Alvarez [facility] 12/06/2023 04:18:35 3 NAIL/CallusDEBR IDEMENT completed Ana Alvarez [facility] 08/29/2023 12:34:36 3 NAIL/CallusDEBR IDEMENT completed Joel Lovell, [facility] [address] [place], [address], [facility] 06/01/2023 10:42:[address] Hobson completed Parvez Barkley [facility] 02/14/2023 15:37:11 Imaging Results None recorded. Procedure Notes None recorded. Medical Equipment None Reported. Allergies Allergen ID Allergen Name Allergen Category Reaction Reaction Severity Criticality Documentation Date Start Date Code Code System Note Provider Name and Address Organization Details Recorded Time 03781 amoxicill in medicatio n Not available Not available Not available 01/01/2023 723 RxNorm Comme nt: React ion Class : Aller gy Al lergy Ident ifier : d0008 8 All ergy Categ ory: Multu m Drug Ident ifier Iden rayrayie r Alex clemensg Autho rity: 45000 _[place]_F [place] ; Not Available [facility] 3 08:52:37 60469 Product containin g angiotens in-conver ting enzyme inhibitor (product) medicatio n Not available Not available Not available 01/01/2023 75247 009 SNOMED Comme nt: React ion Class : Aller gy Al lergy Ident ifier : 416 A llerg y Categ ory: Aller gy Categ ories Iden tifie r Assig mark Autho rity: 22011 _[place] ; Not Available [facility] 3 08:52:37 93708 metoprolo l Not available Not available Not available Not available 01/01/2023 6918 RxNorm Comme nt: React ion Class : Aller gy Al lergy Ident ifier : d0013 4 All ergy Categ ory: Multu m Drug Ident ifier Iden tifie r Assig mark Autho rity: 50854 _[place] ; Not Available [facility] 3 08:52:37 06367 Elavil medicatio n Not available Not available Not available 01/01/2023 22356 RxNorm Comme nt: React ion Class : Aller gy Al lergy Ident ifier : d0014 6 All ergy Categ ory: Multu m Drug Ident ifier Iden tifie r Assig mark Autho rity: [address]50 _[place] ; Not Available [facility] 3 08:52:37 68152 Effexor medicatio n Not available Not available Not available 01/01/2023 90689 2 RxNorm Comme nt: React ion Class : Aller gy Al lergy Ident ifier : d0318 1 All ergy Categ ory: Multu m Drug Ident ifier Iden tifie r Assig mark Autho rity: [address]10 _[place] ; Not Available [facility] 3 08:52:37 Medications Name Sig Start Date [...] use any illicit or recreational drugs? [email or web address] Information not available 02/14/2023 What is your level of alcohol consumption? None [email or web address] Information not available 02/14/2023 Mental Status None recorded. Family History Nothing Reported. Medical History No medical history recorded. Gynecological HistoryNo gynecological history recorded. Obstetrics History GPAL:G 0 P 0 0 0 0 Past Encounters Encounter ID Performer Location Encounter Start Date Encounter Closed Date Diagnosis/Indication Diagnosis SNOMED-CT Code Diagnosis ICD10 Code Diagnosis Note [id number] Parvezrylie Barkley, [facility] Office [address] [place] [id number] 4 02/14/2023 14:43:15 02/15/2023 13:05:43 Type 2 diabetes mellitus with peripheral angiopathy 916373680 E11.51 Patient was educated on diabetic foot care and preventati ve measures including daily foot checks, proper shoe gear, avoiding barefoot walking, avoidance of self care of at risk pathology and regular podiatric foot evaluation s/care. Disorder o f nervous system due to type 2 diabetes mellitus 258823348 E11.49 Onychomycosis 953466854 B35.1 See procedure note. Q9 findings.A n ABN was reviewed and signed today [id number] Joel Lovell DPM [place] [facility] [address] [place] [id number] 4 05/30/2023 12:06:34 06/03/2023 09:58:10 Type 2 diabetes mellitus with peripheral angiopathy 933180953 E11.51 Patient was educated on diabetic foot care and preventati ve measures including daily foot checks, proper shoe gear, avoiding barefoot walking, avoidance of self care of at risk pathology and regular podiatric foot evaluation s/care. Disorder o f nervous system due to type 2 diabetes mellitus 315654252 E11.49 Onychomycosis 120373666 B35.1 See procedure note. Q9 findings.A n ABN was reviewed and signed today Foot callus 074538467 L8 4 Hallux rajeev ehnri AND bunion [id number] M20.12 [id number] Joel Lovell [facility] Office [address] [place] [address] [id number] 4 08/29/2023 11:50:05 09/03/2023 10:05:21 Type 2 diabetes mellitus with peripheral angiopathy 514154220 E11.51 Patient was educated on diabetic foot care and preventati ve measures including daily foot checks, proper shoe gear, avoiding barefoot walking, avoidance of self care of at risk pathology and regular podiatric foot evaluation s/care. Disorder o f nervous system due to type 2 diabetes mellitus 858413628 E11.49 Onychomycosis 347378513 B35.1 See procedure note. Q9 findings.A n ABN was reviewed and signed today Foot callus 522119974 L8 4 Hallux rajeev henri AND bunion [id number] M20.12 [id number] Joel Lovell [facility] Office [address] [place] [id number] 4 12/05/2023 11:58:54 12/06/2023 13:52:34 Type 2 diabetes mellitus with peripheral angiopathy 963696673 E11.51 Patient was educated on diabetic foot care and preventati ve measures including daily foot checks, proper shoe gear, avoiding barefoot walking, avoidance of self care of at risk pathology and regular podiatric foot evaluation s/care. Disorder o f nervous system due to type 2 diabetes mellitus 844267994 E11.49 Onychomycosis 231693549 B35.1 See procedure note. Q9 findings.A n ABN was reviewed and signed today Foot callus 861373645 L8 4 Hallux rajeev henri AND bunion [id number] M20.12 [id number] Joel Lovell [facility] Office [address] [place] [id number] 4 03/05/2024 11:47:14 03/06/2024 15:17:07 Type 2 diabetes mellitus with peripheral angiopathy 347299263 E11.51 Patient was educated on diabetic foot care and preventati ve measures including daily foot checks, proper shoe gear, avoiding barefoot walking, avoidance of self care of at risk pathology and regular podiatric foot evaluation s/care. Disorder o f nervous system due to type 2 diabetes mellitus 370232309 E11.49 Onychomycosis 473500301 B35.1 See procedure note. Q9 findings. Foot callus 568100317 L8 4 Hallux rajeev henri AND bunion [id number] M20.12 [id number] Joel Lovell DPM [place] [facility] [address] [place] [id number] 4 06/09/2024 13:56:08 06/11/2024 11:43:28 Type 2 diabetes mellitus with peripheral angiopathy 253653357 E11.51 Patient was educated on diabetic foot care and preventati ve measures including daily foot checks, proper shoe gear, avoiding barefoot walking, avoidance of self care of at risk pathology and regular podiatric foot evaluation s/care. Disorder o f nervous system due to type 2 diabetes mellitus 231645551 E11.49 Onychomycosis 828684697 B35.1 See procedure note. Q9 findings. Foot callus 565402626 L8 4 Hallux rajeev henri AND bunion [id number] M20.12 [id number] Joel Lovell DPM [place] [facility] [address] [place] [id number] 4 07/14/2024 14:02:03 07/22/2024 09:42:27 Type 2 diabetes mellitus with peripheral angiopathy 581433256 E11.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 504161487 E11.49 Hallux rajeev henri AND bunion [id number] M20.12 LUCRETIA SANTORO d [address] [place] [address] 10/05/2024 12:03:42 10/06/2024 11:17:02 Onychomycosis 995570198 B35.1 Peripheral neuropathy due to type 2 diabetes mellitus 3261317116 107 E11.42 Peripheral vascular disease 478542565 I73.89 [id number] LUCRETIA SANTORO d [address] [place] [address] 01/18/2025 11:38:25 01/19/2025 16:06:23 Onychomycosis 342388262 B35.1 Peripheral neuropathy due to type 2 diabetes mellitus 9065500160 107 E11.42 Peripheral vascular disease 397187836 I73.89 Pain of to e of left foot 9440408917 77330 M79.675 Pain of to e of right foot 5890625130 54811 M79.674 [id number] LUCRETIA TRAYLOR [address] [place] [address] 04/14/2025 08:55:46 04/14/2025 11:56:43 Onychomycosis 985795901 B35.1 Peripheral vascular disease 324831273 I73.89 Pain of to e of left foot 9820451269 36589 M79.675 Pain of to e of right foot 9681299850 57569 M79.674 Ingrowing nail 084398199 L60.0 Health Concerns Section Related Observation LastModified by Organization Detai ls LastModified Time None Recorded Concern Status LastModified by Organization Details LastModified Time None Recorded Advance Directives Directive None Recorded Payers Insurance Date Sequence Insurance Name Policy Number Policy Mcclelland Covered Member ID Mcclelland Member ID Guarantor Name 04/13/2025 1 [facility]: (MEDICARE REPLACEMENT PPO) [id number] Anayeli E Splettstoeszer [id number] Anayeli E Splettstoeszer Notes Date Note Type Note Provider Name and Address Organization Details Recorded Time 06/09/2024 text/html This established patient ptc today for diabetic foot care. Patient is in need of nail care today. Denies any new foot complaints. Patient did last see Dr. Bryant King for diabetes care last seen on 05/2024 Joel Lovell DPM [address] [place], [address], [facility] - [facility] 06/10/2024 15:54:47 07/14/2024 text/html The patient is here for shoes dispense. Joel Lovell DPM [address] [place], [address], [facility] - [facility] 07/21/2024 11:18:54 10/05/2024 text/html Patient is seen today for complaints of painful, thickened, elongated toenails. Patient states that they are unable to take care of these problems without assistance. Patient denies any other pedal complaints at this time. Patient did last see Dr. Bryant King for diabetes care last seen on 05/2024 BEL GRIJALVA DPM [address] [place], [address], [facility] - [facility] 10/05/2024 14:57:17 01/18/2025 text/html Patient presents complaining of long, painful, thickened toenails. Patient does relate to previous relief from debridements. They are unable to care for themselves due to the thickness of the nails. Patient denies any other pedal complaints at this time. Patient did last see Dr. Bryant King for diabetes care last seen on 05/2024 BEL GRIJALVA, LUCRETIA [address] [place], [address], [facility] - [facility] 01/19/2025 12:28:58 04/14/2025 text/html The patient presents for routine [...] last seen on 07/13/24 ISAIAS DE LA CRUZ DPM [address] [place], [address], [facility] - [facility] 04/14/2025 11:29:29 OBGyn Episode No OBEpisode recorded.
--- OUTSIDE RECORDS SUMMARY | 2025-04-23 11:20 | XMS_ITS | Clinical Summary ---
Author Organization [facility] Address [address] [facility] [address] , [address] [place] [address] Phone Care Team Providers Care Bus Escort Name Role Phone Catalina ELODIA, ENRIQUE, Estefani Unavailable [phone] Conditions or Problems No information available. Medications No information available. Medications Administered No information available. Allergies, Adverse Reactions, Alerts Allergy Name Reaction Description Start Date Severity Statu s Provider VENLAFAXINE Behavioral Disturbances Mild Act nitesh Kevin Jarecki VENLAFAXINE ANALOGUES Behavioral Disturbances Mil d Active Kevin Jarecki PENICILLINS Mild Active Kevin Ja recki METOPROLOL Cough Mild Active Kevin Jar ecki CLOPIDOGREL Other - Describe In Comment Field Mild Active Kevin Jarecki AMOXICILLIN Other - Describe In Comment Field Mild Active Kevin Jarecki AMITRIPTYLINE Other - Describe In Comment Field Mild Active Kevin Jarecki JOEL INHIBITORS Cough Mild Active Kevin Jarecki Results No information available. Plan of Care No information available. Procedures No information available. Vital Signs No information available. Immunizations No information available. Advance Directives No information available.
--- OUTSIDE RECORDS SUMMARY | 2025-04-23 11:20 | XMS_ITS | Encounter Summary ---
Author Organization [facility] Address [address] [place] [address] Care Team Providers Care Dewaterer Operator Name Role Phone Elsewhere, Pcp Primary Care Provider Unavailabl e Reason for Visit * Reason Comments Med Refill Encounter Details Date Type Department Care Team (Late st Contact Info) Description 03/31/2025 [facility] [place], [place] [address] [place] [address] Rhonda Hampton P.A.-C., M.S. [address] [place] [phone] Med Refill Social History Tobacco Use Types Packs/Day Years Used Date Smoking Tobacco: Former Cigarettes 1 20 1 - 08/06/1983 Smokeless Tobacco: Never Alcohol Use Standard Drinks/Week Comments Never 0 (1 standard drink = 0.6 oz pur e alcohol) [facility] Utilities Answer Date Recorded In the [...] your living situation today? [facility] 11/29/2023 Education Answer Date Recorded What is the highest level of school you have completed or the highest degree you have received? 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 [address] [place] [phone] 06/02/2025 11:40 AM CDT Appointment Department of Laboratory Medicine in [address] [phone] Lavinia Nash M.D. [address] [place] [phone] 06/02/2025 12:30 PM CDT Infusion Department of Infusion Therapy in [address] [phone] Viktoriya Garza APRN, C.N.P. [address] [place] [phone] 06/11/2025 7:50 AM CDT Appointment Department of Laboratory Medicine in [address] [address] Rhonda Hampton P.A.-Louisa., M.S. [address] [place] [phone] 06/30/2025 9:00 AM CDT Appointment Department of Laboratory Medicine in [address] [address] Lavinia Nash M.D. [address] [place] [phone] 07/28/2025 9:00 AM CDT Appointment Department of Laboratory Medicine in [address] [address] Lavinia Nash M.D. 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
--- OUTSIDE RECORDS SUMMARY | 2025-04-23 11:21 | XMS_ITS ---
Author Name [facility] Address [address] [place] [address] [address] [address] [facility] Address [address] [facility] [address] [place] [address] Allergies and Adverse Reactions Medication/Group Name Reaction Severity Date JOEL Inhibitors 2020 amoxicillin 2020 metoprolol 2020 Penicillins 2020 Uqsnxiu-Oxf-Hrm Reductase Inhibitors 2020 clopidogrel 2020 Effexor 2020 Elavil 2020 Plan Date Type Value 10/13/2020 APPOINTMENT PSTOP - 60 1 WEE K POST OP - 60 1 WEEK POST OP 10/06/2020 APPOINTMENT SURG - 60 ROBOT LAPARSCOPIC RSO POSS - STAGING 2020 APPOINTMENT NEUROLOGY TECH - 60 DR ESTES - ADNEXAL MASS 2020 APPOINTMENT NEUROLOGY TECH - 60 DR ESTES - ADNEXAL MASS Reason for Visit PSTOP - 60 1 WEEK POST OP - 60 1 WEEK POST OP Encounters Date Name 2020 Depression 2020 GERD 2020 Nephrolithiasis 2020 Pelvic mass 2020 Pleural effusion Immunizations Date Name Route Dose Instructions Refusal Reason Stat us Flu vaccine - Adult Comp leted Diagnostic Results Date Type Test Units Lower Limit Upper Limit Result Flag Comments Status Ordered By Specimen Source Lab Address 10/[facility] [place] See technical sourcing recruiter d Medications Date Name Route Dose Frequency Instructions Start Date End Date Status Metoprolol Oral 24 hr Tab (Succinate) a ctive Losartan Oral act nitesh Copper Gluconate Oral active Vit A, C & C-Pbfhmg-Grkgefrp Oral 300 mcg-200 mg-27 mg-2 mg active B Complex-Vitamin C-Folic Acid Oral 0.8 mg daily active Furosemide Oral a ctive Pantoprazole (Sodium) Oral Delayed Release acti ve Biotin Oral daily activ e Coenzyme Q10 Oral active Duloxetine Oral Delayed Release acti ve Lidocaine-Prilocaine Topical Cream 2.5 %-2.5 % active Buspirone Oral BID ac tive Aspirin Oral daily acti ve Cyanocobalamin Oral active Nitroglycerin Sublingual active Gabapentin Oral a ctive Problems Diagnosis Status Date of Diagnosis Resolution Date Depression Active Nephrolithiasis Active Pleural effusion Active CKD Active Diabetes mellitus type II Active Mixed hyperlipidemia Active Generalized anxiety disorder Active Coronary artery disease Active Pelvic mass Active GERD Active Vital Signs Date Type Value 2020 Intravascular Systolic 138 2020 Intravascular Diastolic 78 2020 BSA 1.63 2020 Heart Beat 67.00 2020 Respiratory Rate 14.00 2020 Oxygen Saturation 99.00 2020 Body Temperature 97.70 2020 Pain Scale 0.00 2020 Weight 133.80 2020 Height 63.00 2020 BMI 23.70 10/13/2020 Height 63.00 10/13/2020 Body Temperature 97.30
--- OUTSIDE RECORDS SUMMARY | 2025-04-23 11:21 | XMS_ITS ---
Author Name Interface, [id number] lity Address [address] [address] [facility] Address [address] [place] [address] Allergies and Adverse Reactions Medication/Group Name Reaction Severity Date JOEL Inhibitors 2020 amoxicillin 2020 Penicillins 2020 Hkfsddk-Spe-Bry Reductase Inhibitors 2020 clopidogrel 2020 Effexor 2020 Elavil 2020 metoprolol 2020 Plan Date Type Value 10/13/2020 APPOINTMENT PSTOP - 60 1 WEE K POST OP - 60 1 WEEK POST OP 10/06/2020 APPOINTMENT SURG - 60 ROBOT LAPARSCOPIC RSO POSS - STAGING 2020 APPOINTMENT PRODUCTION ENGINE REPAIRER - 60 DR ESTES - ADNEXAL MASS 2020 APPOINTMENT PRODUCTION ENGINE REPAIRER - 60 DR ESTES - ADNEXAL MASS [...] Ordered By Specimen Source Lab Address 10/03 [facility] other lab See coating mixer d Medications Date Name Route Dose Frequency Instructions Start Date End Date Status Metoprolol Oral 24 hr Tab (Succinate) a ctive Losartan Oral act nitesh Copper Gluconate Oral active Vit A, C & J-Hgiqqv-Imaglzpn Oral 300 mcg-200 mg-27 mg-2 mg active [...]
--- OUTSIDE RECORDS SUMMARY | 2025-04-23 11:21 | XMS_ITS ---
Author Organization [facility] Address [address] [place] [address] Care Team Providers Care Engineer Design And Construction Name Role Phone Elsewhere, Pcp Primary Care Provider Unavailabl e Transplant Episode Kidney Recipient [facility] ([place], [place]) - [facility] Organ Received: Right Kidney Transplanted on 10/06/2022 Marked as Active Follow-up on 10/06/2022 Kidney CoordinatorTXP POST KIDNEY NURSE TEAM 3 [facility] Phone: N/A Fax: N/A Email: N/A [place] Organ Diagnosis Organ Primary Contributory Kidney Diabetes [...] Email [facility] POST KIDNEY NURSE TEAM 3 [facility] Kidney Coordinator N/A N/A N/A Lavinia Nash M.D. Transplant Nuclear Weapons Specialist [phone] [email or web address] Sanjay Allan M.D. Referring Provider Transplant External Managing Pantry Cook [phone] [email or web address] Nahum Salazar M.D. Transplant Surgeon N/A N/A N/A Events Post-Transplant Pre-Transplant Admitted: 10/06/2022 Referred: 10/08/2016 Transplanted: 10/06/2022 Evaluation began: 7 Discharged: 10/10/2022 Committee: 05/10/2017 Center waitlisted: 7 Dialysis History Dialysis History Start End Type Comments Center 10/12/2022 10/12/2022 In-center Hemodialysis [facility] 08/14/2019 10/06/2022 Hemo [facility] Information Center Phone Fax Address [facility] [phone] [place] [id number] [facility] [phone] [address] [address]
--- OUTSIDE RECORDS SUMMARY | 2025-04-23 11:21 | XMS_ITS | Clinical Summary ---
Author Organization [facility] Address [address] [place] [id number] Care Team Providers Care Night Supervisor Name Role Phone Sanjay Allan MD Primary Care Provider [phone] Allergies Active Allergy Reactions Criticality Noted Date [...] Other (see comments) irritability Caused irritability. Medications aspirin (ASA) 81 MG chewable tablet Take 81 mg by mouth every evening Active busPIRone HCl (BUSPAR) 30 MG tablet Take 30 mg by mouth 2 times daily 9 Active cyanocobalamin (VITAMIN B-12) 1000 MCG tablet Take 1,000 mcg by mouth every morning 0 Active DULoxetine (CYMBALTA) 60 MG capsule Take 60 mg by mouth every morning 9 Active fluconazole (DIFLUCAN) 200 MG tablet TAKE TWO TABLETS BY MOUTH THREE TIMES A WEEK (ON DIALYSIS DAYS) AFTER THE HEMODIALYSIS SESSION 0 Active furosemide (LASIX) 20 MG tablet Take 40 mg by mouth every morning (2 X 20MG) 9 Active gabapentin (NEURONTIN) 100 MG capsule Take 100 mg by mouth At Bedtime 0 Active metoprolol succinate ER (TOPROL-XL) 50 MG 24 hr tablet Take 50 mg by mouth every evening 0 Active pantoprazole (PROTONIX) 40 MG EC tablet Take 40 mg by mouth every morning 0 Active B Guqsmdl-M-Fumnm Acid (RENAL-FLO) 0.8 MG TABS Take 1 tablet by mouth every morning 0 Active rosuvastatin (CRESTOR) 40 MG tablet Take 40 mg by mouth every evening 0 Active lidocaine-prilo evelyne (EMLA) 2.5-2.5 % external cream APPLY SMALL AMOUNT TO ACCESS SITE (AVF) 1 HOUR BEFORE DIALYSIS. COVER WITH OCCLUSIVE DRESSING (SARAN WRAP) 0 Active Biotin 10 MG CAPS Take 10 mg by mouth every evening Active coenzyme Q-10 200 MG CAPS Take 200 mg by mouth every evening Active losartan (COZAAR) 25 MG tablet Take 25 mg by mouth every evening Active Copper Gluconate (COPPER CAPS) 2 MG CAPS Take 2 mg by mouth every evening Active oxyCODONE (ROXICODONE) 5 MG tabletIndicatio ns:Pelvic mass Take 1 tablet (5 mg) by mouth every 6 hours as needed for moderate to severe pain 12 tablet 0 Active senna-docusate (SENOKOT-S/JACQUELINE COLACE) 8.6-50 MG tabletIndicatio ns:Pelvic mass Take 1-2 tablets by mouth 2 times daily as needed for constipation (While on oral opioids.) 30 tablet 0 Active Active Problems Problem Noted Date Diagnosed [...] School Help Needed Not on file 07/29 Comments Unknown Sex and Gender Information Value Date Recorded Sex Assigned at Not on file Legal Sex Female 3:31 AM STREETCAR REPAIRER HELPER Gender Identity Not on file Sexual Orientation Not on file Last Filed Vital Signs Vital Sign Reading Time Taken Comments Blood Pressure 145/75 10/06/2020 2:50 PM STREETCAR REPAIRER HELPER Pulse 81 10/06/2020 2:50 PM STREETCAR REPAIRER HELPER Temperature 36.9 C (98.4 F) 10/06/2020 12:45 PM STREETCAR REPAIRER HELPER Respiratory Rate 16 10/06/2020 2:50 PM STREETCAR REPAIRER HELPER Oxygen Saturation 95% 10/06/2020 2:50 PM STREETCAR REPAIRER HELPER Inhaled Oxygen Concentration - - Weight 58 kg (127 lb 12.8 oz) 10/06/2020 8:44 AM STREETCAR REPAIRER HELPER Height 160 cm (5' 3) 10/06/2020 8:44 AM STREETCAR REPAIRER HELPER Body Mass Index 22.64 10/06/2020 8:44 AM STREETCAR REPAIRER HELPER Plan of Treatment Not on file Insurance [facility] MEDICARE Care Teams Night Supervisor Relationship Specialty Start Date End Date Sanjay Allan MD [address] [place] [address] [facility] - General 04/26/20
--- OUTSIDE RECORDS SUMMARY | 2025-04-23 11:21 | XMS_ITS | Clinical Summary ---
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 For routine questions regarding patient records, call [phone] during business hours, M-F 8:00 AM - 5:00 PM Central Time. Record requests for emergency care only can be directed to [phone] at any time.[facility] Allergies Active Allergy Reactions Criticality Noted [...] (No instructions reported), Reported on 11/05/2024 multivitamin-min ssqso-OI-sxtsck (CENTRUM SILVER) 400-250 mcg per chewable tablet Chew 1 tablet daily. 11/14/19 24 Active Accu-Chek Guide test strips 1 test by other route 2 (two) times a day. 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 180 capsule 12:04 PM CDT 06/23/20 24 Active Additional Information Patient taking differently: 1.5 mgoral 2 times daily, Reported on 11/05/2024 carvediloL (Coreg) 12.5 mg tablet Take 1 tablet (12.5 mg total) by mouth 2 (two) times a day with meals. Take along with 6.25 mg tablet for total dose of 18.75 mg twice daily. 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 360 tablet 3 03/30/20 25 Active multivitamin tablet Take 1 tablet by mouth daily. 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 History of malignancies: no 16. [place] renal imaging if on dialysis >3 years: [...] Encounters Date Type Department Care Team Description 04/09/2025 Results Follow-Up [facility] Transplantation and Clinical Regeneration in [place], [place] [address] [place] [address] Jagruti Hernandes, R.N. BKV DNA Detect/Quant 04/07/2025 8:59 AM CDT - 04/07/2025 11:59 PM CDT Hospital Encounter Department of Laboratory Medicine in [address] [phone] Lavinia Nash M.D. Transplant Renal (HCC); Immunodeficiency Due To Drugs (HCC); Medication Therapy Correction Not Anticoagulant Discharge Disposition: Home or Self Care 03/31/2025 Refill [facility] Transplantation and Clinical Regeneration in [place], [place] [address] [place] [address] Rhonda Hampton P.A.-C., M.S. Med Refill 03/31/2025 Clinical Communication Division of Endocrinology in [address] [phone] Viktoriya Garza APRN, C.N.P. 03/31/2025 Refill [facility] Transplantation and Clinical Regeneration in [place], [place] [address] [place] [phone] Rhonda Hampton P.A.-C., M.S. Med Refill 03/17/2025 Clinical Communication [facility] Transplantation and Clinical Regeneration in [address] [phone] Helga Israel R.N., C.C.T.C. Labs Only; BK 03/11/2025 7:42 AM CDT - 03/11/2025 11:59 PM CDT Hospital Encounter Department of Laboratory Medicine in [address] [phone] Rhonda Hampton P.A.-C., M.S. Immunodeficiency Due To Drugs (HCC); Transplant Renal (HCC); Medication Therapy Online Facilitator Not Anticoagulant Discharge Disposition: Home or Self Care 03/11/2025 Results Follow-Up [facility] Transplantation and Clinical Regeneration in [place], [place] [address] [place] [phone] Charlette Barragan, R.N. CBC with Differential, Blood, Basic Metabolic Panel 01/29/2025 Refill [facility] Transplantation and Clinical Regeneration in [place], [place] [address] [place] [phone] Jonna Canas M.D. Med Refill from Last 3 Months Immunizations Immunization Administration Dates Next Due H1N1 [...] Flip Diabetes Brother Flip Clotting disorder Father 1 Kevil Coronary artery disease Father 1 Kevil in 1983 Hypertension Father 1 Owen Clotting disorder Father 2 Kevil Splettstoeszer Coronary artery disease Father 2 Kevil Splettst oeszer in 1984 Hypertension Father 2 Kevil Splettstoeszer Breast cancer Father's Sister 1 Kristina Schulz Colon cancer Father's Sister 2 [place] Depression Maternal Grandmother 1 Lola Osteoporosis Maternal Grandmother 1 Lola Depression Maternal Grandmother 2 Lola DePauw Osteoporosis Maternal Grandmother 2 Lola DePauw Arthritis Mother 1 Micehlle Coronary artery disease Mother 1 Michelle Hyperlipidemia Mother 1 Michelle Hypertension Mother 1 Michelle Transient ischemic attack Mother 1 Michelle Arthritis Mother 2 Michelle Zobel Coronary artery disease Mother 2 Michelle Zobel Hyperlipidemia Mother 2 Michelle Zobel Hypertension Mother 2 Michelle Zobel Transient ischemic attack Mother 2 Michelle Zobel Pancreatic cancer Mother's Sister Eileen Samaniego Kidney disease Paternal Grandfather Nikhil Splettstoesz er Coronary artery disease Paternal Grandmo ther 1 Lesia yrs ago after having a stroke Stroke Paternal Grandmother 1 Lesia Coronary artery disease Paternal Grandmo ther 2 Lesia Splettstoeszer yrs ago after having a stroke Stroke Paternal Grandmother 2 Lesia Splettstoeszer Relation Name Status Comments Brother Flip Father 1 Owen Father 2 Owen Splettstoeszer Alive Father's Sister 1 Kristina Schulz Alive Father's Sister 2 Jahaira [place] Alive Maternal Grandmother 1 Lola Maternal Grandmother 2 Lola DePauw Alive Mother 1 Michelle Mother 2 Michelle Zobel Alive Mother's Sister Eileen Samaniego Alive Paternal Grandfather Nikhil Splettstoeszer Alive Paternal Grandmother 1 Lesia Paternal Grandmother 2 Lesia Splettstoeszer Alive Social History Tobacco Use Types Packs/Day Years Used Date Smoking Tobacco: Former Cigarettes 1 20 1 - 08/06/1983 Smokeless Tobacco: Never Tobacco Cessation:Counseling Given: Not Answered Alcohol Use Standard Drinks/Week Comments Never 0 (1 standard drink = 0.6 oz pur e alcohol) [facility] Utilities Answer Date Recorded In the past 12 months has [facility] [employer], gas, oil, or water [employer] threatened to shut off services in your [...] your living situation today? I have a [facility] place to live 11/29/2023 Education Answer Date Recorded What is the highest level of school you have completed or the highest degree you have received? 12th grade 01/15/2020 Comments No Sex and Gender Information Value Date Recorded Sex Assigned at Female 08/15/2022 12:28 PM CDT Legal Sex Female 5:03 AM ASSET MANAGEMENT LEAD Gender Identity Female 04/24/2018 8:21 PM CDT Sexual Orientation Straight 04/24/2018 8: 21 PM CDT Last Filed Vital Signs Vital Sign Reading Time Taken Comments Blood Pressure 165/86 11/17/2024 5:[address] Godoy ordered ok for d/c d/t pt plans to take shefali Coreg dose at 2000 tonight. Pt reports baseline SBP 150s. Pulse 98 11/17/2024 5:05 PM ASSET MANAGEMENT LEAD Temperature 36.4 C (97.5 F) 11/17/2024 9:52 AM ASSET MANAGEMENT LEAD Respiratory Rate 18 05/28/2024 8:29 AM CDT Oxygen Saturation 99% 11/17/2024 5:0 5 PM ASSET MANAGEMENT LEAD Inhaled Oxygen Concentration - - Weight 51.8 kg (114 lb 3.2 oz) 11/17/2024 3:48 PM ASSET MANAGEMENT LEAD Height 158.3 cm (5' 2.32) 11/17/2024 3 :48 PM ASSET MANAGEMENT LEAD Body Mass Index 20.67 11/17/2024 3:48 PM ASSET MANAGEMENT LEAD Plan of Treatment Upcoming Encounters Date Type Department Care Team (Late st Contact Info) Description 05/05/2025 9:00 AM CDT Appointment Department of Laboratory Medicine in [address] [phone] Lavinia Nash M.D. [address] [place] [phone] 06/02/2025 11:40 AM CDT Appointment Department of Laboratory Medicine in [address] [phone] Lavinia Nash M.D. [address] [place] [phone] 06/02/2025 12:30 PM CDT Infusion Department of Infusion Therapy in [address] [phone] Viktoriya Garza APRN, C.N.P. [address] [place] [phone] 06/11/2025 7:50 AM CDT Appointment Department of Laboratory Medicine in [address] [phone] Rhonda Hampton P.A.-Louisa., M.S. [address] [place] [phone] 06/30/2025 9:00 AM CDT Appointment Department of Laboratory Medicine in [address] [phone] Lavinia Nash M.D. [address] [place] [phone] 07/28/2025 9:00 AM CDT Appointment Department of Laboratory Medicine in [address] [phone] Lavinia Nash M.D. [address] [place] [phone] Health Maintenance Due Date Last Done Comments Diabetic Office Visit with Foot Exam 1945 Hepatitis A Vaccines (4 of 4 - Hep A Twinrix risk 4-dose series) 09/14/2017 02/15/2017, 11/16/2016, 09/14/2016 Urine Albumin 07/09/2019 07/09/2018 DTaP,Tdap,and Td Vaccines (2 - Td or Tdap) 07/28/2024 07/28/2014, 12/26/2005 Depression Screening (Annual PHQ-2) 10/28/2024 Dilated Eye Exam 03/10/2025 03/10/2024 Hemoglobin A1C 05/10/2025 11/10/2024, 06/29, 05/22/2024, Additional history exists Office Visit for Blood Pressure Check / Re-check 11/17/2025 11/17/2024 Creatinine Level (Kidney Function Test) 03/11/2026 03/11/2025, 02/13/2025, 02/12/2025, Additional history exists Zoster Vaccines Completed 09/26/2018, 10/2017, 07/21/2010 Colonoscopy Discontinued 04/04/2020, 07/28 (Performed elsewhere) Colonoscopy Discontinued 04/04/2020, 07/28 (Performed elsewhere) Colorectal Cancer Screening Discontinued Colorectal Cancer Surveillance Discontinued Pneumococcal vaccine (50+ years) Completed 08/12/2020, 08/02/2015, 08/26/2009 Hepatitis B Screening Discontinued 02/21/2021 , 07/14/2020, 11/18/2019, Additional history exists RSV vaccine - (32-36 weeks) or 60+ years Completed 09/16/2023 Influenza Vaccine Completed 07/21/2024, , 08/03/2022, Additional history exists Bone Density Scan (Osteoporosis Screen) Discontinued 11/10/2024 Fall Risk Screen (Annual) Completed 11/17/2024 Mammogram Discontinued 12/01/2024, 02/0 01/2025, 10/02/2023, Additional history exists COVID-19 Vaccine Completed 02/22/2025, , 08/30/2023, Additional history exists CT Colonography Discontinued CT Colonography Discontinued Cologuard Discontinued FIT Discontinued HPV Vaccines Aged Out No longer eligi ble based on patient's age to complete this topic IPV Vaccines Aged Out No longer eligi ble based on patient's age to complete this topic Medical Devices Implanted Type Area Dope House Operator Helper Device Identifier Shelf Expiration Date Model / Serial / Lot Hardware Ankle Implant Right: Ankle Conversions - Default Historical Implant Device Implanted:11/29 (Quantity not on file) Hardware e.g. pins/screws /rods Other/Legacy - See Implant Description Description:Body Location - Spine. lower back. Device Status Text - Hardware. Stent Other- 0 Implanted:10/29 (Quantity not on file) Stent Other Heart Explanted Type Area Dope House Operator Helper Device Identifier Shelf Expiration Date Model / Serial / Lot Stnt Uret Cls Tp Dbl [id number] - S - [id number] Implanted:Qty : 1 on 10/06/2022 by Praveen Dela Cruz M.D., Ph.D. at [facility] Explanted:Qty : 1 on 10/23/2022 by Chuck Stinson, P.A.-C. 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) Medication Therapy Online Facilitator Not Anticoagulant CBC WITH DIFFERENTIAL, B Routine 03/11/2025 7:54 AM CDT 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 Pathologist [facility] BKV DNA Detect/Quant, P 384(A) Undetected IU/mL 04/08/2025 2:35 PM CDT [facility] Comment: Result in log IU/mL is 2.58. ----ADDITIONAL INFORMATION---- The quantification range of this assay is 22 to 100,000,000 IU/mL (1.34 log to 8.00 log IU/mL). Testing was performed using the rianna BKV test ([employer] Blood (Blood, Venous) 04/07/2025 9:05 AM CDT 04/08/2025 7:33 AM CDT us Lavinia Nash M.D. LAB MICROBIOLOGY - BLOOD ORDERAB LES Final Result [facility] [address] [place] [address] [facility] [address] [place] [address] [place] [address] * [facility] NMS Testing (03/15/2025 8:23 AM CDT) Test Name Oxalate, Plasma 03/23/2025 9:03 AM CDT [facility] Comment:REVISED RESULTS Result See Below 03/23/2025 10:09 AM CDT [facility] Comment: Reporting Analysis and Comments Result [...] developed and its performance characteristics determined by [facility] Labs. It has not been cleared or approved by the [place] Food and Drug Administration. This test is not approved by [facility]. 03/15/2025 8:23 AM CDT 03/15/2025 8:23 AM CDT us Rhonda Hampton P.A.-C., M.S. LAB [facility] ORDERA BLES Final Result Performing Organization Address City/[facility]/ZIP Co de Phone Number [facility] [address] [place] [phone], [facility] [address] [place] [phone] * Tacrolimus, Trough (03/11/2025 7:54 AM CDT) Tacrolimus, Trough 6.6 5.0-15.0 (Trough) ng/mL 03/12/2025 10:40 AM CDT [facility] Comment: ----ADDITIONAL INFORMATION---- Target steady-state trough concentrations vary depending on the type of transplant, concomitant immunosuppression, clinical/institutional protocols, and time post-transplant. Results should be interpreted in conjunction with this clinical information and any physical signs/symptoms of rejection/toxicity. Testing performed by Liquid Chromatography-Tandem Mass Spectrometry (LC-MS/MS). This test was developed and its performance characteristics determined by [facility] in a manner consistent with CLIA requirements. This test has not been cleared or approved by the U.S. Food and Drug Administration. Blood (Blood, Venous) 03/11/2025 7:54 AM CDT 03/12/2025 7:08 AM CDT us Rhonda Hampton P.A.-C., M.S. LAB BLOOD NON A DD-ON Final Result Performing Organization Address City/State/[facility] Co de Phone Number [facility] [address] [place] [address] [facility] [address] [place] [address] [place] [address] * CBC with Differential, Blood (03/11/2025 7:54 AM CDT) [facility] Hemoglobin 13.2 11.6 - 15.0 g/dL 03/11/2025 [...] CDT 03/11/2025 7:58 AM CDT Rhonda Hampton P.A.-C., M.S. LAB BLOOD ADD-O N Final Result [facility] [address] [place] [address], [facility] [place] [address] * (ABNORMAL) Basic Metabolic Panel (03/11/2025 7:54 AM CDT) Potassium, P 3.1(L) 3.6 - 5.2 mmol/L [...] CDT 03/11/2025 7:58 AM CDT Rhonda Hampton P.A.-C., M.S. LAB BLOOD ADD-O N Final Result Performing Organization Address [facility]/ZIP Co de Phone Number [address] [address], [place] CNFL [facility] in [address] [address] * (ABNORMAL) Hemoglobin A1c (11/10/2024 7:19 AM ASSET MANAGEMENT LEAD) Hemoglobin A1c, B 7.3(H) 4.0 - 5.6 % 11/10/2024 8:12 AM ASSET MANAGEMENT LEAD [facility] Comment: Hemoglobin A1c values greater than or equal to 6.5 percent are diagnostic for diabetes mellitus. Diagnosis should be confirmed by repeat testing. In diabetic patients, HbA1c goals should be discussed with healthcare provider. Blood (Blood, Venous) 11/10/2024 7:19 AM ASSET MANAGEMENT LEAD 11/10/2024 7:45 AM ASSET MANAGEMENT LEAD Rhonda Hampton P.A.-C., M.S. LAB BLOOD ADD-O N Final Result [facility] [address] [place] [address], [place] DTL [facility] [address] [place] [address] * Eyes Spectralis OCT-Ophthalmology Image Exam (03/10/2024 12:00 AM CDT) Narrative [facility] - 03/10/2024 9:57 AM CDT This order has been created and auto-finalized to support the import of images acquired without order. The clinical documentation to support these images can be found on the encounter that produced images. Provider Not In System IMG NON RAD IMAGING PROCE DURES Final Result Performing Organization Address [facility] Co de Phone Number IIOR NA * Hepatitis B Surface Antigen (02/21/2021 7:14 AM CDT) HBs Antigen, S Negative Negative 02/21/2021 10:48 AM CDT [facility] Blood (Blood, Venous) 02/21/2021 7:14 AM CDT 02/21/2021 9:51 AM CDT Lavinia Nash M.D. LAB MICROBIOLOGY - BLOOD ORDERAB LES Final Result Performing Organization Address [facility] Co de Phone Number [facility] [address] [place] [address] [facility] Dept. of Laboratory Medicine and Pathology [address] [place] [address] * XR MAMMO BEBO BILAT SCREEN-Outside Mammogram (08/24/2020 11:05 AM CDT) Narrative [facility] - 02/24/2021 6:13 PM CDT This order has been created and auto-finalized to support the import of outside images. If available, original interpretation can be found on the Media Tab in Chart Review, in Document Viewer, or as an image in QREADS. If a re-interpretation or overread is required please follow defined workflow. Provider Not In System IM BI PROCEDURES Final R esult Performing Organization Address [facility] Co de Phone Number IIMS NA * (ABNORMAL) Microalbumin, Random, Urine (07/09/2018 10:48 AM CDT) Microalbumin 1550.7 mg/L 07/09/2018 11:39 AM CDT [facility] Comment: ----ADDITIONAL INFORMATION---- This test has been modified from the senior automation engineer's instructions. Its performance characteristics were determined by [facility] in a manner consistent with CLIA requirements. This test has not been cleared or approved by the U.S. Food and Drug Administration. Creatinine 77 mg/dL 07/09/2018 11:26 AM CDT [facility] Albumin/Creatinine Ratio 2014(H) <25 mg/g 07/09/2018 11:39 AM CDT [facility] Urine (Urine, Voided) 07/09/2018 10:48 AM CDT 07/09/2018 11:39 AM CDT us Peter Hennessy Jr., D.O. 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
[2025-04-23 11:22] LABS: Chloride* 104 mmol/L (96-114); Potassium* 3.8 mmol/L (3.6-5.1); Sodium* 140 mmol/L (135-149)
[2025-04-23 11:25] LABS: Anion Gap 9 mEq/L (7-15); Blood Urea Nitrogen* 19 mg/dL (7-30); Calcium* 8.5 mg/dL (8.4-10.6); Carbon Dioxide* 27 mmol/L (20-32); Creatinine* 0.7 mg/dL (0.5-1.5); Est. Creatinine Clearance* 38.97; Estimated Glomerular Filt Rate 89 ml/min; Glucose* 87 mg/dL (60-115)
[2025-04-23 11:26] LABS: Magnesium* 1.4 mg/dL (1.5-2.6)
[2025-04-23 11:41] LABS: Troponin I* < 0.01 ng/mL (0.01-0.04)
[2025-04-23] MEDS: MAGNESIUM SULF 1 G/100 ML 1 GM/100 ML PIGGYBACK IVPB (12:12)
== END 2025-04-23 13:41 | disposition home or self-care (01) ==
PROVIDERS: Emergency Provider Family Medicine; PCP Surgery
DX: I49.9 Cardiac arrhythmia, unspecified (principal); E83.42 Hypomagnesemia; E05.90 Thyrotoxicosis, unspecified without thyrotoxic crisis or storm
CPT/HCPCS: 36415; 80048; 83735; 84439; 84443; 84484; 85025; 93005; 93246; 94761; 96374; 99284; J3475

== ENCOUNTER 2025-06-11 12:30 | Outpatient (RCR) | payer MEDICARE, BC, SELFPAY | END 2025-10-09 23:59 | disposition home or self-care (01) | PROVIDERS: Visit Provider Physician Assistant | DX: M48.062 Spinal stenosis, lumbar region with neurogenic claudication (principal); Z51.89 Encounter for other specified aftercare | CPT/HCPCS: 97110; 97140; 97162 ==

== ENCOUNTER 2025-06-15 07:52 | Outpatient (CLI) | payer MEDICARE, BC, SELFPAY | END 2025-06-15 07:53 | disposition home or self-care (01) | LOC: INJ CL 07:54 | PROVIDERS: PCP Surgery; Visit Provider Family Medicine | DX: M54.16 Radiculopathy, lumbar region (principal); M51.369 Other intervertebral disc degeneration, lumbar region without mention of lumbar back pain or lower extremity pain | CPT/HCPCS: 64483; J1100; Q9966 ==